=== PATIENT | female | born 1940 | race Caucasian/White ===

== ENCOUNTER → 2017-11-29 11:06 | Outpatient (CLI) | payer MEDICARE, OTHER, SELFPAY ==
[2017-09-21 22:43] VITALS: BP 111/52
[2017-11-29 12:16] LABS: Absolute Lymphocyte Count 1.13 X10^3/ul (0.83-4.51); Absolute Neutrophil Count 4.4 X10^3/uL (2.0-7.7); Basophil# 0.01 X10^3/uL; Basophil% 0.2 % (0-1); Eosinophil# 0.07 X10^3/uL; Eosinophils% 1.2 % (0-5); Hematocrit 38.4 % (37-47); Hemoglobin 12.1 g/dl (12.0-15.0); Lymphocyte # 1.13 X10^3/ul (4.0); Lymphocyte % 18.8 % (19-41); Mean Corp Hgb Conc 31.5 g/gl (32-36); Mean Corpuscular Hgb 28.3 pg (27.0-32.0); Mean Corpuscular Volume 89.7 fL (81-99); Monocyte# 0.38 X10^3/uL; Monocyte% 6.3 % (0-10); Neutrophil % 73.3 % (47-70); Platelet Count 172 K/mm3 (150-450); RBC Distribution Width CV 14.2 % (11.6-14.6); RBC Distribution Width SD 45.4 fl (35.1-43.9); Red Blood Count 4.28 M/mm3 (4.2-5.4)
[2017-11-29 12:18] LABS: POSITIVE COUNT NO; POSITIVE DIFFERENTIAL NO; POSITIVE MORPHOLOGY NO
[2017-11-29 12:21] LABS: ALB/GLOB Ratio 0.9 RATIO (0.9-2.4); AST(SGOT) 24 U/L (15-37); Alanine Aminotransfer ALT/SGPT 22 U/L (13-56); Albumin, Serum 3.5 g/dL (3.2-5.0); Alkaline Phosphatase 46 U/L (45-117); Anion Gap 10 (5-15); BUN 28 mg/dL (7-18); BUN/Creat Ratio 18.9 RATIO (10-20); Calcium,Total 10.8 mg/dL (8.5-10.1); Chloride 102 mmol/L (98-107); Creatinine, Serum 1.48 mg/dL (0.55-1.02); EST Glomerular Filtration Rate 37 mL/min (>60); Est Glom Filt Rate - Afr Amer 44 mL/min (>60); Glucose 149 mg/dL (74-106); Potassium 4.1 mmol/L (3.5-5.1); Protein, Total 7.5 g/dL (6.4-8.2); Sodium Level 141 mmol/L (136-145); Thyroid Stim Hormone (TSH) 0.01 uIU/mL (0.358-3.74)
[2017-11-29 12:22] LABS: Vitamin D,25 Hydroxy 23.1 ng/mL (19.95-100.01)
== END ==
PROVIDERS: Family Provider Family Medicine Geriatric Medicine; PCP Family Medicine Geriatric Medicine; Visit Provider Family Medicine Geriatric Medicine
DX: E11.9 Type 2 diabetes mellitus without complications (principal); I10 Essential (primary) hypertension; E55.9 Vitamin D deficiency, unspecified
CPT/HCPCS: 36415; 80053; 82306; 84443; 85025

== ENCOUNTER → 2018-01-12 08:59 | Outpatient (CLI) | payer MEDICARE, OTHER, SELFPAY ==
[2018-01-12 11:34] LABS: Thyroid Stim Hormone (TSH) < 0.01 uIU/mL (0.358-3.74)
== END ==
PROVIDERS: Family Provider Family Medicine Geriatric Medicine; PCP Family Medicine Geriatric Medicine; Visit Provider Family Medicine Geriatric Medicine
DX: E05.90 Thyrotoxicosis, unspecified without thyrotoxic crisis or storm (principal)
CPT/HCPCS: 36415; 84443

== ENCOUNTER → 2018-03-08 12:07 | Outpatient (CLI) | payer MEDICARE, OTHER, SELFPAY ==
[2018-03-08 15:48] LABS: Absolute Lymphocyte Count 1.95 X10^3/ul (0.83-4.51); Absolute Neutrophil Count 4.1 X10^3/uL (2.0-7.7); Basophil# 0.01 X10^3/uL; Basophil% 0.1 % (0-1); Eosinophils% 1.5 % (0-5); Hemoglobin 11.5 g/dl (12.0-15.0); Lymphocyte # 1.95 X10^3/ul (4.0); Lymphocyte % 28.4 % (19-41); Mean Corp Hgb Conc 31.9 g/gl (32-36); Mean Corpuscular Hgb 29.1 pg (27.0-32.0); Mean Corpuscular Volume 91.1 fL (81-99); Mean Platelet Vol. 10.6 fl (6.2-12.0); Monocyte# 0.64 X10^3/uL; Monocyte% 9.3 % (0-10); Neutrophil # 4.14 X10^3/uL (2.7-7.7); Neutrophil % 60.4 % (47-70); Platelet Count 186 K/mm3 (150-450); RBC Distribution Width CV 13.6 % (11.6-14.6); RBC Distribution Width SD 44.8 fl (35.1-43.9); Red Blood Count 3.95 M/mm3 (4.2-5.4); White Blood Count 6.9 K/mm3 (4.4-11.0)
[2018-03-08 15:58] LABS: POSITIVE COUNT NO; POSITIVE DIFFERENTIAL NO; POSITIVE MORPHOLOGY NO
[2018-03-08 16:30] LABS: Anion Gap 5 (5-15); BUN 13 mg/dL (7-18); BUN/Creat Ratio 12.6 RATIO (10-20); Calcium,Total 11.3 mg/dL (8.5-10.1); Chloride 109 mmol/L (98-107); Creatinine, Serum 1.03 mg/dL (0.55-1.02); EST Glomerular Filtration Rate 55 mL/min (>60); Est Glom Filt Rate - Afr Amer 67 mL/min (>60); Glucose 37 mg/dL (74-106); Potassium 3.7 mmol/L (3.5-5.1); Sodium Level 143 mmol/L (136-145); T4 Total, Thyroxin 11.8 ug/dL (4.8-13.9); Thyroid Stim Hormone (TSH) < 0.01 uIU/mL (0.358-3.74)
== END ==
PROVIDERS: Family Provider Family Medicine Geriatric Medicine; PCP Family Medicine Geriatric Medicine; Visit Provider Physician Assistant Medical
DX: E78.5 Hyperlipidemia, unspecified (principal); I10 Essential (primary) hypertension; I34.1 Nonrheumatic mitral (valve) prolapse; R53.83 Other fatigue
CPT/HCPCS: 80048; 84436; 84443; 85025

== ENCOUNTER → 2018-04-05 07:52 | Outpatient (CLI) | payer MEDICARE, OTHER, SELFPAY ==
[2018-04-05 09:05] LABS: Hemoglobin A1c 6.7 % (4.2-6.3)
[2018-04-05 09:30] LABS: ALB/GLOB Ratio 0.9 RATIO (0.9-2.4); AST(SGOT) 19 U/L (15-37); Alanine Aminotransfer ALT/SGPT 10 U/L (13-56); Albumin, Serum 3.4 g/dL (3.2-5.0); Alkaline Phosphatase 43 U/L (45-117); Anion Gap 7 (5-15); BUN 16 mg/dL (7-18); BUN/Creat Ratio 14.2 RATIO (10-20); Calcium,Total 12.1 mg/dL (8.5-10.1); Chloride 101 mmol/L (98-107); Cholesterol 136 mg/dL (200); Creatinine, Serum 1.13 mg/dL (0.55-1.02); EST Glomerular Filtration Rate 50 mL/min (>60); Est Glom Filt Rate - Afr Amer 60 mL/min (>60); Globulin 3.6 g/dL (2.2-4.2); Glucose 157 mg/dL (74-106); High Density Lipoprotein 56 mg/dL; Phosphorus 2.6 mg/dL (2.5-4.9); Sodium Level 141 mmol/L (136-145); T4 Free Direct 1.39 ng/dL (0.76-1.46); Triglycerides 99 mg/dL; Very Low Density Lipoprotein 20 mg/dL (5-40)
[2018-04-05 09:32] LABS: Thyroid Stim Hormone (TSH) < 0.01 uIU/mL (0.358-3.74)
[2018-04-06 08:18] LABS: PTHIN 107.8 pg/mL (18.4-80.1)
== END ==
PROVIDERS: Internal Medicine Endocrinology, Diabetes & Metabolism; Family Provider Family Medicine Geriatric Medicine; PCP Family Medicine Geriatric Medicine; Visit Provider Family Medicine Geriatric Medicine
DX: E03.9 Hypothyroidism, unspecified (principal); E05.90 Thyrotoxicosis, unspecified without thyrotoxic crisis or storm; E11.9 Type 2 diabetes mellitus without complications
CPT/HCPCS: 36415; 80053; 80061; 82330; 83036; 83970; 84100; 84439; 84443; 84481

== ENCOUNTER → 2018-04-19 10:51 | Outpatient (CLI) | payer MEDICARE, OTHER, SELFPAY ==
--- NOTE | 2018-04-19 10:53 | US_ITS ---
STUDY: THYROID ULTRASOUND REASON FOR EXAM: Female, 77 years old. Thyrotoxicosis TECHNIQUE: Ultrasound evaluation of the thyroid was performed with real-time and static rasmussen-scale imaging. COMPARISON: Prior thyroid ultrasound of 01/02/2017 FINDINGS: RIGHT LOBE: The right lobe of the thyroid gland measures 6.0 x 2.0 x 3.0 cm. There is a heterogeneous echotexture. There is a 2.3 x 1.8 x 1.7 cm solid isoechoic nodule with internodular vascularity. There is a 0.6 x 0.7 x 0.4 cm cystic nodule. There is a 0.6 x 0.8 x 0.4 complex nodule. LEFT LOBE: The left lobe of the thyroid gland measures 6.3 x 2.7 x 3.0 cm cm. There is a heterogeneous echotexture. There is a 2.0 x 2.1 x 0.8 upper pole solid isoechoic nodule. ISTHMUS: The isthmus measures 1.0 centimeter. US/Thyroid IMPRESSION: Stable appearance of the thyroid which is generally enlarged and heterogeneous. Multiple nodules as described above do not appear to be substantially changed on [id number] comparison. Electronically Signed: Aracely Ken MD at 17:12 EDT , Service support ,
== END ==
PROVIDERS: Family Provider Family Medicine Geriatric Medicine; PCP Family Medicine Geriatric Medicine; Visit Provider Internal Medicine Endocrinology, Diabetes & Metabolism
DX: E05.90 Thyrotoxicosis, unspecified without thyrotoxic crisis or storm (principal)
CPT/HCPCS: 76536

== ENCOUNTER → 2018-05-17 09:42 | Outpatient (CLI) | payer MEDICARE, OTHER, SELFPAY ==
[2018-05-17 12:54] LABS: T3 Uptake 37 % (30-39); T4 Free Direct 0.95 ng/dL (0.76-1.46); Thyroid Stim Hormone (TSH) 0.03 uIU/mL (0.358-3.74)
== END ==
PROVIDERS: Family Provider Family Medicine Geriatric Medicine; PCP Family Medicine Geriatric Medicine; Visit Provider Family Medicine Geriatric Medicine
DX: E05.90 Thyrotoxicosis, unspecified without thyrotoxic crisis or storm (principal)
CPT/HCPCS: 36415; 84439; 84443; 84479

== ENCOUNTER → 2018-05-21 08:01 | Outpatient (CLI) | payer MEDICARE, OTHER, SELFPAY ==
[2018-05-21 10:01] LABS: Free T3 2.4 pg/mL (2.18-3.98); T4 Free Direct 0.91 ng/dL (0.76-1.46); Thyroid Stim Hormone (TSH) 0.04 uIU/mL (0.358-3.74)
== END ==
PROVIDERS: Family Provider Family Medicine Geriatric Medicine; PCP Family Medicine Geriatric Medicine; Visit Provider Internal Medicine Endocrinology, Diabetes & Metabolism
DX: E05.90 Thyrotoxicosis, unspecified without thyrotoxic crisis or storm (principal); E21.3 Hyperparathyroidism, unspecified
CPT/HCPCS: 36415; 84439; 84443; 84481

== ENCOUNTER → 2018-05-31 09:56 | Outpatient (CLI) | payer MEDICARE, OTHER, SELFPAY ==
[2018-05-31 12:50] LABS: Absolute Lymphocyte Count 1.31 X10^3/ul (0.83-4.51); Absolute Neutrophil Count 4.1 X10^3/uL (2.0-7.7); Basophil# 0.01 X10^3/uL; Basophil% 0.2 % (0-1); Eosinophil# 0.04 X10^3/uL; Eosinophils% 0.7 % (0-5); Hematocrit 40.5 % (37-47); Hemoglobin 13.1 g/dl (12.0-15.0); Lymphocyte # 1.31 X10^3/ul (4.0); Lymphocyte % 21.7 % (19-41); Mean Corp Hgb Conc 32.3 g/gl (32-36); Mean Corpuscular Hgb 29.3 pg (27.0-32.0); Mean Corpuscular Volume 90.6 fL (81-99); Mean Platelet Vol. 10.6 fl (6.2-12.0); Monocyte# 0.54 X10^3/uL; Monocyte% 8.9 % (0-10); Neutrophil # 4.14 X10^3/uL (2.7-7.7); Neutrophil % 68.3 % (47-70); Platelet Count 198 K/mm3 (150-450); RBC Distribution Width CV 13.6 % (11.6-14.6); RBC Distribution Width SD 44.8 fl (35.1-43.9); Red Blood Count 4.47 M/mm3 (4.2-5.4); White Blood Count 6.1 K/mm3 (4.4-11.0)
[2018-05-31 12:54] LABS: POSITIVE COUNT NO; POSITIVE DIFFERENTIAL NO; POSITIVE MORPHOLOGY NO
[2018-05-31 13:18] LABS: AST(SGOT) 21 U/L (15-37); Alanine Aminotransfer ALT/SGPT 14 U/L (13-56); Albumin, Serum 3.8 g/dL (3.2-5.0); Alkaline Phosphatase 43 U/L (45-117); Anion Gap 9 (5-15); BUN 12 mg/dL (7-18); BUN/Creat Ratio 11.1 RATIO (10-20); Calcium,Total 11.5 mg/dL (8.5-10.1); Chloride 100 mmol/L (98-107); Creatinine, Serum 1.08 mg/dL (0.55-1.02); EST Glomerular Filtration Rate 52 mL/min (>60); Est Glom Filt Rate - Afr Amer 63 mL/min (>60); Globulin 3.8 g/dL (2.2-4.2); Glucose 207 mg/dL (74-106); Potassium 4.2 mmol/L (3.5-5.1); Protein, Total 7.6 g/dL (6.4-8.2); Sodium Level 139 mmol/L (136-145); Thyroid Stim Hormone (TSH) 0.05 uIU/mL (0.358-3.74)
[2018-06-01 08:52] LABS: Vitamin D,25 Hydroxy 36.1 ng/mL (29.95-100.01)
== END ==
PROVIDERS: Family Provider Family Medicine Geriatric Medicine; PCP Family Medicine Geriatric Medicine; Visit Provider Family Medicine Geriatric Medicine
DX: E11.9 Type 2 diabetes mellitus without complications (principal); I10 Essential (primary) hypertension; E55.9 Vitamin D deficiency, unspecified
CPT/HCPCS: 36415; 80053; 82306; 84443; 85025

== ENCOUNTER → 2018-06-28 13:37 | Outpatient (CLI) | payer MEDICARE, OTHER, SELFPAY | PROVIDERS: Family Provider Family Medicine Geriatric Medicine; PCP Family Medicine Geriatric Medicine; Visit Provider Internal Medicine Cardiovascular Disease | DX: R06.02 Shortness of breath (principal) | CPT/HCPCS: 93306 ==

== ENCOUNTER → 2018-06-29 06:51 | Outpatient (CLI) | payer MEDICARE, OTHER, SELFPAY ==
--- NOTE | 2018-06-29 09:56 | STRESSREP ---
Stress Test Report Date: 06/29/2018 Procedure: Pharmacologic stress nuclear imaging study Indications: Shortness of breath/dyspnea; preoperative cardiovascular evaluation Consent: Per the patient Procedure: The patient underwent pharmacologic (Regadenoson) evaluation with a peak heart rate of 80 beats per minute (55 predicted maximal heart rate) and a peak blood pressure of 140/70 mmHg. The baseline ECG demonstrated sinus bradycardia. The peak pharmacologic ECG demonstrated no obvious ECG changes. There were no cardiac dysrhythmias pretest, during pharmacologic infusion, or recovery. There was no complaint of chest discomfort during pharmacologic infusion or recovery. The examination was discontinued secondary to completion of protocol. Impression: 1. Pharmacologic (Regadenoson) evaluation 2. Peak pharmacologic ECG with no obvious ECG changes. 3. There were no cardiac dysrhythmias pretest, during pharmacologic infusion, or recovery 4. Nuclear images pending Myocardial perfusion imaging study: Technique: The patient was injected with 9.9 millicuries of technetium 99m Cardiolite and subsequently rest SPECT Cardiolite nuclear imaging was obtained in the horizontal long, vertical long, and short axis views. The patient underwent pharmacologic (Regadenoson) evaluation with a peak heart rate of 80 beats per minute (55 % percent predicted maximal heart rate) and a peak blood pressure of 140/70 mmHg. The patient was injected with 31.7 millicuries of technetium 99m Cardiolite and subsequently stress SPECT Cardiolite nuclear imaging was obtained in the horizontal long, vertical long, and short axis views. A gated Cardiolite study at peak stress was obtained. Interpretation: Rest and stress SPECT Cardiolite nuclear imaging status post realignment, normalization, and attenuation correction demonstrate relative uniform tracer uptake and myocardial perfusion appearing within normal limits. There is end systolic thickening and brightening. The gated Cardiolite study demonstrates myocardial thickening and inward wall motion. The reported LVEF is 85 %. Impression: 1. Rest and stress SPECT Cardiolite nuclear imaging demonstrate relative uniform tracer uptake and myocardial perfusion appearing within normal limits. 2. The gated Cardiolite study reports an LVEF of 85 %. This note was generated with [employer]ation software. It may contain incorrect words, spelling, and punctuation that were not noted in checking the note before signing.
== END ==
PROVIDERS: Family Provider Family Medicine Geriatric Medicine; PCP Family Medicine Geriatric Medicine; Visit Provider Internal Medicine Cardiovascular Disease
DX: Z01.810 Encounter for preprocedural cardiovascular examination (principal); R06.02 Shortness of breath; I34.1 Nonrheumatic mitral (valve) prolapse; I10 Essential (primary) hypertension
CPT/HCPCS: 78452; 93017; A9500; A4216; J2785

== ENCOUNTER → 2018-07-17 07:53 | Outpatient (CLI) | payer MEDICARE, OTHER, SELFPAY ==
[2018-07-17 09:05] LABS: PTHIN 41.9 pg/mL (18.4-80.1)
[2018-07-17 09:16] LABS: ALB/GLOB Ratio 0.9 RATIO (0.9-2.4); AST(SGOT) 10 U/L (15-37); Alanine Aminotransfer ALT/SGPT 13 U/L (13-56); Albumin, Serum 3.3 g/dL (3.2-5.0); Alkaline Phosphatase 45 U/L (45-117); Anion Gap 8 (5-15); BUN 15 mg/dL (7-18); BUN/Creat Ratio 12.7 RATIO (10-20); Calcium,Total 9.1 mg/dL (8.5-10.1); Chloride 97 mmol/L (98-107); Creatinine, Serum 1.18 mg/dL (0.55-1.02); EST Glomerular Filtration Rate 47 mL/min (>60); Est Glom Filt Rate - Afr Amer 57 mL/min (>60); Free T3 2.1 pg/mL (2.18-3.98); Globulin 3.6 g/dL (2.2-4.2); Glucose 321 mg/dL (74-106); Potassium 3.9 mmol/L (3.5-5.1); Protein, Total 6.9 g/dL (6.4-8.2); Sodium Level 137 mmol/L (136-145); T4 Free Direct 0.85 ng/dL (0.76-1.46); Thyroid Stim Hormone (TSH) 1.37 uIU/mL (0.358-3.74)
== END ==
PROVIDERS: Family Provider Family Medicine Geriatric Medicine; PCP Family Medicine Geriatric Medicine; Referring Provider Internal Medicine Endocrinology, Diabetes & Metabolism; Visit Provider Internal Medicine Endocrinology, Diabetes & Metabolism
DX: E05.90 Thyrotoxicosis, unspecified without thyrotoxic crisis or storm (principal); E21.3 Hyperparathyroidism, unspecified
CPT/HCPCS: 36415; 80053; 82330; 83970; 84439; 84443; 84481

== ENCOUNTER → 2018-07-25 10:42 | Outpatient (CLI) | payer MEDICARE, OTHER, SELFPAY ==
[2018-07-25 12:19] LABS: PTHIN 111.9 pg/mL (18.4-80.1)
[2018-07-25 12:23] LABS: Anion Gap 6 (5-15); BUN 9 mg/dL (7-18); BUN/Creat Ratio 8.4 RATIO (10-20); Calcium,Total 8.4 mg/dL (8.5-10.1); Chloride 98 mmol/L (98-107); Creatinine, Serum 1.07 mg/dL (0.55-1.02); EST Glomerular Filtration Rate 53 mL/min (>60); Est Glom Filt Rate - Afr Amer 64 mL/min (>60); Glucose 283 mg/dL (74-106); Magnesium 1.7 mg/dL (1.6-2.6); Potassium 3.4 mmol/L (3.5-5.1); Sodium Level 137 mmol/L (136-145); T4 Free Direct 0.68 ng/dL (0.76-1.46); Thyroid Stim Hormone (TSH) 3.43 uIU/mL (0.358-3.74)
[2018-07-27 10:14] LABS: C-Peptide 2.4 ng/mL (1.1-4.4)
== END ==
PROVIDERS: Family Provider Family Medicine Geriatric Medicine; PCP Family Medicine Geriatric Medicine; Referring Provider Internal Medicine Endocrinology, Diabetes & Metabolism; Visit Provider Internal Medicine Endocrinology, Diabetes & Metabolism
DX: E21.3 Hyperparathyroidism, unspecified (principal); E11.65 Type 2 diabetes mellitus with hyperglycemia
CPT/HCPCS: 36415; 80048; 83735; 83970; 84439; 84443; 84681

== ENCOUNTER → 2018-09-25 12:56 | Outpatient (CLI) | payer MEDICARE, OTHER, SELFPAY ==
[2018-09-25 14:14] LABS: Vitamin D,25 Hydroxy 35.6 ng/mL (29.95-100.01)
[2018-09-25 14:16] LABS: Anion Gap 9 (5-15); BUN 20 mg/dL (7-18); BUN/Creat Ratio 14.3 RATIO (10-20); Calcium,Total 9.2 mg/dL (8.5-10.1); Chloride 100 mmol/L (98-107); EST Glomerular Filtration Rate 39 mL/min (>60); Est Glom Filt Rate - Afr Amer 47 mL/min (>60); Glucose 54 mg/dL (74-106); Potassium 3.3 mmol/L (3.5-5.1); Sodium Level 142 mmol/L (136-145); T4 Free Direct 0.24 ng/dL (0.76-1.46)
== END ==
PROVIDERS: Family Provider Family Medicine Geriatric Medicine; PCP Family Medicine Geriatric Medicine; Referring Provider Internal Medicine Endocrinology, Diabetes & Metabolism; Visit Provider Internal Medicine Endocrinology, Diabetes & Metabolism
DX: E55.9 Vitamin D deficiency, unspecified (principal); R25.2 Cramp and spasm; E11.65 Type 2 diabetes mellitus with hyperglycemia; Z98.890 Other specified postprocedural states
CPT/HCPCS: 36415; 80048; 82306; 83735; 84439; 84443; 84481

== ENCOUNTER → 2018-10-05 08:54 | Outpatient (CLI) | payer MEDICARE, OTHER, SELFPAY ==
[2018-10-05 11:01] LABS: AST(SGOT) 34 U/L (15-37); Alanine Aminotransfer ALT/SGPT 11 U/L (13-56); Albumin, Serum 3.5 g/dL (3.2-5.0); Alkaline Phosphatase 36 U/L (45-117); Anion Gap 10 (5-15); BUN 22 mg/dL (7-18); BUN/Creat Ratio 15.8 RATIO (10-20); Calcium,Total 8.7 mg/dL (8.5-10.1); Chloride 101 mmol/L (98-107); Creatinine, Serum 1.39 mg/dL (0.55-1.02); EST Glomerular Filtration Rate 39 mL/min (>60); Est Glom Filt Rate - Afr Amer 47 mL/min (>60); Globulin 3.4 g/dL (2.2-4.2); Glucose 175 mg/dL (74-106); Protein, Total 6.9 g/dL (6.4-8.2); Sodium Level 142 mmol/L (136-145)
--- OUTSIDE RECORDS SUMMARY | 2018-11-20 22:10 | XMS RPT_ITS ---
:1940 Author Organization OHIP Support Name Relationship Address Phone AUDRA RAVI Unavailable [address] + [place] [address] R Unavailable Unavailable Unavailable RAVI, AUDRA Unavailable [address] + [place] [address] R Unavailable Unavailable Unavailable RAVI, AUDRA Unavailable [address] + [place] [address] R Unavailable Unavailable Unavailable RAVI, AUDRA Unavailable [address] + [place] [address] R Unavailable Unavailable Unavailable RAVI, AUDRA Unavailable [address] + [place] [address] RAVI, AUDRA Unavailable [address] + [place] [address] R Unavailable Unavailable Unavailable RAVI, AUDRA Unavailable [address] + [place] [address] R Unavailable Unavailable Unavailable RAVI, AUDRA Unavailable [address] + [place] [address] R Unavailable Unavailable Unavailable RAVI, AUDRA Unavailable [address] + [place] [address] R Unavailable Unavailable Unavailable RAVI, AUDRA Unavailable [address] + [place] [address] R Unavailable Unavailable Unavailable RAVI, AUDRA Unavailable [address] + [place] [address] RAVI, AUDRA Unavailable [address] + [place] [address] R Unavailable Unavailable Unavailable RAVI, AUDRA Unavailable [address] + [place] [address] R Unavailable Unavailable Unavailable RAVI, AUDRA Unavailable [address] + [place] [address] R Unavailable Unavailable Unavailable R Unavailable Unavailable Unavailable RAVI, AUDRA Unavailable [address] + [place] [address] R Unavailable Unavailable Unavailable RAVI, AUDRA Unavailable [address] + [place] [address] R Unavailable Unavailable Unavailable RAVI, AUDRA Unavailable [address] + [place] [address] R Unavailable Unavailable Unavailable RAVI, AUDRA Unavailable [address] + [place] [address] R Unavailable Unavailable Unavailable R Unavailable Unavailable Unavailable MAYNOR, ROSIE Unavailable [address] + [place] [address] RAVI, AUDRA Unavailable [address] + [place] [address] R Unavailable Unavailable Unavailable MAYNOR, ROSIE Unavailable [address] + [place] [address] RAVI, AUDRA Unavailable [address] + [place] [address] R Unavailable Unavailable Unavailable MAYNOR, ROSIE Unavailable [address] + [place] [address] RAVI, AUDRA Unavailable [address] + [place] [address] R Unavailable Unavailable Unavailable Care Team Providers Name Role Phone ERASMO HASSAN MD, I. Attending Unavailable KIERA MONTOYA MD Referring Unavailable SATYA OLIVAS, DR. NUÑEZ Primary Care Unavailable ERASMO HASSAN MD, I. Attending Unavailable SATYA OLIVAS, DR. NUÑEZ Primary Care Unavailable NURYS PARKINSON MD Consulting Unavailable ERASMO HASSAN MD, I. Admitting Unavailable ERASMO HASSAN MD, I. Consulting Unavailable Kiera Montoya Attending Unavailable Kiera Montoya Referring Unavailable Satya, Rkunal Chi Primary Care Unavailable Satya, Krunal Chi Attending Unavailable Satya, Krunal Chi Primary Care Unavailable Satya, Krunal Chi Attending Unavailable Satya, Krunal Chi Primary Care Unavailable Satya, Krunal Chi Attending Unavailable Satya, Krunal Chi Primary Care Unavailable Phuong Tim Attending Unavailable Kiara Bedolla Attending Unavailable Satya, Krunal Chi Referring Unavailable Satya, Krunal Chi Primary Care Unavailable Kiara Bedolla Attending Unavailable Satya, Krunal Chi Primary Care Unavailable Raghunathan, Kiera N. Attending Unavailable Satya, Krunal Chi Primary Care Unavailable Raghunathan, Kiera N. Referring Unavailable Satya, Krunal Chi Attending Unavailable Satya, Krunal Chi Primary Care Unavailable Satya, Krunal Chi Referring Unavailable Raghunathan, Kiera N. Attending Unavailable Satya, Krunal Chi Primary Care Unavailable Raghunathan, Kiera N. Attending Unavailable Raghunathan, Kiera N. Referring Unavailable Satya, Krunal Chi Primary Care Unavailable Satya, Krunal Chi Attending Unavailable Satya, Krunal Chi Primary Care Unavailable MoodispaAlvarado bolden Attending Unavailable Satya, Krunal Chi Referring Unavailable Satya, Krunal Chi Primary Care Unavailable Moodispaw, [place] Attending Unavailable Moodispaw, [place] Referring Unavailable Satya, Krunal Chi Primary Care Unavailable MoodispaAlvarado bolden Attending Unavailable Satya, Krunal Chi Primary Care Unavailable Raghunathan, Kiera N. Attending Unavailable Raghunathan, Kiera N. Referring Unavailable Satya, Krunal Chi Primary Care Unavailable [place] Santos Attending Unavailable DenaeispaAlvarado bolden Referring Unavailable MoodispaAlvarado bolden Attending Unavailable Moodispaw [place] Referring Unavailable Raghunathan, Kiera N. Attending Unavailable Raghunathan, Kiera N. Referring Unavailable Satya, Krunal Chi Primary Care Unavailable PROBLEMS PROBLEMS DATE TYPE CONDITION / CODE ATTENDING STATUS SOURCE 10/05/2018 Unknown E11.65 - Type 2 Raghunathan, Active [place] diabetes mellitus Kiera N. Community with hyperglycemia / Hospital E11.65(ICD-10) Repository 09/25/2018 Unknown E55.9 - Vitamin D Raghunathan, Active [place] deficiency, Kiera N. Community unspecified / Hospital E55.9(ICD-10) Repository 09/25/2018 Unknown Z98.890 - Other Raghunathan, Active [place] specified Kiera N. Community postprocedural Hospital states / Repository Z98.890(ICD-10) 09/25/2018 Unknown R25.2 - Cramp and Raghunathan, Active [place] spasm / Kiera N. Community R25.2(ICD-10) Hospital Repository 07/25/2018 Unknown E21.3 - Raghunathan, Active [place] Hyperparathyroidism, Kiera N. Community unspecified / Hospital E21.3(ICD-10) Repository 07/17/2018 Unknown E05.90 - Raghunathan, Active [place] Thyrotoxicosis, Kiera N. Community unspecified without Hospital thyrotoxic crisis or Repository storm / E05.90(ICD-10) 07/26/2018 Unknown R06.02 - Shortness MoodispaAlvarado bolden Active [place] of breath / Community R06.02(ICD-10) Hospital Repository 06/27/2018 Unknown I10 - Essential MoodispaAlvarado bolden Active [place] (primary) Community hypertension / Hospital I10(ICD-10) Repository 06/27/2018 Unknown I34.1 - Nonrheumatic Moodispaw, [place] Active [place] mitral (valve) [facility] prolapse / Hospital I34.1(ICD-10) Repository 06/27/2018 Unknown I49.3 - Ventricular Moodispaw, [place] Active [place] premature Community depolarization / Hospital I49.3(ICD-10) Repository 06/27/2018 Unknown I49.1 - Atrial Moodispaw, [place] Active [place] premature Community depolarization / Hospital I49.1(ICD-10) Repository 06/27/2018 Unknown R00.2 - Palpitations MoodispaAlvarado bolden Active [place] / R00.2(ICD-10) [facility] Hospital Repository 06/27/2018 Unknown Z01.810 - Encounter MoodisbrodyAlvarado bolden Active [place] for preprocedural [facility] cardiovascular Hospital examination / Repository Z01.810(ICD-10) 03/08/2018 Unknown R53.83 - Other Chioma Active [place] fatigue / Kiara Spaulding [facility] R53.83(ICD-10) Hospital Repository 03/08/2018 Unknown E78.5 - Bedolla, Active [place] Hyperlipidemia, Kiara [facility] unspecified / Hospital E78.5(ICD-10) Repository 11/29/2017 Unknown E11.9 - Type 2 Satya, Krunal Chi Active [place] diabetes mellitus Community without Hospital complications / Repository E11.9(ICD-10) PROCEDURES PROCEDURES No Procedure Records FoundRESULTS RESULTS HEMOGLOBIN A1C Collected: 10/05/2018 Status: F Source: [place] 9:01 AM [facility] TYPE CODE TESTS RESULT OUT OF RANGE REFERENCE UNITS LAB L501.9985 4.2-6.3 % High HGB A1C 8.0 Performed By: #### L501.9985 #### [facility] [address] [place], [address] COMPREHENSIVE METABOLIC Collected: 10/05/2018 Status: F Source: [place] 9:01 AM [facility] [place] Order Comment: Has Patient had X-rays with Contrast this admission? N Is Patient on Heparin? N TYPE CODE TESTS RESULT OUT OF RANGE REFERENCE UNITS LAB L501.0100 74-106 mg/dL High GLU 175 Result Comment: Fasting Glucose result greater than or equal to 126 mg/dL suggests DIABETES MELLITUS per A.D.A. criteria. Please note revised GLUCOSE reference range effective 2017. LAB L501.1000 7-18 mg/dL High BUN 22 LAB L501.1100 0.55-1.02 mg/dL High CREAT,SERUM 1.39 Result Comment: The validity of the calculated GFR AND GFRAA in patients over 70 years has not been determined. Clinical correlation is essential. LAB L501.1110 >60 mL/min Low EST GFR 39 Result Comment: Non- GFR Calc LAB L501.1115 >60 mL/min Low EST GFR - AA 47 Result Comment: GFR Calc LAB L501.1300 10-20 RATIO Normal BUN/CRE 15.8 LAB L501.1500 6.4-8.2 g/dL T Normal PROT 6.9 LAB L501.1800 3.2-5.0 g/dL Normal ALB 3.5 LAB L501.1950 2.2-4.2 g/dL Normal GLOB 3.4 LAB L501.2000 0.9-2.4 RATIO Normal A/G 1.0 LAB L501.2200 8.5-10.1 mg/dL CA Normal 8.7 LAB L501.4100 15-37 U/L Normal AST 34 LAB L501.4305 45-117 U/L Low ALK P 36 LAB L501.4405 13-56 U/L Low ALT 11 LAB L501.4600 0.20-1.00 mg/dL T Normal BILI 0.70 LAB L501.5300 136-145 mmol/L NA Normal 142 LAB L501.5600 3.5-5.1 mmol/L K Normal 4.0 LAB L501.5900 98-107 mmol/L CL Normal 101 LAB L501.6100 21.0-32.0 mmol/L Normal CO2 31.0 LAB L501.6200 5-15 Normal GAP 10 Performed By: #### L500.4050, L501.9520, L506.0400 #### [facility] [address], [address] THYROID STIM HORMONE Collected: 10/05/2018 Status: F Source: [place] (TSH) 9:01 AM [facility] [place] Order Comment: Has Patient had X-rays with Contrast this admission? N Is Patient on Heparin? N TYPE CODE TESTS RESULT OUT OF RANGE REFERENCE UNITS LAB L501.9520 0.358-3.74 uIU/mL High TSH 83.30 Performed By: #### L500.4050, L501.9520, L506.0400 #### [facility] [address] [place], [address] T4 FREE DIRECT Collected: 10/05/2018 Status: F Source: [place] 9:01 AM [facility] [place] Order Comment: Has Patient had X-rays with Contrast this admission? N Is Patient on Heparin? N TYPE CODE TESTS RESULT OUT OF REFERENCE UNITS RANGE LAB L506.0400 0.76-1.46 ng/dL Low T4 FREE 0.20 DIRECT Performed By: #### L500.4050, L501.9520, L506.0400 #### [facility] [address], [address] VITAMIN D,25 HYDROXY Collected: 09/25/2018 Status: F Source: [place] 1:05 PM [facility] [place] TYPE CODE TESTS RESULT OUT OF RANGE REFERENCE UNITS LAB L506.1000 29.95-100.01 ng/mL Normal Vitamin D 35.6 25-OH Result Comment: Vitamin D 25(OH) Status Range Deficiency <20 ng/mL (50nmol/L) Insuffciency 20 - 30 ng/mL (50 - 75 nmol/L) Sufficiency 30 - 100 ng/mL (75 - 250 nmol/L) Toxicity >100 ng/mL (>250 nmol/L) Performed By: #### L506.1000 #### [facility] [address] [place], [place], [address] BASIC METABOLIC Collected: 09/25/2018 Status: F Source: [place] PROFILE (BMP) 1:05 PM [facility] [place] TYPE CODE TESTS RESULT OUT OF RANGE REFERENCE UNITS LAB L501.0100 74-106 mg/dL Low GLU 54 Result Comment: Please note revised GLUCOSE reference range effective 2017. LAB L501.1000 7-18 mg/dL High BUN 20 LAB L501.1100 0.55-1.02 mg/dL High CREAT,SERUM 1.40 Result Comment: The validity of the calculated GFR AND GFRAA in patients over 70 years has not been determined. Clinical correlation is essential. LAB L501.1110 >60 mL/min Low EST GFR 39 Result Comment: Non- GFR Calc LAB L501.1115 >60 mL/min Low EST GFR - AA 47 Result Comment: GFR Calc LAB L501.1300 10-20 RATIO Normal BUN/CRE 14.3 LAB L501.2200 8.5-10.1 mg/dL CA Normal 9.2 LAB L501.5300 136-145 mmol/L NA Normal 142 LAB L501.5600 3.5-5.1 mmol/L Low K 3.3 LAB L501.5900 98-107 mmol/L CL Normal 100 LAB L501.6100 21.0-32.0 mmol/L High CO2 33.0 LAB L501.6200 5-15 Normal GAP 9 Performed By: #### L500.2500, L501.5200, L501.30812, L501.9520, L506.0400 #### [facility] [address] [place], [place], [address] MAGNESIUM Collected: 09/25/2018 Status: F Source: [place] 1:05 PM [facility] [place] [facility] TYPE CODE TESTS RESULT OUT OF RANGE REFERENCE UNITS LAB L501.5200 1.6-2.6 mg/dL Normal MG 2.0 Performed By: #### L500.2500, L501.5200, L501.08263, L501.9520, L506.0400 #### [facility] [address] [place], [address] FREE T3 Collected: 09/25/2018 Status: F Source: [place] 1:05 PM [facility] [place] TYPE CODE TESTS RESULT OUT OF RANGE REFERENCE UNITS LAB L501.13640 2.18-3.98 pg/mL Low FREE T3 2.0 Performed By: #### L500.2500, L501.5200, L501.12466, L501.9520, L506.0400 #### [facility] [address] [place], [address] THYROID STIM HORMONE Collected: 09/25/2018 Status: F Source: [place] (TSH) 1:05 PM [facility] [place] TYPE CODE TESTS RESULT OUT OF RANGE REFERENCE UNITS LAB L501.9520 0.358-3.74 uIU/mL High TSH 93.60 Performed By: #### L500.2500, L501.5200, L501.42298, L501.9520, L506.0400 #### [facility] [address] [place], [address] T4 FREE DIRECT Collected: 09/25/2018 Status: F Source: [place] 1:05 PM [facility] [place] [facility] TYPE CODE TESTS RESULT OUT OF REFERENCE UNITS RANGE LAB L506.0400 0.76-1.46 ng/dL Low T4 FREE 0.24 DIRECT Performed By: #### L500.2500, L501.5200, L501.47329, L501.9520, L506.0400 #### [facility] [address] [place], [address] PTHIN Collected: 07/25/2018 Status: F Source: [place] 10:48 AM [facility] [place] TYPE CODE TESTS RESULT OUT OF RANGE REFERENCE UNITS LAB L509.1000 18.4-80.1 pg/mL High PTHIN 111.9 Performed By: #### L509.1000 #### [facility] [address] [place], [address] BASIC METABOLIC Collected: 07/25/2018 Status: F Source: [place] PROFILE (BMP) 10:48 AM [facility] [place] [facility] Order Comment: Has Patient had X-rays with Contrast this admission? N Is Patient on Heparin? N TYPE CODE TESTS RESULT OUT OF RANGE REFERENCE UNITS LAB L501.0100 74-106 mg/dL High GLU 283 Result Comment: Glucose result greater than or equal to 200 mg/dL suggests DIABETES MELLITUS per A.D.A. criteria. Please note revised GLUCOSE reference range effective 2017. LAB L501.1000 7-18 mg/dL Normal BUN 9 LAB L501.1100 0.55-1.02 mg/dL High CREAT,SERUM 1.07 Result Comment: The validity of the calculated GFR AND GFRAA in patients over 70 years has not been determined. Clinical correlation is essential. LAB L501.1110 >60 mL/min Low EST GFR 53 Result Comment: Non- GFR Calc LAB L501.1115 >60 mL/min Normal EST GFR - AA 64 Result Comment: GFR Calc LAB L501.1300 10-20 RATIO Low BUN/CRE 8.4 LAB L501.2200 8.5-10.1 mg/dL Low CA 8.4 LAB L501.5300 136-145 mmol/L Normal NA 137 LAB L501.5600 3.5-5.1 mmol/L Low K 3.4 LAB L501.5900 98-107 mmol/L Normal CL 98 LAB L501.6100 21.0-32.0 mmol/L High CO2 33.0 LAB L501.6200 5-15 Normal GAP 6 Performed By: #### L500.2500, L501.5200, L501.9520, L506.0400 #### [facility] [address] [place], [address] MAGNESIUM Collected: 07/25/2018 Status: F Source: [place] 10:48 AM [facility] [place] [facility] Order Comment: Has Patient had X-rays with Contrast this admission? N Is Patient on Heparin? N TYPE CODE TESTS RESULT OUT OF RANGE REFERENCE UNITS LAB L501.5200 1.6-2.6 mg/dL Normal MG 1.7 Performed By: #### L500.2500, L501.5200, L501.9520, L506.0400 #### [facility] [address] [place], [address] THYROID STIM HORMONE Collected: 07/25/2018 Status: F Source: [place] (TSH) 10:48 AM [facility] [place] [facility] Order Comment: Has Patient had X-rays with Contrast this admission? N Is Patient on Heparin? N TYPE CODE TESTS RESULT OUT OF RANGE REFERENCE UNITS LAB L501.9520 0.358-3.74 uIU/mL Normal TSH 3.43 Performed By: #### L500.2500, L501.5200, L501.9520, L506.0400 #### [facility] [address] [place], [address] T4 FREE DIRECT Collected: 07/25/2018 Status: F Source: [place] 10:48 AM [facility] [place] [facility] Order Comment: Has Patient had X-rays with Contrast this admission? N Is Patient on Heparin? N TYPE CODE TESTS RESULT OUT OF REFERENCE UNITS RANGE LAB L506.0400 0.76-1.46 ng/dL Low T4 FREE 0.68 DIRECT Performed By: #### L500.2500, L501.5200, L501.9520, L506.0400 #### [facility] [address] [place], [address] C-PEPTIDE Collected: 07/25/2018 Status: F Source: [place] 10:48 AM [facility] [place] [facility] TYPE CODE TESTS RESULT OUT OF RANGE REFERENCE UNITS LAB L3100.7750 1.1-4.4 ng/mL Normal C PEPTIDE 2.4 43465 Result Comment: C-Peptide reference interval is for fasting patients. Performed at: - [facility] [address] [id number] Investigations Chief: Jonn Mckeon PhD, Phone: [phone] Performed By: #### L3100.7750 #### [facility] (refer to report for specific site) refer to report for address and phone number PTHIN Collected: 07/17/2018 Status: F Source: [place] 7:59 AM [facility] [place] TYPE CODE TESTS RESULT OUT OF RANGE REFERENCE UNITS LAB L509.1000 18.4-80.1 pg/mL Normal PTHIN 41.9 Performed By: #### L509.1000 #### [facility] [place], [address] COMPREHENSIVE METABOLIC Collected: 07/17/2018 Status: F Source: [place]ENC[place] 7:59 AM [facility] [place] [facility] Order Comment: Has Patient had X-rays with Contrast this admission? N Is Patient on Heparin? N TYPE CODE TESTS RESULT OUT OF RANGE REFERENCE UNITS LAB L501.0100 74-106 mg/dL High GLU 321 Result Comment: Glucose result greater than or equal to 200 mg/dL suggests DIABETES MELLITUS per A.D.A. criteria. Please note revised GLUCOSE reference range effective 2017. LAB L501.1000 7-18 mg/dL Normal BUN 15 LAB L501.1100 0.55-1.02 mg/dL High CREAT,SERUM 1.18 Result Comment: The validity of the calculated GFR AND GFRAA in patients over 70 years has not been determined. Clinical correlation is essential. LAB L501.1110 >60 mL/min Low EST GFR 47 Result Comment: Non- GFR Calc LAB L501.1115 >60 mL/min Low EST GFR - AA 57 Result Comment: GFR Calc LAB L501.1300 10-20 RATIO Normal BUN/CRE 12.7 LAB L501.1500 6.4-8.2 g/dL T Normal PROT 6.9 LAB L501.1800 3.2-5.0 g/dL Normal ALB 3.3 LAB L501.1950 2.2-4.2 g/dL Normal GLOB 3.6 LAB L501.2000 0.9-2.4 RATIO Normal A/G 0.9 LAB L501.2200 8.5-10.1 mg/dL CA Normal 9.1 LAB L501.4100 15-37 U/L Low AST 10 LAB L501.4305 45-117 U/L Normal ALK P 45 LAB L501.4405 13-56 U/L Normal ALT 13 LAB L501.4600 0.20-1.00 mg/dL T Normal BILI 0.50 LAB L501.5300 136-145 mmol/L NA Normal 137 LAB L501.5600 3.5-5.1 mmol/L K Normal 3.9 LAB L501.5900 98-107 mmol/L Low CL 97 LAB L501.6100 21.0-32.0 mmol/L Normal CO2 32.0 LAB L501.6200 5-15 Normal GAP 8 Performed By: #### L500.4050, L501.21713, L501.9520, L506.0400 #### [facility] [address] [place], [address] FREE T3 Collected: 07/17/2018 Status: F Source: [place] 7:59 AM [facility] [place] [facility] Order Comment: Has Patient had X-rays with Contrast this admission? N Is Patient on Heparin? N TYPE CODE TESTS RESULT OUT OF RANGE REFERENCE UNITS LAB L501.54651 2.18-3.98 pg/mL Low FREE T3 2.1 Performed By: #### L500.4050, L501.30135, L501.9520, L506.0400 #### [facility] [address] [place], [place], [address] THYROID STIM HORMONE Collected: 07/17/2018 Status: F Source: [place] (TSH) 7:59 AM [facility] [place] [facility] Order Comment: Has Patient had X-rays with Contrast this admission? N Is Patient on Heparin? N TYPE CODE TESTS RESULT OUT OF RANGE REFERENCE UNITS LAB L501.9520 0.358-3.74 uIU/mL Normal TSH 1.37 Performed By: #### L500.4050, L501.32060, L501.9520, L506.0400 #### [facility] [address] [place], [address] T4 FREE DIRECT Collected: 07/17/2018 Status: F Source: [place] 7:59 AM [facility] [place] [facility] Order Comment: Has Patient had X-rays with Contrast this admission? N Is Patient on Heparin? N TYPE CODE TESTS RESULT OUT OF RANGE REFERENCE UNITS LAB L506.0400 0.76-1.46 ng/dL Normal T4 FREE 0.85 DIRECT Performed By: #### L500.4050, L501.62239, L501.9520, L506.0400 #### [facility] [address] [place], [address] CALCIUM IONIZED Collected: 07/17/2018 Status: F Source: [place] 7:59 AM [facility] [place] [facility] TYPE CODE TESTS RESULT OUT OF RANGE REFERENCE UNITS LAB L3100.9600 4.5-5.6 mg/dL Normal IONIZED CA 5.1 Result Comment: Performed at: - [facility] [id number] Investigations Chief: Jonn Mckeon PhD, Phone: [phone] Performed By: #### L3100.9600 #### [facility] (refer to report for specific site) refer to report for address and phone number CAION Collected: 07/11/2018 Status: F Source: [facility] 5:08 AM [facility] REPOSITORY TYPE CODE TESTS RESULT OUT OF REFERENCE UNITS RANGE LAB CAION(LOINC 1.12-1.32 mmol/L ) Calcium 1.26 Ionized Performed By: #### CAION #### [place] [address] CAION Collected: 07/10/2018 Status: F Source: [facility] 9:07 PM [facility] REPOSITORY TYPE CODE TESTS RESULT OUT OF REFERENCE UNITS RANGE LAB CAION(LOINC 1.12-1.32 mmol/L ) Calcium 1.27 Ionized Performed By: #### CAION #### [place] [address] FINAL SURGICAL Observed: 07/10/2018 Status: F Source: [facility] PATHOLOGY REPORT 12:04 PM [facility] REPOSITORY . Pathology Reports Accession: Collected Date/Time: Received Date/Time: Pathologist: [id number] 07/10/2018 12:04 EDT 07/10/2018 14:10 EDT MD ADILENE MCARTHUR Final Surgical Pathology Report DIAGNOSIS: A) PARATHYROID -- HYPERCELLULAR PARATHYROID TISSUE IDENTIFIED. B) THYROID, LEFT THYROID LOBECTOMY SPECIMENS -- MULTINODULAR GOITER. CLINICAL INFORMATION: Procedure: PARATHYROID EXPLORATION WITH PARATHYROID HORMONE MONITORING AND GAMMA PROBE, LEFT THYROID LOBECTOMY, WITH LARYNGEAL NERVE MONITORING Preoperative diagnosis: PRIMARY HYPERTHYROIDISM Postoperative diagnosis: PRIMARY HYPERTHYROIDISM SPECIMEN: A PARATHYROID - RIGHT INFERIOR PARATHYROID ADENOMA - FROZEN SECTION B THYROID - LEFT THYROID LOBE AND NODULE CONTENT - FROZEN SECTION x2 INTRAOPERATIVE CONSULTATION: A) PARATHYROID TISSUE IDENTIFIED. B) FSx2: MULTINODULAR GOITER. dictated by Dre Mcarthur M.D. GROSS DESCRIPTION: A. Received fresh for intraoperative consultation labeled right inferior parathyroid is a portion of jones red soft tissue which is entirely submitted for frozen section diagnosis in one cassette. B. Received fresh for intraoperative consultation labeled left thyroid lobe and nodule is a 55 g, 8.3 x 6.5 x 2.7 cm product of a left thyroid lobectomy. The outer surface is red and ranges from smooth to rough. Sectioning shows innumerable jones-red, glistening, gelatinous appearing nodules measuring up to 3.2 cm in greatest dimension. There are a few jones-yellow foci measuring up to 0.4 cm in greatest dimension. No calcification is identified. No normal- appearing parenchyma is identified. RS -8 Dictated by Latricia PATIÑO ([facility]) MICROSCOPIC DESCRIPTION: A&B) Slides reviewed. Electronically Signed by Pathology Report verified by [facility] Electronically signed by ADILENE MCARTHUR MD Sign out Date: 07/11/2018 15:37 Performing Lab: [address] Performed By: #### SPFR #### [place] [address] PTHOR Collected: 07/10/2018 Status: F Source: [facility] 11:47 AM [facility] REPOSITORY TYPE CODE TESTS RESULT OUT OF REFERENCE UNITS RANGE LAB PTHOR(LOIN 18.4-80.1 pg/mL C) PTH, Intraoperative 37.6 Performed By: #### PTHOR #### [place] [address] NM PARATHYROID STUDY Observed: 07/10/2018 Status: F Source: [place] 7:00 AM [facility] REPOSITORY ORIGINAL NM PARATHYROID Scan Clinical Statement: parathyroid exploration, hyperparathyroidism, goiter Comparison: CT soft tissue neck 06/14/2018 Technique: Radiopharmaceutical: Tc 99m sestamibi IV, Dose: 20.5mCi Sequential anterior pinhole gamma camera imaging of the neck for 25 minutes, oblique images, and GAP imaging of the neck and mediastinum. Findings: There is a moderate to large goiter with a heterogeneous increased activity, particularly the LEFT thyroid lobe, correlating with the recent CT finding. No particularly focal increased activit y is seen to suggest a parathyroid adenoma. IMPRESSION: Findings compatible with a goiter, which somewhat limits evaluation for a parathyroid adenoma. No focal increased activity to suggest a parathyroid adenoma. Interpreted By: Trip Grajeda DO Preliminary Report By: Trip Grajeda DO Electronically Signed By: Trip Grajeda DO Dictated Date: 07/10/2018 10:17:11 AM Prelim Date: 07/10/2018 10:17:11 AM Sign Date: 07/10/2018 10:19:32 AM HGB Collected: 07/10/2018 Status: F Source: [facility] 6:45 AM [facility] REPOSITORY TYPE CODE TESTS RESULT OUT OF RANGE REFERENCE UNITS LAB HGB(LOINC) 12.0-16.0 G/dL Low Hgb 11.6 Performed By: #### HGB, BMP, GFR #### [address] [address] BMP Collected: 07/10/2018 Status: F Source: [facility] 6:45 AM [facility] REPOSITORY TYPE CODE TESTS RESULT OUT OF REFERENCE UNITS RANGE LAB GLU(LOINC) 82-115 mg/dL Glucose High Level 173 LAB NA(LOINC) 136-145 mEq/L Sodium Level 141 LAB K(LOINC) 3.5-5.0 mEq/L Potassium Level 4.1 LAB CL(LOINC) 98-110 mEq/L Chloride 105 LAB CO2(LOINC) 22-32 mEq/L CO2 27 LAB EBAL(LOINC 4.0-15.0 mEq/L ) Electrolyte Balance 9.0 LAB BUN(LOINC) 8.0-22.0 mg/dL BUN 21.0 LAB CRE(LOINC) 0.50-1.20 mg/dL Creatinine Lvl (s) 0.88 LAB BC(LOINC) 10.0-22.0 ratio High BUN/Creatinine 23.9 Ratio LAB CA(LOINC) 8.4-10.1 mg/dL Calcium Lvl High 10.6 Performed By: #### HGB, BMP, GFR #### [address] [address] .GFR Collected: 07/10/2018 Status: F Source: [facility] 6:45 AM [facility] REPOSITORY TYPE CODE TESTS RESULT OUT OF REFERENCE UNITS RANGE LAB GFRAA(LOINC ml/min/1.73 ) sqm GFR >60 Malian Result Comment: GFR Population mean for , Non- Americans Ages 20-29 = 116 mL/min/1.73 sq.m. Ages 30-39 = 107 mL/min/1.73 sq.m. Ages 40-49 = 99 mL/min/1.73 sq.m. Ages 50-59 = 93 mL/min/1.73 sq.m. Ages 60-69 = 85 mL/min/1.73 sq.m. Ages 70+ = 75 mL/min/1.73 sq.m. Chronic Kidney Disease: Less than 60 mL/min/1.73 square meters End Stage Renal Disease: Less than 15 mL/min/1.73 square meters LAB GFRNO(LOINC) ml/min/1.73sqm GFR Non- >60 Result Comment: GFR Population mean for , Non- Americans Ages 20-29 = 116 mL/min/1.73 sq.m. Ages 30-39 = 107 mL/min/1.73 sq.m. Ages 40-49 = 99 mL/min/1.73 sq.m. Ages 50-59 = 93 mL/min/1.73 sq.m. Ages 60-69 = 85 mL/min/1.73 sq.m. Ages 70+ = 75 mL/min/1.73 sq.m. Chronic Kidney Disease: Less than 60 mL/min/1.73 square meters End Stage Renal Disease: Less than 15 mL/min/1.73 square meters Performed By: #### HGB, BMP, GFR #### [address] [address] PTHOR Collected: 07/10/2018 Status: C Source: [facility] 6:40 AM [facility] TYPE CODE TESTS RESULT OUT OF REFERENCE UNITS RANGE LAB PTHOR(LOIN 18.4-80.1 pg/mL C) PTH, Intraoperative High 157.6 Result Comment: baseline pth Performed By: #### PTHOR #### [address] [address] STRESS REPORT Observed: 06/29/2018 Status: F Source: [facility] 10:01 AM [facility] [place] [facility] [facility] Cardiovascular Services [address] [place], [place] [address] [address] MR#: [id number] Acct: [id number] Name: JUVENAL RAVI Rep #: [id number] : 1940 78 From: Alvarado Santos MD Primary Care: Satya PEÑALOZA,Krunal Chi Status: REG CLI Ordering Dr: Sex: Ej C Stress Test Report Date: 06/29/2018 Procedure: Pharmacologic stress nuclear imaging study Indications: Shortness of breath/dyspnea; preoperative cardiovascular evaluation Consent: Per the patient Procedure: The patient underwent pharmacologic (Regadenoson) evaluation with a peak heart rate of 80 beats per minute (55 predicted maximal heart rate) and a peak blood pressure of 140/70 mmHg. The baseline ECG demonstrated sinus bradycardia. The peak pharmacologic ECG demonstrated no obvious ECG changes. There were no cardiac dysrhythmias pretest, during pharmacologic infusion, or recovery. There was no complaint of chest discomfort during pharmacologic infusion or recovery. The examination was discontinued secondary to completion of protocol. Impression: 1. Pharmacologic (Regadenoson) evaluation 2. Peak pharmacologic ECG with no obvious ECG changes. 3. There were no cardiac dysrhythmias pretest, during pharmacologic infusion, or recovery 4. Nuclear images pending Myocardial perfusion imaging study: Technique: The patient was injected with 9.9 millicuries of technetium 99m Cardiolite and subsequently rest SPECT Cardiolite nuclear imaging was obtained in the horizontal long, vertical long, and short axis views. The patient underwent pharmacologic (Regadenoson) evaluation with a peak heart rate of 80 beats per minute (55 % percent predicted maximal heart rate) and a peak blood pressure of 140/70 mmHg. The patient was injected with 31.7 millicuries of technetium 99m Cardiolite and subsequently stress SPECT Cardiolite nuclear imaging was obtained in the horizontal long, vertical long, and short axis views. A gated Cardiolite study at peak stress was obtained. Interpretation: Rest and stress SPECT Cardiolite nuclear imaging status post realignment, normalization, and attenuation correction demonstrate relative uniform tracer uptake and myocardial perfusion appearing within normal limits. There is end systolic thickening and brightening. The gated Cardiolite study demonstrates myocardial thickening and inward wall motion. The reported LVEF is 85 %. Impression: 1. Rest and stress SPECT Cardiolite nuclear imaging demonstrate relative uniform tracer uptake and myocardial perfusion appearing within normal limits. 2. The gated Cardiolite study reports an LVEF of 85 %. This note was generated with Dragon dictation software. It may contain incorrect words, spelling, and punctuation that were not noted in checking the note before signing. 06/29/18 1001 <Electronically signed by Alvarado Santos MD> Date Alvarado Santos MD CC: Alvarado Santos MD; Krunal Sandoval MD Date Dictated: 06/29/18955 Date Transcribed: 06/29/18955 Inspector Timers: PM Signed ECHOCARDIOGRAM COMPLETE Observed: 06/28/2018 Status: F Source: [facility] 6:11 PM [facility] [place] Cardiovascular Services [address] [place] [address] Echo Complete 06/28/18 1346 MR#: [id number] Acct: [id number] Name: JUVENAL RAVI Rep #: [id number] : 1940 78 From: Alvarado Santos MD Attending Dr: Alvarado Santos MD Status: REG CLI Ordering Dr: Alvarado Santos MD Date: 06/28/18 Location: [facility] Sex: F C Admitted: Reason For Study: Dyspnea/SOB Procedure This was a 2D Doppler, Color Flow transthoracic echocardiogram. The exam was of adequate technical quality. Exam performed in department. Left Ventricle Normal LV size. Mid cavitary false tendon noted. Left ventricular systolic function is normal. The estimated ejection fraction is 65 %. There is evidence of diastolic dysfunction. No regional wall motion abnormalities noted. Right Ventricle Normal RV size. Normal systolic function. Atria The left atrium is mildly enlarged. Normal right atrium. No doppler evidence for ASD. Mitral Valve There is no mitral annular calcification. Normal mitral valve. Trivial mitral valve insufficiency. Tricuspid Valve Normal tricuspid valve. Trivial tricuspid valve insufficiency. Aortic Valve Trisinus/trileaflet aortic valve. Normal aortic valve. Pulmonic Valve The pulmonic valve is not well visualized. Great Vessels Normal sized aortic root. Pericardium/Pleural No pericardial effusion. MMode/2D Measurements AND Calculations LVIDd: 4.3 cm IVSd: 0.71 cm Ao root diam: 2.7 cm LVIDs: 2.3 cm LVPWd: 0.66 cm LA dimension: 4.2 cm RVDd: 3.8 cm FS: 45.2 % LAV(MOD-bp): 69.1 ml LA A4 area: 20.2 cm2 RA A4 area: 18.1 cm2 LAV(MOD-bp) Indexed: 41.4 ml/m2 LAV(MOD-sp2): 81.3 ml LAV(MOD-sp4): 59.2 ml Time Measurements MV dec time: 0.32 sec Doppler Measurements AND Calculations MV E max ayush: 75.5 cm/sec Lat Peak E' Ayush: 9.1 cm/sec Med Peak E' Ayush: 4.6 cm/sec MV A max ayush: 85.7 cm/sec E/E' lat: 8.3 E/E' med: 16.2 MV E/A: 0.88 MV V2 max: 99.2 cm/sec MV P1/2t max ayush: 93.4 cm/sec Ao V2 max: 104.1 cm/sec MV max P.9 mmHg MV P1/2t: 89.4 msec Ao max P.3 mmHg MV V2 mean: 59.6 cm/sec MV dec slope: 306.0 cm/sec2 Ao V2 mean: 71.2 cm/sec MV mean P.6 mmHg MVA(P1/2t): 2.5 cm2 Ao mean P.3 mmHg MV V2 VTI: 32.3 cm Ao V2 VTI: 24.0 cm LV V1 max: 93.3 cm/sec PA V2 max: 100.2 cm/sec LV V1 max P.5 mmHg LV V1 mean P.9 mmHg LV V1 mean: 65.0 cm/sec LV V1 VTI: 22.3 cm Interpretation Summary Left ventricular systolic function is normal. The estimated ejection fraction is 65 %. Mid cavitary false tendon noted. The left atrium is mildly enlarged. Trivial mitral valve insufficiency. Trivial tricuspid valve insufficiency. There is evidence of diastolic dysfunction. Ordering Physician: Alvarado Santos Referring Physician: Alvarado Santos Chi Performed By: Richi Martin RCS 06/28/18 181 Date Alvarado Santos MD CC: Alvarado Santos MD; Krunal Sandoval MD Date Dictated: 06/28/18 1346 Date Transcribed: 06/28/18 181 Inspector Timers: Signed CARDIOLOGY VISIT Observed: 06/27/2018 Status: F Source: [facility] REPORT 4:17 PM [facility] [place] [facility] [address] [place] [address]. [address] [place] [address] OFFICE VISIT Date of Service: 06/27/18 MR#: [id number] Acct: [id number] Name: JUVENAL RAVI Rep #: [id number] : 1940 Provider: Alvarado Santos MD Age/Sex: 78/F Location: [facility] [place] Status: Signed HPI HPI Details: JUVENAL RAVI, is a 78 F who presents to the office today for outpatient cardiovascular follow-up/preoperative cardiovascular evaluation. She has a history of underlying cardiac ectopy with PACs and PVCs as well as PSVT superimposed upon mitral valve prolapse, hyperlipidemia, and hypertension. She states overall she has been doing well other than shortness of breath and dyspnea with exertion. She has attributed this to a history of sarcoidosis involving her pulmonary system. She denies any ongoing chest discomfort, orthopnea, PND, peripheral pitting edema, near syncope or syncope. She had an ECG today. She was noted to be in sinus bradycardia with subtle nonspecific ST segment depression. Intake Vital Signs06/27/18 Height 5 ft 4 in 06/27/18 Weight: 138 lb 06/27/18 Body Mass Index (BMI) 23.6 06/27/18 Blood Pressure 126/72 Intake Visit Reasons: 30 pre/op\PFM Allergies morphine Allergy (Verified 06/27/18 15:22) Rash Penicillins Allergy (Verified 06/27/18 15:22) Rash propoxyphene Allergy (Verified 06/27/18 15:22) Nausea codeine Adverse Reaction (Verified 06/27/18 15:22) Nausea lisinopril Adverse Reaction (Verified 06/27/18 15:22) Vomiting quinine Adverse Reaction (Verified 06/27/18 15:22) Vomiting Medications Atenolol [Tenormin (Beta Maximiliano)] 50 mg PO DAILY 05/22/14 [History Confirmed 06/27/18] Cyanocobalamin [Vitamin B12] 1,000 mcg IM Q30D 05/22/14 [History Confirmed 06/27/18] Pravastatin [Pravachol] 80 mg PO DAILY 05/22/14 [History Confirmed 06/27/18] Famotidine [Famotidine] 40 mg PO DAILY 09/20/17 [History Confirmed 06/27/18] Losartan Potassium [Losartan Potassium] 25 mg PO DAILY 09/20/17 [History Confirmed 06/27/18] carbidopa 25 mg-levodopa 100 mg tablet PO 30 Days #90 03/08/18 [History Confirmed 06/27/18] furosemide 40 mg tablet 40 mg PO QDAY tab 03/08/18 [History Confirmed 06/27/18] alendronate 70 mg tablet 70 mg PO QWEEK 06/27/18 [History Confirmed 06/27/18] fluoxetine 20 mg capsule 20 mg PO DAILY 30 Days #30 cap 06/27/18 [History Confirmed 06/27/18] insulin glargine (U-100) 100 unit/mL (3 mL) subcutaneous pen 15 unit SC BID ml 06/27/18 [History Confirmed 06/27/18] methimazole 5 mg tablet 10 mg PO TID tab 06/27/18 [History Confirmed 06/27/18] mirabegron ER 50 mg tablet,extended release 24 hr 50 mg PO DAILY 06/27/18 [History Confirmed 06/27/18] sitagliptin 50 mg-metformin ER 1,000 mg tablet,extended release 24h mp 1 tab PO DAILY 06/27/18 [History Confirmed 06/27/18] PFSH Medical History Hyperlipidemia (Chronic) Palpitations (Chronic) Diastolic dysfunction (Chronic) Premature atrial contractions (Chronic) Premature ventricular contractions (Chronic) Mitral valve prolapse (Chronic) Hyperparathyroidism (Chronic) Osteoporosis (Chronic) Hyperthyroidism (Chronic) HTN (hypertension) (Chronic) DM type 2 (diabetes mellitus, type 2) (Chronic) Surgical History Hx of cholecystectomy (Resolved) Hx of appendectomy (Resolved) H/O total hysterectomy (Resolved) History of carpal tunnel surgery (Resolved) Family History Brother Heart disease Myocardial infarction Diabetes Father No problems noted. Mother CVA (cerebral vascular accident) Brother Myocardial infarction Diabetes Social History Smoking Status: Never smoker alcohol intake: never substance use type: does not use caffeine: No what type of physical activity do you participate in: none ROS Const Const: Negative for fatigue, weakness, weight gain, weight loss, frequent falls or excessive sweating Eyes Eyes: Negative for change in vision, blurry vision or transient loss of vision ENT ENT: Negative for dizziness or balance problems Cardio Chest Pain: No Palpitations: No Edema: None Muscle aches with walking: None Resp Respiratory: Positive for SOB with activity (baseline); negative for SOB at rest GI GI: Negative vomiting or vomiting blood/hematemesis : Negative for hematuria Musc Musc: Positive for muscle aches/ myalgia (bilat LE spasms); negative for balance problems, muscle weakness or joint pain Skin Skin: Negative non-healing lesions or rash Neuro Neuro: Negative for weakness, blurry vision, dizziness, lightheadedness, frequent falls or orthostatic symptoms Manuel Hematologic/Lymphatic: Negative for easy bleeding Endo Endo: Negative for fatigue or excessive sweating Psych Psych: Negative for anxiety or depression Allergy Allergy/Immunology: Negative for hives, Negative for rash Cardiology Exam Const Appearance: cooperative, healthy appearing, comfortable, no acute distress, well developed and well groomed Nutritional Appearance: thin Orientation: alert, awake and oriented x3 Head Head: normal to inspection, normocephalic and atraumatic Ears: hearing grossly normal bilaterally Nose: external nose normal Face and Sinus: face symmetric Mouth: oral mucosae normal Eyes Eyelids: eyelids normal Conjunctivae: conjunctivae normal Pupils: PERRL EOM: EOM intact bilaterally Neck Neck: normal visual inspection and full ROM Carotids: normal carotid upstroke Chest Chest inspection: normal inspection of the chest and symmetric chest movement Auscultation: Bilateral: Clear to Auscultation Cardio Palpation: normal PMI Rate: regular rate Rhythm: regular rhythm Heart sounds: S1 normal and S2 normal GI GI: normal to inspection, soft and bowel sounds present Neuro General: alert, awake, oriented x3 and moves all extremities Skin Skin: no rashes or lesions noted Extremities Pulses: Normal: Right Radial Pulse, Left Radial Pulse Lower Extremity Edema: None: Bilateral Psych Psychological: normal affect Supplemental Info She had a transthoracic echocardiogram on 05/30/2014. Interpretation Summary Left ventricuiar systolic function is normal. The estimated ejection fraction is 60 %. The left atrium is mildly enlarged. Mild diffuse mitral corina.ve thickening. Trivial mitral valve insufficiency. Trivial, tricuspid valve insufficiency. Mild focal aortic valve thickening. Trivial pulmonic valve insufficiency. Right ventricular systolic pressure estimated to be 35 rnmHg. She had a stress test performed on 05/17/1999. According to the myocardial perfusion report this was considered a negative myocardial perfusion scan. She had a diagnostic cardiac catheterization on 06/15/1999 at [facility]. According to the report she had diastolic dysfunction, normal LV systolic function with an estimated LVEF of 55%, hemodynamic tracings suspicious for early restrictive physiology however incomplete equilibration of diastolic pressures is not diagnostic for restriction based upon this study, and normal coronary arteries. Assessment AND Plan 1. Pre-operative cardiovascular examination Z01.810 Plan She is undergoing preoperative cardiovascular evaluation. The concern is her shortness of and dyspnea with exertion and her ECG was subtle nonspecific ST segment changes. At the present time she will continue her current medical management. She was asked to go through further evaluation with an echocardiogram to reassess her left ventricular diastolic/systolic function as well as her valvular related issues. She was also asked to have a pharmacologic stress nuclear imaging study to assess her coronary perfusion for any obvious evidence of ongoing myocardial ischemia that would require further evaluation and care. Orders Orders: 2. Shortness of breath R06.02 Plan Again the concern is her shortness of breath and dyspnea. She will proceed with further evaluation as noted above. Orders Orders: 3. Mitral valve prolapse I34.1 Plan She does have a history of mitral valve prolapse. This is a remote history. She has had no hemodynamic compromise with respect to her mitral valve thus far. She will be reassessed as noted above Orders Orders: 4. Essential hypertension I10 Plan Her blood pressures appear to be reasonably well-controlled. She will continue her medical management. Orders Orders: Plan Detail Other Orders Orders: Other Medications Discontinued: Additional Comments The above was discussed with the patient and her spouse. She was agreeable to this approach. If her studies appear to be unremarkable for any acute cardiovascular concerns that she should be able to proceed with her noncardiac surgery. She will need to have close monitoring of her cardiac rate rhythm and blood pressure during and following her surgical procedure. Also an attempt should be made to avoid significant fluctuations in her vital signs during her surgical procedure. An attempt should also be made to avoid significant IV volume access could bring out a volume overload clinical scenario. Hopefully with a stable clinical status, close monitoring, continuation of her medications, especially her beta blockers, that her risk for adverse cardiovascular events from noncardiac surgery would be at a minimum. Thank you for allowing me to participate in the care of your patient. Please don't hesitate to call if any issues arise. This note was generated using a voice recognition system and there may be incorrect words, spelling or punctuation that were not noted when reviewing the office note prior to saving. Follow Up 9 Months (as previously scheduled) 06/27/18 Coding Level of Care Code Off vis,est,level 4 Diagnoses Pre-operative cardiovascular examination Z01.810 Shortness of breath R06.02 Mitral valve prolapse I34.1 Essential hypertension I10 Hypertension type: essential hypertension Coding Level of Care Code Off vis,est,level 4 Diagnoses Pre-operative cardiovascular examination Z01.810 Shortness of breath R06.02 Mitral valve prolapse I34.1 Essential hypertension I10 Hypertension type: essential hypertension 06/27/18 1617 <Electronically signed by Alvarado Santos MD> Date Alvarado Santos MD Cosigner Signature: Date (if applicable) CC: Krunal Sandoval MD 12 LEAD EKG PERFORMED Observed: 06/27/2018 Status: F Source: [facility] [place] 3:17 PM [facility] [place] [address] [place] [address] 12 Lead EKG performed by [facility] [place] 06/27/18 1515 MR#: [id number] Acct: [id number] Name: JUVENAL RAVI Rep #: [id number] : 1940 78 From: Alvarado Santos MD Attending Dr: Alvarado Santos MD Status: DEP [facility] Ordering Dr: Alvraado Santos MD Date: 06/27/18 [place] [facility] [place] Sex: F C Admitted: [facility] [place]/12 Lead EKG performed by [facility] [place] ECG Report Interpretation Sinus Bradycardia Nonspecific ST depression ABNORMAL Electronically signed on 06/28/2018 at 16:42 by Alvarado Santos Software Version [id number] 06/28/18 1644 Date Alvarado Santos MD CC: Krunal Sandoval MD Date Dictated: 06/27/181514 Date Transcribed: 06/27/181514 Inspector Timers: PM Signed CT SOFT TISSUE NECK Observed: 06/14/2018 Status: F Source: [facility] W/ CONTRAST 2:45 PM [facility] REPOSIT[facility] ORIGINAL CT SOFT TISSUE NECK WITH AND WITHOUT CONTRAST Clinical Statement: HYPERPARATHYROIDISM TECHNIQUE: Multiphase CT was performed including an noncontrast CT, arterial phase CT and venous phase CT of the neck.. Nonionic intravenous contrast material was administered per standard departmental protocol. This exam was performed according to our departmental dose optimization program, and includes the following measures where applicable: automated exposure control, adjustment of the mAs and/or kVp according to patient size and/or exam, and an iterative reconstruction algorithm. COMPARISON: None. FINDINGS: There is a 11 mm x 4 mm (AP dimensions) structure posteroaterally positioned adjacent to the RIGHT lobe of thyroid gland which follows the same enhancement pattern as a thyroid gland and likel y represents an exophytic thyroid nodule. The thyroid gland is diffusely enlarged and demonstrates multiple subcentimeter nodular hypodensities, the largest of which is in the isthmus and measures 9 mm. The LEFT lobe of the thyroid gland extend s inferiorly into the mediastinum and terminates in a substernal location juxtapositioned between the LEFT subclavian artery and esophagus. Both thyroid lobes extend posterior to the aerodigestive tract , more prominently on the RIGHT where the lobe extends posterior to the thyroid cartilage. This deviates the trachea to the RIGHT without compromise of the airway. The aerodigestive structures demonstrate no abnormality. There are no pathologically enlarged, necrotic, or otherwise abnormal lymph nodes. The parotid glands and submandibular glands re normal in size without focal abnormality. The visualized paranasal sinuses and tympanomastoid cavities are well pneumatized. There is normal intravascular enhancement. Atherosclerotic calcifications are demonstrated at the carotid bulbs. The the innominate and LEFT common carotid share an origin from the aortic arch, a normal variant. Multilevel degenerative disc disease is seen throughout the cervical spine is worse at the C5-C6 and C6-C7 levels and what spondylosis likely result in at least mild stenosis. No suspicious osteolytic o r osteoblastic lesions are seen. There is a 4 mm nodule in the RIGHT upper lobe. Per Fleischner Society 2017 recommendations, no follow-up is required based on its size. IMPRESSION: 1. No parathyroid adenoma is identified. 2. Multinodular substernal goiter. If a nuclear medicine study is performed, a comparison addendum can be provided. I have personally reviewed the images of this examination and agree with the resident's findings and interpretation. Interpreted By: Naren De Leon Preliminary Report By: Davide Barraza MD Electronically Signed By: Naren De Leon Dictated Date: 06/15/2018 9:07:45 AM Prelim Date: 06/15/2018 9:32:34 AM Sign Date: 06/15/2018 10:18:39 AM CRE Collected: 06/14/2018 Status: F Source: [facility] 1:43 PM [facility] REPOSITORY TYPE CODE TESTS RESULT OUT OF REFERENCE UNITS RANGE LAB CRE(LOINC) 0.50-1.20 mg/dL Creatinine Lvl 0.94 (s) Performed By: #### CRE, GFR #### [place] [address] .GFR Collected: 06/14/2018 Status: F Source: [facility] 1:43 PM [facility] REPOSITORY TYPE CODE TESTS RESULT OUT OF REFERENCE UNITS RANGE LAB GFRAA(LOINC ml/min/1.73 ) sqm GFR >60 Malian Result Comment: GFR Population mean for , Non- Americans Ages 20-29 = 116 mL/min/1.73 sq.m. Ages 30-39 = 107 mL/min/1.73 sq.m. Ages 40-49 = 99 mL/min/1.73 sq.m. Ages 50-59 = 93 mL/min/1.73 sq.m. Ages 60-69 = 85 mL/min/1.73 sq.m. Ages 70+ = 75 mL/min/1.73 sq.m. Chronic Kidney Disease: Less than 60 mL/min/1.73 square meters End Stage Renal Disease: Less than 15 mL/min/1.73 square meters LAB GFRNO(LOINC) ml/min/1.73sqm GFR Non- 58 Result Comment: GFR Population mean for , Non- Americans Ages 20-29 = 116 mL/min/1.73 sq.m. Ages 30-39 = 107 mL/min/1.73 sq.m. Ages 40-49 = 99 mL/min/1.73 sq.m. Ages 50-59 = 93 mL/min/1.73 sq.m. Ages 60-69 = 85 mL/min/1.73 sq.m. Ages 70+ = 75 mL/min/1.73 sq.m. Chronic Kidney Disease: Less than 60 mL/min/1.73 square meters End Stage Renal Disease: Less than 15 mL/min/1.73 square meters Performed By: #### CRE, GFR #### [place] [address] CBC W/DIFF, AUTOMATED Collected: 05/31/2018 Status: F Source: [place] 9:57 AM [facility] [place] TYPE CODE TESTS RESULT OUT OF RANGE REFERENCE UNITS LAB L100.1000 4.4-11.0 K/mm3 Normal WBC 6.1 LAB L100.1200 4.2-5.4 M/mm3 Normal RBC 4.47 LAB L100.1300 12.0-15.0 g/dl Normal HGB 13.1 LAB L100.1400 37-47 % Normal HCT 40.5 LAB L100.1500 81-99 fL Normal MCV 90.6 LAB L100.1600 27.0-32.0 pg Normal MCH 29.3 LAB L100.1700 32-36 g/gl Normal MCHC 32.3 LAB L100.1810 11.6-14.6 % Normal RDW CV 13.6 LAB L100.1820 35.1-43.9 fl High RDW SD 44.8 LAB L100.1900 150-450 K/mm3 Normal PLT 198 LAB L100.2000 6.2-12.0 fl Normal MPV 10.6 LAB L100.2100 47-70 % Normal NEUT% 68.3 LAB L100.2200 19-41 % Normal LY% 21.7 LAB L100.2300 0-10 % Normal MONO% 8.9 LAB L100.2400 0-5 % Normal EO% 0.7 LAB L100.2500 0-1 % Normal BASO% 0.2 LAB L100.2550 0.0-0.9 % Normal IM GRAN % 0.200 Result Comment: IG% - Immature Granulocytes (promyelocytes, myelocytes and metamyelocytes) > 1% indicates that a LEFT SHIFT is Present. LAB L100.2620 2.0-7.7 X10 3/uL Normal Absolute Neut 4.1 LAB L100.2720 0.83-4.51 X10 3/ul Normal Absolute Lymph 1.31 Performed By: #### L100.0100 #### [facility] [address] [place], [address] COMPREHENSIVE METABOLIC Collected: 05/31/2018 Status: F Source: [place] [facility] 9:57 AM [facility] [place] TYPE CODE TESTS RESULT OUT OF RANGE REFERENCE UNITS LAB L501.0100 74-106 mg/dL High GLU 207 Result Comment: Glucose result greater than or equal to 200 mg/dL suggests DIABETES MELLITUS per A.D.A. criteria. Please note revised GLUCOSE reference range effective 2017. LAB L501.1000 7-18 mg/dL Normal BUN 12 LAB L501.1100 0.55-1.02 mg/dL High CREAT,SERUM 1.08 Result Comment: The validity of the calculated GFR AND GFRAA in patients over 70 years has not been determined. Clinical correlation is essential. LAB L501.1110 >60 mL/min Low EST GFR 52 Result Comment: Non- GFR Calc LAB L501.1115 >60 mL/min Normal EST GFR - AA 63 Result Comment: GFR Calc LAB L501.1300 10-20 RATIO Normal BUN/CRE 11.1 LAB L501.1500 6.4-8.2 g/dL T Normal PROT 7.6 LAB L501.1800 3.2-5.0 g/dL Normal ALB 3.8 LAB L501.1950 2.2-4.2 g/dL Normal GLOB 3.8 LAB L501.2000 0.9-2.4 RATIO Normal A/G 1.0 LAB L501.2200 8.5-10.1 mg/dL High CA 11.5 LAB L501.4100 15-37 U/L Normal AST 21 LAB L501.4305 45-117 U/L Low ALK P 43 LAB L501.4405 13-56 U/L Normal ALT 14 LAB L501.4600 0.20-1.00 mg/dL T Normal BILI 0.80 LAB L501.5300 136-145 mmol/L NA Normal 139 LAB L501.5600 3.5-5.1 mmol/L K Normal 4.2 LAB L501.5900 98-107 mmol/L CL Normal 100 LAB L501.6100 21.0-32.0 mmol/L Normal CO2 30.0 LAB L501.6200 5-15 Normal GAP 9 Performed By: #### L500.4050, L501.9520 #### [facility] [address] [place], [address] THYROID STIM HORMONE Collected: 05/31/2018 Status: F Source: [place] ([facility]SH) 9:57 AM [facility] [place] TYPE CODE TESTS RESULT OUT OF RANGE REFERENCE UNITS LAB L501.9520 0.358-3.74 uIU/mL Low TSH 0.05 Performed By: #### L500.4050, L501.9520 #### [facility] [address] [place], [address] VITAMIN D,25 HYDROXY Collected: 05/31/2018 Status: F Source: [place] 9:57 AM [facility] [place] TYPE CODE TESTS RESULT OUT OF RANGE REFERENCE UNITS LAB L506.1000 29.95-100.01 ng/mL Normal Vitamin D 36.1 25-OH Result Comment: Vitamin D 25(OH) Status Range Deficiency <20 ng/mL (50nmol/L) Insuffciency 20 - 30 ng/mL (50 - 75 nmol/L) Sufficiency 30 - 100 ng/mL (75 - 250 nmol/L) Toxicity >100 ng/mL (>250 nmol/L) Performed By: #### L506.1000 #### [facility] [address] [place], [address] FREE T3 Collected: 05/21/2018 Status: F Source: [place] 8:06 AM [facility] [place] Order Comment: Has Patient had X-rays with Contrast this admission? N Is Patient on Heparin? N TYPE CODE TESTS RESULT OUT OF RANGE REFERENCE UNITS LAB L501.51264 2.18-3.98 pg/mL Normal FREE T3 2.4 Performed By: #### L501.81854, L501.9520, L506.0400 #### [facility] [address] [place], [address] THYROID STIM HORMONE Collected: 05/21/2018 Status: F Source: [place] (TSH) 8:06 AM [facility] [place] Order Comment: Has Patient had X-rays with Contrast this admission? N Is Patient on Heparin? N TYPE CODE TESTS RESULT OUT OF RANGE REFERENCE UNITS LAB L501.9520 0.358-3.74 uIU/mL Low TSH 0.04 Performed By: #### L501.87244, L501.9520, L506.0400 #### [facility] [address] [place] [address]. [place], [address] T4 FREE DIRECT Collected: 05/21/2018 Status: F Source: [place] 8:06 AM [facility] [place] Order Comment: Has Patient had X-rays with Contrast this admission? N Is Patient on Heparin? N TYPE CODE TESTS RESULT OUT OF RANGE REFERENCE UNITS LAB L506.0400 0.76-1.46 ng/dL Normal T4 FREE 0.91 DIRECT Performed By: #### L501.60941, L501.9520, L506.0400 #### [facility] [address] [place] [address]. [place], [address] T3 UPTAKE Collected: 05/17/2018 Status: F Source: [place] 9:44 AM [facility] [place] TYPE CODE TESTS RESULT OUT OF RANGE REFERENCE UNITS LAB L501.9210 30-39 % 37 Normal T3 UPTAKE LAB L501.9410 1.4-4.5 Test Normal T7 (FTI) not performed Performed By: #### L501.9195, L501.9520, L506.0400 #### [facility] [place], [address] THYROID STIM HORMONE Collected: 05/17/2018 Status: F Source: [place] (TSH) 9:44 AM [facility] [place] TYPE CODE TESTS RESULT OUT OF RANGE REFERENCE UNITS LAB L501.9520 0.358-3.74 uIU/mL Low TSH 0.03 Performed By: #### L501.9195, L501.9520, L506.0400 #### [facility] [address] [place], [address] T4 FREE DIRECT Collected: 05/17/2018 Status: F Source: [place] 9:44 AM [facility] [place] TYPE CODE TESTS RESULT OUT OF RANGE REFERENCE UNITS LAB L506.0400 0.76-1.46 ng/dL Normal T4 FREE 0.95 DIRECT Performed By: #### L501.9195, L501.9520, L506.0400 #### [facility] [address] [place], [address] THYROID Observed: 04/19/2018 Status: F Source: [place] 10:54 AM [facility] [place] [facility] Imaging Services [address] [place] [address] Thyroid MR#: [id number] Acct: [id number] Name: JUVENAL RAVI Rep #: [id number] : 1940 F 77 From: Aracely Ken MD PCP: Satya PEÑALOZA,Krunal Hatch Status: REG CLI Study: Thyroid Date of Exam: 04/19/18 Exam# [id number] Ordering Dr: Kiera Montoya MD STUDY: THYROID ULTRASOUND REASON FOR EXAM: Female, 77 years old. Thyrotoxicosis TECHNIQUE: Ultrasound evaluation of the thyroid was performed with real-time and static rasmussen-scale imaging. COMPARISON: Prior thyroid ultrasound of 01/02/2017 FINDINGS: RIGHT LOBE: The right lobe of the thyroid gland measures 6.0 x 2.0 x 3.0 cm. There is a heterogeneous echotexture. There is a 2.3 x 1.8 x 1.7 cm solid isoechoic nodule with internodular vascularity. There is a 0.6 x 0.7 x 0.4 cm cystic nodule. There is a 0.6 x 0.8 x 0.4 complex nodule. LEFT LOBE: The left lobe of the thyroid gland measures 6.3 x 2.7 x 3.0 cm cm. There is a heterogeneous echotexture. There is a 2.0 x 2.1 x 0.8 upper pole solid isoechoic nodule. ISTHMUS: The isthmus measures 1.0 centimeter. US/Thyroid IMPRESSION: Stable appearance of the thyroid which is generally enlarged and heterogeneous. Multiple nodules as described above do not appear to be substantially changed on qsdp-[id number] comparison. Electronically Signed: Aracely Ken MD at 17:12 EDT , Service support , CC: Kiera Montoya MD; Krunal Sandoval MD Inspector Timers: Signed HEMOGLOBIN A1C Collected: 04/05/2018 Status: F Source: [place] 8:08 AM [facility] [place] TYPE CODE TESTS RESULT OUT OF RANGE REFERENCE UNITS LAB L501.9985 4.2-6.3 % High HGB A1C 6.7 Performed By: #### L501.9985 #### [facility] [address] [place], [address] COMPREHENSIVE METABOLIC Collected: 04/05/2018 Status: F Source: [facility] 8:08 AM [facility] [place] TYPE CODE TESTS RESULT OUT OF RANGE REFERENCE UNITS LAB L501.0100 74-106 mg/dL High GLU 157 Result Comment: Fasting Glucose result greater than or equal to 126 mg/dL suggests DIABETES MELLITUS per A.D.A. criteria. Please note revised GLUCOSE reference range effective 2017. LAB L501.1000 7-18 mg/dL Normal BUN 16 LAB L501.1100 0.55-1.02 mg/dL High CREAT,SERUM 1.13 Result Comment: The validity of the calculated GFR AND GFRAA in patients over 70 years has not been determined. Clinical correlation is essential. LAB L501.1110 >60 mL/min Low EST GFR 50 Result Comment: Non- GFR Calc LAB L501.1115 >60 mL/min Normal EST GFR - AA 60 Result Comment: GFR Calc LAB L501.1300 10-20 RATIO Normal BUN/CRE 14.2 LAB L501.1500 6.4-8.2 g/dL T Normal PROT 7.0 LAB L501.1800 3.2-5.0 g/dL Normal ALB 3.4 LAB L501.1950 2.2-4.2 g/dL Normal GLOB 3.6 LAB L501.2000 0.9-2.4 RATIO Normal A/G 0.9 LAB L501.2200 8.5-10.1 mg/dL High CA 12.1 LAB L501.4100 15-37 U/L Normal AST 19 LAB L501.4305 45-117 U/L Low ALK P 43 LAB L501.4405 13-56 U/L Low ALT 10 LAB L501.4600 0.20-1.00 mg/dL T Normal BILI 0.50 LAB L501.5300 136-145 mmol/L NA Normal 141 LAB L501.5600 3.5-5.1 mmol/L K Normal 4.0 LAB L501.5900 98-107 mmol/L CL Normal 101 LAB L501.6100 21.0-32.0 mmol/L High CO2 33.0 LAB L501.6200 5-15 Normal GAP 7 Performed By: #### L500.4050, L500.4100, L501.2300, L501.29399, L506.0400 #### [facility] [address] [place], [address] LIPID PROFILE Collected: 04/05/2018 Status: F Source: [place] 8:08 AM [facility] [place] TYPE CODE TESTS RESULT OUT OF RANGE REFERENCE UNITS LAB L501.4900 200 mg/dL Normal CHOL 136 Result Comment: <200 mg/dL Desirable 200-240 mg/dL Borderline >240 mg/dL High Risk LAB L501.5000 mg/dL Normal TRIG 99 Result Comment: The drugs N-Acetylcysteine and Metamizole may falsely depress this assay. Serum Triglycerides Reference Interval Normal <150 mg/dL Borderline high 150 - 199 mg/dL High 200 - 499 mg/dL Very High > or = 500 mg/dL LAB L501.6400 mg/dL Normal HDL 56 Result Comment: The drugs N-Acetylcysteine and Metamizole may falsely depress this assay. Reference Range HDL <40 mg/dL Low HDL Cholesterol HDL >or= 60 mg/dL High HDL Cholesterol LAB L501.6500 0-130 mg/dL Normal LDL 60 LAB L501.6600 5-40 mg/dL Normal VLDL 20 Performed By: #### L500.4050, L500.4100, L501.2300, L501.24663, L506.0400 #### [facility] [address] [place], [address] PHOSPHORUS Collected: 04/05/2018 Status: F Source: [place] 8:08 AM [facility] [place] TYPE CODE TESTS RESULT OUT OF RANGE REFERENCE UNITS LAB L501.2300 2.5-4.9 mg/dL Normal PHOS 2.6 Performed By: #### L500.4050, L500.4100, L501.2300, L501.64711, L506.0400 #### [facility] [address] [place], [address] FREE T3 Collected: 04/05/2018 Status: F Source: [place] 8:08 AM [facility] [place] TYPE CODE TESTS RESULT OUT OF RANGE REFERENCE UNITS LAB L501.48252 2.18-3.98 pg/mL Normal FREE T3 3.0 Performed By: #### L500.4050, L500.4100, L501.2300, L501.80235, L506.0400 #### [facility] [address] [place], [address] T4 FREE DIRECT Collected: 04/05/2018 Status: F Source: [place] 8:08 AM [facility] [place] TYPE CODE TESTS RESULT OUT OF RANGE REFERENCE UNITS LAB L506.0400 0.76-1.46 ng/dL Normal T4 FREE 1.39 DIRECT Performed By: #### L500.4050, L500.4100, L501.2300, L501.26029, L506.0400 #### [facility] [address] [place], [address] PTHIN Collected: 04/05/2018 Status: F Source: [place] 8:08 AM [facility] [place] TYPE CODE TESTS RESULT OUT OF RANGE REFERENCE UNITS LAB L509.1000 18.4-80.1 pg/mL High PTHIN 107.8 Performed By: #### L509.1000 #### [facility] [address] [place], [address] CALCIUM IONIZED Collected: 04/05/2018 Status: F Source: [place] 8:08 AM [facility] [place] TYPE CODE TESTS RESULT OUT OF REFERENCE UNITS RANGE LAB L3100.9600 4.5-5.6 mg/dL High IONIZED CA 7.0 Result Comment: Verified by repeat analysis Performed at: [facility] [id number] Investigations Chief: Jonn Mckeon PhD, Phone: [phone] Performed By: #### L3100.9600 #### [facility] (refer to report for specific site) refer to report for address and phone number THYROID STIM HORMONE Collected: 04/05/2018 Status: F Source: [place] (TSH) 8:05 AM [facility] [place] TYPE CODE TESTS RESULT OUT OF RANGE REFERENCE UNITS LAB L501.9520 0.358-3.74 uIU/mL Low TSH < 0.01 Performed By: #### L501.9520 #### [facility] [address] [place], [address] CARDIOLOGY VISIT Observed: 03/09/2018 Status: F Source: [place] REPORT 7:59 AM [facility] [place] [facility] [address] [place] [address] OFFICE VISIT Date of Service: 03/08/18 MR#: [id number] Acct: [id number] Name: JUVENAL RAVI Rep #: [id number] : 1940 Provider: Kiara Bedolla Age/Sex: 77/F Location[place] [facility] [place] Status: Signed HPI HPI Details: JUVENAL RAVI, is a 77 F who presents to the office today for a cardiovascular follow-up. She has a history of cardiac ectopy, mitral valve prolapse, diastolic dysfunction, hypertension, hyperlipidemia, hyperlipidemia and hyperparathyroidism. She was in the hospital in August for sepsis. She states since that time she has felt fatigued. She also notes that she is falling. This is her main concern. She does not have any chest discomfort, heaviness or tightness. She does not have any shortness of breath. She does not have any lightheadedness or dizziness. She does not have any lower extremity edema. Intake Vital Signs03/08/18 Height 5 ft 4 in 03/08/18 Weight: 149 lb 03/08/18 Body Mass Index (BMI) 25.5 03/08/18 Blood Pressure 118/70 Intake Visit Reasons: 6 M Hand Collator Required: No Accompanied by: Is patient in pain?: No Allergies morphine Allergy (Verified 03/08/18 10:34) Rash Penicillins Allergy (Verified 03/08/18 10:34) Rash propoxyphene Allergy (Verified 03/08/18 10:34) Nausea codeine Adverse Reaction (Verified 03/08/18 10:34) Nausea lisinopril Adverse Reaction (Verified 03/08/18 10:34) Vomiting quinine Adverse Reaction (Verified 03/08/18 10:34) Vomiting Medications Atenolol [Tenormin (Beta Maximiliano)] 50 mg PO DAILY 05/22/14 [History Confirmed 03/08/18] Cyanocobalamin [Vitamin B12] 1,000 mcg IM Q30D 05/22/14 [History Confirmed 03/08/18] Insulin Glargine [Lantus SoloStar Pen] 0 units SC BID PRN 05/22/14 [History Confirmed 03/08/18] Insulin Lispro [Humalog] 16 unit SQ TID 05/22/14 [History Confirmed 03/08/18] Methimazole [Tapazole] 5 mg PO DAILY 05/22/14 [History Confirmed 03/08/18] Multivit with Calcium,Iron,Min [Multiple Vitamins For Women] 1 ea PO DAILY 05/22/14 [History Confirmed 03/08/18] Pravastatin [Pravachol] 80 mg PO DAILY 05/22/14 [History Confirmed 03/08/18] Cholecalciferol (VIT D3) [Vitamin D] 1,000 unit PO DAILY 09/20/17 [History Confirmed 03/08/18] Famotidine [Famotidine] 40 mg PO DAILY 09/20/17 [History Confirmed 03/08/18] Fesoterodine Fumarate [Toviaz] 8 mg PO DAILY 09/20/17 [History Confirmed 03/08/18] Losartan Potassium [Losartan Potassium] 25 mg PO DAILY 09/20/17 [History Confirmed 03/08/18] Raloxifene HCl 60 mg PO DAILY 09/20/17 [History Confirmed 03/08/18] Sitagliptin Phos/Metformin HCl [Janumet 50-1,000 mg Tablet] 1 ea PO DAILY 09/20/17 [History Confirmed 03/08/18] carbidopa 25 mg-levodopa 100 mg tablet PO 30 Days #90 03/08/18 [History Confirmed 03/08/18] fluoxetine 20 mg capsule PO 30 Days #30 03/08/18 [History Confirmed 03/08/18] furosemide 40 mg tablet 40 mg PO QDAY tab 03/08/18 [History Confirmed 03/08/18] Ejection fraction %: 60 to 64 PFSH Medical History Hyperlipidemia (Chronic) Palpitations (Chronic) Diastolic dysfunction (Chronic) Premature atrial contractions (Chronic) Premature ventricular contractions (Chronic) Mitral valve prolapse (Chronic) Hyperparathyroidism (Chronic) Osteoporosis (Chronic) Hyperthyroidism (Chronic) HTN (hypertension) (Chronic) DM type 2 (diabetes mellitus, type 2) (Chronic) Surgical History Hx of cholecystectomy (Resolved) Hx of appendectomy (Resolved) H/O total hysterectomy (Resolved) History of carpal tunnel surgery (Resolved) Family History Brother Heart disease Myocardial infarction Diabetes Father No problems noted. Mother CVA (cerebral vascular accident) Brother Myocardial infarction Diabetes Social History Smoking Status: Never smoker alcohol intake: never substance use type: does not use caffeine: No what type of physical activity do you participate in: none ROS Const Const: Positive for weakness, fatigue and frequent falls; negative for fever(s) or headache(s) Eyes Eyes: Negative for blind spots, loss of peripheral vision or transient loss of vision ENT ENT: Negative for headache(s), dizziness, tinnitus or Nosebleed/epistaxis Cardio Chest Pain: No Palpitations: No Edema: None Muscle aches with walking: None Resp Respiratory: Negative for SOB with activity, SOB at rest, SOB orthopnea\SOB lying down or Cough GI GI: Negative nausea, vomiting, heartburn or vomiting blood/hematemesis : Negative for hematuria Musc Musc: Negative for muscle aches/ myalgia Neuro Neuro: Positive for weakness and frequent falls; negative for headache(s), dizziness, near syncope, syncope, lightheadedness or orthostatic symptoms Manuel Hematologic/Lymphatic: Negative for easy bleeding Endo Endo: Positive for fatigue Cardiology Exam Const Appearance: cooperative, no acute distress and well developed Orientation: alert, awake and oriented x3 Head Head: normocephalic and atraumatic Mouth: moist mucous membranes Eyes General: appearance normal, both eyes and all related structures Conjunctivae: conjunctivae normal Pupils: PERRL EOM: EOM intact bilaterally Neck Neck: normal visual inspection, no lymphadenopathy and no JVD Carotids: Negative bruit Neck Mass: Negative Neck mass Chest Chest inspection: normal inspection of the chest and symmetric chest movement Auscultation: Bilateral: Clear to Auscultation Cardio Palpation: normal PMI Rate: regular rate Rhythm: regular rhythm Heart sounds: S1 normal and S2 normal; negative rub, gallop or murmur GI GI: normal to inspection, soft, no hepatosplenomegaly and bowel sounds present; negative tender Neuro General: alert, awake, oriented x3, CN's II-XI intact bilaterally and moves all extremities Extremities Pulses: Normal: Right Posterior Tibial Pulse, Left Posterior Tibial Pulse, Right Radial Pulse, Left Radial Pulse Lower Extremity Edema: None: Bilateral Psych Psychological: normal affect Supplemental Info Echocardiogram in May 2014 demonstrated ejection fraction of 60% with trivial MR. Holter monitor had demonstrated sinus rhythm with rare PACs no ventricular ectopy. Assessment AND Plan 1. Essential hypertension I10 Plan - BRODY Velarde Adequately controlled on current medications. Will not make any adjustments. Orders Orders: 2. Mitral valve prolapse I34.1 Plan - BRODY Velarde Stable, will continue to monitor by history, exam and echocardiograms as deemed appropriate. Orders Orders: 3. Pure hypercholesterolemia E78.00; E78.0 Plan - BRODY Velarde These have been managed by primary care doctor. 4. Fatigue, unspecified type R53.83 Plan - BRODY Velarde In the past patient has had issues with hyperthyroidism in addition to hyperparathyroidism. He did obtain labs. TSH is still <0.01, calcium is 11.3. Spoke with patient after labs came in. Strongly encouraged to follow through with her appointments with her branch office manager and Dr. Sandoval. Will fax labs and office note to branch office manager and PCP. In addition on her labs her glucose was noted to be 37. She did take a glucose tablet when she got home. Nurse called patient and her glucose was noted to be normal. Orders Orders: Plan Detail Other Orders Orders: Additional Comments - BRODY Velarde The above patient was discussed with Dr. Santos, he agrees with plan of care. Thank you for allowing us to participate in patient's plan of care, if you have any questions please do not hesitate to call. This note was generated using a voice recognition system and there may be incorrect words, spelling or punctuation errors that were not noted when reviewing the office note prior to saving. Follow Up 1 Year (PFM) Coding Level of Care Code Off vis,est,level 4 Diagnoses Essential hypertension I10 Hypertension type: essential hypertension Mitral valve prolapse I34.1 Pure hypercholesterolemia E78.00; E78.0 Hyperlipidemia type: pure hypercholesterolemia Fatigue, unspecified type R53.83 Fatigue type: unspecified Coding Level of Care Code Off vis,est,level 4 Diagnoses Essential hypertension I10 Hypertension type: essential hypertension Mitral valve prolapse I34.1 Pure hypercholesterolemia E78.00; E78.0 Hyperlipidemia type: pure hypercholesterolemia Fatigue, unspecified type R53.83 Fatigue type: unspecified 03/08/18 1723 <Electronically signed by Kiara PATIÑO> Date Kiara PATIÑO 03/09/18 0759<Electronically signed by Alvarado Santos MD> Cosigner Signature: Date (if applicable) Alvarado Santos MD CC: Kiera Montoya MD; Krunal Sandoval MD CBC W/DIFF, AUTOMATED Collected: 03/08/2018 Status: F Source: [place] 12:08 PM [facility] [place] TYPE CODE TESTS RESULT OUT OF RANGE REFERENCE UNITS LAB L100.1000 4.4-11.0 K/mm3 Normal WBC 6.9 LAB L100.1200 4.2-5.4 M/mm3 Low RBC 3.95 LAB L100.1300 12.0-15.0 g/dl Low HGB 11.5 LAB L100.1400 37-47 % Low HCT 36.0 LAB L100.1500 81-99 fL Normal MCV 91.1 LAB L100.1600 27.0-32.0 pg Normal MCH 29.1 LAB L100.1700 32-36 g/gl Low MCHC 31.9 LAB L100.1810 11.6-14.6 % Normal RDW CV 13.6 LAB L100.1820 35.1-43.9 fl High RDW SD 44.8 LAB L100.1900 150-450 K/mm3 Normal PLT 186 LAB L100.2000 6.2-12.0 fl Normal MPV 10.6 LAB L100.2100 47-70 % Normal NEUT% 60.4 LAB L100.2200 19-41 % Normal LY% 28.4 LAB L100.2300 0-10 % Normal MONO% 9.3 LAB L100.2400 0-5 % Normal EO% 1.5 LAB L100.2500 0-1 % Normal BASO% 0.1 LAB L100.2550 0.0-0.9 % Normal IM GRAN % 0.300 Result Comment: IG% - Immature Granulocytes (promyelocytes, myelocytes and metamyelocytes) > 1% indicates that a LEFT SHIFT is Present. LAB L100.2620 2.0-7.7 X10 3/uL Normal Absolute Neut 4.1 LAB L100.2720 0.83-4.51 X10 3/ul Normal Absolute Lymph 1.95 Performed By: #### L100.0100, L500.2500, L501.9310, L501.9520 #### [facility] [address] [place], [address] BASIC METABOLIC Collected: 03/08/2018 Status: F Source: [place] PROFILE ([facility]) 12:08 PM [facility] [place] TYPE CODE TESTS RESULT OUT OF RANGE REFERENCE UNITS LAB L501.0100 74-106 mg/dL Low alert GLU 37 Result Comment: Critical Result(s) Called MARIUM LAWTON at: 16:29:02 03/08/2018 by: CARMINE SIFUENTES Glucose result less than 50 mg/dL suggests HYPOGLYCEMIA. Please note revised GLUCOSE reference range effective 2017. LAB L501.1000 7-18 mg/dL Normal BUN 13 LAB L501.1100 0.55-1.02 mg/dL High CREAT,SERUM 1.03 Result Comment: The validity of the calculated GFR AND GFRAA in patients over 70 years has not been determined. Clinical correlation is essential. LAB L501.1110 >60 mL/min Low EST GFR 55 Result Comment: Non- GFR Calc LAB L501.1115 >60 mL/min Normal EST GFR - AA 67 Result Comment: GFR Calc LAB L501.1300 10-20 RATIO Normal BUN/CRE 12.6 LAB L501.2200 8.5-10.1 mg/dL High CA 11.3 LAB L501.5300 136-145 mmol/L NA Normal 143 LAB L501.5600 3.5-5.1 mmol/L K Normal 3.7 LAB L501.5900 98-107 mmol/L High CL 109 LAB L501.6100 21.0-32.0 mmol/L Normal CO2 29.0 LAB L501.6200 5-15 Normal GAP 5 Performed By: #### L100.0100, L500.2500, L501.9310, L501.9520 #### [facility] [address] [place], [place], [address] T4 TOTAL, THYROXIN Collected: 03/08/2018 Status: F Source: [place] 12:08 PM [facility] [place] CODE TESTS RESULT OUT OF RANGE REFERENCE UNITS LAB L501.9310 4.8-13.9 ug/dL T4 Normal THYROXIN 11.8 Performed By: #### L100.0100, L500.2500, L501.9310, L501.9520 #### [facility] [address]. [place], [place], [address] THYROID STIM HORMONE Collected: 03/08/2018 Status: F Source: [place] (TSH) 12:08 PM [facility] [place] CODE TESTS RESULT OUT OF RANGE REFERENCE UNITS LAB L501.9520 0.358-3.74 uIU/mL Low TSH < 0.01 Performed By: #### L100.0100, L500.2500, L501.9310, L501.9520 #### [facility] [address] [place], [address] THYROID STIM HORMONE Collected: 01/12/2018 Status: F Source: [place] (TSH) 9:03 AM [facility] [place] CODE TESTS RESULT OUT OF RANGE REFERENCE UNITS LAB L501.9520 0.358-3.74 uIU/mL Low TSH < 0.01 Performed By: #### L501.9520 #### [facility] [address] [place], [address] CBC W/DIFF, AUTOMATED Collected: 11/29/2017 Status: F Source: [place] 11:10 AM [facility] [place] TYPE CODE TESTS RESULT OUT OF RANGE REFERENCE UNITS LAB L100.1000 4.4-11.0 K/mm3 Normal WBC 6.0 LAB L100.1200 4.2-5.4 M/mm3 Normal RBC 4.28 LAB L100.1300 12.0-15.0 g/dl Normal HGB 12.1 LAB L100.1400 37-47 % Normal HCT 38.4 LAB L100.1500 81-99 fL Normal MCV 89.7 LAB L100.1600 27.0-32.0 pg Normal MCH 28.3 LAB L100.1700 32-36 g/gl Low MCHC 31.5 LAB L100.1810 11.6-14.6 % Normal RDW CV 14.2 LAB L100.1820 35.1-43.9 fl High RDW SD 45.4 LAB L100.1900 150-450 K/mm3 Normal PLT 172 LAB L100.2000 6.2-12.0 fl Normal MPV 11.0 LAB L100.2100 47-70 % High NEUT% 73.3 LAB L100.2200 19-41 % Low LY% 18.8 LAB L100.2300 0-10 % Normal MONO% 6.3 LAB L100.2400 0-5 % Normal EO% 1.2 LAB L100.2500 0-1 % Normal BASO% 0.2 LAB L100.2550 0.0-0.9 % Normal IM GRAN % 0.200 Result Comment: IG% - Immature Granulocytes (promyelocytes, myelocytes and metamyelocytes) > 1% indicates that a LEFT SHIFT is Present. LAB L100.2620 2.0-7.7 X10 3/uL Normal Absolute Neut 4.4 LAB L100.2720 0.83-4.51 X10 3/ul Normal Absolute Lymph 1.13 Performed By: #### L100.0100 #### [facility] [address] [place], [address] COMPREHENSIVE METABOLIC Collected: 11/29/2017 Status: F Source: [place] [facility] 11:10 AM [facility] [place] CODE TESTS RESULT OUT OF RANGE REFERENCE UNITS LAB L501.0100 74-106 mg/dL High GLU 149 Result Comment: Fasting Glucose result greater than or equal to 126 mg/dL suggests DIABETES MELLITUS per A.D.A. criteria. LAB L501.1000 7-18 mg/dL High BUN 28 LAB L501.1100 0.55-1.02 mg/dL High CREAT,SERUM 1.48 Result Comment: The validity of the calculated GFR AND GFRAA in patients over 70 years has not been determined. Clinical correlation is essential. LAB L501.1110 >60 mL/min Low EST GFR 37 Result Comment: Non- GFR Calc LAB L501.1115 >60 mL/min Low EST GFR - AA 44 Result Comment: GFR Calc LAB L501.1300 10-20 RATIO Normal BUN/CRE 18.9 LAB L501.1500 6.4-8.2 g/dL T Normal PROT 7.5 LAB L501.1800 3.2-5.0 g/dL Normal ALB 3.5 LAB L501.1950 2.2-4.2 g/dL Normal GLOB 4.0 LAB L501.2000 0.9-2.4 RATIO Normal A/G 0.9 LAB L501.2200 8.5-10.1 mg/dL High CA 10.8 LAB L501.4100 15-37 U/L Normal AST 24 LAB L501.4305 45-117 U/L Normal ALK P 46 LAB L501.4405 13-56 U/L Normal ALT 22 Result Comment: Please note revised ALT reference range effective 2017. LAB L501.4600 0.20-1.00 mg/dL Normal T BILI 0.40 LAB L501.5300 136-145 mmol/L Normal NA 141 LAB L501.5600 3.5-5.1 mmol/L Normal K 4.1 LAB L501.5900 98-107 mmol/L Normal CL 102 LAB L501.6100 21.0-32.0 mmol/L Normal CO2 29.0 LAB L501.6200 5-15 Normal GAP 10 Performed By: #### L500.4050, L501.9520 #### [facility] [address] [place], [address] THYROID STIM HORMONE Collected: 11/29/2017 Status: F Source: [place] (TSH) 11:10 AM [facility] [place] CODE TESTS RESULT OUT OF RANGE REFERENCE UNITS LAB L501.9520 0.358-3.74 uIU/mL Low TSH 0.01 Performed By: #### L500.4050, L501.9520 #### [facility] [address] [place], [address] VITAMIN D,25 HYDROXY Collected: 11/29/2017 Status: F Source: [place] 11:10 AM [facility] [place] TYPE CODE TESTS RESULT OUT OF RANGE REFERENCE UNITS LAB L506.1000 19.95-100.01 ng/mL Normal Vitamin D 23.1 25-OH Result Comment: Vitamin D 25(OH) Status Range Deficiency <20 ng/mL (50nmol/L) Insuffciency 20 - 30 ng/mL (50 - 75 nmol/L) Sufficiency 30 - 100 ng/mL (75 - 250 nmol/L) Toxicity >100 ng/mL (>250 nmol/L) Performed By: #### L506.1000 #### [facility] [address] [place], [address] ALLERGIES ALLERGIES DATE TYPE / CODE NAME / CODE REACTION SEVERITY SOURCE 06/27/2018 Drug Penicillins/ Rash Unknown [facility] Allergy/4160 [id number](R Hospital 55894(SNOMED XNORM) Repository CT) 06/27/2018 Drug lisinopril/F Vomiting Unknown [facility] Allergy/4160 [id number](RX Hospital 88358(SNOMED NORM) Repository CT) 06/27/2018 Drug morphine/F00 Rash Unknown [facility] Allergy/4160 [id number]([place] [address](SNOMED RM) Repository CT) 06/27/2018 Drug codeine/F006 Nausea Unknown [facility] Allergy/4160 539987([place] [address](SNOMED M) Repository CT) 06/27/2018 Drug propoxyphene Nausea Unknown [facility] Allergy/4160 /[id number]( [facility](SNOMED RXNORM) Repository CT) 06/27/2018 Drug quinine/F006 Vomiting Unknown [facility] Allergy/4160 834405([place] [address](SNOMED M) Repository CT) ENCOUNTERS ENCOUNTERS ADMIT/DISCHARGE ACCOUNT NUMBER ADMITTING ENCOUNTER LOCATION SOURCE CLASS 10/05/2018 [id number] Ambulatory [facility] ding:LAB Repository 09/25/2018 [id number] Ambulatory [facility] ding:LAB Repository 07/25/2018 [id number] Ambulatory [facility] ding:LAB Repository 07/17/2018 [id number] Ambulatory [facility] ding:LAB.FUT Repository URE 07/10/2018/07/11/20 [id number] MO PEÑALOZA, Ambulatory ABuilding:ME Miri Davila Room: [place] [address]Bed: [facility] [place] Repository 06/29/2018 [id number] Ambulatory [facility] ding:CVS Repository 06/29/2018 [id number] Ambulatory BMSBuilding: [facility] Repository 06/28/2018 [id number] Ambulatory [facility] ding:CVS Repository 06/28/2018 [id number] Ambulatory BMSBuilding: [facility] Repository 06/27/2018/06/27/20 [id number] Ambulatory BMSBuilding: [address] Repository 06/14/2018/06/14/20 [id number] Ambulatory AULTMANBuild Miri Moon ing:Critical access hospital Repository 05/31/2018 [id number] Ambulatory [facility] ding:POLAB3 Repository 05/21/2018 [id number] Ambulatory [facility] ding:LAB Repository 05/17/2018 [id number] Ambulatory [facility] ding:POLAB3 Repository 04/19/2018 [id number] Ambulatory [facility] ding:OPUS Repository 04/05/2018 [id number] Ambulatory [facility] ding:LAB.FUT Repository URE 03/08/2018 [id number] Ambulatory [facility] ding:POLAB3 Repository 03/08/2018/03/08/20 [id number] Ambulatory BMSBuilding: [facility] Repository 03/06/2018 [id number] Ambulatory [facility] Repository 01/12/2018 [id number] Ambulatory [facility] ding:POLAB3 Repository 11/29/2017 [id number] Ambulatory [facility] ding:POLAB3 Repository PAYERS PAYERS ENCOUNTER GUARANTOR PAYER SUBSCRIBER SOURCE 10/05/2018 AUDRA [id number] Primary JUVENAL RAVIDOB: [place] Insurance[id number] PART A BPolicy Number: Hospital [id number]: 330 [id number] Repository [phone] () Date:2018-10-05 10/05/2018 Secondary AUDRA Ej TAHIRB: [place] Insurance:SLAUGHTER [id number] [facility] Hospital Number: Repository [id number] Date:2018-10-05P [facility] [place] [address]OD: 10/05/2018 Tertiary NOT GIVENUNK [place] Insurance:SELF PAY [facility] Number: Effective Repository Date:2018-10-05 09/25/2018 AUDRA [id number] Primary JUVENAL J HARTDOB: [place] Insurance:MEDICARE [id number], [place] PART A BPolicy Number: Hospital [id number]: 330 [id number] Repository [phone] () Date:2018-09-25 09/25/2018 Secondary AUDRA HAROB: [place] Insurance:SLAUGHTER [id number] Number: Repository [id number] Date:2018-09-25P [address] [place] [phone]: 09/25/2018 Tertiary NOT GIVENUNK [facility] Insurance:SELF PAY [facility] Hospital Number: Effective Repository Date:2018-09-25 07/25/2018 AUDRA SHARP8 Primary JUVENAL J HARTDOB: [place] Insurance:MEDICARE [id number], [place] PART A BPolicy Number: Hospital [address]120Cax: 330 [id number] Repository [phone] () Date:2018-07-25 07/25/2018 Secondary AUDAR HAROB: [place] Insurance:SLAUGHTER [id number] Hospital Number: Repository [id number] Date:2018-07-25P [address] [place] [address]GP: 07/25/2018 Tertiary NOT GIVENUNK [facility] Insurance:SELF PAY [facility] Hospital Number: Effective Repository Date:2018-07-25 07/17/2018 AUDRA SHARP8 Primary JUVENAL J HARTDOB: [place] Insurance:MEDICARE [id number], [place] PART A BPolicy Number: Hospital [id number]: 330 [id number] Repository [phone] () Date:2018-03-21 07/17/2018 Secondary AUDRA HAROB: [place] Insurance:UNITED [id number] [facility] Hospital Number: Repository [id number] Date:2018-03-21P [address] [place] [phone]: 07/17/2018 Tertiary NOT GIVENUNK [place] Insurance:SELF PAY [facility] Hospital Number: Effective Repository Date:2018-03-21 07/10/2018 JUVENAL J [facility]NAL J [facility]:MEDICARE [id number] [facility] PART BPolicy Number: STIBBS Repository [id number] Date:2018-06-21 18531Kgw: ([phone]) [email or web address] [id number] [phone] NET.COMTel: Name:[facility] [place])Tel: (000) [employer] 000-0000 (WP) () [address] [address]cl[place], [place] [address]AW: 07/10/2018 Secondary AUDRA RAVIDOB: [facility] Insurance:UNITED [id number] [facility] [address]Vrkclf STIBBS STTel: Repository Number: [id number] ()Tel: (367) Date:2018-06-21 [phone] (WP) [id number] Name:BENZENE WORKER [address] [place] [address]XW: 06/29/2018 AUDRA SHARP8 Primary JUVENAL J HARTDOB: [place] ST[place] Insurance:MEDICARE [id number] [place] PART A BPolicy Number: [facility] [address]Awj: (468) [id number] Repository [phone] () Date:2018-06-27 06/29/2018 Secondary AUDRA Ej TRAVDOB: [place] Insurance:[facility] [id number] [address]Wrmckx Hospital Number: Repository [id number] Date:3850-83-96IS [address], [place] [address]NN: 06/29/2018 Tertiary NOT GIVENUNK [place] Insurance:SELF PAY [facility] Number: Effective Repository Date:2018-06-27 06/29/2018 AUDRA SHARP8 Primary JUVENAL J HARTDOB: [place] Insurance:MEDICARE [id number], [place] PART A BPolicy Number: Hospital [id number]: 330 [id number] Repository [phone] () Date:2018-06-27 06/29/2018 Secondary AUDRA Pagan HARTDOB: [place] Insurance:[facility] [id number] Gateway Medical Center [address]Bhdaay Hospital Number: Repository [id number] Date:4950-62-10IA [facility] [address], [place] [address]FO: 06/29/2018 Tertiary NOT GIVENUNK [place] Insurance:SELF PAY [facility] Hospital Number: Effective Repository Date:2018-06-29 06/28/2018 AUDRA SHARP8 Primary JUVENAL J HARTDOB: [place] Insurance:MEDICARE [id number], [place] PART A BPolicy Number: Hospital [address]Ybh: 330 [id number] Repository [phone] () Date:2018-06-27 06/28/2018 Secondary AUDRA HAROB: [place] Insurance:SLAUGHTER [id number] Cochise Community Hospital Hospital Number: Repository [id number] Date:2018-06-[address] [address]VG: 06/28/2018 Tertiary NOT GIVENUNK [place] Insurance:SELF PAY [facility] Hospital Number: Effective Repository Date:2018-06-27 06/28/2018 AUDRA SHARP8 Primary JUVENAL J HARTDOB: [place] Insurance:MEDICARE [id number], [place] PART A BPolicy Number: Hospital 57246Qrk: 330 [id number] Repository [phone] () Date:2018-06-27 06/28/2018 Secondary AUDRA RAVIDOB: [place] Insurance:SLAUGHTER [id number] [facility]ise Community Hospital Hospital Number: Repository [id number] Date:2018-06-[address] [place] [address]AU: 06/28/2018 Tertiary NOT GIVENUNK [place] Insurance:SELF PAY [facility] Hospital Number: Effective Repository Date:2018-06-28 06/27/2018 AUDRA QUIJANO Primary JUVENAL J HARTDOB: [place] Insurance:MEDICARE [id number], [place] PART A BPolicy Number: Hospital 75[address]Geg: 330 [id number] Repository [phone] () Date:2018-06-26 06/27/2018 Secondary AUDRA RAVIDOB: [place] Insurance:SLAUGHTER [id number] [facility]chise Community Hospital Hospital Number: Repository [id number] Date:2018-06-[address] [place] [address]LW: 06/27/2018 Tertiary NOT GIVENUNK [place] Insurance:SELF PAY [facility] Hospital Number: Effective Repository Date:2018-06-27 06/14/2018 JUVENAL J Primary JUVENAL J HARTDOB: [facility] HARTDOB: Insurance:MEDICARE [id number] [facility] PART BPolicy Number: [facility] [id number], [place] Date:2017-10-23 00740Bfz: (542) 98584~[email or web address] [id number] [phone] NET.COMTel: Name:[facility] (HP)Tel: (000) [facility] 000-0000 (WP) (HP) [address] [place] [address] 89[address]UG: 06/14/2018 Secondary AUDRA RAVIDOB: [facility] Insurance:SLAUGHTER [id number] [place] [id number] STIBBS STTel: Repository Number: [id number] (HP)Tel: (346) Date:2017-10-23 [phone] (WP) [id number] Name:[facility] [address] [place] [address] 89[address]GR: 05/31/2018 AUDRA QUIJANO Primary JUVENALADDISON RAVIDOB: [place] Insurance:MEDICARE [id number], [place] PART A BPolicy Number: Hospital 07[address]Lmu: 330 [id number] Repository [phone] () Date:2018-05-31 05/31/2018 Secondary AUDRA HAROB: [place] Insurance:SLAUGHTER [id number] Cochise Community Hospital Hospital Number: Repository [id number] Date:2018-05-31P [address] [address]JX: 05/31/2018 Tertiary NOT GIVENUNK [place] Insurance:SELF PAY [facility] Hospital Number: Effective Repository Date:2018-05-31 05/21/2018 AUDRAVISHAL SHARP8 Primary JUVENALADDISON RAVIDOB: [place] Insurance:MEDICARE [id number], [place] PART A BPolicy Number: Hospital [address]Hje: 330 [id number] Repository [phone] () Date:2018-05-21 05/21/2018 Secondary AUDRA HAROB: [place] Insurance:SLAUGHTER [id number] Cochise Community Hospital Hospital Number: Repository [id number] Date:2018-05-21[address] [address]ZW: 05/21/2018 Tertiary NOT GIVENUNK [place] Insurance:SELF PAY [facility] Hospital Number: Effective Repository Date:2018-05-21 05/17/2018 AUDRA QUIJANO Primary JUVENAL Letty HARTDOB: [place] Insurance:MEDICARE [id number], [place] PART A BPolicy Number: Hospital [id number]: 330 [id number] Repository [phone] () Date:2018-01-30 05/17/2018 Secondary AUDRA F HARTDOB: [place] Insurance:SLAUGHTER [id number] Cochise Community Hospital Hospital Number: Repository [id number] Date:2018-01-30P [address] [place] [address]RF: 05/17/2018 Tertiary NOT GIVENUNK [place] Insurance:SELF PAY [facility] Number: Effective Repository Date:2018-01-30 04/19/2018 AUDRA SHARP8 Primary JUVENAL J HARTDOB: [place] Insurance:MEDICARE [id number], [place] PART A BPolicy Number: Hospital [id number]: 330 [id number] Repository [phone] () Date:2018-04-16 04/19/2018 Secondary AUDRA RAVIDOB: [place] Insurance:SLAUGHTER [id number] Cochise Community Hospital Hospital Number: Repository [id number] Date:2018-04-16P [address] [place] [address]YP: 04/19/2018 Tertiary NOT GIVENUNK [place] Insurance:SELF PAY [facility] Number: Effective Repository Date:2018-04-16 04/05/2018 AUDRA SHARP8 Primary JUVENAL J HARTDOB: [place] Insurance:MEDICARE [id number], [place] PART A BPolicy Number: Hospital [id number]: 330 [id number] Repository [phone] () Date:2018-04-04 04/05/2018 Secondary AUDRA RAVIDOB: [place] Insurance:UNITED [id number] Cochise Community Hospital Hospital Number: Repository [id number] Date:2018-04-04P [address] [place] [address]JW: 04/05/2018 Tertiary NOT GIVENUNK [place] Insurance:SELF PAY [facility] Hospital Number: Effective Repository Date:2018-04-04 03/08/2018 AUDRA SHARP8 Primary JUVENAL J HARTDOB: [place] Insurance:MEDICARE [id number], [place] PART A BPolicy Number: Hospital [id number]: 330 [id number] Repository [phone] () Date:2018-03-08 03/08/2018 Secondary AUDRA RAVIDOB: [place] Insurance:UNITED [id number] Cochise Community Hospital Hospital Number: Repository [id number] Date:2018-03-[address] [place] [address]GA: 03/08/2018 Tertiary NOT GIVENUNK [place] Insurance:SELF PAY [facility] Hospital Number: Effective Repository Date:2018-03-08 03/08/2018 AUDRA SHARP8 Primary JUVENAL J HARTDOB: [place] Insurance:MEDICARE [id number], [place] PART A BPolicy Number: Hospital [id number]: 330 [id number] Repository [phone] () Date:2017-10-03 03/08/2018 Secondary AUDRA HAROB: [place] Insurance:SLAUGHTER [id number] Cochise Community Hospital Hospital Number: Repository [id number] Date:2017-10-[address] [place] [address]EB: 03/08/2018 Tertiary NOT GIVENUNK [place] Insurance:SELF PAY [facility] Hospital Number: Effective Repository Date:2018-03-08 03/06/2018 AUDRA SHARP8 Primary JUVENAL J HARTDOB: [place] Insurance:MEDICARE [id number], [place] PART A BPolicy Number: Hospital 185[address]Lms: 330 [id number] Repository [phone] () Date:2018-03-06 03/06/2018 Secondary AUDRA Pagan HARTDOB: [place] Insurance:UNITED [id number] Cochise Community Hospital Hospital Number: Repository [id number] Date:2018-03-[address] [place] [address]SO: 03/06/2018 Tertiary NOT GIVENUNK [place] Insurance:SELF PAY [facility] Hospital Number: Effective Repository Date:2018-03-06 01/12/2018 AUDRA SHARP8 Primary JUVENAL Letty HARTDOB: [place] Insurance:MEDICARE [id number], [place] PART A BPolicy Number: Hospital [id number]: 330 [id number] Repository [phone] () Date:2017-12-05 01/12/2018 Secondary AUDRA HAROB: [place] Insurance:SLAUGHTER [id number] Cochise Community Hospital Hospital Number: Repository [id number] Date:2017-12-05P [address] [place] [address]IT: 01/12/2018 Tertiary NOT GIVENUNK [place] Insurance:SELF PAY [facility] Hospital Number: Effective Repository Date:2017-12-05 11/29/2017 AUDRA [id number] Primary JUVENAL RAVIDOB: [place] Insurance:MEDICARE [id number], [place] PART A BPolicy Number: Hospital 580[address]Tqz: 330 [id number] Repository [phone] () Date:2017-11-29 11/29/2017 Secondary AUDRA HAROB: [place] Insurance:UNITED [id number] Cochise Community Hospital Hospital Number: Repository [id number] Date:2017-11-29P [address] [place] [address]MI: 11/29/2017 Tertiary NOT GIVENUNK [place] Insurance:SELF PAY [facility] Hospital Number: Effective Repository Date:2017-11-29
== END ==
PROVIDERS: Family Provider Family Medicine Geriatric Medicine; PCP Family Medicine Geriatric Medicine; Referring Provider Internal Medicine Endocrinology, Diabetes & Metabolism; Visit Provider Internal Medicine Endocrinology, Diabetes & Metabolism
DX: E11.9 Type 2 diabetes mellitus without complications (principal)
CPT/HCPCS: 36415; 80053; 83036; 84439; 84443

== ENCOUNTER → 2018-12-03 11:41 | Outpatient (CLI) | payer MEDICARE, OTHER, SELFPAY ==
[2018-12-03 13:44] LABS: Absolute Lymphocyte Count 1.47 X10^3/ul (0.83-4.51); Absolute Neutrophil Count 5.2 X10^3/uL (2.0-7.7); Basophil# 0.01 X10^3/uL; Basophil% 0.1 % (0-1); Eosinophil# 0.06 X10^3/uL; Eosinophils% 0.8 % (0-5); Hematocrit 44.3 % (37-47); Hemoglobin 12.3 g/dl (12.0-15.0); Lymphocyte # 1.47 X10^3/ul (4.0); Lymphocyte % 20.3 % (19-41); Mean Corp Hgb Conc 27.8 g/gl (32-36); Mean Corpuscular Hgb 29.9 pg (27.0-32.0); Mean Corpuscular Volume 107.5 fL (81-99); Mean Platelet Vol. 12.8 fl (6.2-12.0); Monocyte# 0.48 X10^3/uL; Monocyte% 6.6 % (0-10); Neutrophil % 71.9 % (47-70); Platelet Count 164 K/mm3 (150-450); RBC Distribution Width CV 15.6 % (11.6-14.6); RBC Distribution Width SD 61.4 fl (35.1-43.9); Red Blood Count 4.12 M/mm3 (4.2-5.4); White Blood Count 7.2 K/mm3 (4.4-11.0)
[2018-12-03 13:47] LABS: POSITIVE COUNT NO; POSITIVE DIFFERENTIAL NO; POSITIVE MORPHOLOGY NO
[2018-12-03 13:58] LABS: Vitamin D,25 Hydroxy 29.5 ng/mL (29.95-100.01)
[2018-12-03 13:59] LABS: ALB/GLOB Ratio 1.1 RATIO (0.9-2.4); AST(SGOT) 21 U/L (15-37); Alanine Aminotransfer ALT/SGPT 13 U/L (13-56); Albumin, Serum 3.8 g/dL (3.2-5.0); Alkaline Phosphatase 39 U/L (45-117); Anion Gap 11 (5-15); BUN 22 mg/dL (7-18); BUN/Creat Ratio 15.8 RATIO (10-20); Calcium,Total 9.1 mg/dL (8.5-10.1); Chloride 99 mmol/L (98-107); Creatinine, Serum 1.39 mg/dL (0.55-1.02); EST Glomerular Filtration Rate 39 mL/min (>60); Est Glom Filt Rate - Afr Amer 47 mL/min (>60); Globulin 3.5 g/dL (2.2-4.2); Glucose 333 mg/dL (74-106); Potassium 4.4 mmol/L (3.5-5.1); Protein, Total 7.3 g/dL (6.4-8.2); Sodium Level 140 mmol/L (136-145)
== END ==
PROVIDERS: Family Provider Family Medicine Geriatric Medicine; PCP Family Medicine Geriatric Medicine; Visit Provider Family Medicine Geriatric Medicine
DX: E11.9 Type 2 diabetes mellitus without complications (principal); E55.9 Vitamin D deficiency, unspecified; I10 Essential (primary) hypertension
CPT/HCPCS: 36415; 80053; 82306; 84443; 85025

== ENCOUNTER → 2019-01-14 08:03 | Outpatient (CLI) | payer MEDICARE, OTHER, SELFPAY ==
[2019-01-14 10:06] LABS: T3 Uptake 32 % (30-39); T4 Free Direct 0.95 ng/dL (0.76-1.46); Thyroid Stim Hormone (TSH) 5.67 uIU/mL (0.358-3.74)
== END ==
PROVIDERS: Family Provider Family Medicine Geriatric Medicine; PCP Family Medicine Geriatric Medicine; Referring Provider Family Medicine Geriatric Medicine; Visit Provider Family Medicine Geriatric Medicine
DX: E05.90 Thyrotoxicosis, unspecified without thyrotoxic crisis or storm (principal)
CPT/HCPCS: 36415; 84439; 84443; 84479

== ENCOUNTER → 2019-03-06 | Outpatient (CLI) | payer MEDICARE, OTHER, SELFPAY ==
[2019-03-06 13:31] LABS: Absolute Lymphocyte Count 1.48 X10^3/ul (0.83-4.51); Absolute Neutrophil Count 3.1 X10^3/uL (2.0-7.7); Basophil# 0.01 X10^3/uL; Basophil% 0.2 % (0-1); Eosinophil# 0.04 X10^3/uL; Eosinophils% 0.8 % (0-5); Hematocrit 39.5 % (37-47); Hemoglobin 12.7 g/dl (12.0-15.0); Lymphocyte # 1.48 X10^3/ul (4.0); Lymphocyte % 28.8 % (19-41); Mean Corp Hgb Conc 32.2 g/gl (32-36); Mean Corpuscular Hgb 29.3 pg (27.0-32.0); Mean Platelet Vol. 10.5 fl (6.2-12.0); Monocyte# 0.52 X10^3/uL; Monocyte% 10.1 % (0-10); Neutrophil # 3.07 X10^3/uL (2.7-7.7); Neutrophil % 59.9 % (47-70); POSITIVE COUNT NO; POSITIVE DIFFERENTIAL NO; POSITIVE MORPHOLOGY NO; Platelet Count 206 K/mm3 (150-450); RBC Distribution Width CV 13.2 % (11.6-14.6); RBC Distribution Width SD 43.1 fl (35.1-43.9); Red Blood Count 4.34 M/mm3 (4.2-5.4); White Blood Count 5.1 K/mm3 (4.4-11.0)
[2019-03-06 13:53] LABS: Vitamin D,25 Hydroxy 31.7 ng/mL (29.95-100.01)
[2019-03-06 13:59] LABS: ALB/GLOB Ratio 1.1 RATIO (0.9-2.4); AST(SGOT) 21 U/L (15-37); Alanine Aminotransfer ALT/SGPT 19 U/L (13-56); Albumin, Serum 3.8 g/dL (3.2-5.0); Alkaline Phosphatase 44 U/L (45-117); Anion Gap 3 (5-15); BUN 16 mg/dL (7-18); BUN/Creat Ratio 13.4 RATIO (10-20); Calcium,Total 8.9 mg/dL (8.5-10.1); Chloride 101 mmol/L (98-107); Creatinine, Serum 1.19 mg/dL (0.55-1.02); EST Glomerular Filtration Rate 47 mL/min (>60); Est Glom Filt Rate - Afr Amer 57 mL/min (>60); Globulin 3.6 g/dL (2.2-4.2); Glucose 216 mg/dL (74-106); Potassium 3.8 mmol/L (3.5-5.1); Protein, Total 7.4 g/dL (6.4-8.2); Sodium Level 136 mmol/L (136-145)
== END | disposition home or self-care (01) ==
LOC: POLAB3 10:58
PROVIDERS: Family Provider Family Medicine Geriatric Medicine; PCP Family Medicine Geriatric Medicine; Visit Provider Family Medicine Geriatric Medicine
DX: E11.9 Type 2 diabetes mellitus without complications (principal); E55.9 Vitamin D deficiency, unspecified; I10 Essential (primary) hypertension
CPT/HCPCS: 36415; 80053; 82306; 84443; 85025

== ENCOUNTER → 2019-04-17 | Outpatient (CLI) | payer MEDICARE, OTHER, SELFPAY ==
[2019-04-01 09:06] VITALS: BMI 26.7
[2019-04-17 12:02] LABS: Thyroid Stim Hormone (TSH) 0.83 uIU/mL (0.358-3.74)
== END | disposition home or self-care (01) ==
LOC: LAB 11:01
PROVIDERS: Family Provider Family Medicine Geriatric Medicine; PCP Family Medicine Geriatric Medicine; Referring Provider Family Medicine Geriatric Medicine; Visit Provider Family Medicine Geriatric Medicine
DX: E03.9 Hypothyroidism, unspecified (principal)
CPT/HCPCS: 36415; 84443

== ENCOUNTER → 2019-06-04 08:46 | Outpatient (CLI) | payer MEDICARE, OTHER, SELFPAY ==
[2019-04-01 09:06] VITALS: BMI 26.7
[2019-06-04 13:08] LABS: Absolute Lymphocyte Count 1.08 X10^3/uL (0.83-4.51); Absolute Neutrophil Count 4.6 X10^3/uL (2.0-7.7); Basophil# 0.01 X10^3/uL; Basophil% 0.2 % (0-1); Eosinophil# 0.05 X10^3/uL; Eosinophils% 0.8 % (0-5); Hematocrit 39.6 % (37-47); Hemoglobin 12.6 g/dL (12.0-15.0); Lymphocyte # 1.08 X10^3/ul (4.0); Lymphocyte % 17.1 % (19-41); Mean Corp Hgb Conc 31.8 g/dL (32-36); Mean Corpuscular Hgb 29.1 pg (27.0-32.0); Mean Corpuscular Volume 91.5 fL (81-99); Mean Platelet Vol. 10.4 fl (6.2-12.0); Monocyte# 0.58 X10^3/uL; Monocyte% 9.2 % (0-10); NRBC Flagged by Analyzer 0 % (0-5); Neutrophil # 4.58 X10^3/uL (2.7-7.7); Neutrophil % 72.2 % (47-70); Platelet Count 199 K/mm3 (150-450); RBC Distribution Width CV 13.6 % (11.6-14.6); RBC Distribution Width SD 45.8 fl (35.1-43.9); Red Blood Count 4.33 M/mm3 (4.2-5.4); White Blood Count 6.3 K/mm3 (4.4-11.0)
[2019-06-04 13:23] LABS: Vitamin D,25 Hydroxy 35.7 ng/mL (29.95-100.01)
[2019-06-04 13:30] LABS: ALB/GLOB Ratio 1.1 RATIO (0.9-2.4); AST(SGOT) 25 U/L (15-37); Alanine Aminotransfer ALT/SGPT 20 U/L (13-56); Albumin, Serum 3.8 g/dL (3.2-5.0); Alkaline Phosphatase 41 U/L (45-117); Anion Gap 6 (5-15); BUN 22 mg/dL (7-18); BUN/Creat Ratio 16.3 RATIO (10-20); Chloride 101 mmol/L (98-107); Creatinine, Serum 1.35 mg/dL (0.55-1.02); EST Glomerular Filtration Rate 40 mL/min (>60); Est Glom Filt Rate - Afr Amer 49 mL/min (>60); Globulin 3.5 g/dL (2.2-4.2); Glucose 93 mg/dL (74-106); Potassium 3.9 mmol/L (3.5-5.1); Protein, Total 7.3 g/dL (6.4-8.2); Sodium Level 138 mmol/L (136-145); Thyroid Stim Hormone (TSH) 0.31 uIU/mL (0.358-3.74)
== END ==
PROVIDERS: Family Provider Family Medicine Geriatric Medicine; PCP Family Medicine Geriatric Medicine; Visit Provider Family Medicine Geriatric Medicine
DX: E11.9 Type 2 diabetes mellitus without complications (principal); E55.9 Vitamin D deficiency, unspecified; I10 Essential (primary) hypertension
CPT/HCPCS: 36415; 80053; 82306; 84443; 85025

== ENCOUNTER → 2019-07-22 | Outpatient (CLI) | payer MEDICARE, OTHER, SELFPAY ==
[2019-04-01 09:06] VITALS: BMI 26.7
[2019-07-22 11:40] LABS: Thyroid Stim Hormone (TSH) 0.71 uIU/mL (0.358-3.74)
== END | disposition home or self-care (01) ==
LOC: LAB.FUTURE 10:26 → LAB 10:30
PROVIDERS: Family Provider Family Medicine Geriatric Medicine; PCP Family Medicine Geriatric Medicine; Referring Provider Family Medicine Geriatric Medicine; Visit Provider Family Medicine Geriatric Medicine
DX: E03.9 Hypothyroidism, unspecified (principal)
CPT/HCPCS: 36415; 84443

== ENCOUNTER → 2019-08-07 | Outpatient (CLI) | payer MEDICARE, OTHER, SELFPAY ==
[2019-04-01 09:06] VITALS: BMI 26.7
[2019-08-07 12:31] LABS: Absolute Lymphocyte Count 1.38 X10^3/uL (0.83-4.51); Absolute Neutrophil Count 3.7 X10^3/uL (2.0-7.7); Basophil# 0.02 X10^3/uL; Basophil% 0.3 % (0-1); Eosinophil# 0.09 X10^3/uL; Eosinophils% 1.5 % (0-5); Hematocrit 38.7 % (37-47); Hemoglobin 12.6 g/dL (12.0-15.0); Lymphocyte # 1.38 X10^3/ul (4.0); Lymphocyte % 23.6 % (19-41); Mean Corp Hgb Conc 32.6 g/dL (32-36); Mean Corpuscular Hgb 29.3 pg (27.0-32.0); Mean Platelet Vol. 9.9 fl (6.2-12.0); Monocyte% 10.3 % (0-10); NRBC Flagged by Analyzer 0 % (0-5); Neutrophil # 3.71 X10^3/uL (2.7-7.7); Neutrophil % 63.4 % (47-70); Platelet Count 209 K/mm3 (150-450); White Blood Count 5.9 K/mm3 (4.4-11.0)
[2019-08-07 12:43] LABS: ALB/GLOB Ratio 0.9 RATIO (0.9-2.4); AST(SGOT) 24 U/L (15-37); Alanine Aminotransfer ALT/SGPT 25 U/L (13-56); Albumin, Serum 3.7 g/dL (3.2-5.0); Alkaline Phosphatase 65 U/L (45-117); Anion Gap 6 (5-15); BUN 17 mg/dL (7-18); Calcium,Total 9.6 mg/dL (8.5-10.1); Chloride 102 mmol/L (98-107); Creatinine, Serum 1.13 mg/dL (0.55-1.02); EST Glomerular Filtration Rate 50 mL/min (>60); Est Glom Filt Rate - Afr Amer 60 mL/min (>60); Glucose 116 mg/dL (74-106); Potassium 3.7 mmol/L (3.5-5.1); Protein, Total 7.7 g/dL (6.4-8.2); Sodium Level 140 mmol/L (136-145)
--- NOTE | 2019-08-07 14:15 | CT_ITS ---
STUDY: CT ABDOMEN AND PELVIS WITH CONTRAST REASON FOR EXAM: Female, 79 years old. Abdominal pain. History of hysterectomy, cholecystectomy and appendectomy. RADIATION DOSAGE (If Supplied By Facility): CTDIvol = ( 15.49 ) mGy, DLP = ( 964.65 ) mGycm TECHNIQUE: Transaxial images were obtained from the dome of the diaphragm to the symphysis pubis without oral contrast. 100ml ml of Isovue 300 contrast was administered. Sagittal and coronal images were reconstructed. Individualized dose optimization techniques were used for this CT. COMPARISON: 05/18/2015 FINDINGS: The visualized lung bases are clear. The visualized portions of the heart and pericardium are within normal limits. The patient is status post cholecystectomy. There is a stable cyst in the dome of the liver. The liver is otherwise within normal limits. There are no suspicious hepatic lesions. The spleen is normal in size. The pancreas is within normal limits. The adrenal glands are within normal limits. There are no renal or ureteral stones. There is no hydronephrosis. There are stable renal cysts. Normal visualized stomach. There is no bowel obstruction or inflammation. There is a large amount of stool in the colon, consistent with constipation. The patient is status post appendectomy. The aorta is normal in caliber. There are atherosclerotic calcifications noted in the aorta. There is mild retroperitoneal lymphadenopathy noted. There is no free air, free fluid or fluid collection. There are no destructive osseous lesions. CT/Abdomen/Pelvis WITH Contrast IMPRESSION: No bowel obstruction or inflammation. Constipation. No urinary tract. No hydronephrosis. Mild retroperitoneal lymphadenopathy. This is new when compared with the prior exam. Atherosclerosis. Electronically Signed: Gama Dahl, at 17:06 EDT Tel , Service support ,
== END | disposition home or self-care (01) ==
LOC: CT 11:56
PROVIDERS: Family Provider Family Medicine Geriatric Medicine; PCP Family Medicine Geriatric Medicine; Visit Provider Family Medicine Geriatric Medicine
DX: R10.9 Unspecified abdominal pain (principal); R19.7 Diarrhea, unspecified
CPT/HCPCS: 36415; 74177; 80053; 82274; 83630; 85025; 87177; 87209; 87493; 87506; Q9967

== ENCOUNTER → 2019-08-19 | Outpatient (CLI) | payer MEDICARE, OTHER, SELFPAY ==
[2019-04-01 09:06] VITALS: BMI 26.7
--- NOTE | 2019-08-19 08:30 | PET_ITS ---
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 COMPARISON EXAMINATION: CT of the abdomen and pelvis report dated 08/07/19. NON-INDEX LESION SIZE SUV INTERPRETATION Left lateral neck, left axilla, right supraclavicular region 1.5 (max) Quantitative criteria for viable neoplasm are not fulfilled Bilateral thoracic perihilum 1.7 (max) Quantitative criteria for viable neoplasm are not fulfilled TECHNIQUE: Following the intravenous administration of 14.74 mCi of F-18 deoxyglucose via the left antecubital fossa, multiplanar image acquisitions of the neck, chest, abdomen and pelvis to level of mid thigh, obtained at one hour post radiopharmaceutical administration contemporaneously interpreted with the current CT of the neck, chest, abdomen and pelvis to level of mid thigh, dated 08/19/[address] of the abdomen and pelvis report dated 08/07/19 reveal: SERUM GLUCOSE LEVEL: 112 mg/dl. HEIGHT: 64 inches. WEIGHT: 150 lbs. FINDINGS: 1. Mild increased glucose metabolism is visualized in the right supraclavicular region, left upper axilla and left lateral neck involving level III generating a calculated maximum standard uptake value of 1.5. 2. Facilitated radiopharmaceutical concentration is defined in the bilateral thoracic perihilum generating a calculated maximum standard uptake value of 1.7. Quantitative criteria for centrally located thoracic-viable neoplasm are not fulfilled. 3. Normal physiologic distribution of the radiopharmaceutical is apparent in the hepatic (3.6) and splenic parenchyma, both renal units, bladder and visualized intestinal tract. There is symmetric and preserved glucose metabolism noted in the visualized portion of the frontal, occipital, temporal and parietal lobes of the cerebral cortex, as well as cerebral hemispheres and basal ganglia. ? Diffuse intestinal tract activity is noted throughout all four quadrants of the abdominal-pelvic retroperitoneum, mesentery, segmental in presentation, consistent with normal physiologic distribution of the radiopharmaceutical. Pertinent CT findings are as follows. CHEST: ABDOMEN AND PELVIS: Atherosclerotic calcification is defined in the abdominal aorta without evidence of dilatation, aneurysm formation. Pelvic arterial calcification is observed. The uterus appears surgically absent. There is relatively symmetric subcutaneous tissue densities noted in the bilateral lower anterior pelvic wall localized to the subcutaneous fat generating a calculated maximum standard uptake value of 1.5. Colonic diverticulosis is demonstrated. Cortical cyst formation is defined in the right and left renal units. Subcentimeter retroperitoneal soft tissue densities with fatty hilus formation are non-glucose avid. Bilateral inguinal soft tissue demonstrates no evidence of facilitated FDG uptake. SKELETAL: Degenerative changes defined in the cervical, thoracic and lumbar spine demonstrate no evidence for glucose hypermetabolism. PET/PET/CT Tumor Base -Thigh Init IMPRESSION: 1. NEGATIVE EXAMINATION. There is no definitive quantitative scintigraphic evidence of viable neoplasm. 2. Mild increased FDG distribution noted in the left lateral neck, left axillary and right supraclavicular regions does not fulfill quantitative criteria for viable neoplasm. 3. Enhanced tracer distribution visualized in the bilateral thoracic perihilum does not fulfill quantitative criteria for malignant transformation. Electronic Signature Moncho Richards D.O. Electronically Signed: Moncho Richards DO at 23:31 EDT Tel , Service support ,
== END | disposition home or self-care (01) ==
LOC: ONC 07:49
PROVIDERS: Family Provider Family Medicine Geriatric Medicine; PCP Family Medicine Geriatric Medicine; Referring Provider Family Medicine Geriatric Medicine; Visit Provider Family Medicine Geriatric Medicine
DX: D37.030 Neoplasm of uncertain behavior of the parotid salivary glands (principal)
CPT/HCPCS: 78815; A9552

== ENCOUNTER → 2019-09-05 | Outpatient (CLI) | payer MEDICARE, OTHER, SELFPAY ==
[2019-04-01 09:06] VITALS: BMI 26.7
[2019-09-05 12:38] LABS: ALB/GLOB Ratio 0.9 RATIO (0.9-2.4); AST(SGOT) 24 U/L (15-37); Absolute Neutrophil Count 3.9 X10^3/uL (2.0-7.7); Alanine Aminotransfer ALT/SGPT 24 U/L (13-56); Albumin, Serum 3.5 g/dL (3.2-5.0); Alkaline Phosphatase 50 U/L (45-117); Anion Gap 11 (5-15); BUN 18 mg/dL (7-18); BUN/Creat Ratio 15.8 RATIO (10-20); Basophil# 0.02 X10^3/uL; Basophil% 0.3 % (0-1); Calcium,Total 9.1 mg/dL (8.5-10.1); Chloride 102 mmol/L (98-107); Creatinine, Serum 1.14 mg/dL (0.55-1.02); EST Glomerular Filtration Rate 49 mL/min (>60); Eosinophil# 0.09 X10^3/uL; Eosinophils% 1.5 % (0-5); Est Glom Filt Rate - Afr Amer 59 mL/min (>60); Globulin 4.1 g/dL (2.2-4.2); Glucose 83 mg/dL (74-106); Hematocrit 39.8 % (37-47); Hemoglobin 12.8 g/dL (12.0-15.0); Lymphocyte % 21.9 % (19-41); Mean Corp Hgb Conc 32.2 g/dL (32-36); Mean Corpuscular Hgb 29.2 pg (27.0-32.0); Mean Corpuscular Volume 90.7 fL (81-99); Mean Platelet Vol. 10.2 fl (6.2-12.0); Monocyte# 0.62 X10^3/uL; Monocyte% 10.5 % (0-10); NRBC Flagged by Analyzer 0 % (0-5); Neutrophil # 3.87 X10^3/uL (2.7-7.7); Neutrophil % 65.3 % (47-70); Platelet Count 237 K/mm3 (150-450); Potassium 3.7 mmol/L (3.5-5.1); Protein, Total 7.6 g/dL (6.4-8.2); RBC Distribution Width CV 13.6 % (11.6-14.6); RBC Distribution Width SD 45.7 fl (35.1-43.9); Red Blood Count 4.39 M/mm3 (4.2-5.4); Sodium Level 143 mmol/L (136-145); Thyroid Stim Hormone (TSH) 0.27 uIU/mL (0.358-3.74); Vitamin D,25 Hydroxy 46.8 ng/mL (29.95-100.01); White Blood Count 5.9 K/mm3 (4.4-11.0)
== END | disposition home or self-care (01) ==
LOC: POLAB3 10:00
PROVIDERS: Family Provider Family Medicine Geriatric Medicine; PCP Family Medicine Geriatric Medicine; Visit Provider Family Medicine Geriatric Medicine
DX: E11.9 Type 2 diabetes mellitus without complications (principal); E55.9 Vitamin D deficiency, unspecified; I10 Essential (primary) hypertension
CPT/HCPCS: 36415; 80053; 82306; 84443; 85025

== ENCOUNTER → 2019-10-03 15:44 | Outpatient (CLI) | payer MEDICARE, OTHER, SELFPAY ==
[2019-04-01 09:06] VITALS: BMI 26.7
--- NOTE | 2019-10-03 15:55 | RAD_ITS ---
STUDY: X-RAY - ABDOMEN/PELVIS REASON FOR EXAM: Female, 79 years old. Abdominal pain with intermittent opacification. TECHNIQUE: AP supine and upright views of the abdomen and pelvis. COMPARISON: None. FINDINGS: Normal visualized lung bases. There is an unremarkable bowel gas pattern with air seen to the rectosigmoid. Moderate amount of feces in the colon. There is no demonstrated free abdominal air. The visualized liver, spleen and kidneys are grossly normal in size and morphology. 7 mm calcification projected over the medial mid left abdomen which presumably is within bowel wall. 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 RAD/Abd Inc Decub and/or Erect IMPRESSION: Moderate amount of feces in the colon which may represent constipation. No acute abnormality. Electronically Signed: Michael Hickman MD at 16:24 EST , Service support ,
== END ==
PROVIDERS: Family Provider Family Medicine Geriatric Medicine; PCP Family Medicine Geriatric Medicine; Referring Provider Family Medicine Geriatric Medicine; Visit Provider Family Medicine Geriatric Medicine
DX: K56.41 Fecal impaction (principal)
CPT/HCPCS: 74019

== ENCOUNTER → 2019-10-08 08:39 | Outpatient (CLI) | payer MEDICARE, OTHER, SELFPAY ==
[2019-04-01 09:06] VITALS: BMI 26.7
[2019-10-13 17:47] LABS: 5-HIAA, UR 2.1 mg/L (Undefined)
== END ==
LOC: LAB 08:40 → LABSPEC 08:40
PROVIDERS: Family Provider Family Medicine Geriatric Medicine; PCP Family Medicine Geriatric Medicine; Referring Provider Family Medicine Geriatric Medicine; Visit Provider Family Medicine Geriatric Medicine
DX: R59.9 Enlarged lymph nodes, unspecified (principal)
CPT/HCPCS: 36415; 81050; 83497

== ENCOUNTER → 2019-11-19 11:40 | Outpatient (CLI) | payer MEDICARE, OTHER, SELFPAY ==
[2019-04-01 09:06] VITALS: BMI 26.7
== END ==
PROVIDERS: PCP Family Medicine Geriatric Medicine; Visit Provider Family Medicine Geriatric Medicine
DX: N39.0 Urinary tract infection, site not specified (principal)
CPT/HCPCS: 87077; 87086; 87088; 87186

== ENCOUNTER → 2019-12-05 09:28 | Outpatient (CLI) | payer MEDICARE, OTHER, SELFPAY ==
[2019-04-01 09:06] VITALS: BMI 26.7
[2019-12-05 12:32] LABS: Absolute Lymphocyte Count 1.36 X10^3/uL (0.83-4.51); Absolute Neutrophil Count 3.6 X10^3/uL (2.0-7.7); Basophil# 0.01 X10^3/uL; Basophil% 0.2 % (0-1); Eosinophil# 0.06 X10^3/uL; Eosinophils% 1.1 % (0-5); Hematocrit 39.5 % (37-47); Hemoglobin 12.5 g/dL (12.0-15.0); Lymphocyte # 1.36 X10^3/ul (4.0); Lymphocyte % 24.5 % (19-41); Mean Corp Hgb Conc 31.6 g/dL (32-36); Mean Corpuscular Hgb 28.3 pg (27.0-32.0); Mean Corpuscular Volume 89.4 fL (81-99); Mean Platelet Vol. 10.1 fl (6.2-12.0); Monocyte# 0.51 X10^3/uL; Monocyte% 9.2 % (0-10); NRBC Flagged by Analyzer 0 % (0-5); Neutrophil % 64.8 % (47-70); Platelet Count 213 K/mm3 (150-450); RBC Distribution Width CV 13.6 % (11.6-14.6); RBC Distribution Width SD 44.8 fl (35.1-43.9); Red Blood Count 4.42 M/mm3 (4.2-5.4); White Blood Count 5.6 K/mm3 (4.4-11.0)
[2019-12-05 12:57] LABS: Vitamin D,25 Hydroxy 35.3 ng/mL (29.95-100.01)
[2019-12-05 13:11] LABS: ALB/GLOB Ratio 0.9 RATIO (0.9-2.4); AST(SGOT) 23 U/L (15-37); Alanine Aminotransfer ALT/SGPT 25 U/L (13-56); Albumin, Serum 3.5 g/dL (3.2-5.0); Alkaline Phosphatase 45 U/L (45-117); Anion Gap 5 (5-15); BUN 17 mg/dL (7-18); BUN/Creat Ratio 15.7 RATIO (10-20); Calcium,Total 9.3 mg/dL (8.5-10.1); Chloride 104 mmol/L (98-107); Creatinine, Serum 1.08 mg/dL (0.55-1.02); EST Glomerular Filtration Rate 52 mL/min (>60); Est Glom Filt Rate - Afr Amer 63 mL/min (>60); Globulin 3.7 g/dL (2.2-4.2); Glucose 165 mg/dL (74-106); Potassium 3.8 mmol/L (3.5-5.1); Protein, Total 7.2 g/dL (6.4-8.2); Sodium Level 140 mmol/L (136-145); Thyroid Stim Hormone (TSH) 0.06 uIU/mL (0.358-3.74)
== END ==
PROVIDERS: PCP Family Medicine Geriatric Medicine; Visit Provider Family Medicine Geriatric Medicine
DX: I10 Essential (primary) hypertension (principal); E11.9 Type 2 diabetes mellitus without complications; E55.9 Vitamin D deficiency, unspecified
CPT/HCPCS: 36415; 80053; 82306; 84443; 85025

== ENCOUNTER → 2020-03-04 14:12 | Outpatient (CLI) | payer MEDICARE, OTHER, SELFPAY ==
[2019-04-01 09:06] VITALS: BMI 26.7
[2020-03-04 15:34] LABS: Absolute Lymphocyte Count 1.77 X10^3/uL (0.83-4.51); Absolute Neutrophil Count 3.7 X10^3/uL (2.0-7.7); Basophil# 0.02 X10^3/uL; Basophil% 0.3 % (0-1); Eosinophil# 0.09 X10^3/uL; Eosinophils% 1.4 % (0-5); Hematocrit 41.2 % (37-47); Hemoglobin 13.2 g/dL (12.0-15.0); Lymphocyte # 1.77 X10^3/ul (4.0); Lymphocyte % 27.7 % (19-41); Mean Corpuscular Hgb 28.6 pg (27.0-32.0); Mean Corpuscular Volume 89.4 fL (81-99); Mean Platelet Vol. 10.1 fl (6.2-12.0); Monocyte# 0.75 X10^3/uL; Monocyte% 11.7 % (0-10); NRBC Flagged by Analyzer 0 % (0-5); Neutrophil # 3.74 X10^3/uL (2.7-7.7); Neutrophil % 58.6 % (47-70); Platelet Count 192 K/mm3 (150-450); RBC Distribution Width CV 13.8 % (11.6-14.6); Red Blood Count 4.61 M/mm3 (4.2-5.4); White Blood Count 6.4 K/mm3 (4.4-11.0)
[2020-03-04 15:50] LABS: Vitamin D,25 Hydroxy 43.6 ng/mL
[2020-03-04 16:07] LABS: ALB/GLOB Ratio 0.9 RATIO (0.9-2.4); AST(SGOT) 27 U/L (15-37); Alanine Aminotransfer ALT/SGPT 27 U/L (13-56); Albumin, Serum 3.7 g/dL (3.2-5.0); Alkaline Phosphatase 47 U/L (45-117); Anion Gap 11 (5-15); BUN 16 mg/dL (7-18); BUN/Creat Ratio 14.2 RATIO (10-20); Calcium,Total 9.1 mg/dL (8.5-10.1); Chloride 99 mmol/L (98-107); Creatinine, Serum 1.13 mg/dL (0.55-1.02); EST Glomerular Filtration Rate 50 mL/min (>60); Est Glom Filt Rate - Afr Amer 60 mL/min (>60); Globulin 3.9 g/dL (2.2-4.2); Glucose 198 mg/dL (74-106); Potassium 3.6 mmol/L (3.5-5.1); Protein, Total 7.6 g/dL (6.4-8.2); Sodium Level 140 mmol/L (136-145); Thyroid Stim Hormone (TSH) 0.06 uIU/mL (0.358-3.74)
== END ==
PROVIDERS: PCP Family Medicine Geriatric Medicine; Visit Provider Family Medicine Geriatric Medicine
DX: E11.9 Type 2 diabetes mellitus without complications (principal); E55.9 Vitamin D deficiency, unspecified; I10 Essential (primary) hypertension
CPT/HCPCS: 36415; 80053; 82306; 84443; 85025

== ENCOUNTER → 2020-06-02 14:18 | Outpatient (CLI) | payer MEDICARE, OTHER, SELFPAY ==
[2020-04-30 10:02] VITALS: BMI 29.0
[2020-06-02 15:53] LABS: Absolute Lymphocyte Count 1.43 X10^3/uL (0.83-4.51); Absolute Neutrophil Count 3.4 X10^3/uL (2.0-7.7); Basophil# 0.01 X10^3/uL; Basophil% 0.2 % (0-1); Eosinophil# 0.04 X10^3/uL; Eosinophils% 0.7 % (0-5); Hemoglobin 11.9 g/dL (12.0-15.0); Lymphocyte # 1.43 X10^3/ul (4.0); Mean Corp Hgb Conc 31.3 g/dL (32-36); Mean Corpuscular Hgb 28.7 pg (27.0-32.0); Mean Corpuscular Volume 91.6 fL (81-99); Mean Platelet Vol. 9.8 fl (6.2-12.0); Monocyte# 0.63 X10^3/uL; Monocyte% 11.4 % (0-10); NRBC Flagged by Analyzer 0 % (0-5); Neutrophil # 3.38 X10^3/uL (2.7-7.7); Neutrophil % 61.3 % (47-70); Platelet Count 194 K/mm3 (150-450); RBC Distribution Width CV 14.4 % (11.6-14.6); RBC Distribution Width SD 48.2 fl (35.1-43.9); Red Blood Count 4.15 M/mm3 (4.2-5.4); White Blood Count 5.5 K/mm3 (4.4-11.0)
[2020-06-02 16:26] LABS: ALB/GLOB Ratio 0.9 RATIO (0.9-2.4); AST(SGOT) 28 U/L (15-37); Alanine Aminotransfer ALT/SGPT 19 U/L (13-56); Albumin, Serum 3.4 g/dL (3.2-5.0); Alkaline Phosphatase 44 U/L (45-117); Anion Gap 3 (5-15); BUN 19 mg/dL (7-18); BUN/Creat Ratio 14.8 RATIO (10-20); Calcium,Total 9.1 mg/dL (8.5-10.1); Chloride 107 mmol/L (98-107); Creatinine, Serum 1.28 mg/dL (0.55-1.02); EST Glomerular Filtration Rate 43 mL/min (>60); Est Glom Filt Rate - Afr Amer 52 mL/min (>60); Globulin 3.9 g/dL (2.2-4.2); Glucose 102 mg/dL (74-106); Potassium 3.4 mmol/L (3.5-5.1); Protein, Total 7.3 g/dL (6.4-8.2); Sodium Level 141 mmol/L (136-145); Thyroid Stim Hormone (TSH) 0.07 uIU/mL (0.358-3.74)
[2020-06-02 16:54] LABS: Vitamin D,25 Hydroxy 52.4 ng/mL
== END ==
PROVIDERS: PCP Family Medicine Geriatric Medicine; Visit Provider Family Medicine Geriatric Medicine
DX: E11.9 Type 2 diabetes mellitus without complications (principal); E55.9 Vitamin D deficiency, unspecified; I10 Essential (primary) hypertension
CPT/HCPCS: 36415; 80053; 82306; 84443; 85025

== ENCOUNTER → 2020-06-22 09:36 | Outpatient (CLI) | payer MEDICARE, OTHER, SELFPAY ==
[2020-04-30 10:02] VITALS: BMI 29.0
[2020-06-22 12:55] LABS: Anion Gap 5 (5-15); BUN 19 mg/dL (7-18); BUN/Creat Ratio 15.3 RATIO (10-20); Calcium,Total 8.9 mg/dL (8.5-10.1); Chloride 100 mmol/L (98-107); Creatinine, Serum 1.24 mg/dL (0.55-1.02); EST Glomerular Filtration Rate 45 mL/min (>60); Est Glom Filt Rate - Afr Amer 54 mL/min (>60); Glucose 190 mg/dL (74-106); Potassium 3.8 mmol/L (3.5-5.1); Sodium Level 138 mmol/L (136-145)
== END ==
PROVIDERS: PCP Family Medicine Geriatric Medicine; Visit Provider Family Medicine Geriatric Medicine
DX: R53.83 Other fatigue (principal)
CPT/HCPCS: 36415; 80048

== ENCOUNTER → 2020-08-20 10:26 | Outpatient (CLI) | payer MEDICARE, OTHER, SELFPAY ==
[2020-04-30 10:02] VITALS: BMI 29.0
== END ==
LOC: POLAB3 10:26 → LABSPEC 10:28
PROVIDERS: PCP Family Medicine Geriatric Medicine; Visit Provider Family Medicine Geriatric Medicine
DX: N39.0 Urinary tract infection, site not specified (principal)
CPT/HCPCS: 87077; 87086; 87088; 87186

== ENCOUNTER → 2020-08-31 15:01 | Outpatient (CLI) | payer MEDICARE, OTHER, SELFPAY ==
[2020-04-30 10:02] VITALS: BMI 29.0
[2020-08-31 15:35] LABS: Absolute Lymphocyte Count 1.57 X10^3/uL (0.83-4.51); Absolute Neutrophil Count 2.9 X10^3/uL (2.0-7.7); Basophil# 0.01 X10^3/uL; Basophil% 0.2 % (0-1); Eosinophil# 0.07 X10^3/uL; Eosinophils% 1.4 % (0-5); Hematocrit 39.9 % (37-47); Hemoglobin 12.5 g/dL (12.0-15.0); Lymphocyte # 1.57 X10^3/ul (4.0); Mean Corp Hgb Conc 31.3 g/dL (32-36); Mean Corpuscular Hgb 29.3 pg (27.0-32.0); Mean Corpuscular Volume 93.4 fL (81-99); Mean Platelet Vol. 9.2 fl (6.2-12.0); Monocyte# 0.51 X10^3/uL; Monocyte% 10.1 % (0-10); NRBC Flagged by Analyzer 0 % (0-5); Neutrophil # 2.89 X10^3/uL (2.7-7.7); Neutrophil % 57.1 % (47-70); Platelet Count 212 K/mm3 (150-450); RBC Distribution Width CV 14.4 % (11.6-14.6); RBC Distribution Width SD 49.9 fl (35.1-43.9); Red Blood Count 4.27 M/mm3 (4.2-5.4); White Blood Count 5.1 K/mm3 (4.4-11.0)
[2020-08-31 16:03] LABS: Vitamin D,25 Hydroxy 39.7 ng/mL
[2020-08-31 16:27] LABS: ALB/GLOB Ratio 0.9 RATIO (0.9-2.4); AST(SGOT) 24 U/L (15-37); Alanine Aminotransfer ALT/SGPT 21 U/L (13-56); Albumin, Serum 3.5 g/dL (3.2-5.0); Alkaline Phosphatase 48 U/L (45-117); Anion Gap 5 (5-15); BUN 15 mg/dL (7-18); BUN/Creat Ratio 13.4 RATIO (10-20); Calcium,Total 8.7 mg/dL (8.5-10.1); Chloride 102 mmol/L (98-107); Creatinine, Serum 1.12 mg/dL (0.55-1.02); EST Glomerular Filtration Rate 50 mL/min (>60); Est Glom Filt Rate - Afr Amer 61 mL/min (>60); Globulin 3.8 g/dL (2.2-4.2); Glucose 62 mg/dL (74-106); Potassium 3.6 mmol/L (3.5-5.1); Protein, Total 7.3 g/dL (6.4-8.2); Sodium Level 140 mmol/L (136-145); Thyroid Stim Hormone (TSH) 0.21 uIU/mL (0.358-3.74)
== END ==
PROVIDERS: PCP Family Medicine Geriatric Medicine; Referring Provider Family Medicine Geriatric Medicine; Visit Provider Family Medicine Geriatric Medicine
DX: E11.9 Type 2 diabetes mellitus without complications (principal); E55.9 Vitamin D deficiency, unspecified; I10 Essential (primary) hypertension
CPT/HCPCS: 36415; 80053; 82306; 84443; 85025

== ENCOUNTER → 2020-11-17 11:28 | Outpatient (CLI) | payer MEDICARE, OTHER, SELFPAY ==
[2020-04-30 10:02] VITALS: BMI 29.0
== END ==
PROVIDERS: PCP Family Medicine Geriatric Medicine; Visit Provider Family Medicine Geriatric Medicine
DX: N39.0 Urinary tract infection, site not specified (principal)
CPT/HCPCS: 36415; 80053; 82306; 84443; 85025; 87077; 87086; 87088; 87186

== ENCOUNTER → 2020-12-07 13:00 | Outpatient (CLI) | payer MEDICARE, OTHER, SELFPAY ==
[2020-04-30 10:02] VITALS: BMI 29.0
[2020-12-07 15:48] LABS: Absolute Lymphocyte Count 1.32 X10^3/uL (0.83-4.51); Absolute Neutrophil Count 3.7 X10^3/uL (2.0-7.7); Basophil# 0.02 X10^3/uL; Basophil% 0.4 % (0-1); Eosinophil# 0.08 X10^3/uL; Eosinophils% 1.4 % (0-5); Hematocrit 39.6 % (37-47); Hemoglobin 12.7 g/dL (12.0-15.0); Lymphocyte # 1.32 X10^3/ul (4.0); Lymphocyte % 23.3 % (19-41); Mean Corp Hgb Conc 32.1 g/dL (32-36); Mean Corpuscular Hgb 29.3 pg (27.0-32.0); Mean Corpuscular Volume 91.5 fL (81-99); Mean Platelet Vol. 9.8 fl (6.2-12.0); Monocyte# 0.59 X10^3/uL; Monocyte% 10.4 % (0-10); NRBC Flagged by Analyzer 0 % (0-5); Neutrophil # 3.65 X10^3/uL (2.7-7.7); Neutrophil % 64.3 % (47-70); Platelet Count 215 K/mm3 (150-450); RBC Distribution Width CV 14.5 % (11.6-14.6); RBC Distribution Width SD 48.9 fl (35.1-43.9); Red Blood Count 4.33 M/mm3 (4.2-5.4); White Blood Count 5.7 K/mm3 (4.4-11.0)
[2020-12-07 16:13] LABS: Vitamin D,25 Hydroxy 40.2 ng/mL
[2020-12-07 16:23] LABS: ALB/GLOB Ratio 0.9 RATIO (0.9-2.4); AST(SGOT) 28 U/L (15-37); Alanine Aminotransfer ALT/SGPT 21 U/L (13-56); Albumin, Serum 3.6 g/dL (3.2-5.0); Alkaline Phosphatase 51 U/L (45-117); Anion Gap 6 (5-15); BUN 20 mg/dL (7-18); BUN/Creat Ratio 14.8 RATIO (10-20); Calcium,Total 9.5 mg/dL (8.5-10.1); Chloride 104 mmol/L (98-107); Creatinine, Serum 1.35 mg/dL (0.55-1.02); EST Glomerular Filtration Rate 40 mL/min (>60); Est Glom Filt Rate - Afr Amer 49 mL/min (>60); Globulin 3.8 g/dL (2.2-4.2); Glucose 115 mg/dL (74-106); Potassium 3.9 mmol/L (3.5-5.1); Protein, Total 7.4 g/dL (6.4-8.2); Sodium Level 138 mmol/L (136-145); Thyroid Stim Hormone (TSH) 0.28 uIU/mL (0.358-3.74)
== END ==
PROVIDERS: PCP Family Medicine Geriatric Medicine; Visit Provider Family Medicine Geriatric Medicine
DX: E11.9 Type 2 diabetes mellitus without complications (principal); E55.9 Vitamin D deficiency, unspecified; I10 Essential (primary) hypertension
CPT/HCPCS: 36415; 80053; 82306; 84443; 85025

== ENCOUNTER 2020-12-16 14:45 | Outpatient (RCR) | payer MEDICARE, OTHER, SELFPAY ==
[2020-04-30 10:02] VITALS: BMI 29.0
== END 2020-12-16 23:59 ==
LOC: IMMUN 14:45
PROVIDERS: PCP Family Medicine Geriatric Medicine; Visit Provider Family Medicine
DX: Z23 Encounter for immunization (principal)
CPT/HCPCS: 0011A; 0012A; 91301

== ENCOUNTER → 2020-12-29 11:56 | Outpatient (CLI) | payer MEDICARE, OTHER, SELFPAY ==
[2020-04-30 10:02] VITALS: BMI 29.0
== END ==
PROVIDERS: PCP Family Medicine Geriatric Medicine; Visit Provider Family Medicine Geriatric Medicine
DX: N39.0 Urinary tract infection, site not specified (principal)
CPT/HCPCS: 87077; 87086; 87088; 87186

== ENCOUNTER → 2021-03-09 15:24 | Outpatient (CLI) | payer MEDICARE, OTHER, SELFPAY ==
[2020-04-30 10:02] VITALS: BMI 29.0
[2021-03-09 17:34] LABS: Absolute Lymphocyte Count 1.54 X10^3/uL (0.83-4.51); Absolute Neutrophil Count 4.8 X10^3/uL (2.0-7.7); Basophil# 0.01 X10^3/uL; Basophil% 0.1 % (0-1); Eosinophil# 0.04 X10^3/uL; Eosinophils% 0.6 % (0-5); Hemoglobin 11.8 g/dL (12.0-15.0); Lymphocyte # 1.54 X10^3/ul (0.83-4.51); Lymphocyte % 21.9 % (19-41); Mean Corp Hgb Conc 31.9 g/dL (32-36); Mean Corpuscular Hgb 29.4 pg (27.0-32.0); Mean Platelet Vol. 9.5 fl (6.2-12.0); Monocyte# 0.57 X10^3/uL; Monocyte% 8.1 % (0-10); NRBC Flagged by Analyzer 0 % (0-5); Neutrophil # 4.84 X10^3/uL (2.7-7.7); Neutrophil % 68.9 % (47-70); Platelet Count 278 K/mm3 (150-450); RBC Distribution Width CV 14.3 % (11.6-14.6); RBC Distribution Width SD 48.4 fl (35.1-43.9); Red Blood Count 4.02 M/mm3 (4.2-5.4)
[2021-03-09 17:55] LABS: Vitamin D,25 Hydroxy 40.5 ng/mL
[2021-03-09 18:50] LABS: ALB/GLOB Ratio 0.9 RATIO (0.9-2.4); AST(SGOT) 31 U/L (15-37); Alanine Aminotransfer ALT/SGPT 21 U/L (13-56); Albumin, Serum 3.4 g/dL (3.2-5.0); Alkaline Phosphatase 54 U/L (45-117); Anion Gap 9 (5-15); BUN 16 mg/dL (7-18); BUN/Creat Ratio 13.9 RATIO (10-20); Calcium,Total 9.3 mg/dL (8.5-10.1); Chloride 100 mmol/L (98-107); Creatinine, Serum 1.15 mg/dL (0.55-1.02); EST Glomerular Filtration Rate 48 mL/min (>60); Est Glom Filt Rate - Afr Amer 59 mL/min (>60); Globulin 3.9 g/dL (2.2-4.2); Glucose 103 mg/dL (74-106); Potassium 3.7 mmol/L (3.5-5.1); Protein, Total 7.3 g/dL (6.4-8.2); Sodium Level 138 mmol/L (136-145); Thyroid Stim Hormone (TSH) 0.05 uIU/mL (0.358-3.74)
== END ==
PROVIDERS: PCP Family Medicine Geriatric Medicine; Visit Provider Family Medicine Geriatric Medicine
DX: E11.9 Type 2 diabetes mellitus without complications (principal); E55.9 Vitamin D deficiency, unspecified; I10 Essential (primary) hypertension
CPT/HCPCS: 36415; 80053; 82306; 84443; 85025

== ENCOUNTER → 2021-05-13 14:56 | Outpatient (CLI) | payer MEDICARE, OTHER, SELFPAY ==
[2021-05-03 09:53] VITALS: BMI 29.0
== END ==
PROVIDERS: PCP Family Medicine Geriatric Medicine; Visit Provider Family Medicine Geriatric Medicine
DX: N39.0 Urinary tract infection, site not specified (principal)
CPT/HCPCS: 87077; 87086; 87088; 87186

== ENCOUNTER → 2021-06-02 09:52 | Outpatient (CLI) | payer MEDICARE, OTHER, SELFPAY ==
[2021-05-03 09:53] VITALS: BMI 29.0
[2021-06-02 12:41] LABS: Absolute Lymphocyte Count 1.22 X10^3/uL (0.83-4.51); Absolute Neutrophil Count 3.3 X10^3/uL (2.0-7.7); Basophil# 0.01 X10^3/uL; Basophil% 0.2 % (0-1); Eosinophil# 0.03 X10^3/uL; Eosinophils% 0.6 % (0-5); Hematocrit 41.7 % (37-47); Hemoglobin 12.9 g/dL (12.0-15.0); Lymphocyte # 1.22 X10^3/ul (0.83-4.51); Lymphocyte % 23.8 % (19-41); Mean Corp Hgb Conc 30.9 g/dL (32-36); Mean Corpuscular Hgb 28.6 pg (27.0-32.0); Mean Corpuscular Volume 92.5 fL (81-99); Mean Platelet Vol. 10.2 fl (6.2-12.0); Monocyte# 0.53 X10^3/uL; Monocyte% 10.3 % (0-10); NRBC Flagged by Analyzer 0 % (0-5); Neutrophil # 3.32 X10^3/uL (2.7-7.7); Neutrophil % 64.7 % (47-70); Platelet Count 254 K/mm3 (150-450); RBC Distribution Width SD 47.6 fl (35.1-43.9); Red Blood Count 4.51 M/mm3 (4.2-5.4); White Blood Count 5.1 K/mm3 (4.4-11.0)
[2021-06-02 13:20] LABS: ALB/GLOB Ratio 0.9 RATIO (0.9-2.4); AST(SGOT) 24 U/L (15-37); Alanine Aminotransfer ALT/SGPT 25 U/L (13-56); Albumin, Serum 3.7 g/dL (3.2-5.0); Alkaline Phosphatase 59 U/L (45-117); Anion Gap 5 (5-15); BUN 19 mg/dL (7-18); BUN/Creat Ratio 17.8 RATIO (10-20); Calcium,Total 9.3 mg/dL (8.5-10.1); Chloride 100 mmol/L (98-107); Creatinine, Serum 1.07 mg/dL (0.55-1.02); EST Glomerular Filtration Rate 53 mL/min (>60); Est Glom Filt Rate - Afr Amer 64 mL/min (>60); Globulin 4.1 g/dL (2.2-4.2); Glucose 93 mg/dL (74-106); Potassium 3.9 mmol/L (3.5-5.1); Protein, Total 7.8 g/dL (6.4-8.2); Sodium Level 138 mmol/L (136-145); Thyroid Stim Hormone (TSH) 0.05 uIU/mL (0.358-3.74)
[2021-06-02 13:21] LABS: Vitamin D,25 Hydroxy 40.2 ng/mL
== END ==
PROVIDERS: PCP Family Medicine Geriatric Medicine; Visit Provider Family Medicine Geriatric Medicine
DX: I10 Essential (primary) hypertension (principal); E11.9 Type 2 diabetes mellitus without complications; E55.9 Vitamin D deficiency, unspecified
CPT/HCPCS: 36415; 80053; 82306; 84443; 85025

== ENCOUNTER → 2021-09-01 11:59 | Outpatient (CLI) | payer MEDICARE, OTHER, SELFPAY ==
[2021-09-01 12:28] LABS: Absolute Lymphocyte Count 1.46 X10^3/uL (0.83-4.51); Absolute Neutrophil Count 4.4 X10^3/uL (2.0-7.7); Basophil# 0.01 X10^3/uL; Basophil% 0.2 % (0-1); Eosinophil# 0.06 X10^3/uL; Eosinophils% 0.9 % (0-5); Hematocrit 37.8 % (37-47); Hemoglobin 12.3 g/dL (12.0-15.0); Lymphocyte # 1.46 X10^3/ul (0.83-4.51); Lymphocyte % 22.3 % (19-41); Mean Corp Hgb Conc 32.5 g/dL (32-36); Mean Corpuscular Hgb 28.6 pg (27.0-32.0); Mean Corpuscular Volume 87.9 fL (81-99); Monocyte# 0.65 X10^3/uL; Monocyte% 9.9 % (0-10); NRBC Flagged by Analyzer 0 % (0-5); Neutrophil # 4.35 X10^3/uL (2.7-7.7); Neutrophil % 66.4 % (47-70); Platelet Count 247 K/mm3 (150-450); RBC Distribution Width CV 14.1 % (11.6-14.6); RBC Distribution Width SD 45.2 fl (35.1-43.9); White Blood Count 6.6 K/mm3 (4.4-11.0)
[2021-09-01 12:52] LABS: Vitamin D,25 Hydroxy 26.1 ng/mL
[2021-09-01 13:20] LABS: ALB/GLOB Ratio 0.7 RATIO (0.9-2.4); AST(SGOT) 23 U/L (15-37); Alanine Aminotransfer ALT/SGPT 25 U/L (13-56); Albumin, Serum 3.2 g/dL (3.2-5.0); Alkaline Phosphatase 118 U/L (45-117); Anion Gap 7 (5-15); BUN 19 mg/dL (7-18); BUN/Creat Ratio 12.2 RATIO (10-20); Calcium,Total 8.8 mg/dL (8.5-10.1); Chloride 100 mmol/L (98-107); Creatinine, Serum 1.56 mg/dL (0.55-1.02); EST Glomerular Filtration Rate 34 mL/min (>60); Est Glom Filt Rate - Afr Amer 41 mL/min (>60); Globulin 4.8 g/dL (2.2-4.2); Glucose 356 mg/dL (74-106); Potassium 4.5 mmol/L (3.5-5.1); Sodium Level 133 mmol/L (136-145); Thyroid Stim Hormone (TSH) 0.22 uIU/mL (0.358-3.74)
== END ==
PROVIDERS: PCP Family Medicine Geriatric Medicine; Visit Provider Family Medicine Geriatric Medicine
DX: E11.9 Type 2 diabetes mellitus without complications (principal); E55.9 Vitamin D deficiency, unspecified; I10 Essential (primary) hypertension; N39.0 Urinary tract infection, site not specified
CPT/HCPCS: 36415; 80053; 82306; 84443; 85025; 87077; 87086; 87088; 87186

== ENCOUNTER → 2021-09-20 17:09 | Outpatient (CLI) | payer MEDICARE, OTHER, SELFPAY | LOC: POLAB3 17:11 → LABSPEC 17:12 | PROVIDERS: PCP Family Medicine Geriatric Medicine; Visit Provider Family Medicine Geriatric Medicine | DX: N39.0 Urinary tract infection, site not specified (principal) | CPT/HCPCS: 87077; 87086; 87088; 87186 ==

== ENCOUNTER 2021-11-23 15:07 | Outpatient (CLI) | payer BC, SELFPAY | END 2021-11-23 23:59 | disposition short-term general hospital (02) | LOC: POLAB3 15:12 | PROVIDERS: PCP Family Medicine Geriatric Medicine; Visit Provider Family Medicine Geriatric Medicine | DX: N39.0 Urinary tract infection, site not specified (principal) | CPT/HCPCS: 87077; 87086; 87088; 87186 ==

== ENCOUNTER 2021-12-06 10:20 | Outpatient (CLI) | payer BC, SELFPAY | END 2021-12-06 23:59 | disposition home or self-care (01) | LOC: LABSPEC 10:21 | PROVIDERS: PCP Family Medicine Geriatric Medicine; Visit Provider Family Medicine Geriatric Medicine | DX: N39.0 Urinary tract infection, site not specified (principal) | CPT/HCPCS: 87086; 87088 ==

== ENCOUNTER 2021-12-08 11:09 | Outpatient (CLI) | payer BC, SELFPAY ==
[2021-12-08 12:16] LABS: Absolute Lymphocyte Count 1.81 X10^3/uL (0.83-4.51); Absolute Neutrophil Count 7.3 X10^3/uL (2.0-7.7); Basophil# 0.03 X10^3/uL; Basophil% 0.3 % (0-1); Eosinophil# 0.05 X10^3/uL; Eosinophils% 0.5 % (0-5); Hematocrit 43.1 % (37-47); Hemoglobin 14.2 g/dL (12.0-15.0); Lymphocyte # 1.81 X10^3/ul (0.83-4.51); Mean Corp Hgb Conc 32.9 g/dL (32-36); Mean Corpuscular Hgb 29.1 pg (27.0-32.0); Mean Corpuscular Volume 88.3 fL (81-99); Mean Platelet Vol. 11.2 fl (6.2-12.0); Monocyte# 0.78 X10^3/uL; Monocyte% 7.8 % (0-10); NRBC Flagged by Analyzer 0 % (0-5); Neutrophil # 7.34 X10^3/uL (2.7-7.7); Neutrophil % 73.1 % (47-70); Platelet Count 331 K/mm3 (150-450); RBC Distribution Width CV 13.9 % (11.6-14.6); RBC Distribution Width SD 45.2 fl (35.1-43.9); Red Blood Count 4.88 M/mm3 (4.2-5.4)
[2021-12-08 12:26] LABS: Vitamin D,25 Hydroxy 33.6 ng/mL
[2021-12-08 12:38] LABS: ALB/GLOB Ratio 0.9 RATIO (0.9-2.4); AST(SGOT) 21 U/L (15-37); Alanine Aminotransfer ALT/SGPT 22 U/L (13-56); Albumin, Serum 3.7 g/dL (3.2-5.0); Alkaline Phosphatase 72 U/L (45-117); Anion Gap 9 (5-15); BUN 35 mg/dL (7-18); BUN/Creat Ratio 18.5 RATIO (10-20); Calcium,Total 9.3 mg/dL (8.5-10.1); Chloride 95 mmol/L (98-107); Creatinine, Serum 1.89 mg/dL (0.55-1.02); EST Glomerular Filtration Rate 27 mL/min (>60); Est Glom Filt Rate - Afr Amer 33 mL/min (>60); Globulin 4.3 g/dL (2.2-4.2); Glucose 344 mg/dL (74-106); Potassium 3.8 mmol/L (3.5-5.1); Sodium Level 132 mmol/L (136-145); Thyroid Stim Hormone (TSH) 0.11 uIU/mL (0.358-3.74)
== END 2021-12-08 23:59 | disposition home or self-care (01) ==
LOC: POLAB3 11:09
PROVIDERS: PCP Family Medicine Geriatric Medicine; Visit Provider Family Medicine Geriatric Medicine
DX: E11.9 Type 2 diabetes mellitus without complications (principal); E55.9 Vitamin D deficiency, unspecified; I10 Essential (primary) hypertension
CPT/HCPCS: 36415; 80053; 82306; 84443; 85025

== ENCOUNTER 2021-12-15 14:12 | Outpatient (CLI) | payer BC, SELFPAY ==
[2021-12-15 17:10] LABS: Protein, Urine (Random) 143.3 mg/dL (<11.9); Protein:Creat Ratio 1204 mg/g CRE (0-200)
[2021-12-16 11:24] LABS: PTHIN 37.4 pg/mL (18.4-80.1)
[2021-12-17 17:27] LABS: Anti-Nuclear Antibody Test Negative (.)
== END 2021-12-15 23:59 | disposition home or self-care (01) ==
LOC: POLAB3 14:14
PROVIDERS: PCP Family Medicine Geriatric Medicine; Visit Provider Internal Medicine Nephrology
DX: N18.4 Chronic kidney disease, stage 4 (severe) (principal); R31.9 Hematuria, unspecified
CPT/HCPCS: 36415; 82570; 83970; 84156; 86038; 87086; 87088

== ENCOUNTER 2021-12-20 11:50 | Outpatient (CLI) | payer BC, SELFPAY ==
--- NOTE | 2021-12-20 11:57 | US_ITS ---
STUDY: RENAL ULTRASOUND - COMPLETE REASON FOR EXAM: Female, 81 years old. CHRONIC KIDNEY DISEASE TECHNIQUE: Ultrasound evaluation of the kidneys was performed with real-time and static sanchez-scale imaging. COMPARISON: Comparison is made with prior study 09/20/2017. FINDINGS: RIGHT KIDNEY: Normal location of the right kidney, which is normal in size. The right kidney measures 10.1 cm x 4.4 cm x 5.1 cm. There is a normal cortex of the right kidney. The renal cortex measures 1.9 cm. There is a 2.8 cm x 3.1 cm x 3.3 cm cyst. Findings suggestive of a 4 mm nonobstructive calculus. There is mild hydronephrosis of the right kidney. DISTAL RIGHT URETER: There is non-visualization of the distal right ureter. There is no demonstrated right ureterovesical junction calculus. There is a visualized right ureteral jet. LEFT KIDNEY: Normal location of the left kidney, which is normal in size. The left kidney measures 10.4 cm x 4.4 cm x 5.3 cm. There is a normal cortex of the left kidney. The renal cortex measures 1.6 cm. There is a 2.6 cm x 2.2 cm x 1.7 cm cyst. There are no left renal calculi. There is mild hydronephrosis of the left kidney. DISTAL LEFT URETER: There is non-visualization of the distal left ureter. There is no demonstrated left ureterovesical junction calculus. There is a visualized left ureteral jet. BLADDER: The distended urinary bladder has a volume of 131.5 ml. There is a normal wall thickness of the distended urinary bladder. There is no demonstrated mass within the urinary bladder. There are no demonstrated bladder calculi. US/Kidney and Bladder IMPRESSION: Right renal cyst. Mild bilateral hydronephrosis. 4 mm nonobstructive right intrarenal calculus. Electronically Signed: Edy Pryor MD at 15:43 EST ,
== END 2021-12-20 23:59 | disposition home or self-care (01) ==
LOC: US 11:54
PROVIDERS: PCP Family Medicine Geriatric Medicine; Referring Provider Internal Medicine Nephrology; Visit Provider Internal Medicine Nephrology
DX: N18.4 Chronic kidney disease, stage 4 (severe) (principal)
CPT/HCPCS: 76770

== ENCOUNTER 2022-01-26 10:46 | Outpatient (CLI) | payer MEDICARE, SELFPAY ==
[2022-01-26 12:05] LABS: Protein, Urine (Random) 38.7 mg/dL (<11.9); Protein:Creat Ratio 496 mg/g CRE (0-200)
[2022-01-26 12:11] LABS: Albumin, Serum 3.2 g/dL (3.2-5.0); BUN 16 mg/dL (7-18); BUN/Creat Ratio 15.7 RATIO (10-20); Calcium,Total 9.1 mg/dL (8.5-10.1); Chloride 102 mmol/L (98-107); Creatinine, Serum 1.02 mg/dL (0.55-1.02); EST Glomerular Filtration Rate 56 mL/min (>60); Est Glom Filt Rate - Afr Amer 67 mL/min (>60); Glucose 177 mg/dL (74-106); Potassium 3.9 mmol/L (3.5-5.1); Sodium Level 136 mmol/L (136-145)
[2022-01-26 12:14] LABS: PTHIN 43.7 pg/mL (18.4-80.1)
[2022-01-27 16:09] LABS: Cytoplasmic Ab (C-ANCA) <1:20 titer (Neg:<1:20)
[2022-01-28 13:36] LABS: Perinuclear Ab (P-ANCA) <1:20 titer (Neg:<1:20)
[2022-01-28 13:39] LABS: Anti-Nuclear Antibody Test Negative (.)
== END 2022-01-26 23:59 | disposition home or self-care (01) ==
PROVIDERS: PCP Family Medicine Geriatric Medicine; Referring Provider Internal Medicine Nephrology; Visit Provider Internal Medicine Nephrology
DX: N18.4 Chronic kidney disease, stage 4 (severe) (principal); R31.9 Hematuria, unspecified
CPT/HCPCS: 36415; 80069; 82570; 83970; 84156; 86038; 86256

== ENCOUNTER 2022-02-03 14:26 | Outpatient (CLI) | payer MEDICARE, SELFPAY ==
--- NOTE | 2022-02-03 14:35 | RAD_ITS ---
STUDY: X-RAY - LEFT WRIST REASON FOR EXAM: Female, 81 years old. PAIN IN L WRIST. Patient fell 2 months ago. TECHNIQUE: 3 view(s) of the wrist were obtained. COMPARISON: None. FINDINGS: There is demineralization of the radius and ulna. Nondisplaced fracture of the distal radial metaphysis with extension to the articular surface. Normal radiocarpal articulation. Normal distal radioulnar articulation. Normal carpal bones. Increased distance between the carpal navicular and lunate bone suggestive of possible ligamentous injury. There is degenerative arthrosis of the carpometacarpal articulation of the thumb. Normal second through fifth carpometacarpal articulations. There is demineralization of the metacarpal bones. Soft tissue swelling. Calcification of the triangular fibrocartilage. RAD/Wrist min 3 Views IMPRESSION: Nondisplaced fracture of the distal radial metaphysis with extension to the articular surface. Electronically Signed: Edy Pryor MD at 14:55 EDT ,
== END 2022-02-03 23:59 | disposition home or self-care (01) ==
LOC: RAD 14:27
PROVIDERS: PCP Family Medicine Geriatric Medicine; Referring Provider Family Medicine Geriatric Medicine; Visit Provider Family Medicine Geriatric Medicine
DX: M25.532 Pain in left wrist (principal)
CPT/HCPCS: 73110

== ENCOUNTER → 2022-03-10 | Outpatient (CLI) | payer MEDICARE, SELFPAY ==
[2022-03-10 12:37] LABS: Absolute Lymphocyte Count 1.37 X10^3/uL (0.83-4.51); Absolute Neutrophil Count 3.8 X10^3/uL (2.0-7.7); Basophil# 0.01 X10^3/uL; Basophil% 0.2 % (0-1); Eosinophil# 0.08 X10^3/uL; Eosinophils% 1.4 % (0-5); Hematocrit 38.8 % (37-47); Lymphocyte # 1.37 X10^3/ul (0.83-4.51); Lymphocyte % 23.6 % (19-41); Mean Corp Hgb Conc 30.9 g/dL (32-36); Mean Corpuscular Hgb 28.6 pg (27.0-32.0); Mean Corpuscular Volume 92.4 fL (81-99); Mean Platelet Vol. 9.5 fl (6.2-12.0); Monocyte# 0.55 X10^3/uL; Monocyte% 9.5 % (0-10); NRBC Flagged by Analyzer 0 % (0-5); Neutrophil # 3.77 X10^3/uL (2.7-7.7); Platelet Count 249 K/mm3 (150-450); RBC Distribution Width CV 13.9 % (11.6-14.6); RBC Distribution Width SD 47.3 fl (35.1-43.9); White Blood Count 5.8 K/mm3 (4.4-11.0)
[2022-03-10 13:01] LABS: ALB/GLOB Ratio 0.9 RATIO (0.9-2.4); AST(SGOT) 23 U/L (15-37); Alanine Aminotransfer ALT/SGPT 23 U/L (13-56); Albumin, Serum 3.2 g/dL (3.2-5.0); Alkaline Phosphatase 58 U/L (45-117); Anion Gap 5 (5-15); BUN 19 mg/dL (7-18); BUN/Creat Ratio 17.9 RATIO (10-20); Chloride 102 mmol/L (98-107); Creatinine, Serum 1.06 mg/dL (0.55-1.02); EST Glomerular Filtration Rate 53 mL/min (>60); Est Glom Filt Rate - Afr Amer 64 mL/min (>60); Globulin 3.7 g/dL (2.2-4.2); Glucose 174 mg/dL (74-106); Potassium 4.5 mmol/L (3.5-5.1); Protein, Total 6.9 g/dL (6.4-8.2); Sodium Level 139 mmol/L (136-145); Thyroid Stim Hormone (TSH) 0.32 uIU/mL (0.358-3.74)
== END | disposition home or self-care (01) ==
LOC: POLAB3 11:48
PROVIDERS: PCP Family Medicine Geriatric Medicine; Visit Provider Family Medicine Geriatric Medicine
DX: E11.9 Type 2 diabetes mellitus without complications (principal); E55.9 Vitamin D deficiency, unspecified; I10 Essential (primary) hypertension; N39.0 Urinary tract infection, site not specified
CPT/HCPCS: 36415; 80053; 82306; 84443; 85025; 87086; 87088

== ENCOUNTER → 2022-04-05 | Outpatient (CLI) | payer MEDICARE, SELFPAY ==
--- NOTE | 2022-04-05 13:40 | RAD_ITS ---
EXAM: XR ABDOMEN, 2 VIEWS CLINICAL INDICATION: INCONTINENCE OF FECES TECHNIQUE: Frontal view of the abdomen/pelvis with upright view of the abdomen. This report was created using [employer] report generation technology. COMPARISON: None. FINDINGS: LOWER THORAX: No acute pathology. INTRAPERITONEAL SPACE: No free air. GASTROINTESTINAL TRACT: Unremarkable. Non-obstructive. No bowel or stomach distention. ORGANS: Unremarkable as visualized. No organomegaly. No abnormal calcifications. BONES/JOINTS: No acute pathology. SOFT TISSUES: No acute pathology. RAD/Abd Inc Decub and/or Erect IMPRESSION: Unremarkable abdominal series. Electronically Signed: Maxx Collado MD at 17:03 EDT ,
== END | disposition home or self-care (01) ==
LOC: RAD 13:37
PROVIDERS: PCP Family Medicine Geriatric Medicine; Referring Provider Family Medicine Geriatric Medicine; Visit Provider Family Medicine Geriatric Medicine
DX: N39.0 Urinary tract infection, site not specified (principal); R15.9 Full incontinence of feces
CPT/HCPCS: 74019; 87086; 87088

== ENCOUNTER → 2022-06-03 | Outpatient (CLI) | payer MEDICARE, SELFPAY ==
--- NOTE | 2022-06-03 13:57 | ECHOD_ITS ---
Reason For Study: MVP Procedure This was a 2D Doppler, Color Flow transthoracic echocardiogram. The exam was of adequate technical quality. Exam performed in department. Left Ventricle Normal LV size. Left ventricular systolic function is normal. The estimated ejection fraction is 65 %. No evidence for diastolic dysfunction. No regional wall motion abnormalities noted. Right Ventricle Normal RV size. Normal systolic function. Atria The left atrium is mildly enlarged. Normal right atrium. No doppler evidence for ASD. Mitral Valve There is no mitral annular calcification. Anterior leaflet diffuse mitral valve thickening. Trivial eccentric mitral valve insufficiency. Tricuspid Valve Normal tricuspid valve. Trivial tricuspid valve insufficiency. Unable to estimate RV systolic pressure due to insufficient tricuspid regurgitant envelope. Aortic Valve Trisinus/trileaflet aortic valve. Mild focal aortic valve calcification. Pulmonic Valve The pulmonic valve is not well visualized. Great Vessels Normal sized aortic root. Pericardium/Pleural No pericardial effusion. MMode/2D Measurements & Calculations LVIDd: 4.2 cm IVSd: 0.82 cm Ao root diam: 3.6 cm LVIDs: 3.0 cm LVPWd: 0.85 cm LA dimension: 4.2 cm RVDd: 2.8 cm FS: 28.8 % LAV(MOD-bp): 82.2 ml LA A4 area: 24.9 cm2 RA A4 area: 15.3 cm2 LAV(MOD-bp) Indexed: 44.6 ml/m2 LAV(MOD-sp2): 80.7 ml LAV(MOD-sp4): 83.4 ml Time Measurements MV dec time: 0.18 sec Doppler Measurements & Calculations MV E max ayush: 112.4 cm/sec Lat Peak E' Ayush: 10.5 cm/sec Med Peak E' Ayush: 10.2 cm/sec MV A max ayush: 102.2 cm/sec E/E' lat: 10.7 E/E' med: 11.0 MV E/A: 1.1 MV dec slope: 636.5 cm/sec2 Ao V2 max: 168.4 cm/sec LV V1 max: 123.0 cm/sec Ao max P.4 mmHg LV V1 max P.1 mmHg PA V2 max: 120.7 cm/sec ECHO/Echo Complete Interpretation Summary Left ventricular systolic function is normal. The estimated ejection fraction is 65 %. The left atrium is mildly enlarged. Anterior leaflet diffuse mitral valve thickening. Trivial eccentric mitral valve insufficiency. Trivial tricuspid valve insufficiency. Mild focal aortic valve calcification. Unable to estimate RV systolic pressure due to insufficient tricuspid regurgita nt envelope. No evidence for diastolic dysfunction. Ordering Physician: Alvarado Santos Referring Physician: Krunal Sandoval Chi Performed By: Demi Chaney, LAST, RVT
== END | disposition home or self-care (01) ==
PROVIDERS: PCP Family Medicine Geriatric Medicine; Referring Provider Internal Medicine Cardiovascular Disease; Visit Provider Internal Medicine Cardiovascular Disease
DX: I34.1 Nonrheumatic mitral (valve) prolapse (principal); I49.3 Ventricular premature depolarization
CPT/HCPCS: 93306

== ENCOUNTER 2022-06-08 09:44 | Outpatient (CLI) | payer MEDICARE, SELFPAY ==
[2022-06-08 12:38] LABS: Absolute Lymphocyte Count 1.59 X10^3/uL (0.83-4.51); Absolute Neutrophil Count 3.7 X10^3/uL (2.0-7.7); Basophil# 0.01 X10^3/uL; Basophil% 0.2 % (0-1); Eosinophil# 0.06 X10^3/uL; Hematocrit 39.6 % (37-47); Hemoglobin 12.4 g/dL (12.0-15.0); Lymphocyte # 1.59 X10^3/ul (0.83-4.51); Lymphocyte % 26.2 % (19-41); Mean Corp Hgb Conc 31.3 g/dL (32-36); Mean Corpuscular Hgb 27.8 pg (27.0-32.0); Mean Corpuscular Volume 88.8 fL (81-99); Mean Platelet Vol. 9.7 fl (6.2-12.0); Monocyte# 0.68 X10^3/uL; Monocyte% 11.2 % (0-10); NRBC Flagged by Analyzer 0 % (0-5); Neutrophil % 61.1 % (47-70); Platelet Count 240 K/mm3 (150-450); RBC Distribution Width CV 14.4 % (11.6-14.6); RBC Distribution Width SD 46.5 fl (35.1-43.9); Red Blood Count 4.46 M/mm3 (4.2-5.4); White Blood Count 6.1 K/mm3 (4.4-11.0)
[2022-06-08 12:53] LABS: Protein, Urine (Random) 45.4 mg/dL (<11.9); Protein:Creat Ratio 521 mg/g CRE (0-200)
[2022-06-08 13:10] LABS: Vitamin D,25 Hydroxy 26.8 ng/mL
[2022-06-08 13:39] LABS: ALB/GLOB Ratio 0.8 RATIO (0.9-2.4); AST(SGOT) 28 U/L (15-37); Alanine Aminotransfer ALT/SGPT 26 U/L (13-56); Albumin, Serum 3.4 g/dL (3.2-5.0); Alkaline Phosphatase 56 U/L (45-117); Anion Gap 4 (5-15); BUN 19 mg/dL (7-18); Calcium,Total 9.5 mg/dL (8.5-10.1); Chloride 100 mmol/L (98-107); Creatinine, Serum 1.19 mg/dL (0.55-1.02); EST Glomerular Filtration Rate 46 mL/min (>60); Est Glom Filt Rate - Afr Amer 56 mL/min (>60); Globulin 4.1 g/dL (2.2-4.2); Glucose 141 mg/dL (74-106); Phosphorus 4.7 mg/dL (2.5-4.9); Potassium 4.1 mmol/L (3.5-5.1); Protein, Total 7.5 g/dL (6.4-8.2); Sodium Level 136 mmol/L (136-145); Thyroid Stim Hormone (TSH) 0.26 uIU/mL (0.358-3.74)
== END 2022-06-08 23:59 | disposition home or self-care (01) ==
LOC: POLAB3 09:46
PROVIDERS: PCP Family Medicine Geriatric Medicine; Visit Provider Internal Medicine Nephrology
DX: N18.31 Chronic kidney disease, stage 3a (principal); E11.22 Type 2 diabetes mellitus with diabetic chronic kidney disease; E11.40 Type 2 diabetes mellitus with diabetic neuropathy, unspecified; I12.9 Hypertensive chronic kidney disease with stage 1 through stage 4 chronic kidney disease, or unspecified chronic kidney disease; E66.9 Obesity, unspecified
CPT/HCPCS: 36415; 80053; 82306; 82570; 84100; 84156; 84443; 85025

== ENCOUNTER → 2022-08-25 | Outpatient (CLI) | payer MEDICARE, SELFPAY ==
--- NOTE | 2022-08-25 06:57 | CT_ITS ---
STUDY: CT ABDOMEN AND PELVIS WITHOUT CONTRAST REASON FOR EXAM: Female, 82 years old. GROSS HEMATURIA RADIATION DOSAGE (If Supplied By Facility): CTDIvol = ( 14.31 ) mGy, DLP = ( 693.51 ) mGycm TECHNIQUE: Transaxial images were obtained from the dome of the diaphragm to the symphysis pubis without oral contrast, and without intravenous contrast. Sagittal and coronal images were reconstructed. Individualized dose optimization techniques were used for this CT. COMPARISON: PET/CT dated 08/07/2019 FINDINGS: The visualized lung bases are unremarkable. The visualized portions of the heart are within normal limits. The lack of intravenous contrast limits evaluation of solid visceral organs. There is a stable well-circumscribed low-attenuation focus within the dome of the liver which may reflect a cyst. There is non-visualization of the gallbladder, which may be secondary to either contraction or a prior cholecystectomy. Normal spleen. Normal pancreas. Normal bilateral adrenal glands. There is stable prominence of the renal pelvises, suggestive of extrarenal pelvises. There are bilateral renal cysts. There is a small hiatal hernia. Normal small intestine. There are multiple colonic diverticula consistent with diverticulosis. There is non-visualization of the appendix. There is diffuse atherosclerotic calcification of the abdominal aorta, without a demonstrated aneurysm. Normal inferior vena cava. There are stable prominent right periaortic lymph nodes. There are grossly stable prominent paracaval lymph nodes as well. There is bladder wall thickening associated with adjacent stranding There are stable subcutaneous soft tissue nodules within the lower anterior abdominal wall. There are diffuse degenerative changes of the visualized lumbar spine. There is a grade 1 anterior spondylolisthesis of L4 on L5. CT/Abdomen/Pelvis without Cont IMPRESSION: Findings consistent with acute cystitis. Atherosclerosis. Hiatal hernia. Bilateral renal cysts. Colonic diverticulosis. Electronically Signed: Sydnee Jc MD at 9:13 EDT ,
== END | disposition home or self-care (01) ==
LOC: CT 06:55
PROVIDERS: PCP Family Medicine Geriatric Medicine; Referring Provider Urology; Visit Provider Urology
DX: R31.0 Gross hematuria (principal)
CPT/HCPCS: 74176

== ENCOUNTER → 2022-09-06 | Outpatient (CLI) | payer MEDICARE, SELFPAY ==
[2022-09-06 11:06] LABS: Absolute Lymphocyte Count 1.47 X10^3/uL (0.83-4.51); Absolute Neutrophil Count 5.2 X10^3/uL (2.0-7.7); Basophil# 0.01 X10^3/uL; Basophil% 0.1 % (0-1); Eosinophil# 0.05 X10^3/uL; Eosinophils% 0.7 % (0-5); Hematocrit 39.1 % (37-47); Hemoglobin 12.2 g/dL (12.0-15.0); Lymphocyte # 1.47 X10^3/ul (0.83-4.51); Lymphocyte % 19.6 % (19-41); Mean Corp Hgb Conc 31.2 g/dL (32-36); Mean Corpuscular Hgb 27.2 pg (27.0-32.0); Mean Corpuscular Volume 87.3 fL (81-99); Mean Platelet Vol. 9.1 fl (6.2-12.0); Monocyte% 10.7 % (0-10); NRBC Flagged by Analyzer 0 % (0-5); Neutrophil # 5.15 X10^3/uL (2.7-7.7); Neutrophil % 68.6 % (47-70); Platelet Count 317 K/mm3 (150-450); RBC Distribution Width CV 13.3 % (11.6-14.6); RBC Distribution Width SD 42.5 fl (35.1-43.9); Red Blood Count 4.48 M/mm3 (4.2-5.4); White Blood Count 7.5 K/mm3 (4.4-11.0)
[2022-09-06 11:40] LABS: Vitamin D,25 Hydroxy 27.6 ng/mL
[2022-09-06 11:51] LABS: ALB/GLOB Ratio 0.7 RATIO (0.9-2.4); AST(SGOT) 25 U/L (15-37); Alanine Aminotransfer ALT/SGPT 21 U/L (13-56); Alkaline Phosphatase 63 U/L (45-117); Anion Gap 6 (5-15); BUN 14 mg/dL (7-18); BUN/Creat Ratio 13.2 RATIO (10-20); Calcium,Total 8.7 mg/dL (8.5-10.1); Chloride 103 mmol/L (98-107); Creatinine, Serum 1.06 mg/dL (0.55-1.02); EST Glomerular Filtration Rate 53 mL/min (>60); Est Glom Filt Rate - Afr Amer 64 mL/min (>60); Globulin 4.2 g/dL (2.2-4.2); Glucose 148 mg/dL (74-106); Potassium 3.8 mmol/L (3.5-5.1); Protein, Total 7.2 g/dL (6.4-8.2); Sodium Level 140 mmol/L (136-145); Thyroid Stim Hormone (TSH) 0.15 uIU/mL (0.358-3.74)
== END | disposition home or self-care (01) ==
LOC: POLAB3 09:15
PROVIDERS: PCP Family Medicine Geriatric Medicine; Visit Provider Family Medicine Geriatric Medicine
DX: E55.9 Vitamin D deficiency, unspecified (principal); E11.65 Type 2 diabetes mellitus with hyperglycemia; I10 Essential (primary) hypertension
CPT/HCPCS: 36415; 80053; 82306; 84443; 85025

== ENCOUNTER → 2022-09-08 | Outpatient (CLI) | payer MEDICARE, SELFPAY | END | disposition home or self-care (01) | LOC: LABSPEC 16:13 | PROVIDERS: PCP Family Medicine Geriatric Medicine; Visit Provider Urology | DX: R31.0 Gross hematuria (principal) | CPT/HCPCS: 87077; 87086; 87088; 87186 ==

== ENCOUNTER → 2022-12-08 | Outpatient (CLI) | payer MEDICARE, SELFPAY ==
--- NOTE | 2022-12-08 12:30 | CT_ITS ---
HISTORY: Headache. TECHNIQUE: Multiple axial images were obtained of the head without intravenous contrast. A radiation dose optimization technique was used for this scan. 238 images. COMPARISON: 09/20/2017. FINDINGS: BRAIN PARENCHYMA: Multiple foci and zones of low attenuation in the bilateral cerebral white matter compatible with chronic small vessel ischemic gliosis. No acute intra-axial hemorrhage identified. CSF SPACES: Moderate generalized volume loss. No midline shift or other significant mass effect. No acute extra-axial hemorrhage seen. OTHER: Intact calvarium. No significant air fluid levels in the paranasal sinuses or mastoid air cells. Bilateral lens resections. CT/Brain/Head without Contrast IMPRESSION: No acute intracranial process identified. Chronic involutional and white matter changes. Electronically Signed: Michelle Haro MD at 13:41 EST ,
== END | disposition home or self-care (01) ==
LOC: CT 12:27
PROVIDERS: PCP Family Medicine Geriatric Medicine; Visit Provider Family Medicine Geriatric Medicine
DX: R51.9 Headache, unspecified (principal); E11.9 Type 2 diabetes mellitus without complications; E55.9 Vitamin D deficiency, unspecified; I10 Essential (primary) hypertension
CPT/HCPCS: 36415; 70450; 80053; 82306; 84443; 85025

== ENCOUNTER → 2022-12-08 | Outpatient (CLI) | payer MEDICARE, SELFPAY ==
[2022-12-08 12:32] LABS: Absolute Lymphocyte Count 1.54 X10^3/uL (0.83-4.51); Absolute Neutrophil Count 4.9 X10^3/uL (2.0-7.7); Basophil# 0.01 X10^3/uL; Basophil% 0.1 % (0-1); Eosinophil# 0.06 X10^3/uL; Eosinophils% 0.8 % (0-5); Hemoglobin 12.3 g/dL (12.0-15.0); Lymphocyte # 1.54 X10^3/ul (0.83-4.51); Lymphocyte % 21.6 % (19-41); Mean Corp Hgb Conc 30.8 g/dL (32-36); Mean Corpuscular Hgb 26.2 pg (27.0-32.0); Mean Corpuscular Volume 85.1 fL (81-99); Mean Platelet Vol. 10.3 fl (6.2-12.0); Monocyte# 0.59 X10^3/uL; Monocyte% 8.3 % (0-10); NRBC Flagged by Analyzer 0 % (0-5); Neutrophil # 4.88 X10^3/uL (2.7-7.7); Neutrophil % 68.6 % (47-70); Platelet Count 259 K/mm3 (150-450); RBC Distribution Width SD 46.6 fl (35.1-43.9); White Blood Count 7.1 K/mm3 (4.4-11.0)
[2022-12-08 12:59] LABS: Vitamin D,25 Hydroxy 27.2 ng/mL
[2022-12-08 13:20] LABS: ALB/GLOB Ratio 0.8 RATIO (0.9-2.4); AST(SGOT) 28 U/L (15-37); Alanine Aminotransfer ALT/SGPT 20 U/L (13-56); Albumin, Serum 3.2 g/dL (3.2-5.0); Alkaline Phosphatase 72 U/L (45-117); Anion Gap 8 (5-15); BUN 15 mg/dL (7-18); BUN/Creat Ratio 15.5 RATIO (10-20); Calcium,Total 8.8 mg/dL (8.5-10.1); Chloride 102 mmol/L (98-107); Creatinine, Serum 0.97 mg/dL (0.55-1.02); EST Glomerular Filtration Rate 59 mL/min (>60); Est Glom Filt Rate - Afr Amer 71 mL/min (>60); Glucose 268 mg/dL (74-106); Protein, Total 7.2 g/dL (6.4-8.2); Sodium Level 137 mmol/L (136-145); Thyroid Stim Hormone (TSH) 0.44 uIU/mL (0.358-3.74)
== END | disposition home or self-care (01) ==
LOC: POLAB3 11:21
PROVIDERS: PCP Family Medicine Geriatric Medicine; Visit Provider Family Medicine Geriatric Medicine
DX: E55.9 Vitamin D deficiency, unspecified (principal); E11.9 Type 2 diabetes mellitus without complications; I10 Essential (primary) hypertension
CPT/HCPCS: 36415; 80053; 82306; 84443; 85025

== ENCOUNTER → 2023-01-25 | Outpatient (CLI) | payer MEDICARE, SELFPAY ==
[2023-01-25 11:49] LABS: BUN 22 mg/dL (7-18); BUN/Creat Ratio 19.5 RATIO (10-20); Calcium,Total 9.1 mg/dL (8.5-10.1); Chloride 101 mmol/L (98-107); Creatinine, Serum 1.13 mg/dL (0.55-1.02); EST Glomerular Filtration Rate 49 mL/min (>60); Est Glom Filt Rate - Afr Amer 60 mL/min (>60); Glucose 322 mg/dL (74-106); Potassium 4.5 mmol/L (3.5-5.1); Sodium Level 136 mmol/L (136-145)
[2023-01-25 11:51] LABS: Protein, Urine (Random) 107.3 mg/dL (<11.9); Protein:Creat Ratio 1218 mg/g CRE (0-200)
[2023-01-25 11:52] LABS: Vitamin D,25 Hydroxy 31.7 ng/mL
== END | disposition home or self-care (01) ==
LOC: LAB 10:32
PROVIDERS: PCP Family Medicine Geriatric Medicine; Referring Provider Internal Medicine Nephrology; Visit Provider Internal Medicine Nephrology
DX: E11.22 Type 2 diabetes mellitus with diabetic chronic kidney disease (principal); E11.40 Type 2 diabetes mellitus with diabetic neuropathy, unspecified; N18.31 Chronic kidney disease, stage 3a; E55.9 Vitamin D deficiency, unspecified
CPT/HCPCS: 36415; 80069; 82306; 82570; 84156

== ENCOUNTER → 2023-03-09 | Outpatient (CLI) | payer MEDICARE, SELFPAY ==
[2023-03-09 13:24] LABS: Absolute Lymphocyte Count 1.47 X10^3/uL (0.83-4.51); Absolute Neutrophil Count 4.8 X10^3/uL (2.0-7.7); Basophil# 0.02 X10^3/uL; Basophil% 0.3 % (0-1); Eosinophil# 0.07 X10^3/uL; Hematocrit 40.4 % (37-47); Hemoglobin 12.9 g/dL (12.0-15.0); Lymphocyte # 1.47 X10^3/ul (0.83-4.51); Lymphocyte % 20.9 % (19-41); Mean Corp Hgb Conc 31.9 g/dL (32-36); Mean Corpuscular Hgb 26.7 pg (27.0-32.0); Mean Corpuscular Volume 83.5 fL (81-99); Monocyte# 0.67 X10^3/uL; Monocyte% 9.5 % (0-10); NRBC Flagged by Analyzer 0 % (0-5); Neutrophil # 4.76 X10^3/uL (2.7-7.7); Neutrophil % 67.9 % (47-70); Platelet Count 258 K/mm3 (150-450); RBC Distribution Width CV 14.8 % (11.6-14.6); RBC Distribution Width SD 45.3 fl (35.1-43.9); Red Blood Count 4.84 M/mm3 (4.2-5.4)
[2023-03-09 13:41] LABS: Vitamin D,25 Hydroxy 33.7 ng/mL
[2023-03-09 13:50] LABS: ALB/GLOB Ratio 0.8 RATIO (0.9-2.4); AST(SGOT) 42 U/L (15-37); Alanine Aminotransfer ALT/SGPT 25 U/L (13-56); Albumin, Serum 3.2 g/dL (3.2-5.0); Alkaline Phosphatase 78 U/L (45-117); Anion Gap 6 (5-15); BUN 12 mg/dL (7-18); BUN/Creat Ratio 12.8 RATIO (10-20); Calcium,Total 8.9 mg/dL (8.5-10.1); Chloride 104 mmol/L (98-107); Creatinine, Serum 0.94 mg/dL (0.55-1.02); EST Glomerular Filtration Rate 61 mL/min (>60); Est Glom Filt Rate - Afr Amer 73 mL/min (>60); Globulin 4.1 g/dL (2.2-4.2); Glucose 196 mg/dL (74-106); Potassium 4.1 mmol/L (3.5-5.1); Protein, Total 7.3 g/dL (6.4-8.2); Sodium Level 138 mmol/L (136-145)
== END | disposition home or self-care (01) ==
LOC: POLAB3 09:19
PROVIDERS: PCP Family Medicine Geriatric Medicine; Visit Provider Family Medicine Geriatric Medicine
DX: E55.9 Vitamin D deficiency, unspecified (principal); E11.65 Type 2 diabetes mellitus with hyperglycemia; I10 Essential (primary) hypertension
CPT/HCPCS: 36415; 80053; 82306; 84443; 85025

== ENCOUNTER → 2023-06-07 | Outpatient (CLI) | payer MEDICARE, SELFPAY ==
[2023-06-07 11:19] LABS: Absolute Lymphocyte Count 1.39 X10^3/uL (0.83-4.51); Absolute Neutrophil Count 5.2 X10^3/uL (2.0-7.7); Basophil# 0.01 X10^3/uL; Basophil% 0.1 % (0-1); Eosinophil# 0.05 X10^3/uL; Eosinophils% 0.7 % (0-5); Hematocrit 42.9 % (37-47); Hemoglobin 13.2 g/dL (12.0-15.0); Lymphocyte # 1.39 X10^3/ul (0.83-4.51); Lymphocyte % 19.4 % (19-41); Mean Corp Hgb Conc 30.8 g/dL (32-36); Mean Corpuscular Hgb 26.5 pg (27.0-32.0); Mean Corpuscular Volume 86.1 fL (81-99); Monocyte# 0.48 X10^3/uL; Monocyte% 6.7 % (0-10); NRBC Flagged by Analyzer 0 % (0-5); Neutrophil # 5.23 X10^3/uL (2.7-7.7); Neutrophil % 72.8 % (47-70); Platelet Count 283 K/mm3 (150-450); RBC Distribution Width CV 14.6 % (11.6-14.6); RBC Distribution Width SD 45.9 fl (35.1-43.9); Red Blood Count 4.98 M/mm3 (4.2-5.4); White Blood Count 7.2 K/mm3 (4.4-11.0)
[2023-06-07 11:34] LABS: Vitamin D,25 Hydroxy 34.5 ng/mL
[2023-06-07 11:47] LABS: ALB/GLOB Ratio 0.7 RATIO (0.9-2.4); AST(SGOT) 39 U/L (15-37); Alanine Aminotransfer ALT/SGPT 24 U/L (13-56); Albumin, Serum 3.1 g/dL (3.2-5.0); Alkaline Phosphatase 72 U/L (45-117); Anion Gap 5 (5-15); BUN 17 mg/dL (7-18); BUN/Creat Ratio 14.3 RATIO (10-20); Calcium,Total 9.3 mg/dL (8.5-10.1); Chloride 103 mmol/L (98-107); Creatinine, Serum 1.19 mg/dL (0.55-1.02); EST Glomerular Filtration Rate 46 mL/min (>60); Est Glom Filt Rate - Afr Amer 56 mL/min (>60); Globulin 4.3 g/dL (2.2-4.2); Glucose 304 mg/dL (74-106); Potassium 4.6 mmol/L (3.5-5.1); Protein, Total 7.4 g/dL (6.4-8.2); Sodium Level 136 mmol/L (136-145); Thyroid Stim Hormone (TSH) 0.19 uIU/mL (0.358-3.74)
== END | disposition home or self-care (01) ==
LOC: POLAB3 09:30
PROVIDERS: PCP Family Medicine Geriatric Medicine; Visit Provider Family Medicine Geriatric Medicine
DX: E11.65 Type 2 diabetes mellitus with hyperglycemia (principal); E55.9 Vitamin D deficiency, unspecified; I10 Essential (primary) hypertension
CPT/HCPCS: 36415; 80053; 82306; 84443; 85025

== ENCOUNTER → 2023-06-12 | Outpatient (CLI) | payer MEDICARE, SELFPAY ==
[2023-06-12 12:49] LABS: Protein, Urine (Random) 76.4 mg/dL (<11.9); Protein:Creat Ratio 800 mg/g CRE (0-200)
[2023-06-12 13:22] LABS: Albumin, Serum 3.2 g/dL (3.2-5.0); BUN 18 mg/dL (7-18); BUN/Creat Ratio 15.4 RATIO (10-20); Calcium,Total 9.5 mg/dL (8.5-10.1); Chloride 102 mmol/L (98-107); Creatinine, Serum 1.17 mg/dL (0.55-1.02); EST Glomerular Filtration Rate 47 mL/min (>60); Est Glom Filt Rate - Afr Amer 57 mL/min (>60); Glucose 209 mg/dL (74-106); Phosphorus 3.7 mg/dL (2.5-4.9); Potassium 4.3 mmol/L (3.5-5.1); Sodium Level 136 mmol/L (136-145)
== END | disposition home or self-care (01) ==
LOC: LAB 11:42
PROVIDERS: PCP Family Medicine Geriatric Medicine; Referring Provider Internal Medicine Nephrology; Visit Provider Internal Medicine Nephrology
DX: E11.22 Type 2 diabetes mellitus with diabetic chronic kidney disease (principal); E11.40 Type 2 diabetes mellitus with diabetic neuropathy, unspecified; N18.31 Chronic kidney disease, stage 3a
CPT/HCPCS: 36415; 80069; 82570; 84156

== ENCOUNTER → 2023-06-20 | Outpatient (CLI) | payer MEDICARE, SELFPAY | END | disposition home or self-care (01) | LOC: LABSPEC 10:08 | PROVIDERS: PCP Family Medicine Geriatric Medicine; Visit Provider Internal Medicine Nephrology | DX: R82.998 Other abnormal findings in urine (principal) | CPT/HCPCS: 87086; 87088; 87186 ==

== ENCOUNTER → 2023-06-27 | Outpatient (CLI) | payer MEDICARE, SELFPAY ==
[2023-06-27 09:37] LABS: Absolute Lymphocyte Count 1.03 X10^3/uL (0.83-4.51); Absolute Neutrophil Count 4.7 X10^3/uL (2.0-7.7); Basophil# 0.02 X10^3/uL; Basophil% 0.3 % (0-1); Eosinophil# 0.09 X10^3/uL; Eosinophils% 1.4 % (0-5); Hematocrit 42.4 % (37-47); Lymphocyte # 1.03 X10^3/ul (0.83-4.51); Lymphocyte % 15.7 % (19-41); Mean Corp Hgb Conc 30.7 g/dL (32-36); Mean Corpuscular Hgb 26.7 pg (27.0-32.0); Mean Corpuscular Volume 87.2 fL (81-99); Mean Platelet Vol. 9.5 fl (6.2-12.0); Monocyte# 0.64 X10^3/uL; Monocyte% 9.8 % (0-10); NRBC Flagged by Analyzer 0 % (0-5); Neutrophil # 4.74 X10^3/uL (2.7-7.7); Neutrophil % 72.5 % (47-70); Platelet Count 247 K/mm3 (150-450); RBC Distribution Width SD 48.5 fl (35.1-43.9); Red Blood Count 4.86 M/mm3 (4.2-5.4); White Blood Count 6.5 K/mm3 (4.4-11.0)
[2023-06-27 10:08] LABS: Anion Gap 6 (5-15); BUN 17 mg/dL (7-18); BUN/Creat Ratio 15.2 RATIO (10-20); Calcium,Total 8.8 mg/dL (8.5-10.1); Chloride 104 mmol/L (98-107); Creatinine, Serum 1.12 mg/dL (0.55-1.02); EST Glomerular Filtration Rate 50 mL/min (>60); Est Glom Filt Rate - Afr Amer 60 mL/min (>60); Glucose 256 mg/dL (74-106); Potassium 4.3 mmol/L (3.5-5.1); Sodium Level 138 mmol/L (136-145)
[2023-06-27 16:32] LABS: BNP,B-Type NATRIURETIC PEPTIDE 87.1 pg/mL (0-100)
== END | disposition home or self-care (01) ==
LOC: LAB 09:16
PROVIDERS: PCP Family Medicine Geriatric Medicine; Referring Provider Nurse Practitioner Gerontology; Visit Provider Nurse Practitioner Gerontology
DX: R06.09 Other forms of dyspnea (principal)
CPT/HCPCS: 36415; 80048; 83880; 85025

== ENCOUNTER → 2023-07-13 | Outpatient (CLI) | payer MEDICARE, SELFPAY ==
--- NOTE | 2023-07-13 13:39 | ECHOD_ITS ---
Reason For Study: SOB Procedure This was a 2D Doppler, Color Flow transthoracic echocardiogram. Exam performed in department. Left Ventricle Normal LV size. The estimated ejection fraction is 60 %. Normal diastology for age. No regional wall motion abnormalities noted. Right Ventricle Normal RV size. Normal systolic function. Atria The left atrium is mildly enlarged. Normal right atrium. No doppler evidence for ASD. Mitral Valve There is no mitral valve stenosis. No mitral valve insufficiency. Tricuspid Valve There is no tricuspid stenosis. Unable to estimate RV systolic pressure due to inadequate jet, pulmonary artery pressure probably normal. Aortic Valve Trisinus/trileaflet aortic valve. There is no aortic stenosis. No aortic valve insufficiency. Pulmonic Valve There is no pulmonic valvular stenosis. No pulmonic valve insufficiency. Great Vessels Normal aortic root. Pericardium/Pleural No pericardial effusion. MMode/2D Measurements & Calculations LVIDd: 3.6 cm IVSd: 0.96 cm LVOT diam: 1.9 cm LVIDs: 2.2 cm LVPWd: 0.83 cm LVOT area: 2.9 cm2 RVDd: 3.3 cm FS: 37.9 % Ao root diam: 3.7 cm LAV(MOD-bp): 61.9 ml LVAd ap4: 25.8 cm2 LAV(MOD-bp) Indexed: 33.9 ml/m2 LVLd ap4: 7.5 cm LAV(MOD-sp2): 53.1 ml EDV(MOD-sp4): 71.5 ml LAV(MOD-sp4): 67.4 ml EDV(sp4-el): 75.2 ml LVAs ap4: 13.6 cm2 LVLs ap4: 6.3 cm ESV(MOD-sp4): 24.5 ml ESV(sp4-el): 25.1 ml EF(MOD-sp4): 65.8 % EF(sp4-el): 66.6 % LVAd ap2: 23.4 cm2 SV(MOD-sp4): 47.0 ml SV(MOD-sp2): 34.6 ml LVLd ap2: 7.6 cm EDV(MOD-sp2): 59.4 ml EDV(sp2-el): 60.9 ml LVAs ap2: 13.7 cm2 LVLs ap2: 6.4 cm ESV(MOD-sp2): 24.8 ml ESV(sp2-el): 24.7 ml EF(MOD-sp2): 58.3 % SV(sp4-el): 50.1 ml LA dimension(2D): 4.5 cm LA A4 area: 21.9 cm2 RA A4 area: 13.5 cm2 TAPSE: 1.8 cm Time Measurements MV dec time: 0.24 sec Doppler Measurements & Calculations MV E max ayush: 65.2 cm/sec Lat Peak E' Ayush: 7.3 cm/sec Med Peak E' Ayush: 6.0 cm/sec MV A max ayush: 88.2 cm/sec E/E' lat: 8.9 E/E' med: 10.9 MV E/A: 0.74 Ao V2 max: 152.2 cm/sec LV V1 max: 100.6 cm/sec MV dec slope: 275.2 cm/sec2 Ao max P.3 mmHg LV V1 max P.0 mmHg CB(V,D): 1.9 cm2 PA V2 max: 108.6 cm/sec TR max ayush: 214.1 cm/sec PA V2 mean: 74.4 cm/sec TR max P.3 mmHg ECHO/Echo Complete Interpretation Summary The estimated ejection fraction is 60 %. The left atrium is mildly enlarged. Ordering Physician: Deidra Lorenzana Referring Physician: Krunal Sandoval Chi Performed By: Brii Neumann RDCS
== END | disposition home or self-care (01) ==
LOC: CVS 13:38
PROVIDERS: PCP Family Medicine Geriatric Medicine; Referring Provider Nurse Practitioner Gerontology; Visit Provider Nurse Practitioner Gerontology
DX: R06.09 Other forms of dyspnea (principal)
CPT/HCPCS: 93306

== ENCOUNTER → 2023-09-05 | Outpatient (CLI) | payer MEDICARE, SELFPAY ==
[2023-09-05 12:07] LABS: Absolute Lymphocyte Count 1.44 X10^3/uL (0.83-4.51); Absolute Neutrophil Count 4.3 X10^3/uL (2.0-7.7); Basophil# 0.01 X10^3/uL; Basophil% 0.2 % (0-1); Eosinophil# 0.03 X10^3/uL; Eosinophils% 0.5 % (0-5); Hematocrit 40.5 % (37-47); Hemoglobin 12.5 g/dL (12.0-15.0); Lymphocyte # 1.44 X10^3/ul (0.83-4.51); Lymphocyte % 22.9 % (19-41); Mean Corp Hgb Conc 30.9 g/dL (32-36); Mean Corpuscular Hgb 27.1 pg (27.0-32.0); Mean Corpuscular Volume 87.9 fL (81-99); Mean Platelet Vol. 10.2 fl (6.2-12.0); Monocyte# 0.55 X10^3/uL; Monocyte% 8.7 % (0-10); NRBC Flagged by Analyzer 0 % (0-5); Neutrophil # 4.25 X10^3/uL (2.7-7.7); Neutrophil % 67.5 % (47-70); Platelet Count 238 K/mm3 (150-450); RBC Distribution Width CV 13.9 % (11.6-14.6); RBC Distribution Width SD 44.6 fl (35.1-43.9); Red Blood Count 4.61 M/mm3 (4.2-5.4); White Blood Count 6.3 K/mm3 (4.4-11.0)
[2023-09-05 12:28] LABS: ALB/GLOB Ratio 0.8 RATIO (0.9-2.4); AST(SGOT) 47 U/L (15-37); Alanine Aminotransfer ALT/SGPT 27 U/L (13-56); Albumin, Serum 3.2 g/dL (3.2-5.0); Alkaline Phosphatase 63 U/L (45-117); Anion Gap 9 (5-15); BUN 11 mg/dL (7-18); BUN/Creat Ratio 9.6 RATIO (10-20); Calcium,Total 8.4 mg/dL (8.5-10.1); Chloride 103 mmol/L (98-107); Creatinine, Serum 1.15 mg/dL (0.55-1.02); EST Glomerular Filtration Rate 48 mL/min (>60); Est Glom Filt Rate - Afr Amer 58 mL/min (>60); Globulin 4.1 g/dL (2.2-4.2); Glucose 288 mg/dL (74-106); Potassium 3.9 mmol/L (3.5-5.1); Protein, Total 7.3 g/dL (6.4-8.2); Sodium Level 139 mmol/L (136-145); Thyroid Stim Hormone (TSH) 0.47 uIU/mL (0.358-3.74)
== END | disposition home or self-care (01) ==
LOC: POLAB3 10:30
PROVIDERS: PCP Family Medicine Geriatric Medicine; Visit Provider Family Medicine Geriatric Medicine
DX: E11.65 Type 2 diabetes mellitus with hyperglycemia (principal); E55.9 Vitamin D deficiency, unspecified; I10 Essential (primary) hypertension
CPT/HCPCS: 36415; 80053; 82306; 84443; 85025

== ENCOUNTER → 2023-11-30 | Outpatient (CLI) | payer MEDICARE, SELFPAY ==
--- OUTSIDE RECORDS SUMMARY | 2023-11-30 16:41 | XMS RPT_ITS | CCD ---
Author Name Unknown Address [address] [place] [address] [address] [place] [address] Organization [facility] Care Team Providers Care Ash Conveyor Operator Name Role Phone BRESCIA, ERASMO I. Unavailable Unavailable RAGHUNATHAN, BERHANE Unavailable Unavailable SATYA, BERNARDA-CHI Unavailable Unavailable BRESCIA, ERASMO I. Unavailable Unavailable SATYA, BERNARDA-CHI Unavailable Unavailable NURSY PARKINSON Unavailable Unavailable BRESCIA, ERASMO I. Unavailable Unavailable BRESCIA, ERASMO I. Unavailable Unavailable Results Test Name Value Interpretation Reference Range Facil ity Encounters Encounter Date Encounter Type Care Provider Facility Start: 07-10-2018 End: 07-11-2018 Patient encounter ERASMO HASSAN Facility:[facility] Start: 06-14-2018 End: 06-15-2018 Patient encounter ERASMO MARROQUINSCNORRIS Facility:[facility] Payers Date Payer Category Payer Medicare [id number] 2017 Private Health Insurance [id number] 1940 Unknown [id number] 1940 Unknown [id number] Summary Purpose Family History No Family History Records Found Advance Directives No Advanced Directives Records Found Additional Source Comments INFORMATION SOURCE (unrecogn ized section and content) FOR RECORDS PERTAINING TO PATIENTS WHO ARE OR HAVE BEEN ENROLLED IN A CHEMICAL DEPENDENCY/SUBSTANCEABUSE PROGRAM, SOME INFORMATION MAY BE OMITTED. This clinical summary was aggregated from multiple sources. Caution should be exercised in using it in the provision of clinical care. This summary normalizes information from multiple sources, and as a consequence, information in this document may materially change the coding, format and clinical context of patient data. In addition, data may be omitted in some cases. CLINICAL DECISIONS SHOULD BE BASED ON THE PRIMARY CLINICAL RECORDS. [facility]. provides no warranty or guarantee of the accuracy or completeness of information in this document.
== END | disposition home or self-care (01) ==
LOC: POLAB3 13:55
PROVIDERS: PCP Family Medicine Geriatric Medicine; Visit Provider Family Medicine Geriatric Medicine
DX: N39.0 Urinary tract infection, site not specified (principal)
CPT/HCPCS: 36415; 87086; 87088; 87186

== ENCOUNTER → 2023-12-12 | Outpatient (CLI) | payer MEDICARE, SELFPAY ==
[2023-12-12 12:19] LABS: Absolute Lymphocyte Count 1.39 X10^3/uL (0.83-4.51); Absolute Neutrophil Count 4.9 X10^3/uL (2.0-7.7); Basophil# 0.02 X10^3/uL; Basophil% 0.3 % (0-1); Eosinophil# 0.05 X10^3/uL; Eosinophils% 0.7 % (0-5); Hematocrit 40.9 % (37-47); Hemoglobin 12.5 g/dL (12.0-15.0); Lymphocyte # 1.39 X10^3/ul (0.83-4.51); Lymphocyte % 20.2 % (19-41); Mean Corp Hgb Conc 30.6 g/dL (32-36); Mean Corpuscular Hgb 26.4 pg (27.0-32.0); Mean Corpuscular Volume 86.5 fL (81-99); Mean Platelet Vol. 9.7 fl (6.2-12.0); Monocyte# 0.53 X10^3/uL; Monocyte% 7.7 % (0-10); NRBC Flagged by Analyzer 0 % (0-5); Neutrophil # 4.88 X10^3/uL (2.7-7.7); Platelet Count 266 K/mm3 (150-450); RBC Distribution Width CV 14.5 % (11.6-14.6); RBC Distribution Width SD 45.7 fl (35.1-43.9); Red Blood Count 4.73 M/mm3 (4.2-5.4); White Blood Count 6.9 K/mm3 (4.4-11.0)
[2023-12-12 12:28] LABS: Vitamin D,25 Hydroxy 28.6 ng/mL
[2023-12-12 12:55] LABS: ALB/GLOB Ratio 0.8 RATIO (0.9-2.4); AST(SGOT) 71 U/L (15-37); Alanine Aminotransfer ALT/SGPT 34 U/L (13-56); Albumin, Serum 3.3 g/dL (3.2-5.0); Alkaline Phosphatase 74 U/L (45-117); Anion Gap 6 (5-15); BUN 17 mg/dL (7-18); Calcium,Total 8.8 mg/dL (8.5-10.1); Chloride 104 mmol/L (98-107); Creatinine, Serum 1.06 mg/dL (0.55-1.02); EST Glomerular Filtration Rate 53 mL/min (>60); Est Glom Filt Rate - Afr Amer 64 mL/min (>60); Free T3 2.4 pg/mL (2.18-3.98); Globulin 3.9 g/dL (2.2-4.2); Glucose 141 mg/dL (74-106); Potassium 3.9 mmol/L (3.5-5.1); Protein, Total 7.2 g/dL (6.4-8.2); Sodium Level 137 mmol/L (136-145); T4 Free Direct 1.26 ng/dL (0.76-1.46); Thyroid Stim Hormone (TSH) 0.27 uIU/mL (0.358-3.74)
== END | disposition home or self-care (01) ==
LOC: POLAB3 11:24
PROVIDERS: PCP Family Medicine Geriatric Medicine; Visit Provider Family Medicine Geriatric Medicine
DX: N39.0 Urinary tract infection, site not specified (principal); E11.65 Type 2 diabetes mellitus with hyperglycemia; E55.9 Vitamin D deficiency, unspecified; I10 Essential (primary) hypertension
CPT/HCPCS: 36415; 80053; 82306; 84439; 84443; 84481; 85025; 87086; 87088

== ENCOUNTER → 2024-01-15 | Outpatient (CLI) | payer MEDICARE, SELFPAY ==
[2024-01-15 16:22] LABS: Absolute Lymphocyte Count 1.63 X10^3/uL (0.83-4.51); Absolute Neutrophil Count 5.4 X10^3/uL (2.0-7.7); Basophil# 0.02 X10^3/uL; Basophil% 0.2 % (0-1); Eosinophil# 0.07 X10^3/uL; Eosinophils% 0.9 % (0-5); Hemoglobin 12.2 g/dL (12.0-15.0); Lymphocyte # 1.63 X10^3/ul (0.83-4.51); Lymphocyte % 20.3 % (19-41); Mean Corp Hgb Conc 30.5 g/dL (32-36); Mean Corpuscular Hgb 26.2 pg (27.0-32.0); Mean Corpuscular Volume 85.8 fL (81-99); Monocyte# 0.85 X10^3/uL; Monocyte% 10.6 % (0-10); NRBC Flagged by Analyzer 0 % (0-5); Neutrophil # 5.42 X10^3/uL (2.7-7.7); Neutrophil % 67.8 % (47-70); Platelet Count 273 K/mm3 (150-450); RBC Distribution Width CV 14.4 % (11.6-14.6); RBC Distribution Width SD 45.2 fl (35.1-43.9); Red Blood Count 4.66 M/mm3 (4.2-5.4)
[2024-01-15 16:44] LABS: ALB/GLOB Ratio 0.8 RATIO (0.9-2.4); AST(SGOT) 64 U/L (15-37); Alanine Aminotransfer ALT/SGPT 30 U/L (13-56); Albumin, Serum 3.1 g/dL (3.2-5.0); Alkaline Phosphatase 80 U/L (45-117); Anion Gap 6 (5-15); BUN 14 mg/dL (7-18); BUN/Creat Ratio 14.3 RATIO (10-20); Calcium,Total 8.8 mg/dL (8.5-10.1); Chloride 103 mmol/L (98-107); Creatinine, Serum 0.98 mg/dL (0.55-1.02); EST Glomerular Filtration Rate 58 mL/min (>60); Est Glom Filt Rate - Afr Amer 70 mL/min (>60); Globulin 4.1 g/dL (2.2-4.2); Glucose 152 mg/dL (74-106); Potassium 3.7 mmol/L (3.5-5.1); Protein, Total 7.2 g/dL (6.4-8.2); Sodium Level 136 mmol/L (136-145); Thyroid Stim Hormone (TSH) 0.46 uIU/mL (0.358-3.74)
== END | disposition home or self-care (01) ==
LOC: POLAB3 14:28
PROVIDERS: PCP Family Medicine Geriatric Medicine; Visit Provider Family Medicine Geriatric Medicine
DX: E03.9 Hypothyroidism, unspecified (principal); E78.5 Hyperlipidemia, unspecified; I10 Essential (primary) hypertension
CPT/HCPCS: 36415; 70450; 73080; 80053; 84443; 85025; 87631

== ENCOUNTER → 2024-01-16 | Outpatient (CLI) | payer MEDICARE, SELFPAY | END | disposition home or self-care (01) | LOC: LABSPEC 14:02 | PROVIDERS: PCP Family Medicine Geriatric Medicine; Visit Provider Family Medicine Geriatric Medicine | DX: N39.0 Urinary tract infection, site not specified (principal) | CPT/HCPCS: 87077; 87086; 87088; 87186 ==

== ENCOUNTER → 2024-03-11 | Outpatient (CLI) | payer MEDICARE, SELFPAY ==
[2024-03-11 12:40] LABS: Absolute Lymphocyte Count 1.67 X10^3/uL (0.83-4.51); Absolute Neutrophil Count 4.7 X10^3/uL (2.0-7.7); Basophil# 0.02 X10^3/uL; Basophil% 0.3 % (0-1); Eosinophil# 0.06 X10^3/uL; Eosinophils% 0.8 % (0-5); Hematocrit 40.8 % (37-47); Hemoglobin 12.3 g/dL (12.0-15.0); Lymphocyte # 1.67 X10^3/ul (0.83-4.51); Lymphocyte % 23.4 % (19-41); Mean Corp Hgb Conc 30.1 g/dL (32-36); Mean Corpuscular Hgb 25.9 pg (27.0-32.0); Mean Corpuscular Volume 86.1 fL (81-99); Monocyte# 0.67 X10^3/uL; Monocyte% 9.4 % (0-10); NRBC Flagged by Analyzer 0 % (0-5); Neutrophil % 65.7 % (47-70); Platelet Count 259 K/mm3 (150-450); RBC Distribution Width CV 15.2 % (11.6-14.6); RBC Distribution Width SD 47.9 fl (35.1-43.9); Red Blood Count 4.74 M/mm3 (4.2-5.4); White Blood Count 7.2 K/mm3 (4.4-11.0)
[2024-03-11 13:07] LABS: ALB/GLOB Ratio 0.8 RATIO (0.9-2.4); AST(SGOT) 59 U/L (15-37); Alanine Aminotransfer ALT/SGPT 31 U/L (13-56); Albumin, Serum 3.4 g/dL (3.2-5.0); Alkaline Phosphatase 68 U/L (45-117); Anion Gap 6 (5-15); BUN 13 mg/dL (7-18); BUN/Creat Ratio 11.8 RATIO (10-20); Calcium,Total 9.1 mg/dL (8.5-10.1); Chloride 103 mmol/L (98-107); EST Glomerular Filtration Rate 51 mL/min (>60); Est Glom Filt Rate - Afr Amer 61 mL/min (>60); Glucose 117 mg/dL (74-106); Protein, Total 7.4 g/dL (6.4-8.2); Sodium Level 139 mmol/L (136-145); Thyroid Stim Hormone (TSH) 0.41 uIU/mL (0.358-3.74); Vitamin D,25 Hydroxy 31.5 ng/mL
== END | disposition home or self-care (01) ==
LOC: LAB 12:07
PROVIDERS: PCP Family Medicine Geriatric Medicine; Referring Provider Family Medicine Geriatric Medicine; Visit Provider Family Medicine Geriatric Medicine
DX: E11.65 Type 2 diabetes mellitus with hyperglycemia (principal); E55.9 Vitamin D deficiency, unspecified; I10 Essential (primary) hypertension
CPT/HCPCS: 36415; 80053; 82306; 84443; 85025

== ENCOUNTER → 2024-03-27 | Outpatient (CLI) | payer MEDICARE, SELFPAY ==
--- NOTE | 2024-03-27 09:55 | RAD_ITS ---
STUDY: X-RAY - ESOPHAGUS (BARIUM SWALLOW) WITH FLUOROSCOPY REASON FOR EXAM: Female, 83 years old. DYSPHAGIA TECHNIQUE: 21 view(s) of the esophagus were obtained following swallowing of barium. FLUOROSCOPY TIME (if supplied): (38 seconds) minutes/seconds. 9.86 mGy. COMPARISON: Comparison is made with prior study June 05, 2017. FINDINGS: There is no demonstrated esophageal foreign body. There is no demonstrated stricture or mucosal abnormality. There is a small hiatal hernia of the fundus of the stomach. There is evidence of gastroesophageal reflux. The patient ingested a 12 mm tablet of barium without any issues. There is atherosclerotic calcification of the aortic arch with tortuosity of the descending aorta. Normal visualized pulmonary parenchyma. There are diffuse degenerative changes of the visualized thoracic spine. RAD/Esophagus Dual Contrast IMPRESSION: Small sliding hiatal hernia with gastroesophageal reflux. Electronically Signed: Edy Pryor MD at 13:58 EDT ,
== END | disposition home or self-care (01) ==
LOC: RAD 09:44
PROVIDERS: PCP Family Medicine Geriatric Medicine; Referring Provider Family Medicine Geriatric Medicine; Visit Provider Family Medicine Geriatric Medicine
DX: R13.10 Dysphagia, unspecified (principal)
CPT/HCPCS: 74221

== ENCOUNTER → 2024-06-06 | Outpatient (CLI) | payer MEDICARE, SELFPAY ==
[2024-06-06 11:28] LABS: Absolute Lymphocyte Count 1.25 X10^3/uL (0.83-4.51); Absolute Neutrophil Count 4.2 X10^3/uL (2.0-7.7); Basophil# 0.03 X10^3/uL; Basophil% 0.5 % (0-1); Eosinophil# 0.06 X10^3/uL; Hematocrit 39.7 % (37-47); Hemoglobin 12.3 g/dL (12.0-15.0); Lymphocyte # 1.25 X10^3/ul (0.83-4.51); Mean Corpuscular Volume 87.3 fL (81-99); Mean Platelet Vol. 10.5 fl (6.2-12.0); Monocyte# 0.45 X10^3/uL; Monocyte% 7.6 % (0-10); NRBC Flagged by Analyzer 0 % (0-5); Neutrophil # 4.15 X10^3/uL (2.7-7.7); Neutrophil % 69.6 % (47-70); Platelet Count 190 K/mm3 (150-450); RBC Distribution Width CV 15.1 % (11.6-14.6); RBC Distribution Width SD 48.3 fl (35.1-43.9); Red Blood Count 4.55 M/mm3 (4.2-5.4)
[2024-06-06 11:58] LABS: ALB/GLOB Ratio 0.8 RATIO (0.9-2.4); AST(SGOT) 66 U/L (15-37); Alanine Aminotransfer ALT/SGPT 29 U/L (13-56); Albumin, Serum 3.2 g/dL (3.2-5.0); Alkaline Phosphatase 62 U/L (45-117); Anion Gap 4 (5-15); BUN 15 mg/dL (7-18); BUN/Creat Ratio 13.6 RATIO (10-20); Calcium,Total 9.1 mg/dL (8.5-10.1); Chloride 104 mmol/L (98-107); EST Glomerular Filtration Rate 51 mL/min (>60); Est Glom Filt Rate - Afr Amer 61 mL/min (>60); Globulin 4.1 g/dL (2.2-4.2); Glucose 234 mg/dL (74-106); Potassium 3.9 mmol/L (3.5-5.1); Protein, Total 7.3 g/dL (6.4-8.2); Sodium Level 139 mmol/L (136-145); Thyroid Stim Hormone (TSH) 0.316 uIU/mL (0.358-3.740)
[2024-06-06 13:34] LABS: Vitamin D,25 Hydroxy 30.2 ng/mL
== END | disposition home or self-care (01) ==
LOC: POLAB3 11:15
PROVIDERS: PCP Family Medicine Geriatric Medicine; Visit Provider Family Medicine Geriatric Medicine
DX: E11.65 Type 2 diabetes mellitus with hyperglycemia (principal); E55.9 Vitamin D deficiency, unspecified; I10 Essential (primary) hypertension; E78.5 Hyperlipidemia, unspecified
CPT/HCPCS: 36415; 80053; 82306; 84443; 85025

== ENCOUNTER 2024-06-21 14:27 | Emergency (ER) | payer MEDICARE, SELFPAY ==
[2024-06-21 14:27] VITALS: BP 136/69; PULSE 82; RESP 17; TEMP 36.1; O2SAT 99
[2024-06-21 15:29] VITALS: BP 128/59; PULSE 77; RESP 12; TEMP 36.9; O2SAT 95
--- NOTE | 2024-06-21 15:54 | EX.ED.DYSGE1 ---
HPI History of Present Illness Chief Complaint: Complaint Informant: patient and family Narrative Narrative: Here with son for evaluation of increasing urine frequency and intermittent dysuria for 2 days. Subjective fevers and chills. History of UTIs however last time 2 months ago she is on reported empiric antibiotics daily followed by urology Dr. Dewitt. History of kidney disease states was recommended for dialysis in the past however she declined. Denies abdominal pain. Denies cough. She is unclear what antibiotic she is on daily 4. Allergies to penicillin causing a rash.Reports gets loose stools with urinary symptoms. Prior similar symptoms: Yes PFSH PFSH Medical History Osteoarthritis of right knee Right knee pain CKD (chronic kidney disease) stage 3, GFR 30-59 ml/min MVP (mitral valve prolapse) PSVT (paroxysmal supraventricular tachycardia) Pure hypercholesterolemia Nonrheumatic mitral (valve) prolapse Essential hypertension Palpitations Diastolic dysfunction Premature atrial contractions Premature ventricular contractions Mitral valve prolapse Hyperparathyroidism Osteoporosis Hyperthyroidism HTN (hypertension) DM type 2 (diabetes mellitus, type 2) Home Medications ?Medication ?Instructions ?Recorded ?Last Taken ?Type fluoxetine 20 mg tablet 60 mg PO DAILY 05/02/22 Unknown History insulin degludec 100 unit/mL (3 46 unit subcut DAILY 05/02/22 Unknown History mL) subcutaneous pen (Tresiba FlexTouch U-100 insulin) pantoprazole 40 mg tablet,delayed 40 mg PO DAILY 05/02/22 Unknown History release pravastatin 80 mg tablet 80 mg PO QHS #90 tabs 06/27/23 Unknown Rx losartan 25 mg tablet 25 mg PO QDAY 02/14/24 Unknown History cefdinir 300 mg capsule 300 mg PO Q12H #14 caps 06/21/24 Unknown Rx Allergy/AdvReac Type Severity Reaction Status Date / Time morphine Allergy Rash Verified 06/21/24 14:28 Penicillins Allergy Rash Verified 06/21/24 14:28 propoxyphene Allergy Nausea Verified 06/21/24 14:28 codeine AdvReac Nausea Verified 06/21/24 14:28 lisinopril AdvReac Vomiting Verified 06/21/24 14:28 quinine AdvReac Vomiting Verified 06/21/24 14:28 Family History Brother Heart disease Myocardial infarction Diabetes Father No problems noted. Mother CVA (cerebral vascular accident) Brother Myocardial infarction Diabetes Surgical History History of parathyroidectomy History of subtotal thyroidectomy History of carpal tunnel surgery History of total hysterectomy History of appendectomy History of cholecystectomy Social History Smoking Status: Never smoker alcohol intake: never substance use type: does not use caffeine: No what type of physical activity do you participate in: none ROS ROS ED Constitutional Constitutional ED: Reports chills and fever(s); Denies sweats Eyes Eyes: Denies change in vision ENT ENT ED: Denies dysphagia or sore throat Cardiovascular Cardiovascular: Denies chest pain, leg edema, palpitations or racing heartbeat Respiratory/Chest Respiratory/Chest: Denies cough, dyspnea or dyspnea on exertion Gastrointestinal Gastrointestinal: Reports diarrhea; Denies abdominal pain, nausea or vomiting Genitourinary Genitourinary ED: Reports dysuria and urinary frequency; Denies hematuria Musculoskeletal Musculoskeletal: Denies back pain, extremity pain or neck pain Integumentary Denies rash or wounds Neurologic Neurologic: Denies headache(s), paresthesias or weakness EXAM Physical Exam Const Vital Signs: 06/21/24 14:27 06/21/24 14:27 06/21/24 15:29 Temperature 96.9 F L 96.9 F L 98.5 F Temperature Source Temporal Temporal Oral Pulse Rate 82 82 77 Respiratory Rate 17 17 12 Blood Pressure 136/69 H 136/69 H 128/59 H Blood Pressure Mean 91 91 82 Pulse Ox 99 99 95 Oxygen Delivery Method Room Air Room Air 06/21/24 17:00 06/21/24 18:00 Temperature 98.2 F 97.9 F Temperature Source Oral Pulse Rate 78 77 Respiratory Rate 12 17 Blood Pressure 114/52 L 117/50 L Blood Pressure Mean 72 72 Pulse Ox 94 94 Oxygen Delivery Method Room Air Positive well nourished and well developed Constitutional Narrative: Hard of hearing, nontoxic General Appearance ED: well developed and NAD HEENT Reports moist mucous membranes normocephalic and atraumatic Eyes EOMs intact bilaterally and conjunctivae normal General Eye ED: Yes normal appearance of both eyes Neck no lymphadenopathy and supple General: Negative for tenderness Chest Wall Chest: Negative for tenderness Resp normal respiratory effort and normal air movement Effort and Inspection: symmetric chest movement; Negative for respiratory distress Cardio regular rate, regular rhythm and no murmurs Peripheral Pulses: pulses 2+ throughout GI normal to inspection, nondistended, normoactive bowel sounds and non-tender GI Narrative: Negative Bains's or McBurney's tenderness. Palpation: Negative for guarding or rebound tenderness present Back/Spine no CVA tenderness and no thoracic nor lumbar tenderness Extremity normal to inspection General Extremety ED: Negative for edema or tenderness General Extremity: Negative for edema Neuro oriented x3 and no sensory deficits noted Sensorium / Orientation: awake and alert Skin no rashes or lesions noted and no wounds MDM MDM MDM Narrative Medical decision making narrative: Interventions / MDM: Differential diagnosis: UTI, electrolyte abnormalities Diagnosis considered but do not suspect: No clinical pyelonephritis. No clinical kidney stones. My EKG interpretation: N/A Imaging independently reviewed and interpreted by myself: N/A External documents reviewed: N/A Test considered but not ordered:N/A ED course: Patient due to history increasing urine frequency and intermittent dysuria. Nontoxic vital stable. Diabetic history. Will check basic labs gentle fluids and urine is ordered. Urine with signs of infection creatinine 1.21 GFR 45. White count 10.2. She was covered Rocephin urine culture sent. Glucose 115. Unclear on her prophylactic antibiotic. Therefore was placed on cefdinir twice a day for broader coverage pending culture results. Return precaution discussed with patient and son. All questions were answered. Re-evaluation: stable Disposition discussed with patient/family/significant other: Patient and son Case discussed with consulting clinician: N/A This note was generated with [employer] dictation software. It may contain incorrect words, spelling, and punctuation that were not noted in checking the note before signing. Lab Data Labs: Laboratory Results - last 24 hr 06/21/24 06/21/24 15:55 16:00 WBC 10.2 RBC 4.31 Hgb 11.9 L Hct 37.0 MCV 85.8 MCH 27.6 MCHC 32.2 RDW Std Deviation 46.9 H RDW Coeff of Jose Eduardo 14.8 H Plt Count 199 MPV 9.9 Immature Gran % (Auto) 0.300 Neut % (Auto) 74.8 H Lymph % (Auto) 12.6 L [place] % (Auto) 12.0 H Eos % (Auto) 0.2 Baso % (Auto) 0.1 Absolute Neuts (auto) 7.6 Absolute Lymphs (auto) 1.28 Nucleated RBC % 0 Sodium 136 Potassium 3.4 L Chloride 100 Carbon Dioxide 29.0 Anion Gap 7 BUN 26 H Creatinine 1.21 H Est GFR (MDRD) Af Amer 55 L Est GFR (MDRD) Non-Af 45 L BUN/Creatinine Ratio 21.5 H Glucose 115 H Calcium 9.0 Urine Color Brown Urine Clarity Turbid Urine pH 6.0 Ur Specific [place] 1.020 Urine Protein 100 H Urine Glucose (UA) Normal Urine Ketones 5 H Urine Occult Blood 250 H Urine Nitrite Positive H Urine Bilirubin Negative Urine Urobilinogen 1 H Ur Leukocyte Esterase 500 H Urine RBC > 100 SEEN Urine WBC >100 SEEN Ur Squamous Epith Cells 5-10 SEEN Urine Bacteria 3+ Urine Mucus 0 SEEN Discharge Plan Triage Chief Complaint: Complaint ED Provider: Harjit Mcclelland Dx/Rx/DC Orders Clinical Impression: Acute UTI, CKD (chronic kidney disease) Instructions: Urinary Tract Infections in Women Prescriptions: New cefdinir 300 mg capsule 300 mg PO Q12H Qty: 14 0RF No Action fluoxetine 20 mg tablet 60 mg PO DAILY Tresiba FlexTouch U-100 100 unit/mL (3 mL) insulin pen 46 unit subcut DAILY pantoprazole 40 mg tablet,delayed release (DR/EC) 40 mg PO DAILY pravastatin 80 mg tablet 80 mg PO QHS Qty: 90 3RF losartan 25 mg tablet 25 mg PO QDAY Primary Care Provider: Krunal Sandoval Chi Referrals: Eber Dewitt MD [Med Staff - Active Staff] - 1-2 Weeks Krunal Sandoval Chi, MD [Primary Care Provider] - Activity Restrictions/Additional Instructions: Urine with infection. Culture sent. Creatinine 1.21 GFR 45 today. White count 10.2. Status post IV Rocephin. Take and finish antibiotic as prescribed. Follow-up with your urologist. If you develop worsening symptoms and fevers, return to the ED for reevaluation. Print Language: Vietnamese Disposition Disposition: Home, Self Care Discharge Date/Time: 06/21/24 18:14
[2024-06-21] MEDS: 0.9% Normal Saline (500mL Bag) 500 ML 1000 ML IV (16:01)
[2024-06-21 16:04] LABS: Mucous, Urine 0 SEEN /hpf (<or=2+)
[2024-06-21 16:07] LABS: Color, Urine Brown (Yellow); Glucose, Dipstick Normal (Normal); Ketone-Dipstick 5 mg/dl (Negative); Leukocyte Esterase-Dipstick 500 /ul (Negative); Nitrite-Dipstick Positive (Negative); Occult Blood-Urine 250 /ul (Negative); Protein-Dipstick 100 mg/dl (Negative); Urine Bilirubin Dipstick Negative (Negative); Urine Clarity Turbid (Clear); Urine Urobilinogen 1 mg/dl (Normal)
[2024-06-21 16:07] LABS: Absolute Lymphocyte Count 1.28 X10^3/uL (0.83-4.51); Absolute Neutrophil Count 7.6 X10^3/uL (2.0-7.7); Basophil# 0.01 X10^3/uL; Basophil% 0.1 % (0-1); Eosinophil# 0.02 X10^3/uL; Eosinophils% 0.2 % (0-5); Hemoglobin 11.9 g/dL (12.0-15.0); Lymphocyte # 1.28 X10^3/ul (0.83-4.51); Lymphocyte % 12.6 % (19-41); Mean Corp Hgb Conc 32.2 g/dL (32-36); Mean Corpuscular Hgb 27.6 pg (27.0-32.0); Mean Corpuscular Volume 85.8 fL (81-99); Mean Platelet Vol. 9.9 fl (6.2-12.0); Monocyte# 1.22 X10^3/uL; NRBC Flagged by Analyzer 0 % (0-5); Neutrophil # 7.61 X10^3/uL (2.7-7.7); Neutrophil % 74.8 % (47-70); Platelet Count 199 K/mm3 (150-450); RBC Distribution Width CV 14.8 % (11.6-14.6); RBC Distribution Width SD 46.9 fl (35.1-43.9); Red Blood Count 4.31 M/mm3 (4.2-5.4); White Blood Count 10.2 K/mm3 (4.4-11.0)
[2024-06-21 16:17] LABS: Bacteria 3+ /hpf (None Seen); Squamous Epithelial Cells - UA 5-10 SEEN /hpf (5-10)
[2024-06-21 16:18] LABS: Red Blood Cells-Urine > 100 SEEN /hpf (0-5)
[2024-06-21 16:19] LABS: White Blood Cells >100 SEEN /hpf (0-5)
[2024-06-21 16:20] LABS: Anion Gap 7 (5-15); BUN 26 mg/dL (7-18); BUN/Creat Ratio 21.5 RATIO (10-20); Chloride 100 mmol/L (98-107); Creatinine, Serum 1.21 mg/dL (0.55-1.02); EST Glomerular Filtration Rate 45 mL/min (>60); Est Glom Filt Rate - Afr Amer 55 mL/min (>60); Glucose 115 mg/dL (74-106); Potassium 3.4 mmol/L (3.5-5.1); Sodium Level 136 mmol/L (136-145)
[2024-06-21] MEDS: Ceftriaxone 1 GM/50 ML BAG IV (16:37)
[2024-06-21 17:00] VITALS: BP 114/52; PULSE 78; RESP 12; TEMP 36.8; O2SAT 94
[2024-06-21 18:00] VITALS: BP 117/50; PULSE 77; RESP 17; TEMP 36.6; O2SAT 94
--- NOTE | 2024-06-22 12:30 | ED.RN ---
son called, pt concerned d/t her PCN allergy that she should not take the cefdnir. Dr. Wells reviewed Dr. Mcclelland's summary and stated that the pt was ok to take Cefdnir.
== END 2024-06-21 18:14 | disposition home or self-care (01) ==
PROVIDERS: Emergency Provider Emergency Medicine; PCP Family Medicine Geriatric Medicine; Visit Provider Emergency Medicine
DX: N39.0 Urinary tract infection, site not specified (principal); E11.22 Type 2 diabetes mellitus with diabetic chronic kidney disease; N18.30 Chronic kidney disease, stage 3 unspecified
CPT/HCPCS: 80048; 81001; 85025; 87077; 87086; 87088; 87186; 96365; 99284; A4216

== ENCOUNTER → 2024-06-27 | Outpatient (CLI) | payer MEDICARE, SELFPAY ==
--- NOTE | 2024-06-27 17:13 | CT_ITS ---
STUDY: CT BRAIN WITHOUT CONTRAST REASON FOR EXAM: Female, 84 years old. CLOSED HEAD INJURY RADIATION DOSAGE (If Supplied By Facility): CTDIvol = ( 44.99 ) mGy, DLP = ( 796.11 ) mGycm TECHNIQUE: Transaxial CT imaging of the brain was performed without administration of intravenous contrast material. Individualized dose optimization techniques were used for this CT. COMPARISON: 01/15/2024 FINDINGS: Normal soft tissue structures. Normal calvarium. There is mild cerebral atrophy with widening of the extra-axial spaces and ventricular dilatation. There are areas of decreased attenuation within the white matter tracts of the supratentorial brain, consistent with microvascular disease changes. Calcifications are seen of the right basal ganglia. Otherwise normal basal ganglia and thalami. Normal brainstem. Normal cerebellum. There is no intracranial hemorrhage. There are no findings of an acute ischemic infarction. Normal visualized paranasal sinuses. CT/Brain/Head without Contrast IMPRESSION: Chronic involutional changes of the brain. No change and no acute abnormality. Electronically Signed: Trevon Meyer MD at 17:47 EDT ,
[2024-06-27 17:14] LABS: Absolute Lymphocyte Count 1.89 X10^3/uL (0.83-4.51); Absolute Neutrophil Count 3.9 X10^3/uL (2.0-7.7); Basophil# 0.03 X10^3/uL; Basophil% 0.4 % (0-1); Eosinophil# 0.12 X10^3/uL; Eosinophils% 1.8 % (0-5); Hematocrit 37.4 % (37-47); Hemoglobin 11.7 g/dL (12.0-15.0); Lymphocyte # 1.89 X10^3/ul (0.83-4.51); Mean Corp Hgb Conc 31.3 g/dL (32-36); Mean Corpuscular Hgb 27.3 pg (27.0-32.0); Mean Corpuscular Volume 87.4 fL (81-99); Mean Platelet Vol. 9.1 fl (6.2-12.0); Monocyte# 0.76 X10^3/uL; Monocyte% 11.2 % (0-10); NRBC Flagged by Analyzer 0 % (0-5); Neutrophil # 3.91 X10^3/uL (2.7-7.7); Neutrophil % 57.9 % (47-70); Platelet Count 278 K/mm3 (150-450); RBC Distribution Width CV 14.6 % (11.6-14.6); Red Blood Count 4.28 M/mm3 (4.2-5.4); White Blood Count 6.8 K/mm3 (4.4-11.0)
[2024-06-27 18:16] LABS: Anion Gap 4 (5-15); BUN 17 mg/dL (7-18); BUN/Creat Ratio 12.2 RATIO (10-20); Calcium,Total 9.1 mg/dL (8.5-10.1); Chloride 103 mmol/L (98-107); Creatinine, Serum 1.39 mg/dL (0.55-1.02); EST Glomerular Filtration Rate 39 mL/min (>60); Est Glom Filt Rate - Afr Amer 47 mL/min (>60); Glucose 220 mg/dL (74-106); Potassium 4.4 mmol/L (3.5-5.1); Sodium Level 138 mmol/L (136-145)
== END | disposition home or self-care (01) ==
PROVIDERS: PCP Family Medicine Geriatric Medicine; Visit Provider Family Medicine Geriatric Medicine
DX: N39.0 Urinary tract infection, site not specified (principal); I10 Essential (primary) hypertension; S09.90XA Unspecified injury of head, initial encounter
CPT/HCPCS: 36415; 70450; 80048; 85025; 87077; 87086; 87088; 87186

== ENCOUNTER → 2024-09-05 | Outpatient (CLI) | payer MEDICARE, SELFPAY ==
[2024-09-05 11:06] LABS: Absolute Lymphocyte Count 1.52 X10^3/uL (0.83-4.51); Absolute Neutrophil Count 3.6 X10^3/uL (2.0-7.7); Basophil# 0.01 X10^3/uL; Basophil% 0.2 % (0-1); Eosinophil# 0.06 X10^3/uL; Lymphocyte # 1.52 X10^3/ul (0.83-4.51); Lymphocyte % 26.3 % (19-41); Mean Corp Hgb Conc 30.8 g/dL (32-36); Mean Corpuscular Hgb 26.8 pg (27.0-32.0); Mean Corpuscular Volume 87.2 fL (81-99); Mean Platelet Vol. 9.9 fl (6.2-12.0); Monocyte% 10.4 % (0-10); NRBC Flagged by Analyzer 0 % (0-5); Neutrophil # 3.59 X10^3/uL (2.7-7.7); Neutrophil % 61.9 % (47-70); Platelet Count 226 K/mm3 (150-450); RBC Distribution Width CV 14.3 % (11.6-14.6); RBC Distribution Width SD 46.1 fl (35.1-43.9); Red Blood Count 4.47 M/mm3 (4.2-5.4); White Blood Count 5.8 K/mm3 (4.4-11.0)
[2024-09-05 11:39] LABS: Vitamin D,25 Hydroxy 14.9 ng/mL
[2024-09-05 11:45] LABS: ALB/GLOB Ratio 0.9 RATIO (0.9-2.4); AST(SGOT) 34 U/L (15-37); Alanine Aminotransfer ALT/SGPT 23 U/L (13-56); Albumin, Serum 3.4 g/dL (3.2-5.0); Alkaline Phosphatase 56 U/L (45-117); Anion Gap 5 (5-15); BUN 20 mg/dL (7-18); BUN/Creat Ratio 18.2 RATIO (10-20); Calcium,Total 9.1 mg/dL (8.5-10.1); Chloride 101 mmol/L (98-107); EST Glomerular Filtration Rate 51 mL/min (>60); Est Glom Filt Rate - Afr Amer 61 mL/min (>60); Globulin 3.8 g/dL (2.2-4.2); Glucose 273 mg/dL (74-106); Potassium 4.2 mmol/L (3.5-5.1); Protein, Total 7.2 g/dL (6.4-8.2); Sodium Level 136 mmol/L (136-145); Thyroid Stim Hormone (TSH) 0.389 uIU/mL (0.358-3.740)
== END | disposition home or self-care (01) ==
LOC: POLAB3 10:19
PROVIDERS: PCP Family Medicine Geriatric Medicine; Visit Provider Family Medicine Geriatric Medicine
DX: E11.65 Type 2 diabetes mellitus with hyperglycemia (principal); I10 Essential (primary) hypertension; E55.9 Vitamin D deficiency, unspecified
CPT/HCPCS: 36415; 80053; 82306; 84443; 85025

== ENCOUNTER → 2024-11-01 | Outpatient (CLI) | payer MEDICARE, SELFPAY ==
--- NOTE | 2024-11-01 11:43 | CT_ITS ---
STUDY: CT ABDOMEN AND PELVIS WITHOUT CONTRAST REASON FOR EXAM: Female, 84 years old. Vaginal pain, hematuria, frequent urination. History of cholecystectomy, appendectomy, hysterectomy. RADIATION DOSAGE (If Supplied By Facility): CTDIvol = ( 10.28 ) mGy, DLP = ( 503.35 ) mGycm TECHNIQUE: Transaxial images were obtained from the dome of the diaphragm to the symphysis pubis without oral contrast, and without intravenous contrast. Sagittal and coronal images were reconstructed. Individualized dose optimization techniques were used for this CT. COMPARISON: Comparison is made with prior study August 25, 2022. FINDINGS: The visualized lung bases are unremarkable. Coronary artery calcification. Normal liver. The patient is status post cholecystectomy. Normal spleen. Normal pancreas. Normal bilateral adrenal glands. Stable appearance of the bilateral renal cysts. There is a small hiatal hernia. Normal small intestine. Moderate amount of fecal material is seen in the colon. Sigmoid diverticulosis. The patient is status post appendectomy. There is diffuse atherosclerotic calcification of the abdominal aorta and its major visceral branches, without a demonstrated aneurysm. Normal inferior vena cava. Normal retroperitoneum. There is evidence of a cystocele. Bladder wall thickening with increased markings in the surrounding peritoneal fat. Cystitis should BE ruled out. There is absence of the uterus consistent with a prior hysterectomy. Stable appearance of the soft tissue densities in the subcutaneous tissues along the lower anterior abdominal wall. There are diffuse degenerative changes of the visualized lumbar spine. Osteoarthritis of both hips. CT/Abdomen/Pelvis without Cont IMPRESSION: Findings suggestive of a cystitis. Stable bilateral renal cysts. Status post cholecystectomy, appendectomy and hysterectomy. Electronically Signed: Edy Pryor MD at 13:11 EST ,
== END | disposition home or self-care (01) ==
LOC: CT 11:41
PROVIDERS: PCP Family Medicine Geriatric Medicine; Referring Provider Family Medicine Geriatric Medicine; Visit Provider Family Medicine Geriatric Medicine
DX: R10.2 Pelvic and perineal pain (principal); R31.9 Hematuria, unspecified; N39.0 Urinary tract infection, site not specified
CPT/HCPCS: 74176; 87086

== ENCOUNTER 2024-11-23 14:20 | Observation (INO) | payer MEDICARE, SELFPAY ==
[2024-11-23] VITALS (8 sets, daily range): BP systolic 124–142; BP diastolic 66–89; PULSE 78–88; RESP 16–18; TEMP 36.6–36.8; O2SAT 97–99; BMI 29.6; BMI 26.8
[2024-11-23] MEDS: HYDROcodone Bitartrate/Apap 5/325 Tablet PO (14:56)
--- NOTE | 2024-11-23 15:05 | RAD_ITS ---
PROCEDURE: KNEE 3 VIEWS REASON FOR EXAM: Trauma TECHNIQUE: Three views left knee COMPARISON: None. FINDINGS: Minimally displaced mid pole patellar fracture with regional soft tissue swelling. Degenerative changes of the knee. RAD/Knee 3 Views IMPRESSION: As above. Reading Location: [facility]
--- NOTE | 2024-11-23 15:56 | PCM.HP.STD ---
HPI - General General Date of Admission: 11/23/24 Date of Service: 11/23/24 Chief Complaint: Fall with left knee pain HPI Narrative JUVENAL RAVI, is a 84 F who presented to [facility] ED on 11/23/2024 after a fall at home with left knee pain. Patient lives at home alone. She has fairly good functional status at baseline but she and son note that she has had a few small falls at home over the past few months. Patient notes that her thigh muscles are weak and she has some difficulty going from sitting to standing and with transferring weight especially. She does use a walker at home at times for ambulation. She also has osteoarthritis of her right knee that makes it difficult to ambulate. In the ED she was hemodynamically stable on room air. Left knee x-ray showed a minimally displaced mid pole patellar fracture with regional soft tissue swelling. ED physician discussed with Dr. Oleary with orthopedics who recommended admission to medicine with plan to take patient to surgery tomorrow for ORIF of the left patella. Hospitalist was then contacted for admission. I saw the patient at bedside in the ED, son was present. Patient had left knee brace in place for immobilization per orthopedics recs. Noted that she did not have any pain at rest but did have significant pain with any weightbearing of the left leg. She denied any other acute concerns at this time. Will be admitted for further management. [facility] Medical History Current use of insulin Post-menopausal Ulcer Injury of head and neck Wears hearing aid in both ears Diabetes Chronic pain Kidney disease Hypertension Osteoarthritis of right knee Right knee pain CKD (chronic kidney disease) stage 3, GFR 30-59 ml/min MVP (mitral valve prolapse) PSVT (paroxysmal supraventricular tachycardia) Pure hypercholesterolemia Nonrheumatic mitral (valve) prolapse Essential hypertension Palpitations Diastolic dysfunction Premature atrial contractions Premature ventricular contractions Mitral valve prolapse Hyperparathyroidism Osteoporosis Hyperthyroidism HTN (hypertension) DM type 2 (diabetes mellitus, type 2) Home Medications ?Medication ?Instructions ?Recorded ?Last Taken ?Type fluoxetine 20 mg tablet 60 mg PO DAILY 05/02/22 Unknown History insulin degludec 100 unit/mL (3 46 unit subcut DAILY 05/02/22 Unknown History mL) subcutaneous pen (Tresiba FlexTouch U-100 insulin) pantoprazole 40 mg tablet,delayed 40 mg PO DAILY 05/02/22 Unknown History release pravastatin 80 mg tablet 80 mg PO QHS #90 tabs 06/27/23 Unknown Rx losartan 25 mg tablet 25 mg PO QDAY 02/14/24 Unknown History cefdinir 300 mg capsule 300 mg PO Q12H #14 caps 06/21/24 Unknown Rx Allergy/AdvReac Type Severity Reaction Status Date / Time morphine Allergy Rash Verified 11/23/24 14:24 Penicillins Allergy Rash Verified 11/23/24 14:24 propoxyphene Allergy Nausea Verified 11/23/24 14:24 codeine AdvReac Nausea Verified 11/23/24 14:24 lisinopril AdvReac Vomiting Verified 11/23/24 14:24 quinine AdvReac Vomiting Verified 11/23/24 14:24 Family History Brother Heart disease Myocardial infarction Diabetes Father No problems noted. Mother CVA (cerebral vascular accident) Brother Myocardial infarction Diabetes Surgical History S/P hysterectomy History of parathyroidectomy History of subtotal thyroidectomy History of carpal tunnel surgery History of total hysterectomy History of appendectomy History of cholecystectomy Social History household members: none housing: house Smoking Status: Never smoker alcohol intake: never substance use type: does not use caffeine: No what type of physical activity do you participate in: none ROS Constitutional Constitutional: Reports weakness; Denies chills, fatigue or fever(s) Eyes Eyes: Denies change in vision Cardiovascular Cardiovascular: Denies chest pain Respiratory/Chest Respiratory/Chest: Denies shortness of breath at rest Gastrointestinal Gastrointestinal: Denies abdominal pain Genitourinary Genitourinary: Denies dysuria Musculoskeletal Musculoskeletal: Reports arthralgias, joint pain and joint swelling Neurologic Neurologic: Denies dizziness, headache(s), numbness or tingling Vital Signs Vital Signs Vital Signs: 11/23/24 14:21 11/23/24 14:24 Temperature 97.8 F Temperature Source Oral Pulse Rate 87 Respiratory Rate 16 Respiratory Effort Normal Non-Labored Respiratory Depth Normal Respiratory Pattern Normal Blood Pressure 124/69 H Blood Pressure Mean 87 Pulse Ox 99 99 Oxygen Delivery Method Room Air Room Air Weight Weight: 78.4 kg Body Mass Index (BMI) 29.6 Physical Exam Const alert, oriented x3, no apparent distress and average body habitus Constitutional Narrative: Elderly female, mildly fatigued appearing but otherwise sitting up comfortably in bedside chair, conversing normally, in no acute distress. General Appearance: cooperative and comfortable HEENT normocephalic, head/scalp atraumatic, hearing grossly normal bilaterally and nasal mucous membranes and turbinates normal Eyes PERRL, EOMs intact bilaterally and conjunctivae normal Neck full ROM Chest inspection of chest normal Resp normal respiratory effort, normal air movement, no use of accessory muscles and clear to auscultation bilaterally Cardio regular rate, regular rhythm, no murmurs and peripheral pulses 2+ throughout GI normal to inspection, nondistended, normoactive bowel sounds, soft to palpation, non-tender and non-distended Back/Spine normal ROM Extremity Extremity Narrative: Left leg in immobilizing brace. Skin no rashes or lesions noted Neuro Speech: speech normal Psych mental status grossly normal Results Lab / Micro Data 11/23/24 15:50 11/23/24 15:50 Imaging Radiology Impression Knee X-Ray 11/23/24 15:05 IMPRESSION: As above. Reading [facility] Assessment & Plan Assessment/Plan (1) Patellar fracture: (2) Inability to ambulate due to knee: PLAN: Plan Patient is an 84-year-old female who presented [facility] ED on 11/23/2024 with left knee pain after a fall at home. 1. Acute left patellar fracture secondary to mechanical fall with acute on chronic debility ? Admit under inpatient status to [facility]. Orthopedic surgery consulted. PT/OT/case management consulted. N.p.o. at midnight with plan for ORIF of left patella tomorrow with Dr. Oleary. Patient lives at home alone, family lives close by. Patient and son report worsening generalized weakness over the past few months. Suspect patient will need either home with home health care versus SNF on discharge. Pain control with scheduled Tylenol and oxycodone as needed. 2. Preoperative evaluation ? NSQIP score: Patient is at slightly above average risk of any complication, serious complication and discharged to nursing or rehab facility given risk factors of age, insulin-dependent diabetes and hypertension. ? Labs/imaging: Hemoglobin stable at baseline 12-13 on admit. Creatinine stable at baseline 1.1-1.2. Follow-up CBC and BMP postoperatively. No further imaging needed prior to procedure. ? Cardiac eval: EKG on admit showed normal sinus rhythm with no ST changes. Last echo in 2022 showed EF 60%, no concerning findings. No evidence of heart failure on exam. No need for further workup. ? Medications: Hold home losartan on day of procedure, can restart postoperatively as needed. Continue other home medications as normal. ? Prior procedural complications: Patient does report postoperative nausea after prior procedures many years ago. No other procedural complications that she is aware of. ? Recommendation: Patient is medically optimized for procedure. 3. CKD stage IIIa ? Creatinine 1.14 on admit, at baseline. Stable. 4. Type 2 diabetes mellitus ? Blood glucose 186 on admit. A1c ordered. Will continue home long-acting insulin at reduced dose of 20 units daily and sliding scale slow with meals, adjust as needed. 5. Hypertension, hyperlipidemia, history of nonsustained SVT ? Continue home statin. Holding home losartan. 6. GERD ? Continue home PPI. 7. Depression ? Continue home fluoxetine. DVT prophylaxis: Lovenox CODE STATUS: DNR CCA, DNI. Importantly, patient is agreeable to Full Code for the procedure tomorrow. Expected disposition: TBD Total clinical time spent by myself addressing the patient's medical issues, reviewing all the data, and collaborating with patient's care team: 75 minutes. Charges/Coding Visit Charges Inpatient E&M: 36265 Init Hosp L3
--- NOTE | 2024-11-23 15:59 | EX.ED.DYSGE1 ---
HPI <LATESHA Carbajal - Last Filed: 11/23/24 16:02> History of Present Illness Chief Complaint: Fall Narrative Narrative: Patient is an 84-year-old female with history of CKD, pain to the right knee, hyperparathyroidism, osteoporosis, type 2 diabetes, hypertension who presents to the [facility] apartment after mechanical fall. Patient states she got twisted up with her feet, she knows she has a bad right knee, so she fell on her left knee. Patient was unable to get up and had to call the ambulance. Denies any other injury. [facility] <LATESHA Carbajal - Last Filed: 11/23/24 16:02> [facility] Medical History (Updated 11/23/24 @ 17:54 by Roseanna Pradhan) Current use of insulin Post-menopausal Ulcer Injury of head and neck Wears hearing aid in both ears Diabetes Chronic pain Kidney disease Hypertension Osteoarthritis of right knee Right knee pain CKD (chronic kidney disease) stage 3, GFR 30-59 ml/min MVP (mitral valve prolapse) PSVT (paroxysmal supraventricular tachycardia) Pure hypercholesterolemia Nonrheumatic mitral (valve) prolapse Essential hypertension Palpitations Diastolic dysfunction Premature atrial contractions Premature ventricular contractions Mitral valve prolapse Hyperparathyroidism Osteoporosis Hyperthyroidism HTN (hypertension) DM type 2 (diabetes mellitus, type 2) Home Medications ?Medication ?Instructions ?Recorded ?Last Taken ?Type fluoxetine 20 mg tablet 60 mg PO DAILY 05/02/22 Unknown History insulin degludec 100 unit/mL (3 46 unit subcut DAILY 05/02/22 Unknown History mL) subcutaneous pen (Tresiba FlexTouch U-100 insulin) pantoprazole 40 mg tablet,delayed 40 mg PO DAILY 05/02/22 Unknown History release pravastatin 80 mg tablet 80 mg PO QHS #90 tabs 06/27/23 Unknown Rx losartan 25 mg tablet 25 mg PO QDAY 02/14/24 Unknown History cefdinir 300 mg capsule 300 mg PO Q12H #14 caps 06/21/24 Unknown Rx Allergy/AdvReac Type Severity Reaction Status Date / Time morphine Allergy Rash Verified 11/23/24 14:24 Penicillins Allergy Rash Verified 11/23/24 14:24 propoxyphene Allergy Nausea Verified 11/23/24 14:24 codeine AdvReac Nausea Verified 11/23/24 14:24 lisinopril AdvReac Vomiting Verified 11/23/24 14:24 quinine AdvReac Vomiting Verified 11/23/24 14:24 Family History Brother Heart disease Myocardial infarction Diabetes Father No problems noted. Mother CVA (cerebral vascular accident) Brother Myocardial infarction Diabetes Surgical History (Updated 11/23/24 @ 17:54 by Roseanna Pradhan) S/P hysterectomy History of parathyroidectomy History of subtotal thyroidectomy History of carpal tunnel surgery History of total hysterectomy History of appendectomy History of cholecystectomy Social History (Updated 11/23/24 @ 14:25 by Inés Gu) household members: none housing: house Smoking Status: Never smoker alcohol intake: never substance use type: does not use caffeine: No what type of physical activity do you participate in: none ROS <LATESHA Carbajal - Last Filed: 11/23/24 16:02> ROS ED ROS Narrative Constitutional: Negative for fever, chills, weight loss, weakness Eyes: Negative for vision loss, vision change, double vision ENT: Negative for any sore throat, ear pain, congestion Cardiovascular: Negative for any chest pain, tightness, palpitations Respiratory: Negative for any cough, sputum production, hemoptysis, dyspnea, dyspnea on exertion, orthopnea Gastrointestinal: Negative for any abdominal pain, nausea, vomiting, diarrhea, constipation, blood in stool, blood in vomit : Negative for any urinary frequency, dysuria, retention, blood in urine Muscle skeletal: Negative for any neck pain, back pain. Positive pain to the left knee Neurological: Negative for any headache, syncope, dizziness Skin: Negative for any rashes, itching, abrasions, lacerations Psychiatric: Negative for any depression, anxiety, stress, suicidal ideation, homicidal ideation Hematologic: Negative for any excessive bruising, easy bleeding EXAM <LATESHA Carbajal - Last Filed: 11/23/24 16:02> Physical Exam Narrative Exam Narrative: Vital signs reviewed. HEET: Head normocephalic atraumatic, TMs clear bilaterally. Posterior pharynx is clear, moist mucous membranes. Nares clear bilaterally. Pupils equal round reactive to light. Neck: Supple with no lymphadenopathy or tenderness. No signs of meningismus. Cardiac: Regular rate and rhythm no murmurs gallops or rubs, equal peripheral pulses bilaterally. Respiratory: Lungs clear to auscultation bilaterally. No chest tenderness. Abdomen: Soft, nontender, nondistended. No abdominal bruit or pulsatile masses. No hepatosplenomegaly Extremities: Patient has obvious ecchymosis, abrasion to the anterior patella. Some edema noted. Patient does have an intact extensor magnesium however is unable to bend the knee. +2 pedal pulse. Compartments are soft. Neuro: Cranial nerves II through XII intact, no focal neurological deficits. Skin: Clean dry and intact with no rash, purpura, petechiae, vesicles or pustules. Backs/flank: No CVA tenderness, no midline spinal tenderness, no deformity. Psych: Normal mood and affect. No SI, HI or acute psychosis. Const Vital Signs: 11/23/24 14:21 11/23/24 14:24 Temperature 97.8 F Temperature Source Oral Pulse Rate 87 Respiratory Rate 16 Respiratory Effort Normal Non-Labored Respiratory Depth Normal Respiratory Pattern Normal Blood Pressure 124/69 H Blood Pressure Mean 87 Pulse Ox 99 99 Oxygen Delivery Method Room Air Room Air <Dr. Samra Cruz DO - Last Filed: 11/23/24 20:52> Physical Exam Const Vital Signs: 11/23/24 14:21 11/23/24 14:24 Temperature 97.8 F Temperature Source Oral Pulse Rate 87 Respiratory Rate 16 Respiratory Effort Normal Non-Labored Respiratory Depth Normal Respiratory Pattern Normal Blood Pressure 124/69 H Blood Pressure Mean 87 Pulse Ox 99 99 Oxygen Delivery Method Room Air Room Air [facility] <LATESHA Carbajal - Last Filed: 11/23/24 16:02> [facility] Lab Data Labs: Laboratory Results - last 24 hr 11/23/24 15:50 WBC 9.9 RBC 4.76 Hgb 13.1 Hct 41.3 MCV 86.8 MCH 27.5 MCHC 31.7 L RDW Std Deviation 47.4 H RDW Coeff of Jose Eduardo 14.9 H Plt Count 221 MPV 9.4 Immature Gran % (Auto) 0.600 Neut % (Auto) 81.0 H Lymph % (Auto) 11.3 L [place] % (Auto) 6.8 Eos % (Auto) 0.2 Baso % (Auto) 0.1 Absolute Neuts (auto) 8.0 H Absolute Lymphs (auto) 1.12 Nucleated RBC % 0 Sodium 137 Potassium 3.8 Chloride 102 Carbon Dioxide 26.0 Anion Gap 8 BUN 22 H Creatinine 1.14 H Estim Creat Clear Calc 38.55 Est GFR (MDRD) Af Amer 59 L Est GFR (MDRD) Non-Af 48 L BUN/Creatinine Ratio 19.3 Glucose 186 H Calcium 9.1 Radiography Diagnostic Testing: Clinical Impression(s) from Imaging Studies Knee X-Ray 11/23/24 15:05 IMPRESSION: As above. Reading Location: [facility] Treatment and Re-Evaluation :: Differential diagnosis includes however is not limited to: Quadricep tear, patellar fracture, internal derangement, knee contusion Patient appears generally well, vital signs are stable, patient is nontoxic-appearing. Presenting to the emergency department after mechanical fall injuring the left knee. Patient was given a Mutual here, while the patient is laying still, the patient had minimal pain. Any pain is with bending of the knee. X-rays of the left knee shows a minimally displaced mid pole patellar fracture with regional soft tissue swelling. Secondary this finding, I did speak with Dr. Oleary, he recommended knee immobilizer and follow-up early this upcoming week. Once the knee immobilizer was completed. Patient did stand up however she could not walk, could not sit down or move. Secondary to the patient's age, living alone, the patient needs to be admitted to the hospital. I did speak with Dr. Oleary. He is aware that the patient is going to be admitted and the patient will be n.p.o After midnight. I spoke with admitting hospitalist, patient be admitted. <Dr. Samra Cruz, DO - Last Filed: 11/23/24 20:52> [facility] Lab Data Attestation: I reviewed the patient's lab results. Labs: Laboratory Results - last 24 hr 11/23/24 15:50 WBC 9.9 RBC 4.76 Hgb 13.1 Hct 41.3 MCV 86.8 MCH 27.5 MCHC 31.7 L RDW Std Deviation 47.4 H RDW Coeff of Jose Eduardo 14.9 H Plt Count 221 MPV 9.4 Immature Gran % (Auto) 0.600 Neut % (Auto) 81.0 H Lymph % (Auto) 11.3 L [place] % (Auto) 6.8 Eos % (Auto) 0.2 Baso % (Auto) 0.1 Absolute Neuts (auto) 8.0 H Absolute Lymphs (auto) 1.12 Nucleated RBC % 0 Sodium 137 Potassium 3.8 Chloride 102 Carbon Dioxide 26.0 Anion Gap 8 BUN 22 H Creatinine 1.14 H Estim Creat Clear Calc 38.55 Est GFR (MDRD) Af Amer 59 L Est GFR (MDRD) Non-Af 48 L BUN/Creatinine Ratio 19.3 Glucose 186 H Calcium 9.1 Radiography Diagnostic Testing: Clinical Impression(s) from Imaging Studies Knee X-Ray 11/23/24 15:05 IMPRESSION: As above. Reading Location: [facility] Management Discussion w/another healthcare provider: Hospitalist and [employer] Treatment and Re-Evaluation :: Differential diagnosis includes however is not limited to: Quadricep tear, patellar fracture, internal derangement, knee contusion Patient appears generally well, vital signs are stable, patient is nontoxic-appearing. Presenting to the emergency department after mechanical fall injuring the left knee. Patient was given a Mutual here, while the patient is laying still, the patient had minimal pain. Any pain is with bending of the knee. X-rays of the left knee shows a minimally displaced mid pole patellar fracture with regional soft tissue swelling. Secondary this finding, I did speak with Dr. Oleary, he recommended knee immobilizer and follow-up early this upcoming week. Once the knee immobilizer was completed. Patient did stand up however she could not walk, could not sit down or move. Secondary to the patient's age, living alone, the patient needs to be admitted to the hospital. I did speak with Dr. Oleary. He is aware that the patient is going to be admitted and the patient will be n.p.o After midnight. I spoke with admitting hospitalist, patient be admitted. I have personally performed a face to face assessment of the patient and have reviewed the PAULINO Note. I performed a substantive portion of the visit including all aspects of the following. My barrera findings include: History is Patient is an 84-year-old female who lives independently. She has a history of osteoarthritis and problems with her right knee. She lost her balance while walking today and landed directly on a flexed left knee. She immediate pain. Panel was called and she was brought to the emergency room. She states if she keeps her knee straight she is not really having much pain but she attempts to bend her knee and is significantly painful. X-ray of the knee does show minimally displaced mid pole patellar fracture reviewed by myself as well as radiology. Patient is unable to go home as well she can ambulate with a walker and a knee immobilizer she cannot get from sitting to standing or vice versa especially given the debility she already has in her right knee. Case is discussed with Dr. Oleary and patient was made n.p.o. after midnight for presumed surgical management tomorrow. She is admitted to hospitalist service. She idalmis hemodynamically stable in the ER. Baseline labs largely normal. Other additions or changes: [None] Discharge Plan Dx/Rx/DC Orders Clinical Impression: Fall, Patellar fracture, Inability to ambulate due to knee Disposition Disposition: Acute Care Hospital [facility] Discharge Date/Time: 11/23/24 17:20
[2024-11-23 16:00] LABS: Absolute Lymphocyte Count 1.12 X10^3/uL (0.83-4.51); Basophil# 0.01 X10^3/uL; Basophil% 0.1 % (0-1); Eosinophil# 0.02 X10^3/uL; Eosinophils% 0.2 % (0-5); Hematocrit 41.3 % (37-47); Hemoglobin 13.1 g/dL (12.0-15.0); Lymphocyte # 1.12 X10^3/ul (0.83-4.51); Lymphocyte % 11.3 % (19-41); Mean Corp Hgb Conc 31.7 g/dL (32-36); Mean Corpuscular Hgb 27.5 pg (27.0-32.0); Mean Corpuscular Volume 86.8 fL (81-99); Mean Platelet Vol. 9.4 fl (6.2-12.0); Monocyte# 0.68 X10^3/uL; Monocyte% 6.8 % (0-10); NRBC Flagged by Analyzer 0 % (0-5); Neutrophil # 8.04 X10^3/uL (2.7-7.7); Platelet Count 221 K/mm3 (150-450); RBC Distribution Width CV 14.9 % (11.6-14.6); RBC Distribution Width SD 47.4 fl (35.1-43.9); Red Blood Count 4.76 M/mm3 (4.2-5.4); White Blood Count 9.9 K/mm3 (4.4-11.0)
--- NOTE | 2024-11-23 16:09 | ED.RN ---
med rec completed to pts best knowledge
[2024-11-23 16:28] LABS: Anion Gap 8 (5-15); BUN 22 mg/dL (7-18); BUN/Creat Ratio 19.3 RATIO (10-20); Calcium,Total 9.1 mg/dL (8.5-10.1); Chloride 102 mmol/L (98-107); Creatinine, Serum 1.14 mg/dL (0.55-1.02); EST Glomerular Filtration Rate 48 mL/min (>60); Est Glom Filt Rate - Afr Amer 59 mL/min (>60); Estimated Creatinine Clearance 38.55 ml/min; Glucose 186 mg/dL (74-106); Potassium 3.8 mmol/L (3.5-5.1); Sodium Level 137 mmol/L (136-145)
--- NOTE | 2024-11-23 16:35 | CASEMGMT ---
Care Management Face to Face with patient for initial transition planning/care coordination assessment in the ED.? This resume writer introduced self and role at [facility]. Patient alert and oriented. Patient willing to participate in assessment and is able to answer all questions appropriately.? Care providers, pharmacy, and demographics verified. Patient?s son John was also present. Patient consent for John to be in the room during the assessment. Admitting Diagnosis: Fall with left patellar fracture Other diagnosis history: Including but not limited to: CKD, Hypothyroidism, Osteoporosis, Type 2 DM, and HTN. PCP: Dr. Sandoval Specialists: Marketing Underwriter: Dr. Gross although patient reported she has decided not to see Dr. Gross again because she does not want a port and will not go on dialysis. Preferred Pharmacy: [facility] Insurance: Anthem, Medicare Prescription Benefit:?No.? Patient in need of resources to assist with prescription drug costs. Living Will/HPOA: Yes; patient reported sons Darin and John are names as HPOA?s. LNOK: Patient has 3 sons: Darin of [place], Moncho ?John? of [place] and Milton of [place]. Patient is . Living Arrangements: Patient lives alone in her own home. Patient denied any environmental barriers and has all first floor living. Patient does not have any stairs she has to go up/down to enter or exit her home. Transportation: Patient drives and patient?s sons Darin and John also help if patient ever has any appointments or places she needs to go that are outside of [place]. DME: Walker, wheelchair, standard cane, BSC, grab bars, HHS, and shower bench. Patient requesting a rollator and a wrist ERS device that can be used in the community with fall detection. HHC: Not used in the past but may need depending on patient?s needs upon discharge. SNF/Rehab: No previous SNF or Rehab. Admissions. Community Resources: ?None at this time. Behavioral Health History: Patient is on medication for depression.? Patient described depression related to seasonal/not being able to get out as much and loneliness at times/not having someone to talk to regularly. Patient goals: Patient wishes to discharge home if able and may need for home health care upon discharge. Patient also requesting rollator, a wrist ERS device that can be used in the community with fall detection and resources for assistance with prescription drugs. No further needs or concerns at this time. Disposition Plan: admission to acute; RN CM/SW to follow for discharge planning needs that may arise. Floridalma Arthur, BETTING AGENCY COUNTER CLERK, MEDICAL BILLING SPECIALIST
[2024-11-23] MEDS: Pravastatin 80 MG Tablet PO (21:06)
[2024-11-23] MEDS: Acetaminophen 500 MG Tablet 1000 MG PO (21:06)
[2024-11-23 21:27] LABS: Bedside Glucose 113 mg/dL (74-106)
[2024-11-23] MEDS: oxyCODONE 5 MG Tablet PO (23:50)
[2024-11-23] MEDS: MELATONIN 3 MG TABLET PO (23:50)
[2024-11-24] VITALS (14 sets, daily range): BP systolic 79–120; BP diastolic 47–78; PULSE 75–93; RESP 14–18; TEMP 2.2–36.9; O2SAT 91–99; BMI 26.4
[2024-11-24] MEDS: oxyCODONE 5 MG Tablet PO ×2 (02:45→19:55)
--- NOTE | 2024-11-24 05:00 | EKG12_ITS ---
Test Reason : PRE-OP Blood Pressure : */* mmHG Vent. Rate : 82 BPM Atrial Rate : 82 BPM P-R Int : 196 ms QRS Dur : 84 ms QT Int : 396 ms P-R-T Axes : 80 -6 48 degrees QTcB Int : 462 ms Normal sinus rhythm Nonspecific ST and T wave abnormality Abnormal ECG When compared with ECG of 20-Sep-2017 11:24, Nonspecific T wave abnormality now evident in Lateral leads Confirmed by YANNA PEÑALOZA, YOGESH ([id number]), index editor MARVA JAMES ([id number]) on 11/25/2024 8:29:33 AM Referred By: BRIJESH Confirmed By: YOGESH RAINES MD
[2024-11-24 06:12] LABS: Hematocrit 36.6 % (37-47); Hemoglobin 11.7 g/dL (12.0-15.0); Mean Corpuscular Hgb 27.7 pg (27.0-32.0); Mean Corpuscular Volume 86.7 fL (81-99); Mean Platelet Vol. 10.4 fl (6.2-12.0); Platelet Count 207 K/mm3 (150-450); RBC Distribution Width CV 14.9 % (11.6-14.6); RBC Distribution Width SD 46.9 fl (35.1-43.9); Red Blood Count 4.22 M/mm3 (4.2-5.4); White Blood Count 8.7 K/mm3 (4.4-11.0)
[2024-11-24 06:12] LABS: Bedside Glucose 119 mg/dL (74-106)
[2024-11-24 06:48] LABS: Anion Gap 7 (5-15); BUN 22 mg/dL (7-18); BUN/Creat Ratio 21.2 RATIO (10-20); Calcium,Total 8.9 mg/dL (8.5-10.1); Chloride 103 mmol/L (98-107); Creatinine, Serum 1.04 mg/dL (0.55-1.02); EST Glomerular Filtration Rate 54 mL/min (>60); Est Glom Filt Rate - Afr Amer 65 mL/min (>60); Estimated Creatinine Clearance 40.05 ml/min; Glucose 115 mg/dL (74-106); Potassium 3.7 mmol/L (3.5-5.1); Sodium Level 137 mmol/L (136-145)
[2024-11-24 06:55] LABS: Scan Indicated on CBC? Y/N NO
--- NOTE | 2024-11-24 06:56 | CON.PCM.OR_ITS ---
HPI Consult Data Date of Consult: 11/24/24 HPI Narrative Reason for Consultation: Left knee pain HPI Narrative: JUVENAL RAVI, is a 84 F who presents today with left knee pain. Patient fell yesterday at home her son presents with her and confirms this. She generally gets around her home without any ambulatory devices but will occasionally use a walker. She has been having some weakness and has been through physical therapy for generalized weakness to help with strengthening. She fell yesterday and began to have pain in her left knee. She did have some ability to extend the knee. She reports moderate pain. Pain is better with immobilization and bracing. She has a knee immobilizer this morning. Her son is at bedside and confirms. She does not have her hearing aids today. She denies any numbness and tingling distally. [facility] Medical History Current use of insulin Post-menopausal Ulcer Injury of head and neck Wears hearing aid in both ears Diabetes Chronic pain Kidney disease Hypertension Osteoarthritis of right knee Right knee pain CKD (chronic kidney disease) stage 3, GFR 30-59 ml/min MVP (mitral valve prolapse) PSVT (paroxysmal supraventricular tachycardia) Pure hypercholesterolemia Nonrheumatic mitral (valve) prolapse Essential hypertension Palpitations Diastolic dysfunction Premature atrial contractions Premature ventricular contractions Mitral valve prolapse Hyperparathyroidism Osteoporosis Hyperthyroidism HTN (hypertension) DM type 2 (diabetes mellitus, type 2) Home Medications ?Medication ?Instructions ?Recorded ?Last Taken ?Type fluoxetine 20 mg tablet 60 mg PO DAILY 05/02/22 Unkn own History insulin degludec 100 unit/mL (3 46 unit subcut DAILY 0 05/02/22 Unknown History mL) subcutaneous pen (Tresiba FlexTouch U-100 insulin) pantoprazole 40 mg tablet,delayed 40 mg PO DAILY 05/02 Unknown History release pravastatin 80 mg tablet 80 mg PO QHS #90 tabs Unknown Rx losartan 25 mg tablet 25 mg PO QDAY 02/14/24 Unkno wn History cefdinir 300 mg capsule 300 mg PO Q12H #14 caps 05/25 Unknown Rx Allergy/AdvReac Type Severity Reaction Status Date / Time morphine Allergy Rash Verified 11/23/24 14:24 Penicillins Allergy Rash Verified 11/23/24 14:24 propoxyphene Allergy Nausea Verified 11/23/24 14:24 codeine AdvReac Nausea Verified 11/23/24 14:24 lisinopril AdvReac Vomiting Verified 11/23/24 14:24 quinine AdvReac Vomiting Verified 11/23/24 14:24 Family History Brother Heart disease Myocardial infarction Diabetes Father No problems noted. Mother CVA (cerebral vascular accident) Brother Myocardial infarction Diabetes Surgical History S/P hysterectomy History of parathyroidectomy History of subtotal thyroidectomy History of carpal tunnel surgery History of total hysterectomy History of appendectomy History of cholecystectomy Social History household members: none housing: house Smoking Status: Never smoker alcohol intake: never substance use type: does not use caffeine: No what type of physical activity do you participate in: none ROS ROS Narrative 14 point review of systems was completed and is otherwise negative Vital Signs Vital Signs Vital Signs: 11/23/24 14:21 11/23/24 14:24 11/23/24 16:08 Temperature 97.8 F 98 F Temperature Source Oral Pulse Rate 87 87 Pulse Strength Respiratory Rate 16 16 Respiratory Effort Normal Non-Labored Respiratory Depth Normal Respiratory Pattern Normal Blood Pressure 124/69 H 135/89 H Blood Pressure Mean 87 104 Blood Pressure Source Blood Pressure Position Blood Pressure Location Pulse Ox 99 99 99 Oxygen Delivery Method Room Air Room Air 11/23/24 16:21 11/23/24 18:04 11/23/24 21:04 Temperature 98.1 F 98.3 F Temperature Source Oral Oral Pulse Rate 78 84 82 Pulse Strength Respiratory Rate 17 16 Respiratory Effort Respiratory Depth Respiratory Pattern Blood Pressure 134/85 H 142/72 H 134/77 H Blood Pressure Mean 101 95 96 Blood Pressure Source Monitor Blood Pressure Position Semi-Fowlers Blood Pressure Location Left Arm Pulse Ox 99 99 Oxygen Delivery Method Room Air Room Air 11/23/24 21:05 11/23/24 22:00 11/23/24 23:20 Temperature Temperature Source Pulse Rate Pulse Strength Normal (2+) Respiratory Rate Respiratory Effort Normal Non-Labored Respiratory Depth Normal Respiratory Pattern Normal Blood Pressure Blood Pressure Mean Blood Pressure Source Blood Pressure Position Blood Pressure Location Pulse Ox 97 Oxygen Delivery Method Room Air Room Air 11/23/24 23:57 11/24/24 01:47 11/24/24 06:00 Temperature 98.2 F 98.3 F Temperature Source Oral Oral Pulse Rate 88 82 Pulse Strength Respiratory Rate 18 18 Respiratory Effort Normal Non-Labored Respiratory Depth Normal Respiratory Pattern Normal Blood Pressure 135/66 H 117/67 Blood Pressure Mean 89 83 Blood Pressure Source Monitor Monitor Blood Pressure Position Semi-Fowlers Semi-Fowlers Blood Pressure Location Left Arm Left Arm Pulse Ox 99 99 Oxygen Delivery Method Room Air Room Air Room Air Weight Weight: 154 lb 6.4 oz Body Mass Index (BMI) 26.4 Physical Exam Const alert, oriented x3 and no apparent distress General Appearance: cooperative HEENT normocephalic Eyes PERRL Neck no JVD Resp normal respiratory effort Cardio Cardio Narrative: Regular pulse rate GI non-distended Extremity Extremity Narrative: Left lower extremity: Moderate effusion of the knee. Mild ecchymosis of the anterior knee. Extensor mechanism testing deferred secondary to pain. Positive dorsiflexion plantarflexion. Sensations intact light touch saphenous, sural conservation. Peroneal, deep peroneal tibial nerve distributions. Pulses intact. Skin Skin Narrative: Over the anterior left knee there is a small abrasion Neuro moves all extremities Psych affect normal Medical Records Data Attestation: I reviewed the patient's medical records Lab / Micro Data Attestation: I reviewed the patient's lab results. 11/24/24 04:36 11/24/24 04:36 Labs: Laboratory Results - last 24 hr 11/23/24 15:50: WBC 9.9, RBC 4.76, Hgb 13.1, Hct 41.3, MCV 86.8, MCH 27.5, MCHC 31.7 L, RDW Std Deviation 47.4 H, RDW Coeff of Jose Eduardo 14.9 H, Plt Count 221, MPV 9.4, Immature Gran % (Auto) 0.600, Neut % (Auto) 81.0 H, Lymph % (Auto) 11.3 L, [place] % (Auto) 6.8, Eos % (Auto) 0.2, Baso % (Auto) 0.1, Absolute Neuts (auto) 8.0 H, Absolute Lymphs (auto) 1.12, Nucleated RBC % 0, Sodium 137, Potassium 3.8, Chloride 102, Carbon Dioxide 26.0, Anion Gap 8, BUN 22 H, Creatinine 1.14 H , Estim Creat Clear Calc 38.55, Est GFR (MDRD) Af Amer 59 L, Est GFR (MDRD) Non- Af 48 L, BUN/Creatinine Ratio 19.3, Glucose 186 H, Calcium 9.1 11/23/24 21:09: POC Glucose 113 H 11/24/24 04:36: WBC 8.7, RBC 4.22, Hgb 11.7 L, Hct 36.6 L, MCV 86.7, MCH 27.7, MCHC 32.0, RDW Std Deviation 46.9 H, RDW Coeff of Jose Eduardo 14.9 H, Plt Count 207, MPV 10.4, Sodium 137, Potassium 3.7, Chloride 103, Carbon Dioxide 27.0, Anion Gap 7, BUN 22 H, Creatinine 1.04 H, Estim Creat Clear Calc 40.05, Est GFR (MDRD) Af Amer 65, Est GFR (MDRD) Non-Af 54 L, BUN/Creatinine Ratio 21.2 H, Glucose 115 H, Calcium 8.9 11/24/24 05:54: POC Glucose 119 H Imaging Radiology Impression Knee X-Ray 11/23/24 15:05 IMPRESSION: As above. [facility] were [facility] reviewed. Patient does have 100% displaced mid body patella fracture transverse fracture pattern. There is significant gapping of the anterior cortices from the proximal and distal fragments. There is minimal bony contact. Assessment & Plan Assessment/Plan (1) Closed transverse fracture of left patella: PLAN: Natural history of the disease process was discussed with the patient. Operative and nonoperative inventions were discussed the patient. Ultimately, based on displacement of the fracture and the patient's general functional level at this point I did recommend open reduction internal fixation. We discussed the potential for continued weakness with nonoperative treatment and likely decreased function compared to her prefall state. Her son was at bedside and did wish to explore surgical intervention. I recommended open reduction from fixation explained in the postoperative course and that the patient will likely experience of deconditioning during the time of recovery as she has some limitations with range of motion and use postoperatively however, we did outline the entirety of the postoperative plan including 2 weeks of complete immobilization and a total of 6 weeks of no strengthening and progressive range of motion following the 2 weeks of immobilization. We discussed risks of surgery to include about limb to blood loss, DVTs, PEs, neurovascular damage, and risk of anesthesia bleeding loss of life, nonunion, malunion stiffness and hardware failure. Patient demonstrates an understanding and does wish to proceed. Her son is at bedside and also wished to proceed. Patient is NPO. Antibiotics ordered on-call to the operating room. Plan is to proceed with surgery this morning.
--- NOTE | 2024-11-24 06:58 | PRE.ANES_ITS ---
ASA Classification* ASA Classification ASA Classification: 3 Assessment & Plan Anesthesia* Anesthesia Assessment Anesthesia Assessment: Discussed sedation and/or anesthesia options, risks, benefits, and alternatives with patient/parents/legal guardian/POA. Questions invited. The patient/parents/legal guardian/POA seems to understand and agrees to proceed with anesthesia plan. Reviewed the physical assessment, medical history, allergy history and patient home medications list prior to surgery/procedure/anesthetic and documented any changes. Performed airway and anesthesia risk assessments. Anesthesia Type Anesthesia Type: General Anesthesia Focused Assessment* Temperature: 98.3 F Pulse Rate: 82 Blood Pressure: 117/67 Respiratory Rate: 18 Pulse Ox: 99 Airway Assessment Mouth opens: >3 cm Mallampati Score: II Focused Labs Anesthesia Preop lab: CBC WBC 8.7 K/mm3 (4.4-11.0) 11/24/24 04:36 11/24/24 RBC 4.22 M/mm3 (4.2-5.4) 11/24/24 04:36 11/24/24 Hgb 11.7 g/dL (12.0-15.0) L 11/24/24 04:36 5 Hct 36.6 % (37-47) L 11/24/24 04:36 11/24/24 Plt Count 207 K/mm3 (150-450) 11/24/24 04:36 11/24/24 CHEMISTRY Potassium 3.7 mmol/L (3.5-5.1) 11/24/24 04:36 11/24/24 Sodium 137 mmol/L (136-145) 11/24/24 04:36 11/24/24 Magnesium 2.0 mg/dL (1.6-2.6) 09/25/18 13:05 09/25/18 Phosphorus 3.7 mg/dL (2.5-4.9) 06/12/23 11:44 06/12/23 BUN 22 mg/dL (7-18) H 11/24/24 04:36 11/24/24 Creatinine 1.04 mg/dL (0.55-1.02) H 11/24/24 04:36 Glucose 115 mg/dL (74-106) H 11/24/24 04:36 11/24/24 POC Glucose 119 mg/dL (74-106) H 11/24/24 05:54 11/24/24 TSH 0.389 uIU/mL (0.358-3.740) 09/05/24 10:19 08/23 02/13 COAG PT 17.4 SECONDS (11.7-14.9) H 09/20/17 17:38 08/24 07/09 Pre-Assessment Diagnosis/Proposed Procedure Planned Operative Procedure(s): ORIF patella fracture Anesthesia History Anesthesia History - body service team member: Anesthesia History - body service team member Hx Hospitalization Yes 09/20/17 11:35 Any Problems With Anesthesia Yes: nausea 11/23/24 21:14 Cholinesterase deficiency No 11/23/24 21:14 You/Your Family Experience No 11/23/24 21:14 fever (hyperthermia) with Relationship Recent Exposure to Contagious No 11/23/24 21:14 Disease Does patient have nerve No 11/23/24 21:14 stimulator Patient instructed to have device shut off --Does patient have Pacemaker No 11/24/24 06:00 or ICD? When Was Last Pacemaker Check QUESTION #4 FULL TEXT: You/Your Family Experience fever (hyperthermia) with Anesthesia Last Oral Intake Last Oral intake: Last Oral Intake NPO since 00:00 11/24/24 06:00 Meds taken in AM with sips of No 11/24/24 06:00 water? Meds patient instructed to take am of surgery PONV PONV - body service team member: PONV - body service team member Female HX of Motion Sickness HX of N/V After Surgery Non-Smoker Duration of Surgery greater than 60 minutes Number of Risk Factors PONV Score Height & Weight Height & Weight: Anesthesia: Height & Weight Height 5 ft 4 in 11/24/24 06:00 Weight: 70.035 kg 11/24/24 06:00 Body Mass Index (BMI) 26.4 11/24/24 06:00 Respiratory Assessment Respiratory Assessment - body service team member: Respiratory Tract Infection Hx - body service team member Hx Respiratory Tract Infection No 11/23/24 21:14 STOP Sleep Apnea STOP Sleep Apnea - body service team member: STOP Sleep Apnea - body service team member Hx Hypertension Yes 11/23/24 17:30 Hx Sleep Apnea No 11/23/24 17:30 CPAP No 09/20/17 14:46 BIPAP No 09/20/17 14:46 Do you snore loudly (louder No 11/23/24 17:30 than talking or can be heard Do you often feel tired/ No 11/23/24 17:30 fatigued/ sleepy during daytime? Has anyone observed you stop No 11/23/24 17:30 breathing during sleep? STOP Results Negative 11/23/24 17:30 QUESTION #5 FULL TEXT : Do you snore loudly (louder than talking or can be heard through closed doors)? Tobacco Use History Tobacco Use History - body service team member: Tobacco Use History - body service team member Tobacco Use Smoking Status Never smoker 11/23/24 17:30 Hx Tobacco Use No 11/23/24 17:30 Years Smoking Packs Smoked per Day Smoking Cessation Date was within the last 15 years Hx Smoking Cessation Date Hx Smoking Cessation Counseling Hematologic Medial History Hematologic Hx - body service team member: Hematologic Medical Hx - [employer] worker Hx of Blood Transfusion No 11/23/24 17:30 Hx of Transfusion in last 3 No 11/23/24 17:30 Months Date of Last Transfusion (if within last 3 months) Ever experience any problems No 11/23/24 17:30 with transfusion(s)? Specify any problems Hx of Preganancy in last 3 N/A 11/23/24 17:30 Months Nurse Filling Out Transfusion RONY 11/23/24 17:30 & Questions: Date: 11/23/24 11/23/24 17:30 Time: 17:34 11/23/24 17:30 Patient unable to answer at this time (ie. confused, unrespo /Reproduction History /Reproductive History - body service team member: /Reproductive Hx- body service team member Hx Now No 11/23/24 21:14 Gestational Age (in weeks): EDC: Hx Hx Para Hx Section SAB No 11/23/24 21:14 Active Medications Active Medications: Current Medications Generic Name Dose Route Start Last Admin Trade Name Freq PRN Reason Stop Dose Admin Acetaminophen 1,000 mg 11/23/24 22:00 11/24/24 06:26 Acetaminophen 500 Mg Tablet PO Not Given Q8 OJ Enoxaparin Sodium 40 mg 11/25/24 10:00 Enoxaparin 40 Mg/0.4 Ml Syringe SC DAILY OJ Fluoxetine HCl 60 mg 11/24/24 10:00 Fluoxetine 20 Mg Capsule PO DAILY OJ Glucagon 1 mg 11/23/24 18:19 Glucagon 1 Mg/Ml Syringe IM X1 PRN Hypoglycemia Protocol Sodium Chloride 100 mls @ 15 mls/hr 11/23/24 17:33 IV .Q6H40M PRN Saline Flush Sodium Chloride 100 mls @ 15 mls/hr 11/23/24 17:33 IV .Q6H40M PRN Additional IVPB Infusion Cefazolin Sodium 2 gm/ N/A 20 mls @ 400 mls/hr 11/24/24 10:00 IV 11/24/24 10:02 PREOP ONE Dextrose 250 mls @ 0 mls/hr 11/23/24 18:19 Dextrose 10%-Water IV .Q0M PRN HYPOGLYCEMIA Protocol As Directed Insulin Glargine 20 unit 11/24/24 10:00 Insulin Glargine-Yfgn 100 Unit/Ml Pen SC DAILY OJ Protocol Insulin Human Lispro 0 unit 11/23/24 22:00 11/24/24 06:27 Insulin Lispro 100 Unit/Ml Insuln.Pen SC Not Given ACHS [facility] Protocol Melatonin 3 mg 11/23/24 17:29 11/23/24 23:50 Melatonin 3 Mg Tablet PO 3 mg QHS PRN PRN Administration INSOMNIA Ondansetron HCl 4 mg 11/23/24 17:29 Ondansetron 4 Mg/2 Ml Vial IV Q8H PRN PRN NAUSEA/VOMITING Oxycodone HCl 5 mg 11/23/24 17:29 11/24/24 02:45 Oxycodone 5 Mg Tablet PO 5 mg Q4H PRN PRN Administration Pain Score 6-10 Pantoprazole Sodium 40 mg 11/24/24 10:00 Pantoprazole Sodium 40 Mg Tablet PO DAILY [facility] Pravastatin Sodium 80 mg 11/23/24 22:00 11/23/24 21:06 Pravastatin 80 Mg Tablet PO 80 mg QHS OJ Administration Sodium Chloride 10 - 40 ml 11/23/24 17:33 0.9% Saline Lock 10 Ml Syringe IV UD PRN SALINE FLUSH PFSH Medical History Current use of insulin Post-menopausal Ulcer Injury of head and neck Wears hearing aid in both ears Diabetes Chronic pain Kidney disease Hypertension Osteoarthritis of right knee Right knee pain CKD (chronic kidney disease) stage 3, GFR 30-59 ml/min MVP (mitral valve prolapse) PSVT (paroxysmal supraventricular tachycardia) Pure hypercholesterolemia Nonrheumatic mitral (valve) prolapse Essential hypertension Palpitations Diastolic dysfunction Premature atrial contractions Premature ventricular contractions Mitral valve prolapse Hyperparathyroidism Osteoporosis Hyperthyroidism HTN (hypertension) DM type 2 (diabetes mellitus, type 2) Home Medications ?Medication ?Instructions ?Recorded ?Last Taken ?Type fluoxetine 20 mg tablet 60 mg PO DAILY 05/02/22 Unkn own History insulin degludec 100 unit/mL (3 46 unit subcut DAILY 0 05/02/22 Unknown History mL) subcutaneous pen (Tresiba FlexTouch U-100 insulin) pantoprazole 40 mg tablet,delayed 40 mg PO DAILY 05/02 Unknown History release pravastatin 80 mg tablet 80 mg PO QHS #90 tabs Unknown Rx losartan 25 mg tablet 25 mg PO QDAY 02/14/24 Unkno wn History cefdinir 300 mg capsule 300 mg PO Q12H #14 caps 05/25 Unknown Rx Allergy/AdvReac Type Severity Reaction Status Date / Time morphine Allergy Rash Verified 11/23/24 14:24 Penicillins Allergy Rash Verified 11/23/24 14:24 propoxyphene Allergy Nausea Verified 11/23/24 14:24 codeine AdvReac Nausea Verified 11/23/24 14:24 lisinopril AdvReac Vomiting Verified 11/23/24 14:24 quinine AdvReac Vomiting Verified 11/23/24 14:24 Family History Brother Heart disease Myocardial infarction Diabetes Father No problems noted. Mother CVA (cerebral vascular accident) Brother Myocardial infarction Diabetes Surgical History S/P hysterectomy History of parathyroidectomy History of subtotal thyroidectomy History of carpal tunnel surgery History of total hysterectomy History of appendectomy History of cholecystectomy Social History household members: none housing: house Smoking Status: Never smoker alcohol intake: never substance use type: does not use caffeine: No what type of physical activity do you participate in: none Review of Systems (Anesthesia) ROS Narrative System reviewed and no additional complaints, except as documented.
[2024-11-24] MEDS: Cefazolin 2 GM in Syringe IV (07:20)
--- NOTE | 2024-11-24 07:21 | RAD_ITS ---
PROCEDURE: KNEE 1 OR 2 VIEWS; O.R. FLUORO FOR C-ARM REASON FOR EXAM: Pain TECHNIQUE: Three views left knee COMPARISON: Reviewed. FINDINGS: Spot fluoroscopic view of a repaired displaced patellar fracture. Anatomic alignment. Please refer to operative report for full details. RAD/Knee 1 or 2 Views IMPRESSION: As above. [facility]
--- NOTE | 2024-11-24 07:21 | RAD_ITS ---
GUILLERMINA/O.RAmie Schumacher for C-Arm IMPRESSION: As above. Reading Location: [facility]
--- NOTE | 2024-11-24 07:25 | RAD_ITS ---
PROCEDURE: KNEE 1 OR 2 VIEWS REASON FOR EXAM: Pain TECHNIQUE: Two views left knee COMPARISON: Reviewed. FINDINGS: Procedural changes with intact orthopedic hardware reversing the patella which is demonstrated improved anatomic alignment persistent minimal displacement at the mid aspect. RAD/Knee 1 or 2 Views IMPRESSION: As above. [facility]
--- NOTE | 2024-11-24 07:39 | PCM.PN.HOSP ---
Reason for Visit Reason for Visit: Left knee pain following mechanical fall Subjective Subjective Patient states at the present time she is doing okay. Has just returned from surgery. Left lower extremity is in a DonJoy locked out extension brace. Objective Data Objective Data Vital Signs: Vital Signs Temp Pulse Resp BP Pulse Ox O2 Del Method 98.3 F 82 18 117/67 99 Room Air 11/24/24 06:59 11/24/24 06:59 11/24/24 06:59 11/24/24 06:59 11/24/24 06:59 11/24/24 06:00 Oxygen Delivery Method Room Air Weight: 70.035 kg Body Mass Index (BMI) 26.4 Intake & Output: Intake and Output for Last 24 Hours 11/22/24 11/23/24 11/24/24 23:59 23:59 23:59 Intake Total 400 / 400 Output Total 200 / 200 Balance 400 / 400 -200 / -200 Lab / Micro Data 11/24/24 04:36 11/24/24 04:36 Labs: Laboratory Results - last 24 hr 11/23/24 15:50: WBC 9.9, RBC 4.76, Hgb 13.1, Hct 41.3, MCV 86.8, MCH 27.5, MCHC 31.7 L, RDW Std Deviation 47.4 H, RDW Coeff of Jose Eduardo 14.9 H, Plt Count 221, MPV 9.4, Immature Gran % (Auto) 0.600, Neut % (Auto) 81.0 H, Lymph % (Auto) 11.3 L, [place] % (Auto) 6.8, Eos % (Auto) 0.2, Baso % (Auto) 0.1, Absolute Neuts (auto) 8.0 H, Absolute Lymphs (auto) 1.12, Nucleated RBC % 0, Sodium 137, Potassium 3.8, Chloride 102, Carbon Dioxide 26.0, Anion Gap 8, BUN 22 H, Creatinine 1.14 H, Estim Creat Clear Calc 38.55, Est GFR (MDRD) Af Amer 59 L, Est GFR (MDRD) Non-Af 48 L, BUN/Creatinine Ratio 19.3, Glucose 186 H, Calcium 9.1 11/23/24 21:09: POC Glucose 113 H 11/24/24 04:36: WBC 8.7, RBC 4.22, Hgb 11.7 L, Hct 36.6 L, MCV 86.7, MCH 27.7, MCHC 32.0, RDW Std Deviation 46.9 H, RDW Coeff of Jose Eduardo 14.9 H, Plt Count 207, MPV 10.4, Sodium 137, Potassium 3.7, Chloride 103, Carbon Dioxide 27.0, Anion Gap 7, BUN 22 H, Creatinine 1.04 H, Estim Creat Clear Calc 40.05, Est GFR (MDRD) Af Amer 65, Est GFR (MDRD) Non-Af 54 L, BUN/Creatinine Ratio 21.2 H, Glucose 115 H, Calcium 8.9 11/24/24 05:54: POC Glucose 119 H Radiography Diagnostic Testing: Radiology Impression Knee X-Ray 11/23/24 15:05 IMPRESSION: As above. Reading Location: [facility] Physical Exam Const alert, oriented x3, no apparent distress, average body habitus, healthy appearing and well nourished Constitutional Narrative: Pleasant, elderly, white female, lying in bed flat, has just returned from the OR, appears comfortable, nontoxic HEENT head/scalp atraumatic, moist oral mucous membranes and oropharynx normal HEENT Narrative: Mallampati 2, no thrush Resp normal respiratory effort, no retractions, no use of accessory muscles and clear to auscultation bilaterally Auscultation: Negative for rales, rhonchi or wheezes Cardio regular rate, regular rhythm, S1 normal heart sound, S2 normal heart sound, no murmurs, no rub, no gallops and no clicks GI normal to inspection, nondistended, normoactive bowel sounds, soft to palpation and non-tender Extremity no clubbing, cyanosis or edema Extremity Narrative: Pedal pulses are 2+ bilaterally, left lower extremity in long-leg brace is locked at 0 degrees extension, right lower extremity within normal limits, FRANCESCO hose in place Neuro oriented x3 and no focal motor deficits Speech: speech normal Psych affect normal Psych Narrative: Pleasant interacts appropriately Assessment & Plan Assessment/Plan (1) Closed transverse fracture of left patella: (2) Inability to ambulate due to knee: PLAN: Plan Acute transverse fracture of the left patella status post mechanical fall -Dr. Tim took her to the OR this morning for ORIF of her left patella fracture -Continue TROM brace locked in extension for 6 weeks--> should be released by orthopedic surgery before opening brace up into flexion at all -Plan is for follow-up in office in 2 weeks for wound check and x-ray with staple removal -Continue FRANCESCO broussard -Continue DVT prophylaxis as ordered -Patient is weightbearing as tolerated left lower extremity with brace locked at 0 -PT/OT consultation for assistance with mobility -Patient lives alone and I do anticipate she will need placement prior to discharge -Case management/social work consultation for assistance with discharge planning -Continue Tylenol 1 g 3 times daily -Continue oxycodone 5 mg p.o. every 4 hours -Add bowel regimen scheduled and as needed DM-2 -Basal insulin reduced to 20 units from 46 units in the perioperative period to avoid hypoglycemia when patient is n.p.o. -Unclear p.o. intake today and blood sugars do not seem very robust so we will continue this regimen and reevaluate tomorrow -Continue SSI -Advance to carb controlled diet Essential hypertension/hyperlipidemia/history of nonsustained SVT -Continue home statin -BP is still soft so we will continue to hold home losartan and restart when blood pressures allow CKD stage IIIa -Serum creatinine remains at baseline currently at 1.04 and 1.14 on admission -Continue to monitor GERD -Continue home PPI Depression -Continue home fluoxetine DVT prophylaxis -Continue Lovenox CODE STATUS -DNR CCA with no intubation Charges/Coding Visit Charges Inpatient E&M: 49952 Subs Hosp L2
--- NOTE | 2024-11-24 08:29 | PCM.OPRPT ---
Operative Report (Standard) Operative Information Date of Procedure: 11/24/24 Pre-Operative Diagnosis: Left knee transverse patella fracture Post-Operative Diagnosis: Left knee comminuted patella fracture Surgery/Procedure Performed: Open reduction internal fixation left patella fracture cyber systems administrator: Yes Elevator Constructor Helper: Renay Cr Tasks completed by title i instructional assistant: Opening, Closing, Implanting device, Retracting and Other (Assisted in obtaining and maintaining fracture reduction and leg position) Additional assistant real estate manager?: No Type of Anesthesia: General RN Documented Start/Stop Times: Operation Date: 11/24/24 07:15 Case Time Anesthesia Start 11/24/24 07:10 Into Room 11/24/24 07:10 Procedure Start 11/24/24 07:38 Procedure End 11/24/24 08:20 Anesthesia End 11/24/24 08:28 Out of Room 11/24/24 08:28 Procedure Start Time: 07:38 Procedure Stop Time: 08:20 Select all DRAINS/GRAFTS/IMPLANTS that apply: None and Prosthetic device Prosthetic device details: Sonia 5.0 cannulated screws with 18-gauge AL wire Special Medications: Ancef Estimated Blood Loss: 10 mL Fluids Replaced: 1000 mL crystalloid Specimen collected: No Description of surgery: On the date of procedure patient's left lower extremity is was marked in the preoperative area. The patient was then taken back to the operating room where they were placed on the table in the supine position. All bony prominences were identified a well-padded. Anesthesia assumed control of the C-spine and airway and remained controlled throughout the remainder of the procedure. A tourniquet was placed on the left upper thigh and the left leg was prepped in a sterile fashion. The surgeon scrubbed at this time. Upon reentering the room the left extremity was draped in a standard orthopedic fashion. A timeout was then called and everyone agreed upon the side, the site, the procedure to be performed, patient's identity and antibiotics given. Attention was directed to the left leg where a midline incision was made. Dissection was taken down through skin, subcutaneous tissues and fat. At this point we were able to identify the rupture and got a gush of serosanguineous fluid. The wound was copiously irrigated with normal saline. Curette and rongeur were used to debride the fracture hematoma. Once we are able to identify both fracture ends it was noted that the distal pole had comminution. It did based on soft tissue attachments mobilizes 1 unit. 2 large clamps were used to clamp the fracture medially and laterally with the knee in full extension. Fluoroscopy was brought into the field and live x-ray was used to verify the fracture reduction on coronal and sagittal planes. Once were happy with the fracture reduction 2 K wires were placed proximal to distal for the 5.0 mm cannulated screws. Live x-ray was used to verify placement of the pins which was satisfactory. We then measured off the pins for 2 cannulated screws which were then passed proximal to distal after drilling proximal to distal. The screws were tightened down to help compress the fracture. One of the initial screws was longer than we would like so we switched out the medial screw. Once this was done and the fracture was compressed with the screws we then placed a wire through the cannulated screws and a tension band fashion tightened the 18-gauge wire. Live x-ray was used to verify fracture reduction and placement of the hardware. The bony repair was stressed and did not see stress until 45 degrees of flexion.The wound was irrigated out with normal saline. Skin was closed with 2-0 Vicryl and shorty. A sterile compressive dressing was placed. A TROM brace was then placed on the operative extremity locked in extension. Patient was awakened by anesthesia and transferred to the [facility] then taken to the PACU for recovery. Post op plan PT: WBAT with TROM brace locked in extension 6 weeks. Brace: locked in extension until first post op visit. At first visit patient should have 1 PT visit with brace opened to 0-45 flexion with flexion advanced 15 degrees per week. Patient may also start quad sets and straight leg raises at first visit. Goal is 90 degrees of flexion at 6 weeks. Will begin strengthening at 6 weeks. Prior to 6 weeks pt only allowed active flexion and passive extension. Follow up: 2 weeks for wound and x-ray check and removal of shorty Surgical Findings: Patient is distal portion of the fracture was comminuted into multiple fragments. Complications Complications: No Admit VTE Documentation VTE Present on Admission: No VTE Mechan Device Prophylaxis: SCD's and Thigh High FRANCESCO Hose VTE Pharm Prophylaxis ordered?: Yes
--- NOTE | 2024-11-24 08:31 | PCM.POST.ANE ---
Anesthesia: Postop Eval I Current Vital Signs Temperature: 36 F Pulse Rate: 78 Blood Pressure: 114/78 Respiratory Rate: 16 Pulse Ox: 94 Oxygen Delivery Method: Room Air Assessment Airway patent: Yes Spontaneous unlabored respirations: Yes Mental status: Awake nausea: No Vomiting: No Anesthesia Complication: No Fluid Hydration Crystalloid volume administer (ml): 1,000 Total IV fluid infused: 1,000 Progress Note Anesthesia document: Postop Eval 1 completed: Yes
--- NOTE | 2024-11-24 08:56 | POSTOPAN2_ITS ---
Anesthesia Postop Eval I Sum Postop Eval Completion status Anesthesia document: Postop Eval 1 completed: Yes Anesthesia Postop Eval I Summary Anesthesia Postop Eval I Summary: Anesthesia Postop Eval I: Assessment Summary Airway patent Yes 11/24/24 08:32 FREIGHT CAR CLEANER.LOCLI Spontaneous unlabored Yes 11/24/24 08:32 FREIGHT CAR CLEANER.SHARONA respirations Mental status Awake 11/24/24 08:32 FREIGHT CAR CLEANER.LOCLI nausea No 11/24/24 08:32 FREIGHT CAR CLEANER.LOCLI Vomiting No 11/24/24 08:32 FREIGHT CAR CLEANER.THUY Anesthesia Postop Eval I: Fluid Summary Crystalloid volume administer 1,000 11/24/24 08:32 FREIGHT CAR CLEANER.JCLI (ml) Colloids volume administered ( ml) Blood Product volume administered (ml) Total IV fluid infused 1,000 11/24/24 08:32 FREIGHT CAR CLEANER.SHARONA Anesthesia Postop Eval I: Summary Notes Anesthesia Complication No 11/24/24 08:32 FREIGHT CAR CLEANER.THUY Anesthesia Complication Comment: Post-operative progress note Anesthesia: Postop Eval II Evaluation Mental status: Awake Pain Level: 2 nausea: No Vomiting: No
--- NOTE | 2024-11-24 08:56 | PCM.POSTANE2 ---
Anesthesia Postop Eval I Sum Postop Eval Completion status Anesthesia document: Postop Eval 1 completed: Yes Anesthesia Postop Eval I Summary Anesthesia Postop Eval I Summary: Anesthesia Postop Eval I: Assessment Summary Airway patent Yes 11/24/24 08:32 BASIC SCIENCES PROFESSOR.LOCLI Spontaneous unlabored Yes 11/24/24 08:32 BASIC SCIENCES PROFESSOR.SHARONA respirations Mental status Awake 11/24/24 08:32 BASIC SCIENCES PROFESSOR.LOCLI nausea No 11/24/24 08:32 BASIC SCIENCES PROFESSOR.LOCLI Vomiting No 11/24/24 08:32 BASIC SCIENCES PROFESSOR.THUY Anesthesia Postop Eval I: Fluid Summary Crystalloid volume administer 1,000 11/24/24 08:32 BASIC SCIENCES PROFESSOR.JCLI (ml) Colloids volume administered ( ml) Blood Product volume administered (ml) Total IV fluid infused 1,000 11/24/24 08:32 BASIC SCIENCES PROFESSOR.SHARONA Anesthesia Postop Eval I: Summary Notes Anesthesia Complication No 11/24/24 08:32 BASIC SCIENCES PROFESSOR.THUY Anesthesia Complication Comment: Post-operative progress note Anesthesia: Postop Eval II Evaluation Mental status: Awake Pain Level: 2 nausea: No Vomiting: No
[2024-11-24] MEDS: FLUoxetine 20 MG Capsule 60 MG PO (11:32)
[2024-11-24] MEDS: Pantoprazole Sodium 40 MG Tablet PO (11:33)
[2024-11-24] MEDS: Insulin Lispro 100 UNIT/ML INSULN.PEN SC (11:37)
[2024-11-24 12:15] LABS: Bedside Glucose 191 mg/dL (74-106)
[2024-11-24] MEDS: Acetaminophen 500 MG Tablet 1000 MG PO ×2 (14:10→19:57)
[2024-11-24] MEDS: Lactated Ringers 1,000 ML 999 ML IV (14:10)
[2024-11-24] MEDS: Cefazolin 1 GM/50 ML BAG IV ×2 (16:25→22:48)
[2024-11-24 17:38] LABS: Bedside Glucose 114 mg/dL (74-106)
[2024-11-24] MEDS: Aspirin 81 MG TAB.CHEW PO (19:57)
[2024-11-24] MEDS: Docusate Sodium 100 MG Capsule 200 MG PO (19:58)
[2024-11-24] MEDS: Pravastatin 80 MG Tablet PO (20:00)
[2024-11-24] MEDS: MELATONIN 3 MG TABLET PO (21:39)
[2024-11-24 22:05] LABS: Bedside Glucose 161 mg/dL (74-106)
[2024-11-25] MEDS: oxyCODONE 5 MG Tablet PO ×2 (01:01→05:05)
[2024-11-25 03:00] VITALS: BP 136/62; PULSE 86; RESP 18; TEMP 36.9; O2SAT 92
[2024-11-25] MEDS: Acetaminophen 500 MG Tablet 1000 MG PO ×2 (05:05→15:23)
[2024-11-25 05:50] LABS: Bedside Glucose 156 mg/dL (74-106)
[2024-11-25 05:50] LABS: Hematocrit 35.5 % (37-47); Mean Corpuscular Hgb 27.5 pg (27.0-32.0); Mean Corpuscular Volume 88.8 fL (81-99); Mean Platelet Vol. 9.9 fl (6.2-12.0); Platelet Count 185 K/mm3 (150-450); RBC Distribution Width CV 14.9 % (11.6-14.6); RBC Distribution Width SD 48.5 fl (35.1-43.9); White Blood Count 8.7 K/mm3 (4.4-11.0)
[2024-11-25 06:18] LABS: Anion Gap 7 (5-15); BUN 18 mg/dL (7-18); BUN/Creat Ratio 15.4 RATIO (10-20); Calcium,Total 8.3 mg/dL (8.5-10.1); Chloride 105 mmol/L (98-107); Creatinine, Serum 1.17 mg/dL (0.55-1.02); EST Glomerular Filtration Rate 47 mL/min (>60); Est Glom Filt Rate - Afr Amer 57 mL/min (>60); Glucose 169 mg/dL (74-106); Magnesium 1.9 mg/dL (1.6-2.6); Phosphorus 2.7 mg/dL (2.5-4.9); Potassium 3.8 mmol/L (3.5-5.1); Sodium Level 136 mmol/L (136-145)
--- NOTE | 2024-11-25 10:43 | CASEMGMT ---
Discharge Planning A list of SNF providers including quality and resource use data and consistent with the patient's preferred geographic region, medical needs, and insurance network was created in [employer] Guide.? This list was provided to the SW. Lia Quintana Discharge Planning Asst.
[2024-11-25 10:49] VITALS: BP 105/52; PULSE 72; RESP 18; TEMP 36.8; O2SAT 97
[2024-11-25] MEDS: Aspirin 81 MG TAB.CHEW PO (10:51)
[2024-11-25] MEDS: Docusate Sodium 100 MG Capsule 200 MG PO (10:51)
[2024-11-25] MEDS: Enoxaparin 40 MG/0.4 ML Syringe SC (10:52)
[2024-11-25] MEDS: Pantoprazole Sodium 40 MG Tablet PO (10:52)
[2024-11-25] MEDS: FLUoxetine 20 MG Capsule 60 MG PO (10:52)
[2024-11-25] MEDS: Insulin Glargine-YFGN 100 UNIT/ML Pen 20 UNIT SC (10:53)
[2024-11-25 11:31] LABS: Bedside Glucose 146 mg/dL (74-106)
--- NOTE | 2024-11-25 12:36 | CASEMGMT ---
Social Work- SW met with pt to discuss preferences at discharge. SW introduced self and role. A list of SNF providers including quality and resource use data and consistent with the patient?s preferred geographic region, medical needs, and insurance network were provided from the [employer] Guide. Pt selceted TCU as FOC and will review list for additional choices. SW completed referral to TCU. SW remains available to follow. MENG Anthony
--- NOTE | 2024-11-25 12:52 | CHAPLAIN ---
Type of Pastoral Visit _x__ Initial Visit ___ Follow-up Visit ___ On-call Visit ___ General Patient Visit ___ Spiritual Assessment ___ Family Conference ___ Bereavement ___ Rapid Response ___ Code Blue ___ Other (describe below) Pastoral Care Referral From _x__ Patient ___ Family ___ Nurse ___ Physician ___ Integration Software Developer ___ Automotive Service Technician ___ Other (describe below) Sacrament/Intervention _x__ Active listening ___ Anointing ___ Restoration ___ Bereavement ___ Communion ___ Xochilt exploration ___ _x__ Life review _x__ Prayer ___ Reconciliation ___ Sacrament of Sick ___ Supportive presence ___ Wedding ___ Other (describe below) Pastoral Comments patient is welcoming and explains the situation; pt is unsure of what is next for her concerning rehab and has some apprehensions about it; however pt is accepting of situation and 'will lean on the Lord to help; pt has some concerns about 2 of her 3 sons who will be moving far away; pt manages at home still after having been three years ago; pt welcomes prayer for support
--- NOTE | 2024-11-25 13:33 | PCM.PN.ORT ---
Subjective Subjective Patient is comfortable resting in chair. No acute complaints. No events overnight. Working with social work to establish discharge planning likely to shelter facility Objective Data Objective Data Vital Signs: Vital Signs Temp Pulse Resp BP Pulse Ox O2 Del Method 98.2 F 72 18 105/52 L 97 Room Air 11/25/24 10:49 11/25/24 10:49 11/25/24 10:49 11/25/24 10:49 11/25/24 10:49 11/25/24 10:49 Oxygen Delivery Method Room Air Weight: 154 lb 6.4 oz Body Mass Index (BMI) 26.4 Intake & Output: Intake and Output for Last 24 Hours 11/23/24 11/24/24 11/25/24 23:59 23:59 23:59 Intake Total 400 / 400 1445 / 1445 Output Total 800 / 800 Balance 400 / 400 645 / 645 Lab / Micro Data Attestation: I reviewed the patient's lab results. 11/25/24 05:22 11/25/24 05:22 Labs: Laboratory Results - last 24 hr 11/24/24 16:10: POC Glucose 114 H 11/24/24 21:38: POC Glucose 161 H 11/25/24 05:01: POC Glucose 156 H 11/25/24 05:22: WBC 8.7, RBC 4.00 L, Hgb 11.0 L, Hct 35.5 L, MCV 88.8, MCH 27.5, MCHC 31.0 L, RDW Std Deviation 48.5 H, RDW Coeff of Jose Eduardo 14.9 H, Plt Count 185, MPV 9.9, Sodium 136, Potassium 3.8, Chloride 105, Carbon Dioxide 25.0, Anion Gap 7, BUN 18, Creatinine 1.17 H, Estim Creat Clear Calc 35.60, Est GFR (MDRD) Af Amer 57 L, Est GFR (MDRD) Non-Af 47 L, BUN/Creatinine Ratio 15.4, Glucose 169 H, Calcium 8.3 L, Phosphorus 2.7, Magnesium 1.9 11/25/24 10:58: POC Glucose 146 H Radiography Diagnostic Testing: Postop x-rays were reviewed showing well reduced patella fracture status post open reduction internal fixation Physical Exam Narrative Left lower extremity: Dressing is clean dry and intact Sensations intact to light touch saphenous, sural, superficial peroneal, deep peroneal, and tibial distributions Motors intact EHL, DF, PF calves are soft and supple Knee immobilizer brace is intact locked in extension Const alert and oriented x3 Assessment & Plan Assessment/Plan (1) Closed transverse fracture of left patella: PLAN: Postop day 1 open reduction internal fixation left patella fracture 1. DVT prophylaxis: Currently on enoxaparin. Medicine team is also maintained the patient on 81 mg aspirin p.o. twice daily. Would recommend minimum of 81 mg aspirin p.o. twice daily for 4 weeks. If medicine team feels greater is appropriate based on her mobilization time discharge I would not object to this. 2. Pain control: Per primary service patient comfortable at this time 3. Therapy: Knee brace locked in extension. With knee brace locked in extension patient may be weightbearing as tolerated. Disposition: Patient is awaiting insurance approval and acceptance for TCU if possible. Will likely discharge to shelter facility due to patient's limited mobility at this time. Patient is orthopedically stable. She should return to the office in 2 weeks for follow-up for x-ray check and advancement of physical therapy as well as removal of shorty. She is unable to make this please contact the office so we can attempt to do radiographs to check stability and allow progression of physical therapy: Physical therapy treatment plan is outlined in the operative report. Please call orthopedics for any further questions or concerns [facility] Office:
[2024-11-25 15:25] VITALS: BP 110/55; PULSE 76; RESP 18; TEMP 36.8; O2SAT 94
[2024-11-25 15:46] LABS: Hemoglobin A1c 5.4 % (3.8-5.6)
--- NOTE | 2024-11-25 16:31 | TREXTCAR_ITS ---
Diet Diet Order/Speech Therapy: 11/24/24 11:17 Diet: Regular - General Routine Orders/Code Status Enema Type: Fleetz Enema Frequency: Daily PRN DC O2, CPAP, BIPAP needs Home O2 Discharge instructions: No Wound(s) Left knee: Wound Type: Surgical Incision Therapies Weight Bearing: Weight bearing as tolerated Physical Therapy: Eval and Treat Occupational Therapy: Eval and Treat Problem/Diagnosis (1) Closed transverse fracture of left patella: Status: Acute Code(s): S82.032A - Displaced transverse fracture of left patella, initial encounter for closed fracture Allergies/Procedures Done in Hospital Allergies morphine Allergy (Verified 11/23/24 14:24) Rash Penicillins Allergy (Verified 11/23/24 14:24) Rash propoxyphene Allergy (Verified 11/23/24 14:24) Nausea codeine Adverse Reaction (Verified 11/23/24 14:24) Nausea lisinopril Adverse Reaction (Verified 11/23/24 14:24) Vomiting quinine Adverse Reaction (Verified 11/23/24 14:24) Vomiting Procedures: None Type of Care/Length of Stay Estimated LOS: Convalescent Care Less Than 30 days Type of Care Needed: Intermediate Rehab Potential: Fair Prognosis: Fair Additional Orders/Day of Discharge Day of Discharge: 11/25/24 Discharge Plan Admission Admit Date/Time: 11/24/24 15:03 Primary Reason for Your Visit: left patellar fracture Attending Provider: Mehreen Polanco Primary Care Provider: Krunal Sandoval Chi Consulting Providers: Gama Oleary; Valerio Calix; Jessica Gross Instructions Patient Instructions: ED Fracture, Knee Discharge Orders/Prescriptions Prescriptions: New oxycodone 5 mg Tablet 5 mg PO Q4H PRN PRN (Reason: Pain Score 6-10) 3 Days Qty: 18 0RF aspirin 81 mg Tablet,Chewable 81 mg PO BID Qty: 56 0RF Continued fluoxetine 20 mg tablet 60 mg PO DAILY Tresiba FlexTouch U-100 100 unit/mL (3 mL) insulin pen 46 unit subcut DAILY pantoprazole 40 mg tablet,delayed release (DR/EC) 40 mg PO DAILY pravastatin 80 mg tablet 80 mg PO QHS Qty: 90 3RF losartan 25 mg tablet 25 mg PO QDAY Discontinued cefdinir 300 mg capsule 300 mg PO Q12H Qty: 14 0RF Referrals / Follow Up: Gama Oleary MD [Med Staff - Active Staff] - Within 2 Weeks Krunal Sandoval Chi, MD [Primary Care Provider] - Within 1 Week Disposition Disposition (needs filled in before D/C Order can be placed): Retirement Facility
--- NOTE | 2024-11-25 16:33 | DS.PCM_ITS ---
Providers Date of Admission: 11/24/24 Date of Discharge: 11/25/24 Primary Care Physician: Dr. Krunal Sandoval MD Consultations 11/23/24 17:29 Consult: Orthopedics Routine Consulting Provider: Gama Oleary Reason for Consult: left patellar fracture EMERGENT Consult: No MD Notified: Yes Date Notified: 11/23/24 Time Notified: 15:59 Method of Notification: ED Physician Initiated Reason For Visit: FALL W/ LEFT PATELLAR FRACTURE Diagnosis Discharge Diagnosis (1) Closed transverse fracture of left patella: Status: Acute Code(s): S82.032A - Displaced transverse fracture of left patella, initial encounter for closed fracture Medications at Discharge Home Medications fluoxetine 20 mg tablet 60 mg PO DAILY depression 05/02/22 insulin degludec 100 unit/mL (3 mL) subcutaneous pen (Tresiba FlexTouch U-100 insulin) 46 unit subcut DAILY insulin 05/02/22 pantoprazole 40 mg tablet,delayed release 40 mg PO DAILY acid reflux 05/02/22 pravastatin 80 mg tablet 80 mg PO QHS cholesterol #90 tabs 06/27/23 losartan 25 mg tablet 25 mg PO QDAY BP 02/14/24 aspirin 81 mg chewable tablet 81 mg PO BID heart health #56 tabs 11/25/24 oxycodone 5 mg tablet 5 mg PO Q4H PRN PRN Pain Score 6-10 3 days #18 tabs 11/25/24 Hospital Course Operations None Procedures None Summary of Care Provided Minutes Spent on Discharge: 45 Hospital Course: Patient is an 84-year-old female with past medical history as outlined was admitted through the ED on 11/23/2024 with a complaint of mechanical fall with resultant left knee pain. She lived at home alone and says she had had good functional status but had had a few falls over the last few months prior to admission. She also had osteoarthritis of her right knee which she remained more difficult to ambulate. On admission in the ED left knee x-ray showed a minimally displaced patella fracture with regional soft tissue swelling. She was admitted to be managed for left knee fracture due to mechanical fall. Orthopedic surgery was consulted. She had open reduction and internal fixation of the left patella on 11/24/2024. She had an uneventful postop course. She was skilled as needing [facility] services. She was therefore discharged to transitional care unit on 11/25/2024. She was discharged on p.o. aspirin 81 mg twice daily for 4 weeks for DVT prophylaxis. She is follow-up with her primary care doctor and follow-up with orthopedic surgery on outpatient basis. Patient seen and examined prior to discharge. She had no complaints and felt well. Review of systems otherwise negative. Labs and vitals reviewed. Home medication reviewed and reconciled. She was discharged with a prescription for p.o. oxycodone 5 mg every 4 hours as needed for total of 18 tablets for 3 days. She is follow-up with her primary care doctor within 1 to 2 weeks. Physical Exam Const alert, oriented x3 and no apparent distress General Appearance: cooperative and comfortable Orientation / Consciousness: awake Exam Limitations: no limitations HEENT normocephalic, head/scalp atraumatic, hearing grossly normal bilaterally and moist oral mucous membranes Eyes PERRL, EOMs intact bilaterally and conjunctivae normal Neck no lymphadenopathy and supple Resp normal respiratory effort, no retractions, no use of accessory muscles and clear to auscultation bilaterally Cardio regular rate, regular rhythm, S1 normal heart sound, S2 normal heart sound and no murmurs GI normal to inspection, nondistended, normoactive bowel sounds, soft to palpation, non-tender and non-distended Extremity Extremity Narrative: left knee wrapped in bandage. Skin no rashes or lesions noted Neuro oriented x3, CN's II-XII intact bilaterally, moves all extremities and no focal motor deficits Sensorium / Orientation: awake and alert Psych affect normal Weight / BMI Weight Weight: 154 lb 6.4 oz Body Mass Index (BMI) 26.4 ABG / Lab / Microbiology Data 11/25/24 05:22 11/25/24 05:22 Laboratory: Laboratory Results - last 24 hr 11/23/24 15:31: POC Glucose 151 H 11/23/24 15:33: POC Glucose 167 H D/C Instructions Discharge Diet: Low fat / Low cholesterol Discharge Activity: Return to Normal Activity Weight Bearing Status: Weight bearing as tolerated Call your doctor if you observe: Fever of 101 or Higher, Shortness of breath, Dizziness, Chest pain and Uncontrolled pain DC O2, CPAP, BIPAP Needs Home O2 Discharge instructions: No DC home with Oxygen: No Meaningful Use Info Meaningful Use Meaningful Use Diagnoses (Choose all that apply): None applicable Ischemic Stroke Statin Dosing Therapy Reference: STATIN DOSE THERAPY REFERENCE: * Patients > 75 years receive moderate or high dose statin therapy. * Patients 75 years or YOUNGER should receive HIGH intensity statin dose unless contraindicated. You will be required to document reason for non-treatment if statin daily dose does not meet guidelines. HIGH DOSE STATIN THERAPY DAILY Atorvastatin > than or = to 40 mg Rosuvastatin > than or = to 20 mg Amlodipine + Atorvastatin > than or = to 2.5/40 mg Ezetimibe + Simvastatin 10/80 mg Simvastatin 80mg Discharge Plan Admission Admit Date/Time: 11/24/24 15:03 Primary Reason for Your Visit: left patellar fracture Attending Provider: Mehreen Polanco Primary Care Provider: Krunal Sandoval Chi Consulting Providers: Gama Oleary; Valerio Calix; Jessica Gross Instructions Patient Instructions: ED Fracture, Knee Discharge Orders/Prescriptions Prescriptions: New oxycodone 5 mg Tablet 5 mg PO Q4H PRN PRN (Reason: Pain Score 6-10) 3 Days Qty: 18 0RF aspirin 81 mg Tablet,Chewable 81 mg PO BID Qty: 56 0RF Continued fluoxetine 20 mg tablet 60 mg PO DAILY insulin degludec [Tresiba FlexTouch U-100] 100 unit/mL (3 mL) insulin pen 46 unit subcut DAILY pantoprazole 40 mg tablet,delayed release (DR/EC) 40 mg PO DAILY pravastatin 80 mg tablet 80 mg PO QHS Qty: 90 3RF losartan 25 mg tablet 25 mg PO QDAY Discontinued cefdinir 300 mg capsule 300 mg PO Q12H Qty: 14 0RF Referrals / Follow Up: Gama Oleary MD [Med Staff - Active Staff] - Within 2 Weeks Krunal Sandoval Chi, MD [Primary Care Provider] - Within 1 Week Disposition Disposition (needs filled in before D/C Order can be placed): Senior Living Facility Charges/Coding Visit Charges Inpatient E&M: 11172 Disch Hosp >30min
--- NOTE | 2024-11-25 16:50 | CASEMGMT ---
Social Work Precert has been obtained.? Physician updated and pt is ready for discharge today. SW faxed TCU discharge summary. SW met with pt and they are agreeable to discharge plan as stated above.?Pt sons Moncho and Darin and bedside nurse notified of discharge. Disposition:TCU, skilled level of care under convalescent stay. MENG Anthony
[2024-11-25 17:07] LABS: Bedside Glucose 149 mg/dL (74-106)
[2024-11-26 07:25] LABS: Bedside Glucose 151 mg/dL (74-106)
[2024-11-26 07:25] LABS: Bedside Glucose 167 mg/dL (74-106)
== END 2024-11-25 18:47 | disposition skilled nursing facility (03) ==
LOC: ED 16:02 → MS3 16:35
PROVIDERS: Internal Medicine; Nurse Practitioner; Specialist; Admitting Provider Hospitalist; Emergency Provider Emergency Medicine; PCP Family Medicine Geriatric Medicine; Visit Provider Student in an Organized Health Care Education/Training Program
PROC: (CPT 27524; principal; 2024-11-24 07:00)
DX: S82.032A Displaced transverse fracture of left patella, initial encounter for closed fracture (principal); E11.22 Type 2 diabetes mellitus with diabetic chronic kidney disease; Z79.4 Long term (current) use of insulin; N18.31 Chronic kidney disease, stage 3a; W01.0XXA Fall on same level from slipping, tripping and stumbling without subsequent striking against object, initial encounter; Y92.009 Unspecified place in unspecified non-institutional (private) residence as the place of occurrence of the external cause; I12.9 Hypertensive chronic kidney disease with stage 1 through stage 4 chronic kidney disease, or unspecified chronic kidney disease; E78.00 Pure hypercholesterolemia, unspecified; Z79.899 Other long term (current) drug therapy; M17.11 Unilateral primary osteoarthritis, right knee; Y93.01 Activity, walking, marching and hiking; R53.1 Weakness; R29.6 Repeated falls; I47.19 Other supraventricular tachycardia; K21.9 Gastro-esophageal reflux disease without esophagitis; F32.A Depression, unspecified; R94.31 Abnormal electrocardiogram [ECG] [EKG]
CPT/HCPCS: 27524; 36415; 73560; 73562; 76000; 80048; 82962; 83036; 83735; 84100; 85025; 85027; 93005; 94668; 96361; 96365; 96372; 97162; 97166; 99221; 99285; C1713; G0378; J2405

== ENCOUNTER 2024-11-25 19:17 | Inpatient (IN) | payer MEDICARE, SELFPAY ==
[2024-11-25 19:14] VITALS: BP 100/53; PULSE 80; RESP 18; TEMP 36.9; O2SAT 95; BMI 27.9
--- NOTE | 2024-11-25 19:38 | PCM.HP.STD ---
HPI - General General Date of Admission: 11/25/24 Date of Service: 11/26/24 Chief Complaint: Here for rehabilitation. HPI Narrative JUVENAL RAVI, is a 84 Female who presents with followin11/23/2024 [facility] ED with fall. Twisted up feet, fell on left knee. Anderson given. X-ray showed left patella fracture. Left knee immobilizer applied, patient unable to walk, she lives alone. 11/23/2024 Admit to [facility]. NPO, pain control, prepare for surgery, PT/OT for left patella fracture. 11/24/2024 Dr. Oleary performed ORIF left patella fracture. 11/25/2024 Patient resting comfortably, No acute events overnight. Plan discharge to SNF. Lovenox, Aspirin 81mg po bid x 4 weeks for DVT prophylaxis. Pain controlled. Knee brace locked in extension, WBAT. 11/25/2024 Admit to TCU with debility, here for rehabilitation, strengthening, prior to discharge home alone. [facility], [facility] Medical History (Updated 11/25/24 @ 19:[address] Krunal Sandoval MD) Current use of insulin Post-menopausal Ulcer Injury of head and neck Wears hearing aid in both ears Diabetes Chronic pain Kidney disease Hypertension Osteoarthritis of right knee Right knee pain CKD (chronic kidney disease) stage 3, GFR 30-59 ml/min MVP (mitral valve prolapse) PSVT (paroxysmal supraventricular tachycardia) Pure hypercholesterolemia Nonrheumatic mitral (valve) prolapse Essential hypertension Palpitations Diastolic dysfunction Premature atrial contractions Premature ventricular contractions Mitral valve prolapse Hyperparathyroidism Osteoporosis Hyperthyroidism HTN (hypertension) DM type 2 (diabetes mellitus, type 2) Home Medications ?Medication ?Instructions ?Recorded ?Last Taken ?Type fluoxetine 20 mg tablet 60 mg PO DAILY depression 05/02/22 Unknown History insulin degludec 100 unit/mL (3 46 unit subcut DAILY insulin 05/02/22 Unknown History mL) subcutaneous pen (Tresiba FlexTouch U-100 insulin) pantoprazole 40 mg tablet,delayed 40 mg PO DAILY acid reflux 05/02/22 Unknown History release pravastatin 80 mg tablet 80 mg PO QHS cholesterol #90 tabs 06/27/23 Unknown Rx losartan 25 mg tablet 25 mg PO QDAY BP 02/14/24 Unknown History aspirin 81 mg chewable tablet 81 mg PO BID heart health #56 tabs 11/25/24 Unknown Rx oxycodone 5 mg tablet 5 mg PO Q4H PRN PRN Pain Score 11/25/24 Unknown Rx 6-10 3 days #18 tabs Allergy/AdvReac Type Severity Reaction Status Date / Time morphine Allergy Rash Verified 11/23/24 14:24 Penicillins Allergy Rash Verified 11/23/24 14:24 propoxyphene Allergy Nausea Verified 11/23/24 14:24 codeine AdvReac Nausea Verified 11/23/24 14:24 lisinopril AdvReac Vomiting Verified 11/23/24 14:24 quinine AdvReac Vomiting Verified 11/23/24 14:24 Family History Brother Heart disease Myocardial infarction Diabetes Father No problems noted. Mother CVA (cerebral vascular accident) Brother Myocardial infarction Diabetes Surgical History (Updated 11/25/24 @ 19:[address] Krunal Sandoval MD) History of open reduction and internal fixation (ORIF) procedure S/P hysterectomy History of parathyroidectomy History of subtotal thyroidectomy History of carpal tunnel surgery History of total hysterectomy History of appendectomy History of cholecystectomy Social History household members: none housing: house Smoking Status: Never smoker alcohol intake: never substance use type: does not use caffeine: No what type of physical activity do you participate in: none ROS Constitutional Constitutional: Reports weakness; Denies chills, fever(s) or weight gain ENT HEENT: Denies headache(s), nasal congestion or nasal discharge Cardiovascular Cardiovascular: Denies chest pain or palpitations Respiratory/Chest Respiratory/Chest: Denies cough, excessive phlegm production or shortness of breath with exertion Gastrointestinal Gastrointestinal: Denies abdominal pain, nausea or vomiting Genitourinary Genitourinary: Denies dysuria Musculoskeletal Musculoskeletal: Denies joint pain or joint swelling Integumentary Integumentary: Denies rash or wounds Neurologic Neurologic: Denies focal weakness, numbness or tingling Psychiatric Psychiatric: Denies anxiety, auditory hallucinations, depression, homicidal ideation or suicidal ideation Physical Exam Const alert General Appearance: cooperative HEENT normocephalic Eyes PERRL and EOMs intact bilaterally Neck supple, no JVD and no carotid bruits Resp normal respiratory effort, normal air movement and clear to auscultation bilaterally Cardio regular rate and regular rhythm GI normal to inspection, nondistended, normoactive bowel sounds, non-tender and non-distended Extremity normal capillary refill Extremity Narrative: PAUL wrap LLE, brace locked in extension. General Extremity: Negative for edema Skin no rashes or lesions noted General Skin Exam: no breakdown Psych affect normal Appearance: appropriate Results Lab / Micro Data 11/26/24 05:21 11/26/24 05:21 Assessment & Plan Assessment/Plan (1) Debility: (2) Fall: (3) Closed transverse fracture of left patella: (4) Type 2 diabetes mellitus with hyperglycemia: (5) Essential (primary) hypertension: (6) Hyperlipidemia, unspecified: (7) Osteoporosis: (8) Depression: (9) GERD (gastroesophageal reflux disease): (10) Chronic kidney disease, stage 3a: PLAN: Plan 84 year old female with below past medical history hospitalized for left patella fracture, underwent ORIF left patella fracture 11/24/[address] Oleary, admitted to TCU with debility, here for rehabilitation, strengthening, prior to discharge home alone Debility - PT/OT. Pain - Tylenol 1000mg q6 prn pain (1-5), Oxycodone 5mg q4 prn pain (6-10). Bowel - senna/colace 1 tablet bid, Magnesium citrate 300mL daily prn. Adult immunization - Administer pneumonia vaccine, covid vaccine, flu vaccine as appropriate. DVT prophylaxis - Aspirin 81mg po bid thru 12/21/2024. Depression - Fluoxetine 60mg daily, stable chronic residential use, GDR not recommended. Diabetes Mellitus II - Glargine 46 units daily. Hypertension - Losartan 25mg daily. GERD - Pantoprazole 40mg daily. Hyperlipidemia - Pravastatin 80mg qhs. Insomnia - Melatonin 3mg qhs.
[2024-11-25] MEDS: Aspirin 81 MG TAB.CHEW PO (20:57)
[2024-11-25] MEDS: Pravastatin 80 MG Tablet PO (20:57)
[2024-11-25] MEDS: Senna/Docusate Sodium 1 Tablet PO (20:57)
[2024-11-25 21:44] LABS: Bedside Glucose 180 mg/dL (74-106)
[2024-11-26 03:32] VITALS: BP 132/66; PULSE 84
--- NOTE | 2024-11-26 03:33 | NURSING ---
Pt. pressed call button due to sudden onset chest tightness. This nurse and RN went into pt. room to assess pt. Vitals signs: BP 132/66, Pulse 84. This nurse and RN pulled pt. up in bed and elevated head of bed. Pt. states sitting up relieved chest tightness.
[2024-11-26 06:02] LABS: Absolute Lymphocyte Count 0.83 X10^3/uL (0.83-4.51); Absolute Neutrophil Count 5.2 X10^3/uL (2.0-7.7); Basophil# 0.01 X10^3/uL; Basophil% 0.1 % (0-1); Eosinophil# 0.04 X10^3/uL; Eosinophils% 0.6 % (0-5); Hematocrit 30.6 % (37-47); Hemoglobin 9.9 g/dL (12.0-15.0); Lymphocyte # 0.83 X10^3/ul (0.83-4.51); Lymphocyte % 11.9 % (19-41); Mean Corp Hgb Conc 32.4 g/dL (32-36); Mean Corpuscular Volume 86.7 fL (81-99); Mean Platelet Vol. 10.6 fl (6.2-12.0); Monocyte# 0.88 X10^3/uL; Monocyte% 12.6 % (0-10); NRBC Flagged by Analyzer 0 % (0-5); Neutrophil # 5.19 X10^3/uL (2.7-7.7); Neutrophil % 74.2 % (47-70); Platelet Count 141 K/mm3 (150-450); RBC Distribution Width CV 14.8 % (11.6-14.6); RBC Distribution Width SD 47.1 fl (35.1-43.9); Red Blood Count 3.53 M/mm3 (4.2-5.4)
[2024-11-26 06:14] LABS: Bedside Glucose 140 mg/dL (74-106)
[2024-11-26 06:19] VITALS: O2SAT 98
[2024-11-26 06:43] LABS: Anion Gap 6 (5-15); BUN 18 mg/dL (7-18); Calcium,Total 8.2 mg/dL (8.5-10.1); Chloride 106 mmol/L (98-107); Creatinine, Serum 1.06 mg/dL (0.55-1.02); EST Glomerular Filtration Rate 53 mL/min (>60); Est Glom Filt Rate - Afr Amer 64 mL/min (>60); Estimated Creatinine Clearance 40.27 ml/min; Glucose 144 mg/dL (74-106); Potassium 3.9 mmol/L (3.5-5.1); Sodium Level 137 mmol/L (136-145)
[2024-11-26 08:44] VITALS: BP 112/62; PULSE 82; RESP 16; TEMP 37.1; O2SAT 97
[2024-11-26] MEDS: Aspirin 81 MG TAB.CHEW PO ×2 (08:48→21:21)
[2024-11-26] MEDS: Pantoprazole Sodium 40 MG Tablet PO (08:48)
[2024-11-26] MEDS: Losartan Potassium 25 MG Tablet PO (08:48)
[2024-11-26] MEDS: FLUoxetine 20 MG Capsule 60 MG PO (08:48)
[2024-11-26] MEDS: Insulin Glargine-YFGN 100 UNIT/ML Pen 46 UNIT SC (08:48)
[2024-11-26] MEDS: Senna/Docusate Sodium 1 Tablet PO ×2 (08:51→21:21)
[2024-11-26] MEDS: 0.9% Saline Lock 10 ML Syringe IV (10:01)
[2024-11-26] MEDS: Tuberculin,Purif.prot.deriv. 50 TU/ML Vial 0.1 ML ID (10:01)
[2024-11-26 11:32] LABS: Bedside Glucose 163 mg/dL (74-106)
[2024-11-26] MEDS: Magnesium Citrate 300 ML PO (14:07)
--- NOTE | 2024-11-26 14:10 | NURSING ---
Addendum entered by Wilma Baker 11/26/24 18:00: Dr. Sandoval entered new orders for soap suds enema this evening. Pt had bowel movement (med, formed) shortly after order entered, enema not given. Original Note: Pt's last BM on 11/22. Abdomen non-distended, non tender. Bowel sounds normoactive x4. Administered PRN magnesium citrate, pt refused full dose, only took half (150mL).
--- NOTE | 2024-11-26 15:16 | EKG12_ITS ---
Test Reason : CHEST PAIN Blood Pressure : */* mmHG Vent. Rate : 86 BPM Atrial Rate : 86 BPM P-R Int : 196 ms QRS Dur : 84 ms QT Int : 364 ms P-R-T Axes : 90 3 54 degrees QTcB Int : 435 ms Sinus rhythm with Premature supraventricular complexes Otherwise normal ECG No previous ECGs available Confirmed by YANNA PEÑALOZA, YOGESH ([id number]), supervising editor trailer SARAH SWENOSN ([id number]) on 11/28/2024 7:12:03 AM Referred By: Krunal Sandoval Confirmed By: YOGESH RAINES MD
[2024-11-26 15:17] VITALS: BP 126/63; PULSE 83; RESP 15; TEMP 36.8
--- NOTE | 2024-11-26 16:00 | NURSING ---
Addendum entered by Wilma Baker 11/26/24 16:12: Pt up, ambulating with therapy. Denies further chest pain, states I think it was indigestion. Family at bedside. Original Note: Staff notifies that pt is complaining of chest pain ~1515. Vitals: 126/63, p-83, t-98.3, r-15, sp02-98%. Denies nausea, other pain. EKG shows NSR with premature supraventricular complexes. Dr. Sandoval updated, received instructions to monitor and notify of any new changes.
--- NOTE | 2024-11-26 16:14 | PCM.PN.DRR ---
Documented by User: Tamara Grimm 11/26/24 16:25 TCU RX Drug Regimen Review Subjective/Objective Subjective/Objective Subjective: TCU Admission. 84 YOF presented to the ER with a fall. Hospitalized for left patella fracture, underwent ORIF left patella fracture 11/24/[address] Oleary. Admitted to TCU with debility for strengthening and rehabilitation. Objective: Allergies morphine Allergy (Verified 11/23/24 14:24) Rash Penicillins Allergy (Verified 11/23/24 14:24) Rash propoxyphene Allergy (Verified 11/23/24 14:24) Nausea codeine Adverse Reaction (Verified 11/23/24 14:24) Nausea lisinopril Adverse Reaction (Verified 11/23/24 14:24) Vomiting quinine Adverse Reaction (Verified 11/23/24 14:24) Vomiting Current Medications Generic Name Dose Route Start Last Admin Trade Name Freq PRN Reason Stop Dose Admin Acetaminophen 1,000 mg 11/25/24 19:44 Acetaminophen 500 Mg Tablet PO Q6H PRN PRN Pain Score 1-5 Aspirin 81 mg 11/25/24 22:00 11/26/24 08:48 Aspirin 81 Mg Tab.Chew PO 12/21/24 23:59 81 mg BID OJ Administration Fluoxetine HCl 60 mg 11/26/24 10:00 11/26/24 08:48 Fluoxetine 20 Mg Capsule PO 60 mg DAILY OJ Administration Insulin Glargine 46 unit 11/26/24 10:00 11/26/24 08:48 Insulin Glargine-Yfgn 100 Unit/Ml Pen SC 46 unit DAILY OJ Administration Losartan Potassium 25 mg 11/26/24 10:00 11/26/24 08:48 Losartan Potassium 25 Mg Tablet PO 25 mg DAILY OJ Administration Protocol Magnesium Citrate 300 ml 11/25/24 19:45 11/26/24 14:07 Magnesium Citrate 300 Ml PO 150 ml DAILY PRN Administration Constipation Melatonin 3 mg 11/26/24 22:00 Melatonin 3 Mg Tablet PO QHS OJ Oxycodone HCl 5 mg 11/25/24 19:16 Oxycodone 5 Mg Tablet PO Q4H PRN PRN Pain Score 6-10 Pantoprazole Sodium 40 mg 11/26/24 10:00 11/26/24 08:48 Pantoprazole Sodium 40 Mg Tablet PO 40 mg DAILY OJ Administration Pravastatin Sodium 80 mg 11/25/24 22:00 11/25/24 20:57 Pravastatin 80 Mg Tablet PO 80 mg QHS OJ Administration Senna/Docusate Sodium 1 tablet 11/25/24 22:00 11/26/24 08:51 Senna/Docusate Sodium 1 Tablet PO 1 tablet BID OJ Administration Sodium Chloride 10 - 40 ml 11/25/24 19:18 11/26/24 10:01 0.9% Saline Lock 10 Ml Syringe IV 10 ml UD PRN Administration SALINE FLUSH Tuberculin PPD 0.1 ml 12/03/24 10:00 Tuberculin,Purif.Prot.Deriv. 50 Tu/Ml Vial ID 12/03/24 10:01 X1 ONE Problem List Chronic kidney disease, stage 3a (Chronic) GERD (gastroesophageal reflux disease) (Acute) Depression (Acute) Hyperlipidemia, unspecified (Acute) Essential (primary) hypertension (Acute) Type 2 diabetes mellitus with hyperglycemia (Acute) Debility (Acute) Closed transverse fracture of left patella (Acute) Fall (Acute) Osteoporosis (Chronic) Vital Signs Temp Pulse Resp BP Pulse Ox O2 Del Method 98.3 F 83 15 126/63 H 97 Room Air 11/26/24 15:17 11/26/24 15:17 11/26/24 15:17 11/26/24 15:17 11/26/24 08:44 11/26/24 15:17 Oxygen Delivery Method Room Air Weight: 73.8 kg Body Mass Index (BMI) 27.9 Sodium 137 mmol/L (136-145) 11/26/24 05:21 Potassium 3.9 mmol/L (3.5-5.1) 11/26/24 05:21 Chloride 106 mmol/L (98-107) 11/26/24 05:21 Carbon Dioxide 25.0 mmol/L (21.0-32.0) 11/26/24 05:21 Anion Gap 6 (5-15) 11/26/24 05:21 BUN 18 mg/dL (7-18) 11/26/24 05:21 Creatinine 1.06 mg/dL (0.55-1.02) H 11/26/24 05:21 Est GFR (MDRD) Af Amer 64 mL/min (>60) 11/26/24 05:21 Est GFR (MDRD) Non-Af 53 mL/min (>60) L 11/26/24 05:21 BUN/Creatinine Ratio 17.0 RATIO (10-20) 11/26/24 05:21 Glucose 144 mg/dL (74-106) H 11/26/24 05:21 Assessment/Plan: 1. Pain: acetaminophen 1000mg PO Q6H PRN pain 1-5 and oxycodone 5mg PO Q4H PRN pain 6-10. Resident has not had any PRN doses. Please continue to monitor for increased pain and PRN usage. 2. Bowel: senna/docusate 1T PO BID and magnesium citrate 300mL PO daily PRN constipation. Resident has had 1 dose of magnesium citrate today (150mL). Last documented bowel movement 11/22/24. Please continue to monitor for constipation and PRN usage. 3. DVT prophylaxis: aspirin 81mg PO BIDCM thru 12/21/24. Please continue to monitor for S/S of bleeding/bruising/DVT and hemoglobin (last 9.9g/dL). 4. Diabetes Mellitus II: insulin glargine 46units SC daily. Please continue to monitor for S/S of hypoglycemia, glucose (last 163mg/dL) and hemoglobin A1c (last 5.4% 11/24/24). 5. Hypertension: losartan 25mg PO daily. Please continue to monitor BP (last 126/63), renal function and potassium (last 3.9mmol/L). 6. Hyperlipidemia: pravastatin 80mg PO QHS. Please consider ordering a lipid panel as the last was from 2018. Thanks. Please continue to monitor LFTs (last 09/05/24) and muscle pain. 7. GERD: pantoprazole 40mg PO daily. Please continue to monitor for S/S of GERD and diarrhea (BEERs). 8. Insomnia: melatonin 3mg PO QHS. Please continue to monitor for insomnia and excessive daytime drowsiness. Assessment/Plan for indications treated with psychotropic medications: 1. Depression: fluoxetine 60mg PO daily. Please see physician note regarding GDR. Please continue to monitor for suicidal ideation (black box warning), sodium (last 137mmol/L) and falls/fractures (BEERs). Medical chart and medication regimen reviewed. The following medication irregularities or issues were identified: 1. Pravastatin 80mg PO QHS. Please consider ordering a lipid panel as the last was from 2018. Thanks. Date Date of Note: 11/26/24 Documented by User: Dr. Krunal Sandoval MD 11/26/24 17:15 TCU RX Drug Regimen Review Provider Comments Provider responsibility Provider Comments to Recommendations by Pharmacy Agree
[2024-11-26 17:03] LABS: Bedside Glucose 154 mg/dL (74-106)
[2024-11-26] MEDS: MELATONIN 3 MG TABLET PO (21:21)
[2024-11-26] MEDS: Pravastatin 80 MG Tablet PO (21:21)
[2024-11-26 21:25] LABS: Bedside Glucose 107 mg/dL (74-106)
[2024-11-26] MEDS: oxyCODONE 5 MG Tablet PO (22:40)
[2024-11-27 06:20] LABS: Bedside Glucose 73 mg/dL (74-106)
[2024-11-27 06:24] LABS: Hematocrit 30.5 % (37-47); Hemoglobin 9.4 g/dL (12.0-15.0)
[2024-11-27 06:42] LABS: Cholesterol 119 mg/dL (200); High Density Lipoprotein 47 mg/dL; Triglycerides 85 mg/dL; Very Low Density Lipoprotein 17 mg/dL (5-40)
--- NOTE | 2024-11-27 07:45 | NURSING ---
Pt's Blood Sugar this AM was 73 Dr. Sandoval updated N.O. received to change Glargine to 16units BID and check BS AM and PM. Orders Read back.
[2024-11-27] MEDS: Aspirin 81 MG TAB.CHEW PO ×2 (08:51→21:33)
[2024-11-27] MEDS: Insulin Glargine-YFGN 100 UNIT/ML Pen 16 UNIT SC ×2 (08:51→21:34)
[2024-11-27] MEDS: Pantoprazole Sodium 40 MG Tablet PO (08:52)
[2024-11-27] MEDS: FLUoxetine 20 MG Capsule 60 MG PO (08:52)
[2024-11-27] MEDS: Senna/Docusate Sodium 1 Tablet PO (08:52)
--- NOTE | 2024-11-27 11:21 | NURSING ---
Engineering Operator Note; Activity Asset: Christina Holder is independent in her choice of daily activities. Family will bring in her smartphone so she can play her games and was given a deck of cards. She will watch tv, read, work on word puzzles and welcomes visits from the chemical strength tester and therapy dog when available. Staff will encourage social activities, remind her of group activities and respect her right to say no.
[2024-11-27] MEDS: 0.9% Saline Lock 10 ML Syringe IV (13:31)
[2024-11-27] MEDS: Baclofen 10 MG Tablet PO ×2 (13:31→21:33)
--- NOTE | 2024-11-27 14:54 | NURSING ---
Pt C/O of burining with urination pt noted to have Hematuria. Dr. Sandoval updated N.O. received for urinalysis with culture. Order read back.
[2024-11-27 15:54] VITALS: BP 102/50; PULSE 79; RESP 16; TEMP 37.1; O2SAT 94
--- NOTE | 2024-11-27 16:10 | CASEMGMT ---
Social Work SW met with patient to complete initial assessment. Introduced self and role. Son, John, was present. Pt permitted SW to complete assessment with son present. Verified contacts. patient confirmed DNR-CCA, no intubation as her code status. Requested son provide copies of pt's advanced directives. Educated to [facility] insurance with NRD 12/02, with anticipated short LOS; continued stay is not guaranteed with each review. Pt's goal is to return home alone. SW will continue to follow for DC planning. Luarita Chávez GENERAL FARMER HSE COORDINATOR
[2024-11-27 17:01] LABS: Mucous, Urine 0 SEEN /hpf (<or=2+)
[2024-11-27 17:06] LABS: Color, Urine Yellow (Yellow); Glucose, Dipstick Normal (Normal); Ketone-Dipstick Negative (Negative); Leukocyte Esterase-Dipstick 500 /ul (Negative); Nitrite-Dipstick Negative (Negative); Occult Blood-Urine 250 /ul (Negative); Protein-Dipstick 100 mg/dl (Negative); Specific Gravity, Urine 1.005 (1.002-1.030); Urine Bilirubin Dipstick Negative (Negative); Urine Clarity Sl. Cloudy (Clear); Urine Urobilinogen Normal (Normal)
[2024-11-27 17:44] LABS: Red Blood Cells-Urine > 100 SEEN /hpf (0-5); White Blood Cells >100 SEEN /hpf (0-5)
[2024-11-27 17:47] LABS: Bacteria 1+ /hpf (None Seen); Squamous Epithelial Cells - UA 0-5 SEEN /hpf (5-10)
[2024-11-27 21:24] LABS: Bedside Glucose 139 mg/dL (74-106)
[2024-11-27] MEDS: Pravastatin 80 MG Tablet PO (21:33)
[2024-11-27] MEDS: MELATONIN 3 MG TABLET PO (21:33)
[2024-11-27] MEDS: Ciprofloxacin 250 MG Tablet PO (21:33)
[2024-11-28 06:24] LABS: Hemoglobin 9.9 g/dL (12.0-15.0)
[2024-11-28 06:43] LABS: Bedside Glucose 96 mg/dL (74-106)
[2024-11-28 06:54] LABS: Iron 24 ug/dL (50-170); Iron Binding Capacity,Total 257 ug/dL (250-450); PERCENT IRON SATURATION 9.3 % (15.0-55.0)
[2024-11-28 10:14] VITALS: BP 117/62; PULSE 84; RESP 16; TEMP 37.1; O2SAT 95
[2024-11-28] MEDS: Losartan Potassium 25 MG Tablet PO (10:21)
[2024-11-28] MEDS: Ciprofloxacin 250 MG Tablet PO ×2 (10:21→21:08)
[2024-11-28] MEDS: Aspirin 81 MG TAB.CHEW PO ×2 (10:21→21:08)
[2024-11-28] MEDS: Ascorbic Acid 500 MG Tablet PO (10:21)
[2024-11-28] MEDS: Insulin Glargine-YFGN 100 UNIT/ML Pen 16 UNIT SC ×2 (10:22→21:08)
[2024-11-28] MEDS: Iron Polysaccharide Complex 150 MG CAPSULE PO (10:22)
[2024-11-28] MEDS: Senna/Docusate Sodium 1 Tablet PO ×2 (10:23→21:08)
[2024-11-28] MEDS: FLUoxetine 20 MG Capsule 60 MG PO (10:23)
[2024-11-28] MEDS: Pantoprazole Sodium 40 MG Tablet PO (10:23)
[2024-11-28] MEDS: oxyCODONE 5 MG Tablet PO (18:55)
[2024-11-28] MEDS: MELATONIN 3 MG TABLET PO (21:08)
[2024-11-28] MEDS: Pravastatin 80 MG Tablet PO (21:08)
[2024-11-28 21:17] LABS: Bedside Glucose 194 mg/dL (74-106)
--- NOTE | 2024-11-29 00:01 | NURSING ---
NPO per order
[2024-11-29 05:57] LABS: Bedside Glucose 140 mg/dL (74-106)
--- NOTE | 2024-11-29 11:37 | CASEMGMT ---
Social Work SW completed BIMS () and PHQ-2 () for MDS assessment. Laurita Chávez MAGNESIUM MILL OPERATOR BUSINESS INTELLIGENCE CONSULTANT
[2024-11-29 12:48] VITALS: BP 111/50; PULSE 79; RESP 16; TEMP 37.2; O2SAT 98
--- NOTE | 2024-11-29 13:22 | NURSING ---
Addendum entered by Mavis Garvey 11/29/24 15:04: Per Christina at Dr. Oleary's office, ok to remove surgical dressing POD#5. Original Note: Left VM with Dr. Oleary's office this morning about dressing orders. Await return call.
--- NOTE | 2024-11-29 14:21 | CHAPLAIN ---
Type of Pastoral Visit _x__ Initial Visit ___ Follow-up Visit ___ On-call Visit ___ General Patient Visit ___ Spiritual Assessment ___ Family Conference ___ Bereavement ___ Rapid Response ___ Code Blue ___ Other (describe below) Pastoral Care Referral From _x__ Patient ___ Family ___ Nurse ___ Physician ___ Mediation Commissioner ___ Professor Of German ___ Other (describe below) Sacrament/Intervention _x__ Active listening ___ Anointing ___ Restorationist ___ Bereavement ___ Communion ___ Xochilt exploration ___ ___ Life review ___ Prayer ___ Reconciliation ___ Sacrament of Sick _x__ Supportive presence ___ Wedding ___ Other (describe below) Pastoral Comments patient was seen previously in [facility] and was welcoming; pt is in the bed and waiting on the next activity for her recovery; pt speaks of desiring to be home but recognizes need for this process; pt states that she is adjusting; phone call came to patient that she wanted and then the visit ended
--- NOTE | 2024-11-29 14:45 | NURSING ---
Addendum entered by Danae Sim 11/29/24 17:30: Patient returned to unit at this time. Original Note: Patient exited the unit at this time for EGD.
[2024-11-29 15:36] LABS: Bedside Glucose 116 mg/dL (74-106)
--- NOTE | 2024-11-29 16:43 | HP.PCM_ITS ---
HPI - General General Date of Admission: 11/25/24 Date of Service: 11/29/24 Chief Complaint: Anemia HPI Narrative JUVENAL RAVI, is a 84-year-old female who was admitted through the ED on 11/23/2024 with a complaint of mechanical fall with resultant left knee pain. She lived at home alone and says she had had good functional status but had had a few falls over the last few months prior to admission. She also had osteoarthritis of her right knee which she remained more difficult to ambulate. On admission in the ED left knee x-ray showed a minimally displaced patella fracture with regional soft tissue swelling. She was admitted to be managed for left knee fracture due to mechanical fall. Orthopedic surgery was consulted. She had open reduction and internal fixation of the left patella on 11/24/2024. She had an uneventful postop course. She was skilled as needing snf services. She was therefore discharged to transitional care unit on 11/25/2024. She was discharged on p.o. aspirin 81 mg twice daily for 4 weeks for DVT prophylaxis. I was asked to see her because of a decrease in hemoglobin and Hemoccult positive stools. [facility] Medical History Current use of insulin Post-menopausal Ulcer Injury of head and neck Wears hearing aid in both ears Diabetes Chronic pain Kidney disease Hypertension Osteoarthritis of right knee Right knee pain CKD (chronic kidney disease) stage 3, GFR 30-59 ml/min MVP (mitral valve prolapse) PSVT (paroxysmal supraventricular tachycardia) Pure hypercholesterolemia Nonrheumatic mitral (valve) prolapse Essential hypertension Palpitations Diastolic dysfunction Premature atrial contractions Premature ventricular contractions Mitral valve prolapse Hyperparathyroidism Osteoporosis Hyperthyroidism HTN (hypertension) DM type 2 (diabetes mellitus, type 2) Home Medications ?Medication ?Instructions ?Recorded ?Last Taken ?Type fluoxetine 20 mg tablet 60 mg PO DAILY depression 11/28/24 History insulin degludec 100 unit/mL (3 46 unit subcut DAILY i nsulin 05/02/22 Unknown History mL) subcutaneous pen (Tresiba FlexTouch U-100 insulin) pantoprazole 40 mg tablet,delayed 40 mg PO DAILY acid reflux 05/02/22 11/28/24 History release pravastatin 80 mg tablet 80 mg PO QHS cholesterol #90 tabs 06/27/23 Unknown Rx losartan 25 mg tablet 25 mg PO QDAY BP 02/14/24 History aspirin 81 mg chewable tablet 81 mg PO BID heart healt h #56 tabs 11/25/24 11/28/24 Rx oxycodone 5 mg tablet 5 mg PO Q4H PRN PRN Pain Sco re 11/25/24 11/28/24 Rx 6-10 3 days #18 tabs insulin glargine 100 unit/mL (3 16 unit subcut DAILY 0 11/29/24 11/28/24 History mL) subcutaneous pen Allergy/AdvReac Type Severity Reaction Status Date / Time morphine Allergy Rash Verified 11/29/24 14:55 Penicillins Allergy Rash Verified 11/29/24 14:55 propoxyphene Allergy Nausea Verified 11/29/24 14:55 codeine AdvReac Nausea Verified 11/29/24 14:55 lisinopril AdvReac Vomiting Verified 11/29/24 14:55 quinine AdvReac Vomiting Verified 11/29/24 14:55 Family History Brother Heart disease Myocardial infarction Diabetes Father No problems noted. Mother CVA (cerebral vascular accident) Brother Myocardial infarction Diabetes Surgical History History of open reduction and internal fixation (ORIF) procedure S/P hysterectomy History of parathyroidectomy History of subtotal thyroidectomy History of carpal tunnel surgery History of total hysterectomy History of appendectomy History of cholecystectomy Social History household members: none housing: house Smoking Status: Never smoker alcohol intake: never substance use type: does not use caffeine: No what type of physical activity do you participate in: none ROS Constitutional Constitutional: Reports weakness; Denies chills, fever(s) or weight gain ENT HEENT: Denies headache(s), nasal congestion or nasal discharge Cardiovascular Cardiovascular: Denies chest pain or palpitations Respiratory/Chest Respiratory/Chest: Denies cough, excessive phlegm production or shortness of breath with exertion Gastrointestinal Gastrointestinal: Denies abdominal pain, nausea or vomiting Genitourinary Genitourinary: Denies dysuria Musculoskeletal Musculoskeletal: Denies joint pain or joint swelling Integumentary Integumentary: Denies rash or wounds Neurologic Neurologic: Denies focal weakness, numbness or tingling Psychiatric Psychiatric: Denies anxiety, auditory hallucinations, depression, homicidal ideation or suicidal ideation Vital Signs Vital Signs Vital Signs: 11/28/24 22:00 11/29/24 09:32 11/29/24 12:48 Temperature 99.0 F Temperature Source Temporal Pulse Rate 79 Pulse Strength Normal (2+) Normal (2+) Respiratory Rate 16 Blood Pressure 111/50 L Blood Pressure Mean 70 Blood Pressure Source Monitor Blood Pressure Position Semi-Fowlers Blood Pressure Location Right Arm Pulse Ox 98 Oxygen Delivery Method Room Air Weight Weight: 162 lb 11.218 oz Body Mass Index (BMI) 27.9 Physical Exam Const alert General Appearance: cooperative HEENT normocephalic Eyes PERRL and EOMs intact bilaterally Neck supple, no JVD and no carotid bruits Resp normal respiratory effort, normal air movement and clear to auscultation bilaterally Cardio regular rate and regular rhythm GI normal to inspection, nondistended, normoactive bowel sounds, non-tender and non-distended Extremity normal capillary refill Extremity Narrative: PAUL wrap LLE, brace locked in extension. General Extremity: Negative for edema Skin no rashes or lesions noted General Skin Exam: no breakdown Psych affect normal Appearance: appropriate Results Lab / Micro Data 11/28/24 05:40 11/26/24 05:21 Labs: Laboratory Results - last 24 hr 11/28/24 20:57: POC Glucose 194 H 11/29/24 05:40: POC Glucose 140 H 11/29/24 15:00: POC Glucose 116 H Assessment & Plan Assessment/Plan (1) Anemia: PLAN: We will evaluate upper GI tract for any causes of acute or chronic GI blood loss. She was explained alternatives, risk, benefits include not withstanding bleeding, infection, sepsis, perforation, need for emergent surgery . She will have an ASA of 3.
[2024-11-29 17:31] VITALS: BP 117/58; PULSE 82
[2024-11-29] MEDS: Losartan Potassium 25 MG Tablet PO (17:38)
[2024-11-29] MEDS: Pantoprazole Sodium 40 MG Tablet PO (17:38)
[2024-11-29] MEDS: FLUoxetine 20 MG Capsule 60 MG PO (17:38)
[2024-11-29] MEDS: Iron Polysaccharide Complex 150 MG CAPSULE PO (17:38)
[2024-11-29] MEDS: Ascorbic Acid 500 MG Tablet PO (17:38)
[2024-11-29 20:00] VITALS: PULSE 87; RESP 16; O2SAT 97
[2024-11-29] MEDS: Acetaminophen 500 MG Tablet 1000 MG PO (21:23)
[2024-11-29] MEDS: Baclofen 10 MG Tablet PO (21:23)
[2024-11-29] MEDS: Aspirin 81 MG TAB.CHEW PO (21:24)
[2024-11-29] MEDS: Ciprofloxacin 250 MG Tablet PO (21:24)
[2024-11-29] MEDS: MELATONIN 3 MG TABLET PO (21:25)
[2024-11-29] MEDS: Insulin Glargine-YFGN 100 UNIT/ML Pen 16 UNIT SC (21:25)
[2024-11-29] MEDS: Senna/Docusate Sodium 1 Tablet PO (21:25)
[2024-11-29] MEDS: Pravastatin 80 MG Tablet PO (21:25)
[2024-11-29 21:47] LABS: Bedside Glucose 189 mg/dL (74-106)
[2024-11-29] MEDS: oxyCODONE 5 MG Tablet PO (22:55)
--- NOTE | 2024-11-30 00:15 | NURSING ---
Patient moaning/grimacing. A&Ox3. C/o 07/02 pain to Left knee/LLE. Dx: left patellar fx with sx repair on 11/24/24. Sx dressing observed intact with no redness/heat/drainage observed to site or surrounding area. Immobilizer in place. PRN Oxy/baclofen/Tylenol/repositioning/ambulating/ice/distraction/fluids/food/toileting ineffective. Dr. Sandoval contacted via telephone, notified of patient complaint of pain despite pharmacologic and non-pharmacologic interventions. New order received for Oxycodone 10mg PO x1. Order repeated back to Dr. Sandoval.
[2024-11-30] MEDS: oxyCODONE 5 MG Tablet 10 MG PO (00:53)
[2024-11-30] MEDS: oxyCODONE 5 MG Tablet PO ×2 (05:50→23:57)
[2024-11-30 06:11] VITALS: PULSE 60; RESP 18; O2SAT 96
[2024-11-30 06:19] LABS: Bedside Glucose 159 mg/dL (74-106)
[2024-11-30 06:44] LABS: Hematocrit 33.1 % (37-47); Hemoglobin 10.3 g/dL (12.0-15.0)
[2024-11-30] MEDS: Insulin Glargine-YFGN 100 UNIT/ML Pen 16 UNIT SC ×2 (08:54→20:31)
[2024-11-30] MEDS: Ascorbic Acid 500 MG Tablet PO (08:55)
[2024-11-30] MEDS: Ciprofloxacin 250 MG Tablet PO (08:55)
[2024-11-30] MEDS: Senna/Docusate Sodium 1 Tablet PO ×2 (08:55→20:32)
[2024-11-30] MEDS: Iron Polysaccharide Complex 150 MG CAPSULE PO (08:55)
[2024-11-30] MEDS: Pantoprazole Sodium 40 MG Tablet PO (08:55)
[2024-11-30] MEDS: Aspirin 81 MG TAB.CHEW PO ×2 (08:55→20:31)
[2024-11-30] MEDS: FLUoxetine 20 MG Capsule 60 MG PO (08:55)
[2024-11-30] MEDS: Sucralfate 1 GM Tablet PO ×2 (11:03→16:49)
[2024-11-30 11:04] VITALS: BP 96/62; PULSE 79
--- NOTE | 2024-11-30 11:21 | NURSING ---
Pt BP 96/[address] Sandoval updated N.O. to hold and Discontinue Losartan Order read back.
[2024-11-30 14:28] VITALS: BP 90/47; PULSE 70; RESP 14; TEMP 36.6; O2SAT 93
[2024-11-30] MEDS: Acetaminophen 500 MG Tablet 1000 MG PO ×2 (17:00→23:00)
[2024-11-30] MEDS: 0.9% Saline Lock 10 ML Syringe IV (17:01)
[2024-11-30 17:14] VITALS: BP 106/51; PULSE 79
[2024-11-30] MEDS: MELATONIN 3 MG TABLET PO (20:33)
[2024-11-30] MEDS: Pravastatin 80 MG Tablet PO (20:33)
[2024-11-30 20:54] LABS: Bedside Glucose 176 mg/dL (74-106)
[2024-11-30] MEDS: Baclofen 10 MG Tablet PO (21:55)
[2024-12-01] MEDS: oxyCODONE 5 MG Tablet PO ×3 (04:06→21:40)
--- NOTE | 2024-12-01 04:36 | NURSING ---
Patient was awake most of the shift, very restless, moaning, and grimacing. Complaining of pain in left knee ranging from 6/10 to 10/10 on numeric pain scale. PRN medications given as ordered. Patient initially resistant to taking anything stronger than Tylenol but after education on keeping pain at a tolerable level to promote more movement and rest, she agreed to take PRN baclofen and oxycodone. Repositioned multiple times and polar care provided to help with swelling. Patient asked for polar care to be removed as she felt it was making the pain worse. This nurse encouraged increase in fluid intake and movement to help manage the constipating effects of pain medications; patient acknowledged all education provided on this shift. After PRN dose of oxycodone around 0400, patient is resting without signs of distress.
[2024-12-01] MEDS: Sucralfate 1 GM Tablet PO ×2 (06:36→17:17)
[2024-12-01 08:42] LABS: Bedside Glucose 201 mg/dL (74-106)
[2024-12-01 09:03] VITALS: BP 110/61; PULSE 79; RESP 18; TEMP 36.3; O2SAT 95
[2024-12-01] MEDS: Insulin Glargine-YFGN 100 UNIT/ML Pen 16 UNIT SC ×2 (09:05→21:36)
[2024-12-01] MEDS: Iron Polysaccharide Complex 150 MG CAPSULE PO (09:05)
[2024-12-01] MEDS: Aspirin 81 MG TAB.CHEW PO ×2 (09:05→21:36)
[2024-12-01] MEDS: Pantoprazole Sodium 40 MG Tablet PO (09:06)
[2024-12-01] MEDS: FLUoxetine 20 MG Capsule 60 MG PO (09:06)
[2024-12-01] MEDS: Ascorbic Acid 500 MG Tablet PO (09:06)
[2024-12-01] MEDS: Senna/Docusate Sodium 1 Tablet PO (09:06)
[2024-12-01] MEDS: Acetaminophen 500 MG Tablet 1000 MG PO ×2 (09:08→21:39)
--- NOTE | 2024-12-01 16:54 | NURSING ---
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
[2024-12-01 20:00] VITALS: PULSE 72; O2SAT 97
[2024-12-01 21:19] LABS: Bedside Glucose 163 mg/dL (74-106)
[2024-12-01] MEDS: Pravastatin 80 MG Tablet PO (21:38)
[2024-12-01] MEDS: MELATONIN 3 MG TABLET PO (21:38)
[2024-12-01] MEDS: Senna/Docusate Sodium 1 Tablet 2 TABLET PO (21:39)
[2024-12-02] MEDS: oxyCODONE 5 MG Tablet PO ×3 (02:06→23:55)
[2024-12-02] MEDS: Acetaminophen 500 MG Tablet 1000 MG PO ×3 (05:59→21:48)
[2024-12-02] MEDS: Sucralfate 1 GM Tablet PO ×2 (06:00→15:08)
[2024-12-02 06:14] LABS: Bedside Glucose 116 mg/dL (74-106)
[2024-12-02 06:54] VITALS: PULSE 76; O2SAT 96
--- NOTE | 2024-12-02 08:51 | NURSING ---
Human Resources Coordinator Note; MDS for 12/02/2024 Complete
[2024-12-02] MEDS: FLUoxetine 20 MG Capsule 60 MG PO (08:58)
[2024-12-02] MEDS: Senna/Docusate Sodium 1 Tablet 2 TABLET PO ×2 (08:58→21:48)
[2024-12-02] MEDS: Aspirin 81 MG TAB.CHEW PO ×2 (08:58→21:48)
[2024-12-02] MEDS: Pantoprazole Sodium 40 MG Tablet PO (08:58)
[2024-12-02] MEDS: Insulin Glargine-YFGN 100 UNIT/ML Pen 16 UNIT SC ×2 (08:59→21:45)
--- NOTE | 2024-12-02 11:40 | NURSING ---
Pt returned form appt with [facility]. Written order to continue Tylenol 500mg 2 Tablets TID for primary pain, Oxycodone 5-10 mg for break through pain, WBAT no ROM L Knee okay for ankle pumps, Continue Aspirin 81mg twice daily for DVT prophylaxis F/U 1 week with X-rays.
[2024-12-02] MEDS: Iron Polysaccharide Complex 150 MG CAPSULE PO (11:46)
[2024-12-02] MEDS: Ascorbic Acid 500 MG Tablet PO (11:46)
[2024-12-02 15:31] VITALS: BP 93/50; PULSE 76; RESP 14; TEMP 36.3; O2SAT 94
[2024-12-02] MEDS: Pravastatin 80 MG Tablet PO (21:48)
[2024-12-02] MEDS: MELATONIN 3 MG TABLET PO (21:48)
[2024-12-02 21:50] LABS: Bedside Glucose 109 mg/dL (74-106)
[2024-12-02] MEDS: Baclofen 10 MG Tablet PO (22:20)
--- NOTE | 2024-12-03 01:53 | NURSING ---
Patient called out for this RN due to 8/10 pain to her left knee. The patient previously received PRN baclofen 10mg, PRN oxy 10mg, and OJ tylenol to help with reported pain. Patient reports these medications did not give her any relief. The patient reports the pain in her left knee as a sharp pain that shoots down the leg. The patient admits to having neuropathy in her BLE and is not currently receiving Gabapentin but has had it in the past for neuropathy pain. Patient routinely complains of this pain at night and reports it being the worst in bed. This nurse offered nonpharmacologic interventions such as ice, elevating the extremity, or sitting up to the chair. Patient declined interventions. Patient moaning in pain and calling out several times for pain relief. This nurse consulted Dr. Sandoval and notified him of these behaviors as this happens routinely at night. New orders for x1 dose of 10mg oxycodone and OJ 100mg Gabapentin TID. These orders were read back and verified by Dr. Sandoval.
[2024-12-03] MEDS: oxyCODONE 5 MG Tablet 10 MG PO (02:18)
[2024-12-03 05:58] LABS: Bedside Glucose 62 mg/dL (74-106)
[2024-12-03 06:25] LABS: Absolute Lymphocyte Count 1.19 X10^3/uL (0.83-4.51); Absolute Neutrophil Count 4.1 X10^3/uL (2.0-7.7); Basophil# 0.02 X10^3/uL; Basophil% 0.3 % (0-1); Eosinophils% 1.6 % (0-5); Hematocrit 32.3 % (37-47); Hemoglobin 10.3 g/dL (12.0-15.0); Lymphocyte # 1.19 X10^3/ul (0.83-4.51); Lymphocyte % 19.3 % (19-41); Mean Corp Hgb Conc 31.9 g/dL (32-36); Mean Corpuscular Hgb 27.8 pg (27.0-32.0); Mean Corpuscular Volume 87.1 fL (81-99); Mean Platelet Vol. 9.2 fl (6.2-12.0); Monocyte# 0.77 X10^3/uL; Monocyte% 12.5 % (0-10); NRBC Flagged by Analyzer 0 % (0-5); Neutrophil # 4.05 X10^3/uL (2.7-7.7); Neutrophil % 65.5 % (47-70); Platelet Count 327 K/mm3 (150-450); RBC Distribution Width CV 15.3 % (11.6-14.6); RBC Distribution Width SD 48.3 fl (35.1-43.9); Red Blood Count 3.71 M/mm3 (4.2-5.4); White Blood Count 6.2 K/mm3 (4.4-11.0)
[2024-12-03 06:28] LABS: Anion Gap 5 (5-15); BUN 17 mg/dL (7-18); BUN/Creat Ratio 17.2 RATIO (10-20); Calcium,Total 9.1 mg/dL (8.5-10.1); Chloride 102 mmol/L (98-107); Creatinine, Serum 0.99 mg/dL (0.55-1.02); EST Glomerular Filtration Rate 57 mL/min (>60); Est Glom Filt Rate - Afr Amer 69 mL/min (>60); Estimated Creatinine Clearance 43.12 ml/min; Glucose 69 mg/dL (74-106); Potassium 4.3 mmol/L (3.5-5.1); Sodium Level 137 mmol/L (136-145)
[2024-12-03] MEDS: Acetaminophen 500 MG Tablet 1000 MG PO ×2 (06:34→20:57)
[2024-12-03] MEDS: Gabapentin 100 MG Capsule PO (06:34)
[2024-12-03] MEDS: Sucralfate 1 GM Tablet PO ×2 (06:35→16:14)
--- NOTE | 2024-12-03 06:42 | NURSING ---
Patient's blood sugar 62 this AM. Offered patient orange juice, recheck in 15 minutes. Rechecked blood sugar, elevated to 99.
[2024-12-03 06:53] LABS: Bedside Glucose 99 mg/dL (74-106)
[2024-12-03] MEDS: Aspirin 81 MG TAB.CHEW PO ×2 (08:15→20:52)
[2024-12-03] MEDS: Iron Polysaccharide Complex 150 MG CAPSULE PO (08:15)
[2024-12-03] MEDS: FLUoxetine 20 MG Capsule 60 MG PO (08:15)
[2024-12-03] MEDS: Pantoprazole Sodium 40 MG Tablet PO (08:15)
[2024-12-03] MEDS: Senna/Docusate Sodium 1 Tablet 2 TABLET PO ×2 (08:16→20:51)
[2024-12-03] MEDS: Ascorbic Acid 500 MG Tablet PO (08:16)
[2024-12-03] MEDS: Insulin Glargine-YFGN 100 UNIT/ML Pen 16 UNIT SC ×2 (08:18→20:53)
[2024-12-03] MEDS: Naproxen 250 MG Tablet PO ×2 (08:22→17:20)
[2024-12-03] MEDS: MethylPREDNISolone DosePak 4 MG BOX PO ×4 (08:22→20:58)
[2024-12-03 10:00] VITALS: PULSE 83; RESP 16; O2SAT 93
--- NOTE | 2024-12-03 12:02 | NURSING ---
Addendum entered by Mavis Garvey 12/04/24 09:05: New auth received for MRI without contrast, #[id number]. Addendum entered by Mavis Garvey 12/03/24 16:21: Per MRI not appropriate to do this scan with contrast. Updated Dr. Sandoval, order to change to MRI without contrast. Will need new auth number. Addendum entered by Mavis Garvey 12/03/24 13:31: Updated resident and family. Order and questions faxed to MRI. Original Note: Order for MRI lumbar spine with contrast. Auth #[id number].
[2024-12-03] MEDS: Tuberculin,Purif.prot.deriv. 50 TU/ML Vial 0.1 ML ID (12:12)
[2024-12-03 15:34] VITALS: BMI 27.6
[2024-12-03 16:00] VITALS: BP 135/68; PULSE 74; RESP 16; TEMP 36.6; O2SAT 95
[2024-12-03] MEDS: COVID VAC 24-25 (12UP)(MODERNA)/PF 50 MCG/0.5 ML SYRINGE IM (16:14)
[2024-12-03] MEDS: oxyCODONE 5 MG Tablet PO (19:21)
[2024-12-03] MEDS: Pravastatin 80 MG Tablet PO (20:52)
[2024-12-03] MEDS: MELATONIN 3 MG TABLET PO (20:52)
[2024-12-03] MEDS: Baclofen 10 MG Tablet PO (20:53)
[2024-12-03] MEDS: Gabapentin 300 MG Capsule PO (20:58)
[2024-12-03 21:16] LABS: Bedside Glucose 220 mg/dL (74-106)
[2024-12-04] MEDS: Sucralfate 1 GM Tablet PO ×2 (06:18→15:57)
[2024-12-04 07:01] LABS: Bedside Glucose 183 mg/dL (74-106)
[2024-12-04] MEDS: FLUoxetine 20 MG Capsule 60 MG PO (08:13)
[2024-12-04] MEDS: MethylPREDNISolone DosePak 4 MG BOX PO ×4 (08:14→21:53)
[2024-12-04] MEDS: Iron Polysaccharide Complex 150 MG CAPSULE PO (08:14)
[2024-12-04] MEDS: Insulin Glargine-YFGN 100 UNIT/ML Pen 16 UNIT SC ×2 (08:14→21:48)
[2024-12-04] MEDS: Pantoprazole Sodium 40 MG Tablet PO (08:14)
[2024-12-04] MEDS: Ascorbic Acid 500 MG Tablet PO (08:14)
[2024-12-04] MEDS: Aspirin 81 MG TAB.CHEW PO ×2 (08:14→21:47)
[2024-12-04] MEDS: Senna/Docusate Sodium 1 Tablet 2 TABLET PO ×2 (08:14→21:52)
[2024-12-04] MEDS: Naproxen 250 MG Tablet PO ×2 (08:15→15:57)
[2024-12-04] MEDS: FLUCONAZOLE 150 MG TABLET PO (09:12)
[2024-12-04 11:53] LABS: Mucous, Urine 0 SEEN /hpf (<or=2+)
[2024-12-04 12:04] LABS: Color, Urine Yellow (Yellow); Glucose, Dipstick Normal (Normal); Ketone-Dipstick Negative (Negative); Leukocyte Esterase-Dipstick 500 /ul (Negative); Nitrite-Dipstick Negative (Negative); Occult Blood-Urine 250 /ul (Negative); Protein-Dipstick 15 mg/dl (Negative); Specific Gravity, Urine 1.005 (1.002-1.030); Urine Bilirubin Dipstick Negative (Negative); Urine Clarity Sl. Cloudy (Clear); Urine Urobilinogen Normal (Normal)
[2024-12-04 12:17] LABS: Bacteria 2+ /hpf (None Seen); Red Blood Cells-Urine 10-25 SEEN /hpf (0-5); Renal Epithelial Cells 0-5 SEEN /hpf (0-5); Squamous Epithelial Cells - UA 0-5 SEEN /hpf (5-10); Transitional Epithelial - Ur 0-5 SEEN /hpf (0-5); White Blood Cells 25-50 SEEN /hpf (0-5)
--- NOTE | 2024-12-04 13:07 | CASEMGMT ---
Social Work IDT met with patient, two sons and DIL for care plan meeting. Discussed patient's progress in PT/OT/SN. Educated to [facility] insurance with [employer] 12/05 and continued stay is not guaranteed with each review. Provided written communication on insurance process and copay coverage during stay. SW provided pt with medical alert resources for home. Family has no concerns with DC home. Pt agreeable to HHC at DC and denied any DME needs. SW will follow for DC planning. Laurita Chávez ROLLER SKATE REPAIRER SATELLITE SPECIALIST
[2024-12-04 16:00] VITALS: BP 104/55; PULSE 83; RESP 16; TEMP 36.7; O2SAT 93
[2024-12-04] MEDS: Acetaminophen 500 MG Tablet 1000 MG PO ×2 (17:57→21:52)
[2024-12-04 21:20] LABS: Bedside Glucose 310 mg/dL (74-106)
[2024-12-04 21:37] VITALS: BP 138/74; PULSE 81
[2024-12-04] MEDS: oxyCODONE 5 MG Tablet PO (21:45)
[2024-12-04] MEDS: Gabapentin 300 MG Capsule PO (21:46)
[2024-12-04] MEDS: Baclofen 10 MG Tablet PO (21:51)
[2024-12-04] MEDS: MELATONIN 3 MG TABLET PO (21:51)
[2024-12-04] MEDS: Pravastatin 80 MG Tablet PO (21:52)
--- NOTE | 2024-12-04 23:10 | NURSING ---
Patient voiced discomfort to mid sternum, pointing at chest, patient states I think it might be indigestion, scarlett delphine given, denies SOB, respiratory contacted for a 12 lead EKG.
--- NOTE | 2024-12-04 23:26 | NURSING ---
Patient states scarlett delphine is effective, states mid sternum discomfort is better, EKG not done due to improvement, will continue to monitor,
--- NOTE | 2024-12-05 02:20 | NURSING ---
Patient resting with eyes closed, no signs of distress noted,
--- NOTE | 2024-12-05 03:19 | NURSING ---
Patient denies any mid sternum pain, states It is all better, the scarlett akers did the trick.
[2024-12-05] MEDS: Sucralfate 1 GM Tablet PO ×2 (06:01→16:32)
[2024-12-05 06:17] LABS: Bedside Glucose 217 mg/dL (74-106)
[2024-12-05] MEDS: Senna/Docusate Sodium 1 Tablet 2 TABLET PO ×2 (08:21→19:34)
[2024-12-05] MEDS: Pantoprazole Sodium 40 MG Tablet PO (08:21)
[2024-12-05] MEDS: Aspirin 81 MG TAB.CHEW PO ×2 (08:21→19:33)
[2024-12-05] MEDS: Insulin Glargine-YFGN 100 UNIT/ML Pen 16 UNIT SC ×2 (08:21→21:11)
[2024-12-05] MEDS: MethylPREDNISolone DosePak 4 MG BOX PO ×4 (08:21→19:32)
[2024-12-05] MEDS: Iron Polysaccharide Complex 150 MG CAPSULE PO (08:21)
[2024-12-05] MEDS: FLUoxetine 20 MG Capsule 60 MG PO (08:21)
[2024-12-05] MEDS: Ascorbic Acid 500 MG Tablet PO (08:21)
[2024-12-05] MEDS: Naproxen 250 MG Tablet PO ×2 (08:21→16:32)
--- NOTE | 2024-12-05 08:43 | MDS.RN ---
Information for the MDS was obtained from review of the clinical record, interview of resident, staff, and direct observation of resident?s care.
[2024-12-05 14:38] VITALS: BP 125/64; PULSE 80; RESP 16; TEMP 36.7; O2SAT 96
--- NOTE | 2024-12-05 14:40 | CASEMGMT ---
Social Work SW attempted to speak with pt about DC, but pt on the phone and deferred son, Darin. SW phoned son to discuss DC plans. Explained insurance approved with [employer] 12/09 and pt was anxious to DC home at the POC meeting. Son deliberated and concluded that pt will DC home 12/09 prior to f/u appt scheduled that day. SW accepted and offered HHC vs OP therapy. Son elected HHC. Pt used [facility] and agreeable to use again. No DME needs. Son to transport. Plan: DC home 12/09, [facility] PT/OT Laurita Chávez NIGHT MANAGER SHREDDER PICKER
--- NOTE | 2024-12-05 15:41 | CASEMGMT ---
Social Work Referral made to Rain at [facility] for PT/OT. Rain to review case and call back tomorrow with determination of acceptance. MENG Ramirez
[2024-12-05] MEDS: Gabapentin 300 MG Capsule PO (19:30)
[2024-12-05] MEDS: oxyCODONE 5 MG Tablet PO (19:30)
[2024-12-05] MEDS: Baclofen 10 MG Tablet PO (19:31)
[2024-12-05] MEDS: MELATONIN 3 MG TABLET PO (19:32)
[2024-12-05] MEDS: Acetaminophen 500 MG Tablet 1000 MG PO (19:33)
[2024-12-05] MEDS: Pravastatin 80 MG Tablet PO (19:34)
--- NOTE | 2024-12-05 19:52 | PCM.DC.SUM ---
Providers Date of Admission: 11/25/24 Primary Care Physician: Dr. Krunal Sandoval MD Consultations 11/27/24 14:57 Consult: Gastroenterology Routine Consulting Provider: [facility] Reason for Consult: Positive Occult Stool EMERGENT Consult: No MD Notified: Yes Date Notified: 11/27/24 Time Notified: 14:57 Method of Notification: Text Reason For Visit: LT PATELLAR FX Diagnosis Discharge Diagnosis (1) Anemia: Status: Acute Code(s): D64.9 - Anemia, unspecified Plan 84 year old female with below past medical history hospitalized for left patella fracture, underwent ORIF left patella fracture 11/24/[address] Oleary, admitted to TCU with debility, here for rehabilitation, strengthening, prior to discharge home alone Debility - PT/OT. Pain - Tylenol 1000mg q6 prn pain (1-5), Oxycodone 5mg q4 prn pain (6-10). Bowel - senna/colace 1 tablet bid, Magnesium citrate 300mL daily prn. Adult immunization - Administer pneumonia vaccine, covid vaccine, flu vaccine as appropriate. DVT prophylaxis - Aspirin 81mg po bid thru 12/21/2024. Depression - Fluoxetine 60mg daily, stable chronic [facility] use, GDR not recommended. Diabetes Mellitus II - Glargine 46 units daily. Hypertension - Losartan 25mg daily. GERD - Pantoprazole 40mg daily. Hyperlipidemia - Pravastatin 80mg qhs. Insomnia - Melatonin 3mg qhs. Medications at Discharge Home Medications fluoxetine 20 mg tablet 60 mg PO DAILY depression 05/02/22 pantoprazole 40 mg tablet,delayed release 40 mg PO DAILY acid reflux 05/02/22 pravastatin 80 mg tablet 80 mg PO QHS cholesterol #90 tabs 06/27/23 acetaminophen 500 mg tablet 1,000 mg (2 x 500 mg) PO Q6H PRN PRN Pain Score 1-3 #0 tabs 12/05/24 acetaminophen 500 mg tablet 1,000 mg (2 x 500 mg) PO QHS #0 tabs 12/05/24 aspirin 81 mg chewable tablet 81 mg PO BID 12 days #0 tabs 12/05/24 insulin glargine-yfgn 100 unit/mL (3 mL) subcutaneous pen 16 unit (0.16 mL) subcut BID #0 mL 12/05/24 sucralfate 1 gram tablet 1 g PO BIDAC 18 days #36 tabs 12/05/24 Hospital Course Operations None Procedures EGD Summary of Care Provided Minutes Spent on Discharge: 35 Hospital Course: 84 year old female with below past medical history hospitalized for left patella fracture, underwent ORIF left patella fracture 11/24/[address] Oleary, admitted to TCU with debility, here for rehabilitation, strengthening, prior to discharge home alone 11/29/2024 Dr. Jenkins EGD: Impressions : - Normal esophagus. - Non-obstructing Schatzki ring. - Medium-sized hiatal hernia. - Non-bleeding gastric ulcers with no stigmata of bleeding. Biopsied. - Non-bleeding duodenal ulcers with no stigmata of bleeding. Biopsied. Recommendations : - Discharge patient to a custodial. - Resume previous diet. - Use sucralfate tablets 1 gram PO BID for 4 weeks. - Post-Procedure Resumption of Antiplatelet Medications: Restart tomorrow 81 mg PO BID. 12/04/2024 MRI LS spine. IMPRESSION: 1. Acquired multilevel spinal stenosis, greatest at L4-L5 categorized as severe. 2. Acquired iuqa-vm-dzneafwa multilevel foraminal narrowing. See level by level comments above. 3. Degenerative grade 1 anterolisthesis of L4-L5. 4. Presumed bilateral renal cysts. Recommend confirmation with ultrasound. Discharge home 12/09/2024, [facility] PT/OT. Physical Exam Const alert General Appearance: cooperative HEENT normocephalic Eyes PERRL and EOMs intact bilaterally Neck supple, no JVD and no carotid bruits Resp normal respiratory effort, normal air movement and clear to auscultation bilaterally Cardio regular rate and regular rhythm GI normal to inspection, nondistended, normoactive bowel sounds, non-tender and non-distended Extremity normal capillary refill General Extremity: Negative for edema Skin no rashes or lesions noted General Skin Exam: no breakdown Psych affect normal Appearance: appropriate Weight / BMI Weight Weight: 72.903 kg Body Mass Index (BMI) 27.6 ABG / Lab / Microbiology Data 12/03/24 05:23 12/03/24 05:23 Laboratory: Laboratory Results - last 24 hr 12/04/24 21:01: POC Glucose 310 H 12/05/24 06:00: POC Glucose 217 H Microbiology: Microbiology 12/04/24 11:40 Urine, Clean Catch Urine Culture - Preliminary Mixed Gram Pos & Gram Neg Org 12/04/24 06:17 Nasal Secretion SARS-CoV-2 Antigen (Rapid) - Final 11/27/24 16:30 Urine, Catheterized Urine Culture - Final Culture exhibits no growth. 11/27/24 13:20 Stool Stool Occult Blood (HARSH) - Final Occult Blood Positive D/C Instructions Discharge Diet: No restrictions Discharge Activity: Return to Normal Activity, May Shower and Use Walker Weight Bearing Status: Weight bearing as tolerated Call your doctor if you observe: Fever of 101 or Higher, Inability to urinate, Inability to have a bowel movement, Shortness of breath, Dizziness, Fainting spells, Swelling in the ankles, Chest pain and Uncontrolled pain DC O2, CPAP, BIPAP Needs Home O2 Discharge instructions: No Additional Instructions: Discharge home 12/09/2024, [facility] PT/OT. Please Follow Up With: federica Oleary When: As scheduled. Meaningful Use Info Meaningful Use Meaningful Use Diagnoses (Choose all that apply): None applicable Ischemic Stroke Statin Dosing Therapy Reference: STATIN DOSE THERAPY REFERENCE: * Patients > 75 years receive moderate or high dose statin therapy. * Patients 75 years or YOUNGER should receive HIGH intensity statin dose unless contraindicated. You will be required to document reason for non-treatment if statin daily dose does not meet guidelines. HIGH DOSE STATIN THERAPY DAILY Atorvastatin > than or = to 40 mg Rosuvastatin > than or = to 20 mg Amlodipine + Atorvastatin > than or = to 2.5/40 mg Ezetimibe + Simvastatin 10/80 mg Simvastatin 80mg Discharge Plan Admission Admit Date/Time: 11/25/24 19:17 Primary Reason for Your Visit: Debility. Attending Provider: Krunal Sandoval Chi Primary Care Provider: Krunal Sandoval Chi Instructions Additional Instructions / Restrictions: Discharge home 12/09/2024, [facility] PT/OT. Discharge Orders/Prescriptions Prescriptions: New acetaminophen 500 mg Tablet 1,000 mg PO Q6H PRN PRN (Reason: Pain Score 1-3) Qty: 0 0RF acetaminophen 500 mg Tablet 1,000 mg PO QHS Qty: 0 0RF aspirin 81 mg Tablet,Chewable 81 mg PO BID 12 Days Qty: 0 0RF insulin glargine-yfgn 100 unit/mL (3 mL) Insulin Pen 16 unit subcut BID Qty: 0 0RF sucralfate 1 gram Tablet 1 g PO BIDAC 18 Days Qty: 36 0RF Continued fluoxetine 20 mg tablet 60 mg PO DAILY pantoprazole 40 mg tablet,delayed release (DR/EC) 40 mg PO DAILY pravastatin 80 mg tablet 80 mg PO QHS Qty: 90 3RF Discontinued insulin degludec [Tresiba FlexTouch U-100] 100 unit/mL (3 mL) insulin pen 46 unit subcut DAILY losartan 25 mg tablet 25 mg PO QDAY oxycodone 5 mg Tablet 5 mg PO Q4H PRN PRN (Reason: Pain Score 6-10) 3 Days Qty: 18 0RF aspirin 81 mg Tablet,Chewable 81 mg PO BID Qty: 56 0RF insulin glargine 100 unit/mL (3 mL) insulin pen 16 unit subcut DAILY Referrals / Follow Up: Krunal Sandoval Chi, MD [Primary Care Provider] - Disposition Disposition (needs filled in before D/C Order can be placed): Home Health Service
[2024-12-05 21:30] LABS: Bedside Glucose 292 mg/dL (74-106)
[2024-12-06] MEDS: Sucralfate 1 GM Tablet PO ×2 (05:56→16:56)
[2024-12-06 06:14] LABS: Bedside Glucose 190 mg/dL (74-106)
[2024-12-06 08:13] VITALS: BP 130/70; PULSE 76; RESP 17; TEMP 36.9; O2SAT 95
[2024-12-06] MEDS: Iron Polysaccharide Complex 150 MG CAPSULE PO (08:18)
[2024-12-06] MEDS: Aspirin 81 MG TAB.CHEW PO ×2 (08:18→22:15)
[2024-12-06] MEDS: Naproxen 250 MG Tablet PO ×2 (08:18→16:56)
[2024-12-06] MEDS: MethylPREDNISolone DosePak 4 MG BOX PO ×3 (08:18→22:13)
[2024-12-06] MEDS: Insulin Glargine-YFGN 100 UNIT/ML Pen 16 UNIT SC (08:19)
[2024-12-06] MEDS: Senna/Docusate Sodium 1 Tablet 2 TABLET PO ×2 (08:20→22:14)
[2024-12-06] MEDS: Ascorbic Acid 500 MG Tablet PO (08:20)
[2024-12-06] MEDS: Pantoprazole Sodium 40 MG Tablet PO (08:20)
[2024-12-06] MEDS: FLUoxetine 20 MG Capsule 60 MG PO (08:20)
--- NOTE | 2024-12-06 14:18 | CASEMGMT ---
BIMS () and PHQ2 () interview completed on this date for MDS assessment. MENG Ramirez
[2024-12-06] MEDS: oxyCODONE 5 MG Tablet PO (18:13)
[2024-12-06 21:38] LABS: Bedside Glucose 347 mg/dL (74-106)
--- NOTE | 2024-12-06 21:50 | NURSING ---
notified of blood glucose level 347, on medrol dosepak and rtn insuln glargine. Secure text sent to Dr. Sandoval via backline regarding above information. New order received Insulin glargine 30unit total now x1.
[2024-12-06] MEDS: Gabapentin 300 MG Capsule PO (22:13)
[2024-12-06] MEDS: Acetaminophen 500 MG Tablet 1000 MG PO (22:14)
[2024-12-06] MEDS: MELATONIN 3 MG TABLET PO (22:15)
[2024-12-06] MEDS: Pravastatin 80 MG Tablet PO (22:15)
[2024-12-06] MEDS: Baclofen 10 MG Tablet PO (22:15)
[2024-12-06] MEDS: Insulin Glargine-YFGN 100 UNIT/ML Pen 30 UNIT SC (22:16)
[2024-12-07] MEDS: oxyCODONE 5 MG Tablet PO ×3 (00:02→20:55)
[2024-12-07 00:30] VITALS: PULSE 77; RESP 16
--- NOTE | 2024-12-07 02:13 | NURSING ---
Pt. reports frequently feeling restless at night, pt. unable to identify cause of restlessness, Anxiety at times. Call light and personal items within reach. Written communication left for Dr. Sandoval
[2024-12-07] MEDS: Sucralfate 1 GM Tablet PO ×2 (05:56→16:26)
[2024-12-07 06:14] LABS: Bedside Glucose 230 mg/dL (74-106)
[2024-12-07 08:05] VITALS: BP 124/69; PULSE 68; RESP 17; TEMP 36.5; O2SAT 97
[2024-12-07] MEDS: Naproxen 250 MG Tablet PO ×2 (08:14→16:26)
[2024-12-07] MEDS: Aspirin 81 MG TAB.CHEW PO ×2 (08:14→20:49)
[2024-12-07] MEDS: MethylPREDNISolone DosePak 4 MG BOX PO ×2 (08:14→20:48)
[2024-12-07] MEDS: Insulin Glargine-YFGN 100 UNIT/ML Pen 16 UNIT SC ×2 (08:15→20:51)
[2024-12-07] MEDS: Iron Polysaccharide Complex 150 MG CAPSULE PO (08:15)
[2024-12-07] MEDS: FLUCONAZOLE 150 MG TABLET PO (08:15)
[2024-12-07] MEDS: Pantoprazole Sodium 40 MG Tablet PO (08:15)
[2024-12-07] MEDS: FLUoxetine 20 MG Capsule 60 MG PO (08:15)
[2024-12-07] MEDS: Senna/Docusate Sodium 1 Tablet 2 TABLET PO ×2 (08:16→20:49)
[2024-12-07] MEDS: Ascorbic Acid 500 MG Tablet PO (08:16)
[2024-12-07] MEDS: Insulin Lispro 100 UNIT/ML INSULN.PEN SC ×2 (12:48→16:27)
[2024-12-07 16:33] LABS: Bedside Glucose 313 mg/dL (74-106)
[2024-12-07] MEDS: Acetaminophen 500 MG Tablet 1000 MG PO (20:49)
[2024-12-07] MEDS: Baclofen 10 MG Tablet PO (20:50)
[2024-12-07] MEDS: Pravastatin 80 MG Tablet PO (20:50)
[2024-12-07] MEDS: MELATONIN 3 MG TABLET PO (20:51)
[2024-12-07] MEDS: Gabapentin 300 MG Capsule PO (20:55)
[2024-12-07 21:22] LABS: Bedside Glucose 172 mg/dL (74-106)
[2024-12-08] MEDS: Sucralfate 1 GM Tablet PO ×2 (05:58→16:23)
[2024-12-08 06:21] LABS: Bedside Glucose 230 mg/dL (74-106)
[2024-12-08 08:41] VITALS: BP 111/54; PULSE 70; RESP 17; TEMP 37; O2SAT 97
[2024-12-08] MEDS: Insulin Lispro 100 UNIT/ML INSULN.PEN SC ×3 (08:44→16:23)
[2024-12-08] MEDS: MethylPREDNISolone DosePak 4 MG BOX PO (08:45)
[2024-12-08] MEDS: Naproxen 250 MG Tablet PO ×2 (08:46→16:23)
[2024-12-08] MEDS: Insulin Glargine-YFGN 100 UNIT/ML Pen 16 UNIT SC ×2 (08:46→22:10)
[2024-12-08] MEDS: Iron Polysaccharide Complex 150 MG CAPSULE PO (08:46)
[2024-12-08] MEDS: Aspirin 81 MG TAB.CHEW PO ×2 (08:46→22:10)
[2024-12-08] MEDS: Ascorbic Acid 500 MG Tablet PO (08:47)
[2024-12-08] MEDS: Pantoprazole Sodium 40 MG Tablet PO (08:47)
[2024-12-08] MEDS: FLUoxetine 20 MG Capsule 60 MG PO (08:47)
[2024-12-08] MEDS: Senna/Docusate Sodium 1 Tablet 2 TABLET PO (08:47)
[2024-12-08 11:56] LABS: Bedside Glucose 207 mg/dL (74-106)
[2024-12-08] MEDS: oxyCODONE 5 MG Tablet PO (12:02)
[2024-12-08 16:29] LABS: Bedside Glucose 232 mg/dL (74-106)
[2024-12-08] MEDS: MELATONIN 3 MG TABLET PO (22:10)
[2024-12-08] MEDS: Acetaminophen 500 MG Tablet 1000 MG PO (22:10)
[2024-12-08] MEDS: Pravastatin 80 MG Tablet PO (22:10)
[2024-12-08] MEDS: Baclofen 10 MG Tablet PO (22:10)
[2024-12-08] MEDS: Gabapentin 300 MG Capsule PO (22:10)
[2024-12-08 22:20] LABS: Bedside Glucose 212 mg/dL (74-106)
[2024-12-09 06:32] LABS: Bedside Glucose 163 mg/dL (74-106)
[2024-12-09 08:28] VITALS: BP 109/58; PULSE 69; RESP 16; TEMP 36.8; O2SAT 96
[2024-12-09] MEDS: Iron Polysaccharide Complex 150 MG CAPSULE PO (08:35)
[2024-12-09] MEDS: Aspirin 81 MG TAB.CHEW PO (08:35)
[2024-12-09] MEDS: Insulin Glargine-YFGN 100 UNIT/ML Pen 16 UNIT SC (08:35)
[2024-12-09] MEDS: Sucralfate 1 GM Tablet PO (08:35)
[2024-12-09] MEDS: Naproxen 250 MG Tablet PO (08:35)
[2024-12-09] MEDS: Ascorbic Acid 500 MG Tablet PO (08:36)
[2024-12-09] MEDS: Pantoprazole Sodium 40 MG Tablet PO (08:36)
[2024-12-09] MEDS: FLUoxetine 20 MG Capsule 60 MG PO (08:36)
[2024-12-09] MEDS: Senna/Docusate Sodium 1 Tablet 2 TABLET PO (08:36)
[2024-12-09 11:47] LABS: Bedside Glucose 263 mg/dL (74-106)
[2024-12-09 14:32] LABS: Mucous, Urine 0 SEEN /hpf (<or=2+); Squamous Epithelial Cells - UA 0 SEEN /hpf (5-10)
[2024-12-09 14:35] VITALS: BP 125/63; PULSE 78; RESP 18; TEMP 36.9; O2SAT 94
[2024-12-09 14:35] LABS: Color, Urine Yellow (Yellow); Glucose, Dipstick 100 mg/dl (Normal); Ketone-Dipstick Negative (Negative); Leukocyte Esterase-Dipstick 500 /ul (Negative); Nitrite-Dipstick Negative (Negative); Occult Blood-Urine 250 /ul (Negative); Protein-Dipstick 100 mg/dl (Negative); Urine Bilirubin Dipstick Negative (Negative); Urine Clarity Cloudy (Clear); Urine Urobilinogen Normal (Normal)
[2024-12-09 14:45] LABS: Red Blood Cells-Urine 50-100 SEEN /hpf (0-5); White Blood Cells >100 SEEN /hpf (0-5)
[2024-12-09 14:46] LABS: Bacteria 3+ /hpf (None Seen)
== END 2024-12-09 15:20 | disposition home health service (06) | DRG 561 ==
PROVIDERS: Admitting Provider Family Medicine Geriatric Medicine; PCP Family Medicine Geriatric Medicine; Referring Provider Family Medicine Geriatric Medicine; Visit Provider Family Medicine Geriatric Medicine
DX: S82.032D Displaced transverse fracture of left patella, subsequent encounter for closed fracture with routine healing (principal); K22.2 Esophageal obstruction; K26.9 Duodenal ulcer, unspecified as acute or chronic, without hemorrhage or perforation; E11.22 Type 2 diabetes mellitus with diabetic chronic kidney disease; D64.9 Anemia, unspecified; B37.31 Acute candidiasis of vulva and vagina; N18.31 Chronic kidney disease, stage 3a; F32.A Depression, unspecified; I12.9 Hypertensive chronic kidney disease with stage 1 through stage 4 chronic kidney disease, or unspecified chronic kidney disease; K25.9 Gastric ulcer, unspecified as acute or chronic, without hemorrhage or perforation; E11.65 Type 2 diabetes mellitus with hyperglycemia; E78.00 Pure hypercholesterolemia, unspecified; K21.9 Gastro-esophageal reflux disease without esophagitis; Z79.4 Long term (current) use of insulin; W19.XXXD Unspecified fall, subsequent encounter; K44.9 Diaphragmatic hernia without obstruction or gangrene; G47.00 Insomnia, unspecified; Z79.899 Other long term (current) drug therapy; Z79.82 Long term (current) use of aspirin; Z23 Encounter for immunization
CPT/HCPCS: 36415; 80048; 80061; 81001; 82274; 82962; 83540; 83550; 85014; 85018; 85025; 87077; 87086; 87088; 87811; 90480; 91322; 92610; 93005; 97110; 97162; 97166; 97530; 97535; 97802; A4216

== ENCOUNTER 2024-11-29 15:55 | Day surgery (SDC) | payer MEDICARE, SELFPAY ==
--- NOTE | 2024-11-29 14:30 | PCM.PRE.AN2 ---
ASA Classification* ASA Classification ASA Classification: 3 Assessment & Plan Anesthesia* Anesthesia Assessment Anesthesia Assessment: Discussed sedation and/or anesthesia options, risks, benefits, and alternatives with patient/parents/legal guardian/POA. Questions invited. The patient/parents/legal guardian/POA seems to understand and agrees to proceed with anesthesia plan. Reviewed the physical assessment, medical history, allergy history and patient home medications list prior to surgery/procedure/anesthetic and documented any changes. Performed airway and anesthesia risk assessments. Anesthesia Type Anesthesia Type: MAC Anesthesia Focused Assessment* Airway Assessment Mouth opens: >3 cm Mallampati Score: II Focused Labs Anesthesia Preop lab: CBC WBC 7.0 K/mm3 (4.4-11.0) 11/26/24 05:21 11/26/24 RBC 3.53 M/mm3 (4.2-5.4) L 11/26/24 05:21 11/26/24 Hgb 9.9 g/dL (12.0-15.0) L 11/28/24 05:40 11/28/24 Hct 31.0 % (37-47) L 11/28/24 05:40 11/28/24 Plt Count 141 K/mm3 (150-450) L 11/26/24 05:21 11/26/24 CHEMISTRY Potassium 3.9 mmol/L (3.5-5.1) 11/26/24 05:21 11/26/24 Sodium 137 mmol/L (136-145) 11/26/24 05:21 11/26/24 Magnesium 1.9 mg/dL (1.6-2.6) 11/25/24 05:22 11/25/24 Phosphorus 2.7 mg/dL (2.5-4.9) 11/25/24 05:22 11/25/24 BUN 18 mg/dL (7-18) 11/26/24 05:21 11/26/24 Creatinine 1.06 mg/dL (0.55-1.02) H 11/26/24 05:21 11/26/24 Glucose 144 mg/dL (74-106) H 11/26/24 05:21 11/26/24 POC Glucose 140 mg/dL (74-106) H 11/29/24 05:40 11/29/24 TSH 0.389 uIU/mL (0.358-3.740) 09/05/24 10:19 09/05/24 COAG PT 17.4 SECONDS (11.7-14.9) H 09/20/17 17:38 09/20/17 Pre-Assessment Diagnosis/Proposed Procedure Planned Operative Procedure(s): EGD Anesthesia History Anesthesia History - cardiopulmonary supervisor: Anesthesia History - cardiopulmonary supervisor Hx Hospitalization Yes 09/20/17 11:35 Any Problems With Anesthesia Yes: nausea 11/23/24 21:14 Cholinesterase deficiency No 11/23/24 21:14 You/Your Family Experience No 11/23/24 21:14 fever (hyperthermia) with Relationship Recent Exposure to Contagious No 11/23/24 21:14 Disease Does patient have nerve No 11/23/24 21:14 stimulator Patient instructed to have device shut off --Does patient have Pacemaker or ICD? When Was Last Pacemaker Check QUESTION #4 FULL TEXT: You/Your Family Experience fever (hyperthermia) with Anesthesia Last Oral Intake Last Oral intake: Last Oral Intake NPO since Meds taken in AM with sips of water? Meds patient instructed to take am of surgery PONV PONV - cardiopulmonary supervisor: PONV - cardiopulmonary supervisor Female HX of Motion Sickness HX of N/V After Surgery Non-Smoker Duration of Surgery greater than 60 minutes Number of Risk Factors PONV Score Height & Weight Height & Weight: Anesthesia: Height & Weight Height 5 ft 4 in 11/27/24 14:16 Respiratory Assessment Respiratory Assessment - cardiopulmonary supervisor: Respiratory Tract Infection Hx - cardiopulmonary supervisor Hx Respiratory Tract Infection No 11/23/24 21:14 STOP Sleep Apnea STOP Sleep Apnea - cardiopulmonary supervisor: STOP Sleep Apnea - cardiopulmonary supervisor Hx Hypertension Yes 11/26/24 10:54 Hx Sleep Apnea No 11/25/24 19:14 CPAP No 09/20/17 14:46 BIPAP No 09/20/17 14:46 Do you snore loudly (louder than talking or can be heard Do you often feel tired/ fatigued/ sleepy during daytime? Has anyone observed you stop breathing during sleep? STOP Results QUESTION #5 FULL TEXT : Do you snore loudly (louder than talking or can be heard through closed doors)? 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 Specify any problems Hx of Preganancy in last 3 Months Nurse Filling Out Transfusion & Questions: Date: Time: Patient unable to answer at this time (ie. confused, unrespo /Reproduction History /Reproductive History - cardiopulmonary supervisor: /Reproductive Hx- cardiopulmonary supervisor Hx Now Gestational Age (in weeks): EDC: Hx Hx Para Hx Section SAB No 11/23/24 21:14 [facility] Medical History (Updated 11/25/24 @ 19:[address] Krunal Sandoval MD) Current use of insulin Post-menopausal Ulcer Injury of head and neck Wears hearing aid in both ears Diabetes Chronic pain Kidney disease Hypertension Osteoarthritis of right knee Right knee pain CKD (chronic kidney disease) stage 3, GFR 30-59 ml/min MVP (mitral valve prolapse) PSVT (paroxysmal supraventricular tachycardia) Pure hypercholesterolemia Nonrheumatic mitral (valve) prolapse Essential hypertension Palpitations Diastolic dysfunction Premature atrial contractions Premature ventricular contractions Mitral valve prolapse Hyperparathyroidism Osteoporosis Hyperthyroidism HTN (hypertension) DM type 2 (diabetes mellitus, type 2) Home Medications ?Medication ?Instructions ?Recorded ?Last Taken ?Type fluoxetine 20 mg tablet 60 mg PO DAILY depression 05/02/22 Unknown History insulin degludec 100 unit/mL (3 46 unit subcut DAILY insulin 05/02/22 Unknown History mL) subcutaneous pen (Tresiba FlexTouch U-100 insulin) pantoprazole 40 mg tablet,delayed 40 mg PO DAILY acid reflux 05/02/22 Unknown History release pravastatin 80 mg tablet 80 mg PO QHS cholesterol #90 tabs 06/27/23 Unknown Rx losartan 25 mg tablet 25 mg PO QDAY BP 02/14/24 Unknown History aspirin 81 mg chewable tablet 81 mg PO BID heart health #56 tabs 11/25/24 Unknown Rx oxycodone 5 mg tablet 5 mg PO Q4H PRN PRN Pain Score 11/25/24 Unknown Rx 6-10 3 days #18 tabs Allergy/AdvReac Type Severity Reaction Status Date / Time morphine Allergy Rash Verified 11/23/24 14:24 Penicillins Allergy Rash Verified 11/23/24 14:24 propoxyphene Allergy Nausea Verified 11/23/24 14:24 codeine AdvReac Nausea Verified 11/23/24 14:24 lisinopril AdvReac Vomiting Verified 11/23/24 14:24 quinine AdvReac Vomiting Verified 11/23/24 14:24 Family History Brother Heart disease Myocardial infarction Diabetes Father No problems noted. Mother CVA (cerebral vascular accident) Brother Myocardial infarction Diabetes Surgical History (Updated 11/25/24 @ 19:[address] Krunal Sandoval MD) History of open reduction and internal fixation (ORIF) procedure S/P hysterectomy History of parathyroidectomy History of subtotal thyroidectomy History of carpal tunnel surgery History of total hysterectomy History of appendectomy History of cholecystectomy Social History household members: none housing: house Smoking Status: Never smoker alcohol intake: never substance use type: does not use caffeine: No what type of physical activity do you participate in: none Review of Systems (Anesthesia) ROS Narrative System reviewed and no additional complaints, except as documented.
[2024-11-29 14:55] VITALS: BMI 56.7
--- NOTE | 2024-11-29 16:00 | IMM_PTH ---
PATIENT: JUVENAL RAVI LOC: EN U#:[id number] AGE/SX: 84/F ROOM: RE11/29/[address]: Dr. Armando Jenkins DO : 1940 BED: DIS: 11/29/2024 SPEC #: [id number] RECD: 12/02/24 10:12 STATUS: VICKEY RELinette #: [id number] KYREE: 11/29/24 16:[address]: Armando Jenkins DEPT: IMMUNOHISTOCHEMISTRY RECD BY: Benito Simons ENTERED: 12/02/24 10:12 SP TYPE: IMMUNO OTHR DR: Dr. Krunal Sandoval MD Tissues: B - Gastric mucous membrane Procedures: H Pylori (initial) PHYSICIAN & INSTITUTION [place] [id number] SPECIMEN INFORMATION: Tissue Source: B- Gastric ulcer biopsy Clinical Info: Anemia Specimen Number: [id number] CPT code: 97353 METHODOLOGY: Deparaffinized sections of prefer/formalin-fixed tissue or PAP/DQ stained slides are incubated with monoclonal/polyclonal antibodies/oligonucleotide probes. Localization is made via biotin free immunoperoxidase method. Appropriate controls are performed and reacted as expected. Results on target cell population are indicated in the following table: RESULTS: ANTIBODY / CLONE RESULT Block B H Pylori (polyclonal) negative These tests were developed and their performance characteristics determined by [facility]. They may not have been cleared or approved by the U.S. Food and Drug Administration. The FDA has determined that such clearance or approval is not necessary. The above immunohistochemical/dualISH markers are ordered and reviewed by the Pathologist. INTERPRETATION: B. Gastric ulcer, biopsy: Negative for Helicobacter pylori organisms. 12/03/2024
[2024-11-29 17:02] VITALS: BP 111/50; BP 88/41; PULSE 79; PULSE 86; RESP 18; TEMP 36.6; O2SAT 95; O2SAT 96
--- NOTE | 2024-11-29 17:02 | PCM.POST.ANE ---
Anesthesia: Postop Eval I Current Vital Signs Temperature: 97.9 F Pulse Rate: 79 Blood Pressure: 88/41 Respiratory Rate: 18 Pulse Ox: 95 Assessment Airway patent: Yes Spontaneous unlabored respirations: Yes nausea: No Vomiting: No Anesthesia Complication: No Fluid Hydration Crystalloid volume administer (ml): 10 Total IV fluid infused: 10 Progress Note Anesthesia document: Postop Eval 1 completed: Yes
[2024-11-29 17:05] VITALS: BP 111/50; BP 92/48; PULSE 80; RESP 18; O2SAT 95
--- NOTE | 2024-11-29 17:06 | POSTOPAN2_ITS ---
Anesthesia Postop Eval I Sum Postop Eval Completion status Anesthesia document: Postop Eval 1 completed: Yes Anesthesia Postop Eval I Summary Anesthesia Postop Eval I Summary: Anesthesia Postop Eval I: Assessment Summary Airway patent Yes 11/29/24 17:02 CRIMINAL RESEARCH SPECIALIST.CSIR Spontaneous unlabored Yes 11/29/24 17:02 CRIMINAL RESEARCH SPECIALIST.CSIR respirations Mental status nausea No 11/29/24 17:02 CRIMINAL RESEARCH SPECIALIST.CSIR Vomiting No 11/29/24 17:02 CRIMINAL RESEARCH SPECIALIST.CSIR Anesthesia Postop Eval I: Fluid Summary Crystalloid volume administer 10 11/29/24 17:02 CRIMINAL RESEARCH SPECIALIST.CSIR (ml) Colloids volume administered ( ml) Blood Product volume administered (ml) Total IV fluid infused 10 11/29/24 17:02 CRIMINAL RESEARCH SPECIALIST.CSIR Anesthesia Postop Eval I: Summary Notes Anesthesia Complication No 11/29/24 17:02 CRIMINAL RESEARCH SPECIALIST.CSIR Anesthesia Complication Comment: Post-operative progress note Anesthesia: Postop Eval II Evaluation Mental status: Awake and Calm Pain Level: 0 nausea: No Vomiting: No
--- NOTE | 2024-11-29 17:06 | PCM.POSTANE2 ---
Anesthesia Postop Eval I Sum Postop Eval Completion status Anesthesia document: Postop Eval 1 completed: Yes Anesthesia Postop Eval I Summary Anesthesia Postop Eval I Summary: Anesthesia Postop Eval I: Assessment Summary Airway patent Yes 11/29/24 17:02 THEATRICAL PERFORMER.CSIR Spontaneous unlabored Yes 11/29/24 17:02 THEATRICAL PERFORMER.CSIR respirations Mental status nausea No 11/29/24 17:02 THEATRICAL PERFORMER.CSIR Vomiting No 11/29/24 17:02 THEATRICAL PERFORMER.CSIR Anesthesia Postop Eval I: Fluid Summary Crystalloid volume administer 10 11/29/24 17:02 THEATRICAL PERFORMER.CSIR (ml) Colloids volume administered ( ml) Blood Product volume administered (ml) Total IV fluid infused 10 11/29/24 17:02 THEATRICAL PERFORMER.CSIR Anesthesia Postop Eval I: Summary Notes Anesthesia Complication No 11/29/24 17:02 THEATRICAL PERFORMER.CSIR Anesthesia Complication Comment: Post-operative progress note Anesthesia: Postop Eval II Evaluation Mental status: Awake and Calm Pain Level: 0 nausea: No Vomiting: No
--- NOTE | 2024-11-29 17:07 | OP.EGD_ITS ---
Patient Name: Glory Alva Procedure Date: 11/29/2024 4:40 PM Date of : 1940 Age: 84 Procedure: Upper GI endoscopy Indications: Iron deficiency anemia, Unexplained iron deficiency anemia, Heme positive stool Providers: Armando Jenkins DO Medicines: Monitored Anesthesia Care Patient Profile: This is an 84 year old female. Refer to note in patient chart for documentation of history and physical. Patient has symptoms. Complications: No immediate complications. Procedure: Pre-Anesthesia Assessment: - Prior to the procedure, a History and Physical was performed, and patient medications and allergies were reviewed. The patient is competent. The risks and benefits of the procedure and the sedation options and risks were discussed with the patient. All questions were answered and informed consent was obtained. Patient identification and proposed procedure were verified by the physician in the pre-procedure area. Mental Status Examination: alert and oriented. Airway Examination: normal oropharyngeal airway and neck mobility. Respiratory Examination: clear to auscultation. CV Examination: normal. Prophylactic Antibiotics: The patient does not require prophylactic antibiotics. Prior Anticoagulants: The patient has taken no anticoagulant or antiplatelet agents except for NSAID medication. ASA Grade Assessment: II - A patient with mild systemic disease. After reviewing the risks and benefits, the patient was deemed in satisfactory condition to undergo the procedure. The anesthesia plan was to use monitored anesthesia care (MAC). Immediately prior to administration of medications, the patient was re-assessed for adequacy to receive sedatives. The heart rate, respiratory rate, oxygen saturations, blood pressure, adequacy of pulmonary ventilation, and response to care were monitored throughout the procedure. The physical status of the patient was re-assessed after the procedure. After obtaining informed consent, the endoscope was passed under direct vision. Throughout the procedure, the patient's blood pressure, pulse, and oxygen saturations were monitored continuously. The Endoscope was introduced through the mouth, and advanced to the second part of duodenum. The upper GI endoscopy was accomplished without difficulty. The patient tolerated the procedure well. Scope In: 4:51:51 PM Scope Withdrawal Time 0 hours 0 minutes 10 seconds Scope Out: 4:56:51 PM Total Procedure Duration Time 0 hours 5 minutes 0 seconds Findings: The examined esophagus was normal. A non-obstructing Schatzki ring was found at the gastroesophageal junction. A medium-sized hiatal hernia was present. Few non-bleeding linear gastric ulcers with no stigmata of bleeding were found in the gastric body. The largest lesion was 5 mm in largest dimension. Biopsies were taken with a cold forceps for histology. Verification of patient identification for the specimen was done. Estimated blood loss was minimal. Biopsies were taken with a cold forceps for Helicobacter pylori testing. Verification of patient identification for the specimen was done. Estimated blood loss was minimal. Three non-bleeding linear duodenal ulcers with no stigmata of bleeding were found in the duodenal bulb. The largest lesion was 5 mm in largest dimension. Biopsies were taken with a cold forceps for histology. Verification of patient identification for the specimen was done. Estimated blood loss was minimal. Impression: - Normal esophagus. - Non-obstructing Schatzki ring. - Medium-sized hiatal hernia. - Non-bleeding gastric ulcers with no stigmata of bleeding. Biopsied. - Non-bleeding duodenal ulcers with no stigmata of bleeding. Biopsied. Recommendation: - Discharge patient to a longterm. - Resume previous diet. - Use sucralfate tablets 1 gram PO BID for 4 weeks. - Post-Procedure Resumption of Antiplatelet Medications: Restart tomorrow 81 mg PO BID. Procedure Code(s): --- Professional --- 70299, Esophagogastroduodenoscopy, flexible, transoral; with biopsy, single or multiple CPT copyright 2021 [employer]. All rights reserved. The codes documented in this report are preliminary and upon circuit board assembler review may be revised to meet current compliance requirements. Armando Jenkins DO 11/29/2024 5:07:13 PM This report has been signed electronically. Number of Addenda: 0 Note Initiated On: 11/29/2024 4:40 PM
--- NOTE | 2024-11-29 17:07 | OP.CCLET_ITS ---
11/29/2024 Krunal Sandoval MD [address] [place] [address] Re : Upper GI endoscopy procedure for Glroy Alva Dear Dr. Sandoval This procedure was performed on Friday, November 29, 2024. My impressions and recommendations are as follows: Impressions : - Normal esophagus. - Non-obstructing Schatzki ring. - Medium-sized hiatal hernia. - Non-bleeding gastric ulcers with no stigmata of bleeding. Biopsied. - Non-bleeding duodenal ulcers with no stigmata of bleeding. Biopsied. Recommendations : - Discharge patient to a [facility]p. - Resume previous diet. - Use sucralfate tablets 1 gram PO BID for 4 weeks. - Post-Procedure Resumption of Antiplatelet Medications: Restart tomorrow 81 mg PO BID. My findings are described in the full procedure note, which is enclosed. If I can be of further assistance, please feel free to contact me at . Sincerely, Armando Jenkins, 11/29/2024 5:07:13 PM This report has been signed electronically.
[2024-11-29 17:10] VITALS: BP 111/50; BP 99/47; PULSE 81; RESP 14; O2SAT 95
[2024-11-29 17:13] VITALS: BP 100/54; BP 111/50; PULSE 81; RESP 18; TEMP 37.3; O2SAT 95
[2024-11-29 17:25] VITALS: BP 111/50
--- NOTE | 2024-12-02 | GASB_PTH ---
PATIENT: JUVENAL RAVI LOC: EN U#:[id number] AGE/SX: 84/F ROOM: RE11/29/[address]: Dr. Armando Jenkins DO : 1940 BED: DIS: 11/29/2024 SPEC #: [id number] RECD: 12/02/24 09:43 STATUS: VICKEY DAVIAN #: [id number] KYREE: 12/02/24 00:[address]: Armando Jenkins DEPT: SURGICAL PATHOLOGY RECD BY: Junito Rodriguez ENTERED: 12/02/24 09:43 SP TYPE: Gastric Bx JOSE CRUZ DR: Dr. Krunal Sandoval MD Tissues: A - Duodenum, NOS B - Gastric mucous membrane Procedures: Surgery Specimen Level IV HEADER OPERATION: EGD with biopsy PRE-OP DIAGNOSIS: Anemia TISSUE SUBMITTED: A- Duodenal ulcer biopsy, B- Gastric ulcer biopsy MICROSCOPIC DIAGNOSIS A. Duodenal ulcer, biopsy: A fragment of duodenal mucosa with focal denudation of epithelium. B. Gastric ulcer, biopsy: Mild gastritis. See microscopic description and comment. 12/03/2024 COMMENT B. The results of immunohistochemistry for Helicobacter pylori will be reported separately ([id number]). MICROSCOPIC DESCRIPTION Slides are reviewed. B. The specimen shows fragments of gastric mucosa with chronic inflammatory cell infiltrates in the lamina propria consisting of lymphocytes and plasma cells, consistent with mild chronic gastritis. Focal superficial erosion is also noted. GROSS DESCRIPTION A. Received in fixative is one container labeled with the patient's name and designated Duodenal ulcer biopsy. The specimen consists of one irregular fragment of light jones soft tissue that measures 0.5 x 0.4 x 0.1 cm. The specimen is totally submitted in one cassette. B. Received in fixative is one container labeled with the patient's name and designated Gastric ulcer biopsy. The specimen consists of one irregular fragment of light jones soft tissue that measures 0.5 x 0.4 x 0.1 cm. The specimen is totally submitted in one cassette. 12/02/2024 TC:3 CPT:93131h0
== END 2024-11-29 20:00 | disposition skilled nursing facility (03) ==
LOC: EN 02-14 14:40
PROVIDERS: PCP Family Medicine Geriatric Medicine; Referring Provider Family Medicine Geriatric Medicine; Visit Provider Internal Medicine Gastroenterology
PROC: 0DJ08ZZ Inspection of Upper Intestinal Tract, Via Natural or Artificial Opening Endoscopic (ICD-10-PCS; CPT 43235; principal; 2024-11-29 15:55)
DX: K29.70 Gastritis, unspecified, without bleeding (principal); E11.22 Type 2 diabetes mellitus with diabetic chronic kidney disease; Z79.4 Long term (current) use of insulin; N18.30 Chronic kidney disease, stage 3 unspecified; K22.2 Esophageal obstruction; K26.9 Duodenal ulcer, unspecified as acute or chronic, without hemorrhage or perforation; K25.9 Gastric ulcer, unspecified as acute or chronic, without hemorrhage or perforation; K44.9 Diaphragmatic hernia without obstruction or gangrene; D64.9 Anemia, unspecified; I12.9 Hypertensive chronic kidney disease with stage 1 through stage 4 chronic kidney disease, or unspecified chronic kidney disease; I34.1 Nonrheumatic mitral (valve) prolapse; M81.0 Age-related osteoporosis without current pathological fracture; E78.00 Pure hypercholesterolemia, unspecified; M17.11 Unilateral primary osteoarthritis, right knee; Z90.49 Acquired absence of other specified parts of digestive tract; Z79.82 Long term (current) use of aspirin; Z79.899 Other long term (current) drug therapy
CPT/HCPCS: 43239; 88305; 88342; A4216; J2405

== ENCOUNTER → 2024-12-04 | Outpatient (CLI) | payer MEDICARE, SELFPAY ==
--- NOTE | 2024-12-04 14:54 | MRI_ITS ---
PROCEDURE: MRI lumbar spine without IV contrast REASON FOR EXAM: Pain TECHNIQUE: Multisequence multiplanar MR images of the lumbar spine were obtained without the administration of intravenous contrast. COMPARISON: None. FINDINGS: Vertebral body heights are within normal limits. Negative for fracture or marrow replacement. Advanced degenerative disc disease of the lower lumbar spine with degenerative endplate changes. Grade 1 anterolisthesis of L4-L5. Conus medullaris is within normal limits and terminates at L2. Multilevel Baastrup's disease. Moderate paraspinal muscle atrophy. Multiple bilateral presumed renal cysts. L1-2: Mild posterior disc bulge. Mild bilateral facet arthrosis. No significant spinal stenosis. Mild right foraminal narrowing. L2-3: Posterior disc bulge eccentric to the right. Mild bilateral facet arthrosis and ligamentum flavum hypertrophy. No significant spinal stenosis. Mild bilateral foraminal narrowing, greater on the left. L3-4: Posterior disc osteophyte complex. Moderate bilateral facet arthrosis and ligamentum flavum hypertrophy. Mild/moderate spinal stenosis. Moderate bilateral foraminal narrowing. L4-5: Grade 1 anterolisthesis with uncovering of the posterior disc. Superimposed posterior disc bulge and small left central protrusion. Severe bilateral facet arthrosis. Severe spinal stenosis with narrowing of the thecal sac in the AP dimension measuring 5 mm. Mild/moderate bilateral foraminal narrowing. L5-S1: Posterior disc osteophyte complex. Moderate bilateral facet arthrosis and ligamentum flavum hypertrophy. Mild spinal stenosis. Moderate right and mild left foraminal narrowing. MRI/Spine Lumbar (Routine) IMPRESSION: 1. Acquired multilevel spinal stenosis, greatest at L4-L5 categorized as severe . 2. Acquired [id number] multilevel foraminal narrowing. See level by rubio salcido comments above. 3. Degenerative grade 1 anterolisthesis of L4-L5. 4. Presumed bilateral renal cysts. Recommend confirmation with ultrasound. Reading Location: [facility]
== END | disposition home or self-care (01) ==
LOC: MRI 14:52
PROVIDERS: PCP Family Medicine Geriatric Medicine; Referring Provider Family Medicine Geriatric Medicine; Visit Provider Family Medicine Geriatric Medicine
DX: M51.16 Intervertebral disc disorders with radiculopathy, lumbar region (principal)
CPT/HCPCS: 72148

== ENCOUNTER 2024-12-13 10:26 | Inpatient (IN) | payer MEDICARE, SELFPAY ==
[2024-12-13] VITALS (17 sets, daily range): BP systolic 83–152; BP diastolic 42–98; PULSE 77–104; RESP 14–22; TEMP 36.3–39.7; O2SAT 94–100; BMI 26.6
--- NOTE | 2024-12-13 11:04 | CT_ITS ---
PROCEDURE: ABDOMEN/PELVIS WITHOUT CONT REASON FOR EXAM: Left flank pain. Recent surgery. TECHNIQUE: Abdomen and pelvis CT without intravenous contrast. COMPARISON: Comparison is made with prior study dated November 01, 2024. FINDINGS: Lung bases: Minimal degree of linear bibasilar atelectasis. Coronary artery calcification. Liver: Unremarkable. Gallbladder: Surgically absent. Spleen: Unremarkable. Pancreas: Unremarkable. Adrenals: Unremarkable. Kidneys: Moderate degree of left hydronephrosis due to a 7.5 mm calculus in the proximal portion of the left ureter. Moderate degree of right hydronephrosis and right hydroureter down to the right ureterovesical junction. No obstructive calculus is seen. There is evidence of phleboliths. Stable bilateral renal cysts. Bladder: Bladder wall thickening with increased markings in the surrounding peritoneal fat. This may represent cystitis. Small amount of air is seen along the anterior aspect of the urinary bladder most likely secondary to prior Cardozo catheter manipulation. Reproductive Organs: Prior hysterectomy. Adnexal regions are unremarkable. Bowel: Colonic diverticulosis without diverticulitis. Small hiatal hernia. Appendix: Prior appendectomy. Lymph nodes: No suspicious lymph node enlargement. Vasculature: Mild diffuse atherosclerotic calcifications are noted. Peritoneum / Retroperitoneum: No ascites. No free air. Bones: Degenerative changes of the spine. CT/Abdomen/Pelvis without Cont IMPRESSION: Left hydronephrosis due to a 7.5 mm calculus in the proximal portion left urete r. Moderate degree of right hydronephrosis and right hydroureter down to the right ureterovesical junction without evidence of calculus. Stable bilateral renal cysts. Diffuse bladder wall thickening with increased markings in the surrounding fat suggestive of possible cystitis. Sigmoid diverticulosis. One or more dose reduction techniques were used (e.g., Automated exposure contr ol, adjustment of the mA and/or kV according to patient size, use of iterative reconstruction technique). Reading Location: [place] [id number]
--- NOTE | 2024-12-13 11:05 | EX.ED.DYSGE1 ---
HPI History of Present Illness Chief Complaint: Abd Pain Informant: patient and EMS Narrative Narrative: 84-year-old female presenting to the emergency room with abdominal pain and nausea. Patient called EMS when she developed pain and nausea this morning. She had already been up for couple hours when it started. No bowel movement this morning. She notes chronic urinary incontinence but no dysuria. She denies fever. She notes a history of kidney stones. She denies history diverticulitis. She notes chronic kidney disease and does not wish dialysis. The patient was recently admitted to the hospital due to a right knee fracture. She states she has home health care coming to see her but she otherwise lives alone. [facility] Medical History Infection due to ESBL-producing Escherichia coli Closed transverse fracture of left patella Inability to ambulate due to knee Patellar fracture Current use of insulin Post-menopausal Ulcer Injury of head and neck Wears hearing aid in both ears Diabetes Chronic pain Kidney disease Hypertension Osteoarthritis of right knee Right knee pain CKD (chronic kidney disease) stage 3, GFR 30-59 ml/min MVP (mitral valve prolapse) PSVT (paroxysmal supraventricular tachycardia) Pure hypercholesterolemia Nonrheumatic mitral (valve) prolapse Essential hypertension Palpitations Diastolic dysfunction Premature atrial contractions Premature ventricular contractions Mitral valve prolapse Hyperparathyroidism Osteoporosis Hyperthyroidism HTN (hypertension) DM type 2 (diabetes mellitus, type 2) Home Medications ?Medication ?Instructions ?Recorded ?Last Taken ?Type fluoxetine 20 mg tablet 60 mg PO DAILY depression 05/02/22 11/28/24 History pantoprazole 40 mg tablet,delayed 40 mg PO DAILY acid reflux 05/02/22 11/28/24 History release pravastatin 80 mg tablet 80 mg PO QHS cholesterol #90 tabs 06/27/23 Unknown Rx acetaminophen 500 mg tablet 1,000 mg (2 x 500 mg) PO Q6H PRN 12/05/24 Unknown Rx PRN Pain Score 1-3 #0 tabs acetaminophen 500 mg tablet 1,000 mg (2 x 500 mg) PO QHS #0 12/05/24 Unknown Rx tabs aspirin 81 mg chewable tablet 81 mg PO BID 12 days #0 tabs 12/05/24 Unknown Rx insulin glargine-yfgn 100 unit/mL 16 unit (0.16 mL) subcut BID #0 mL 12/05/24 Unknown Rx (3 mL) subcutaneous pen sucralfate 1 gram tablet 1 g PO BIDAC 18 days #36 tabs 12/05/24 Unknown Rx famotidine 40 mg tablet 40 mg PO DAILY 12/13/24 Unknown History insulin degludec 200 unit/mL (3 16 unit subcut BID 12/13/24 Unknown History mL) subcutaneous pen (Tresiba FlexTouch U-200 insulin) nitrofurantoin macrocrystal 100 mg 100 mg PO Q12H 12/13/24 Unknown History capsule oxybutynin chloride 10 mg 10 mg PO DAILY 12/13/24 Unknown History tablet,extended release 24 hr valsartan 320 1 tab PO QHS 12/13/24 Unknown History mg-hydrochlorothiazide 12.5 mg tablet Allergy/AdvReac Type Severity Reaction Status Date / Time morphine Allergy Rash Verified 12/13/24 10:27 Penicillins Allergy Rash Verified 12/13/24 10:27 propoxyphene Allergy Nausea Verified 12/13/24 10:27 codeine AdvReac Nausea Verified 12/13/24 10:27 lisinopril AdvReac Vomiting Verified 12/13/24 10:27 quinine AdvReac Vomiting Verified 12/13/24 10:27 Family History Brother Heart disease Myocardial infarction Diabetes Father No problems noted. Mother CVA (cerebral vascular accident) Brother Myocardial infarction Diabetes Surgical History History of open reduction and internal fixation (ORIF) procedure S/P hysterectomy History of parathyroidectomy History of subtotal thyroidectomy History of carpal tunnel surgery History of total hysterectomy History of appendectomy History of cholecystectomy Social History household members: none housing: house Smoking Status: Never smoker alcohol intake: never substance use type: does not use caffeine: No what type of physical activity do you participate in: none ROS ROS ED Constitutional Constitutional ED: Denies chills, fever(s) or weight loss Eyes Eyes: Denies change in vision or diplopia ENT ENT ED: Denies ear pain, rhinorrhea or sore throat Cardiovascular Cardiovascular: Denies chest pain, orthopnea, palpitations or racing heartbeat Respiratory/Chest Respiratory/Chest: Denies cough, dyspnea or orthopnea Gastrointestinal Gastrointestinal: Reports abdominal pain and nausea; Denies diarrhea or vomiting Genitourinary Genitourinary ED: Denies dysuria, hematuria or urinary frequency Musculoskeletal Musculoskeletal: Denies arthralgias or myalgias Integumentary Denies abscess or rash Neurologic Neurologic: Denies headache(s) or weakness Psychiatric Psychiatric: Denies anxiety, depression, suicidal ideation or suicidal thoughts Endocrine Endocrinology: Denies polydipsia, polyphagia or polyuria Allergic/Immunologic Allergic/Immunologic ED: Denies mouth swelling, tongue swelling or urticaria EXAM Physical Exam Const Vital Signs: 12/13/24 10:27 12/13/24 10:33 12/13/24 11:33 Temperature 98.7 F 98.7 F 98 F Temperature Source Oral Oral Oral Pulse Rate 88 90 87 Respiratory Rate 18 14 15 Blood Pressure 152/80 H 152/80 H 150/98 H Blood Pressure Mean 104 104 115 Pulse Ox 97 97 97 Oxygen Delivery Method Room Air Room Air Room Air 12/13/24 12:26 12/13/24 14:00 Temperature 98.8 F Temperature Source Pulse Rate 87 90 Respiratory Rate 15 16 Blood Pressure 133/66 H 130/62 H Blood Pressure Mean 88 84 Pulse Ox 97 97 Oxygen Delivery Method Room Air Positive well nourished and well developed General Appearance ED: well developed HEENT Reports normocephalic, head/scalp atraumatic and moist mucous membranes Eyes PERRL and EOMs intact bilaterally Neck no lymphadenopathy, supple and no JVD Resp normal respiratory effort and clear to auscultation bilaterally Cardio regular rate, regular rhythm and no murmurs GI GI Narrative: Mild tenderness to palpation in the left lower quadrant without involuntary guarding or rebound. Palpation: soft Back/Spine no CVA tenderness and normal ROM Extremity normal to inspection General Extremety ED: Negative for edema General Extremity: Negative for edema Neuro oriented x3 and CN's II-XII intact bilaterally Sensorium / Orientation: alert Motor Exam: strength 5/5 throughout Psych mental status grossly normal Mood & Affect: depressed and tearful Skin no rashes or lesions noted and no wounds MDM MDM MDM Narrative Medical decision making narrative: Differential diagnosis includes but not limited to kidney stone UTI/pyelonephritis diverticulitis colitis volvulus constipation White count is 9.6 hemoglobin 13.1 platelet count of 389. Creatinine today is 1.82. 10 days ago she was at 0.99. Urinalysis greater than 100 white cells greater than 100 red cells 4+ bacteria negative nitrates. CT abdomen pelvis was obtained. This was read by radiology reviewed by myself. Appears to be left greater than right bilateral hydronephroureter. The kidney stone the radiology is reading is possibly outside of the ureter. I reviewed the CT with on-call urology Dr. Dewitt. At this point we are planning on admitting her for the acute kidney injury. I will give meropenem based on allergies and the history most recently of an ESBL E. coli culture. Patient and family were updated. History & Record Review Discussion w/independent historian: EMS personnel and Patient Lab Data Attestation: I reviewed the patient's lab results. Labs: Laboratory Results - last 24 hr 12/13/24 12/13/24 12/13/24 10:50 12:40 13:51 WBC 9.6 RBC 4.69 Hgb 13.1 Hct 40.8 MCV 87.0 MCH 27.9 MCHC 32.1 RDW Std Deviation 47.4 H RDW Coeff of Jose Eduardo 14.8 H Plt Count 389 MPV 9.5 Immature Gran % (Auto) 0.600 Neut % (Auto) 77.9 H Lymph % (Auto) 9.9 L [place] % (Auto) 11.0 H Eos % (Auto) 0.3 Baso % (Auto) 0.3 Absolute Neuts (auto) 7.5 Absolute Lymphs (auto) 0.95 Nucleated RBC % 0 Sodium 135 L Potassium 3.3 L Chloride 100 Carbon Dioxide 25.0 Anion Gap 10 BUN 37 H Creatinine 1.82 H Estim Creat Clear Calc 22.94 Est GFR (MDRD) Af Amer 34 L Est GFR (MDRD) Non-Af 28 L BUN/Creatinine Ratio 20.3 H Glucose 301 H Calcium 9.9 Urine Color Gina Urine Clarity Turbid Urine pH 6.0 Ur Specific [place] 1.015 Urine Protein 500 H Urine Glucose (UA) 100 H Urine Ketones 5 H Urine Occult Blood 250 H Urine Nitrite Negative Urine Bilirubin Negative Urine Urobilinogen Normal Ur Leukocyte Esterase 500 H Urine RBC > 100 SEEN Urine WBC >100 SEEN Ur Squamous Epith Cells 0 SEEN Urine Bacteria 4+ Urine Mucus 0 SEEN POC Glucose 220 H Radiography Diagnostic Testing: Clinical Impression(s) from Imaging Studies Abdomen/Pelvis CT 12/13/24 11:04 IMPRESSION: Left hydronephrosis due to a 7.5 mm calculus in the proximal portion left ureter. Moderate degree of right hydronephrosis and right hydroureter down to the right ureterovesical junction without evidence of calculus. Stable bilateral renal cysts. Diffuse bladder wall thickening with increased markings in the surrounding fat suggestive of possible cystitis. Sigmoid diverticulosis. One or more dose reduction techniques were used (e.g., Automated exposure control, adjustment of the mA and/or kV according to patient size, use of iterative reconstruction technique). Reading Location: [facility] Management Discussion w/another healthcare provider: Hospitalist (Dr Fox) and Franchise Specialist (Dr Dewitt) Discharge Plan Dx/Rx/DC Orders Clinical Impression: Complicated urinary tract infection, Bilateral hydronephrosis, Abdominal pain, Nausea, ANSHUL (acute kidney injury) Disposition Disposition: Acute Care Hospital [facility]
[2024-12-13 11:12] LABS: Absolute Lymphocyte Count 0.95 X10^3/uL (0.83-4.51); Absolute Neutrophil Count 7.5 X10^3/uL (2.0-7.7); Basophil# 0.03 X10^3/uL; Basophil% 0.3 % (0-1); Eosinophil# 0.03 X10^3/uL; Eosinophils% 0.3 % (0-5); Hematocrit 40.8 % (37-47); Hemoglobin 13.1 g/dL (12.0-15.0); Lymphocyte # 0.95 X10^3/ul (0.83-4.51); Lymphocyte % 9.9 % (19-41); Mean Corp Hgb Conc 32.1 g/dL (32-36); Mean Corpuscular Hgb 27.9 pg (27.0-32.0); Mean Platelet Vol. 9.5 fl (6.2-12.0); Monocyte# 1.06 X10^3/uL; NRBC Flagged by Analyzer 0 % (0-5); Neutrophil # 7.51 X10^3/uL (2.7-7.7); Neutrophil % 77.9 % (47-70); Platelet Count 389 K/mm3 (150-450); RBC Distribution Width CV 14.8 % (11.6-14.6); RBC Distribution Width SD 47.4 fl (35.1-43.9); Red Blood Count 4.69 M/mm3 (4.2-5.4); White Blood Count 9.6 K/mm3 (4.4-11.0)
[2024-12-13 11:24] LABS: Anion Gap 10 (5-15); BUN 37 mg/dL (7-18); BUN/Creat Ratio 20.3 RATIO (10-20); Calcium,Total 9.9 mg/dL (8.5-10.1); Chloride 100 mmol/L (98-107); Creatinine, Serum 1.82 mg/dL (0.55-1.02); EST Glomerular Filtration Rate 28 mL/min (>60); Est Glom Filt Rate - Afr Amer 34 mL/min (>60); Estimated Creatinine Clearance 22.94 ml/min; Glucose 301 mg/dL (74-106); Potassium 3.3 mmol/L (3.5-5.1); Sodium Level 135 mmol/L (136-145)
[2024-12-13] MEDS: Ondansetron 4 MG/2 ML Vial IV ×2 (11:46→13:49)
[2024-12-13] MEDS: HYDROmorphone 0.5 MG/0.5 ML SYRINGE IV (11:48)
[2024-12-13 12:49] LABS: Mucous, Urine 0 SEEN /hpf (<or=2+); Squamous Epithelial Cells - UA 0 SEEN /hpf (5-10)
[2024-12-13 12:56] LABS: Color, Urine Amber (Yellow); Glucose, Dipstick 100 mg/dl (Normal); Ketone-Dipstick 5 mg/dl (Negative); Leukocyte Esterase-Dipstick 500 /ul (Negative); Nitrite-Dipstick Negative (Negative); Occult Blood-Urine 250 /ul (Negative); Protein-Dipstick 500 mg/dl (Negative); Specific Gravity, Urine 1.015 (1.002-1.030); Urine Bilirubin Dipstick Negative (Negative); Urine Clarity Turbid (Clear); Urine Urobilinogen Normal (Normal)
[2024-12-13 13:17] LABS: Bacteria 4+ /hpf (None Seen); Red Blood Cells-Urine > 100 SEEN /hpf (0-5); White Blood Cells >100 SEEN /hpf (0-5)
--- NOTE | 2024-12-13 14:10 | PCM.CONS.U ---
Assessment & Plan Assessment/Plan (1) Chronic kidney disease, stage 3a: (2) Hydronephrosis concurrent with and due to calculi of kidney and ureter: PLAN: vivianeke to [facility] today for bilateal stents in the or possible stone per ct scsn report HPI Consult Data Date of Consult: 12/13/24 HPI Narrative Reason for Consultation: left fkank pain HPI Narrative: JUVENAL RAVI, is a 84 F who presents w uti possible stone and bilateral hydronrphrisis, admit for uti plan to take yo surgery tiday for fir cysti bilateral stent placement today PFSH Medical History Infection due to ESBL-producing Escherichia coli Closed transverse fracture of left patella Inability to ambulate due to knee Patellar fracture Current use of insulin Post-menopausal Ulcer Injury of head and neck Wears hearing aid in both ears Diabetes Chronic pain Kidney disease Hypertension Osteoarthritis of right knee Right knee pain CKD (chronic kidney disease) stage 3, GFR 30-59 ml/min MVP (mitral valve prolapse) PSVT (paroxysmal supraventricular tachycardia) Pure hypercholesterolemia Nonrheumatic mitral (valve) prolapse Essential hypertension Palpitations Diastolic dysfunction Premature atrial contractions Premature ventricular contractions Mitral valve prolapse Hyperparathyroidism Osteoporosis Hyperthyroidism HTN (hypertension) DM type 2 (diabetes mellitus, type 2) Home Medications ?Medication ?Instructions ?Recorded ?Last Taken ?Type fluoxetine 20 mg tablet 60 mg PO DAILY depression 05/02/22 11/28/24 History pantoprazole 40 mg tablet,delayed 40 mg PO DAILY acid reflux 05/02/22 11/28/24 History release pravastatin 80 mg tablet 80 mg PO QHS cholesterol #90 tabs 06/27/23 Unknown Rx acetaminophen 500 mg tablet 1,000 mg (2 x 500 mg) PO Q6H PRN 12/05/24 Unknown Rx PRN Pain Score 1-3 #0 tabs acetaminophen 500 mg tablet 1,000 mg (2 x 500 mg) PO QHS #0 12/05/24 Unknown Rx tabs aspirin 81 mg chewable tablet 81 mg PO BID 12 days #0 tabs 12/05/24 Unknown Rx insulin glargine-yfgn 100 unit/mL 16 unit (0.16 mL) subcut BID #0 mL 12/05/24 Unknown Rx (3 mL) subcutaneous pen sucralfate 1 gram tablet 1 g PO BIDAC 18 days #36 tabs 12/05/24 Unknown Rx Allergy/AdvReac Type Severity Reaction Status Date / Time morphine Allergy Rash Verified 12/13/24 10:27 Penicillins Allergy Rash Verified 12/13/24 10:27 propoxyphene Allergy Nausea Verified 12/13/24 10:27 codeine AdvReac Nausea Verified 12/13/24 10:27 lisinopril AdvReac Vomiting Verified 12/13/24 10:27 quinine AdvReac Vomiting Verified 12/13/24 10:27 Family History Brother Heart disease Myocardial infarction Diabetes Father No problems noted. Mother CVA (cerebral vascular accident) Brother Myocardial infarction Diabetes Surgical History History of open reduction and internal fixation (ORIF) procedure S/P hysterectomy History of parathyroidectomy History of subtotal thyroidectomy History of carpal tunnel surgery History of total hysterectomy History of appendectomy History of cholecystectomy Social History household members: none housing: house Smoking Status: Never smoker alcohol intake: never substance use type: does not use caffeine: No what type of physical activity do you participate in: none Physical Exam Const alert and oriented x3 General Appearance: cooperative HEENT normocephalic, head/scalp atraumatic, EAC's normal and TM's normal bilaterally Eyes PERRL and EOMs intact bilaterally Pupil: sluggish Neck no lymphadenopathy, supple and no JVD General: trachea midline Lymph Lymphatic: no lymphadenopathy noted, lymphedema and lymphadenopathy Resp normal respiratory effort, normal air movement and clear to auscultation bilaterally Cardio regular rate, regular rhythm and peripheral pulses 2+ throughout GI soft to palpation, non-tender and non-distended Extremity normal capillary refill and no clubbing, cyanosis or edema General Extremity: no tenderness to palpation of joints or extremities Skin no rashes or lesions noted General Skin Exam: turgor normal Lesions: no lesions Rashes: no rashes Neuro CN's II-XII intact bilaterally Speech: speech normal Motor Exam: strength 5/5 throughout; Negative for general weakness Psych thought process normal, cooperative and affect normal Appearance: appropriate Lab / Micro Data 12/13/24 10:50 12/13/24 10:50 Labs: Laboratory Results - last 24 hr 12/13/24 10:50: WBC 9.6, RBC 4.69, Hgb 13.1, Hct 40.8, MCV 87.0, MCH 27.9, MCHC 32.1, RDW Std Deviation 47.4 H, RDW Coeff of Jose Eduardo 14.8 H, Plt Count 389, MPV 9.5, Immature Gran % (Auto) 0.600, Neut % (Auto) 77.9 H, Lymph % (Auto) 9.9 L, [place] % (Auto) 11.0 H, Eos % (Auto) 0.3, Baso % (Auto) 0.3, Absolute Neuts (auto) 7.5, Absolute Lymphs (auto) 0.95, Nucleated RBC % 0, Sodium 135 L, Potassium 3.3 L, Chloride 100, Carbon Dioxide 25.0, Anion Gap 10, BUN 37 H, Creatinine 1.82 H, Estim Creat Clear Calc 22.94, Est GFR (MDRD) Af Amer 34 L, Est GFR (MDRD) Non-Af 28 L, BUN/Creatinine Ratio 20.3 H, Glucose 301 H, Calcium 9.9 12/13/24 12:40: Urine Color Gina, Urine Clarity Turbid, Urine pH 6.0, Ur Specific [place] 1.015, Urine Protein 500 H, Urine Glucose (UA) 100 H, Urine Ketones 5 H, Urine Occult Blood 250 H, Urine Nitrite Negative, Urine Bilirubin Negative, Urine Urobilinogen Normal, Ur Leukocyte Esterase 500 H, Urine RBC > 100 SEEN, Urine WBC >100 SEEN, Ur Squamous Epith Cells 0 SEEN, Urine Bacteria 4+, Urine Mucus 0 SEEN Imaging Radiology Impression Abdomen/Pelvis CT 12/13/24 11:04 IMPRESSION: Left hydronephrosis due to a 7.5 mm calculus in the proximal portion left ureter. Moderate degree of right hydronephrosis and right hydroureter down to the right ureterovesical junction without evidence of calculus. Stable bilateral renal cysts. Diffuse bladder wall thickening with increased markings in the surrounding fat suggestive of possible cystitis. Sigmoid diverticulosis. One or more dose reduction techniques were used (e.g., Automated exposure control, adjustment of the mA and/or kV according to patient size, use of iterative reconstruction technique). Reading Location: [facility]
[2024-12-13 14:11] LABS: Bedside Glucose 220 mg/dL (74-106)
[2024-12-13] MEDS: Meropenem 1 GM in 0.9% Normal Saline (100mL MB+) 100 ML IV (14:13)
--- NOTE | 2024-12-13 14:34 | PCM.HP.STD ---
HPI - General General Date of Admission: 12/13/24 Date of Service: 12/13/24 Chief Complaint: Nausea and flank pain HPI Narrative JUVENAL RAVI, is a 84y/o F hx of GERD, depression, diabetes presented [facility] ED 12/13/2024 with abdominal pain and nausea. She called EMS but she developed pain and nausea this morning. Has some chronic urinary incontinence but no dysuria no fever. Does note history of kidney stones however. Of note pt was recently admitted to the hospital d/t right knee fracture. Pt does have HH but otherwise lives alone. In the ED pt vitally stable w/ slightly low K of 3.3, Na 135 and creatinine 1.82 up from baseline around 1.1, 10 days ago of note is at 0.99. Patient had UA suggestive of UTI and CT abdomen/pelvis demonstrated left hydronephrosis due to a 7.5 mm calculus in the proximal portion of left ureter with a moderate degree of right hydronephrosis and right hydroureter down to the right ureterovesicular junction without evidence of calculus. Additionally patient with diffuse bladder wall thickening suggesting cystitis. Urology contacted who plans to take patient for intervention however recommended hospitalist admission with urology consult. Hospitalist contacted for admission. Patient being about to be actively taken out of the room to go down for cystoscopy, surgical staff in the room, did confirm patient's history as above [facility] Medical History Infection due to ESBL-producing Escherichia coli Closed transverse fracture of left patella Inability to ambulate due to knee Patellar fracture Current use of insulin Post-menopausal Ulcer Injury of head and neck Wears hearing aid in both ears Diabetes Chronic pain Kidney disease Hypertension Osteoarthritis of right knee Right knee pain CKD (chronic kidney disease) stage 3, GFR 30-59 ml/min MVP (mitral valve prolapse) PSVT (paroxysmal supraventricular tachycardia) Pure hypercholesterolemia Nonrheumatic mitral (valve) prolapse Essential hypertension Palpitations Diastolic dysfunction Premature atrial contractions Premature ventricular contractions Mitral valve prolapse Hyperparathyroidism Osteoporosis Hyperthyroidism HTN (hypertension) DM type 2 (diabetes mellitus, type 2) Home Medications ?Medication ?Instructions ?Recorded ?Last Taken ?Type fluoxetine 20 mg tablet 60 mg PO DAILY depression 05/02/22 11/28/24 History pantoprazole 40 mg tablet,delayed 40 mg PO DAILY acid reflux 05/02/22 11/28/24 History release pravastatin 80 mg tablet 80 mg PO QHS cholesterol #90 tabs 06/27/23 Unknown Rx acetaminophen 500 mg tablet 1,000 mg (2 x 500 mg) PO Q6H PRN 12/05/24 Unknown Rx PRN Pain Score 1-3 #0 tabs acetaminophen 500 mg tablet 1,000 mg (2 x 500 mg) PO QHS #0 12/05/24 Unknown Rx tabs aspirin 81 mg chewable tablet 81 mg PO BID 12 days #0 tabs 12/05/24 Unknown Rx insulin glargine-yfgn 100 unit/mL 16 unit (0.16 mL) subcut BID #0 mL 12/05/24 Unknown Rx (3 mL) subcutaneous pen sucralfate 1 gram tablet 1 g PO BIDAC 18 days #36 tabs 12/05/24 Unknown Rx famotidine 40 mg tablet 40 mg PO DAILY 12/13/24 Unknown History insulin degludec 200 unit/mL (3 16 unit subcut BID 12/13/24 Unknown History mL) subcutaneous pen (Tresiba FlexTouch U-200 insulin) nitrofurantoin macrocrystal 100 mg 100 mg PO Q12H 12/13/24 Unknown History capsule oxybutynin chloride 10 mg 10 mg PO DAILY 12/13/24 Unknown History tablet,extended release 24 hr valsartan 320 1 tab PO QHS 12/13/24 Unknown History mg-hydrochlorothiazide 12.5 mg tablet Allergy/AdvReac Type Severity Reaction Status Date / Time morphine Allergy Rash Verified 12/13/24 10:27 Penicillins Allergy Rash Verified 12/13/24 10:27 propoxyphene Allergy Nausea Verified 12/13/24 10:27 codeine AdvReac Nausea Verified 12/13/24 10:27 lisinopril AdvReac Vomiting Verified 12/13/24 10:27 quinine AdvReac Vomiting Verified 12/13/24 10:27 Family History Brother Heart disease Myocardial infarction Diabetes Father No problems noted. Mother CVA (cerebral vascular accident) Brother Myocardial infarction Diabetes Surgical History History of open reduction and internal fixation (ORIF) procedure S/P hysterectomy History of parathyroidectomy History of subtotal thyroidectomy History of carpal tunnel surgery History of total hysterectomy History of appendectomy History of cholecystectomy Social History household members: none housing: house Smoking Status: Never smoker alcohol intake: never substance use type: does not use caffeine: No what type of physical activity do you participate in: none ROS ROS Narrative Unable to obtain full ROS as patient going presently for cystoscopy Vital Signs Vital Signs Vital Signs: 12/13/24 10:27 12/13/24 10:33 12/13/24 11:33 Temperature 98.7 F 98.7 F 98 F Temperature Source Oral Oral Oral Pulse Rate 88 90 87 Respiratory Rate 18 14 15 Blood Pressure 152/80 H 152/80 H 150/98 H Blood Pressure Mean 104 104 115 Pulse Ox 97 97 97 Oxygen Delivery Method Room Air Room Air Room Air 12/13/24 12:26 12/13/24 14:00 Temperature 98.8 F Temperature Source Pulse Rate 87 90 Respiratory Rate 15 16 Blood Pressure 133/66 H 130/62 H Blood Pressure Mean 88 84 Pulse Ox 97 97 Oxygen Delivery Method Room Air Weight Weight: 70.4 kg Body Mass Index (BMI) 26.6 Physical Exam Narrative 84y/o F hx of GERD, depression, diabetes presented [facility] ED 12/13/2024 with abdominal pain and nausea. She called EMS but she developed pain and nausea this morning. Has some chronic urinary incontinence but no dysuria no fever. Does note history of kidney stones however. Of note pt was recently admitted to the hospital d/t right knee fracture. Pt does have HH but otherwise lives alone. In the ED pt vitally stable w/ slightly low K of 3.3, Na 135 and creatinine 1.82 up from baseline around 1.1, 10 days ago of note is at 0.99. Patient had UA suggestive of UTI and CT abdomen/pelvis demonstrated left hydronephrosis due to a 7.5 mm calculus in the proximal portion of left ureter with a moderate degree of right hydronephrosis and right hydroureter down to the right ureterovesicular junction without evidence of calculus. Additionally patient with diffuse bladder wall thickening suggesting cystitis. Urology contacted who plans to take patient for intervention however recommended hospitalist admission with urology consult. Hospitalist contacted for admission. Results Lab / Micro Data 12/13/24 10:50 12/13/24 10:50 Labs: Laboratory Results - last 24 hr 12/13/24 10:50: WBC 9.6, RBC 4.69, Hgb 13.1, Hct 40.8, MCV 87.0, MCH 27.9, MCHC 32.1, RDW Std Deviation 47.4 H, RDW Coeff of Jose Eduardo 14.8 H, Plt Count 389, MPV 9.5, Immature Gran % (Auto) 0.600, Neut % (Auto) 77.9 H, Lymph % (Auto) 9.9 L, [place] % (Auto) 11.0 H, Eos % (Auto) 0.3, Baso % (Auto) 0.3, Absolute Neuts (auto) 7.5, Absolute Lymphs (auto) 0.95, Nucleated RBC % 0, Sodium 135 L, Potassium 3.3 L, Chloride 100, Carbon Dioxide 25.0, Anion Gap 10, BUN 37 H, Creatinine 1.82 H, Estim Creat Clear Calc 22.94, Est GFR (MDRD) Af Amer 34 L, Est GFR (MDRD) Non-Af 28 L, BUN/Creatinine Ratio 20.3 H, Glucose 301 H, Calcium 9.9 12/13/24 12:40: Urine Color Gina, Urine Clarity Turbid, Urine pH 6.0, Ur Specific [place] 1.015, Urine Protein 500 H, Urine Glucose (UA) 100 H, Urine Ketones 5 H, Urine Occult Blood 250 H, Urine Nitrite Negative, Urine Bilirubin Negative, Urine Urobilinogen Normal, Ur Leukocyte Esterase 500 H, Urine RBC > 100 SEEN, Urine WBC >100 SEEN, Ur Squamous Epith Cells 0 SEEN, Urine Bacteria 4+, Urine Mucus 0 SEEN 12/13/24 13:51: POC Glucose 220 H Imaging Radiology Impression Abdomen/Pelvis CT 12/13/24 11:04 IMPRESSION: Left hydronephrosis due to a 7.5 mm calculus in the proximal portion left ureter. Moderate degree of right hydronephrosis and right hydroureter down to the right ureterovesical junction without evidence of calculus. Stable bilateral renal cysts. Diffuse bladder wall thickening with increased markings in the surrounding fat suggestive of possible cystitis. Sigmoid diverticulosis. One or more dose reduction techniques were used (e.g., Automated exposure control, adjustment of the mA and/or kV according to patient size, use of iterative reconstruction technique). Reading Location: [facility] Assessment & Plan Assessment/Plan (1) Complicated urinary tract infection: (2) ANSHUL (acute kidney injury): (3) Bilateral hydronephrosis: PLAN: Plan # ANSHUL suspected secondary to left-sided hydronephrosis secondary to calculus -CT abdomen/pelvis demonstrated left hydronephrosis due to a 7.5 mm calculus in the proximal portion of left ureter with a moderate degree of right hydronephrosis and right hydroureter down to the right ureterovesicular junction without evidence of calculus -Urology c/s-patient presently going to cystoscopy -IVF -Pain control -Supportive care -Suspect kindey fxn will improve w/ intervention, if not may need nephrology consult or further workup -Monitor intake and output -Also hold valsartan/hydrochlorothiazide #Suspected UTI -Pt w/ UA suggestive of UTI and CT changes concerning for cystitis -Empiric abx -Patient has history of ESBL E. coli so placed on Merrem and consult ID given her history of ESBL E. coli UTIs -Will await urine culture #Hypokalemia -Replace -Repeat in the AM #Type 2 diabetes mellitus -Glucose checks and sliding scale insulin -Will somewhat decrease patient's home insulin given nausea and poor p.o. intake, can uptitrate as tolerated hold entirely if patient unable to tolerate diet after intervention #GERD -Continue famotidine and PPI #Depression/anxiety -Continue home medications # Recent right knee fracture -PT/OT -Case management consult #DVT ppx: SCDs Sakshi Fox MD Time spent in the patient's overall evaluation, decision-making process, review of diagnostic data, adjustment of management, discussion with other providers, nursing and ancillary staff involved in patient's care documentation, 56 Minutes Charges/Coding Visit Charges Inpatient E&M: 21611 Init Hosp L2
--- NOTE | 2024-12-13 14:47 | PRE.ANES_ITS ---
ASA Classification* ASA Classification ASA Classification: 3 Assessment & Plan Anesthesia* Anesthesia Assessment Anesthesia Assessment: Discussed sedation and/or anesthesia options, risks, benefits, and alternatives with patient/parents/legal guardian/POA. Questions invited. The patient/parents/legal guardian/POA seems to understand and agrees to proceed with anesthesia plan. Reviewed the physical assessment, medical history, allergy history and patient home medications list prior to surgery/procedure/anesthetic and documented any changes. Performed airway and anesthesia risk assessments. Anesthesia Type Anesthesia Type: General (RSI with cricoid pressure; pt ate solid food at 9am today) History Source History Obtained from:: Patient and Chart Anesthesia Focused Assessment* Temperature: 98.8 F Pulse Rate: 90 Blood Pressure: 130/62 Respiratory Rate: 16 Pulse Ox: 97 Oxygen Delivery Method: Room Air Airway Assessment Mouth opens: >3 cm Mallampati Score: II Teeth Condition: Dentures Neck Range of motion (ROM): Limited ROM Focused Labs Anesthesia Preop lab: CBC WBC 9.6 K/mm3 (4.4-11.0) 12/13/24 10:50 12/13/24 RBC 4.69 M/mm3 (4.2-5.4) 12/13/24 10:50 12/13/24 Hgb 13.1 g/dL (12.0-15.0) 12/13/24 10:50 12/13/24 Hct 40.8 % (37-47) 12/13/24 10:50 12/13/24 Plt Count 389 K/mm3 (150-450) 12/13/24 10:50 12/13/24 CHEMISTRY Potassium 3.3 mmol/L (3.5-5.1) L 12/13/24 10:50 12/13/24 Sodium 135 mmol/L (136-145) L 12/13/24 10:50 12/13/24 Magnesium 1.9 mg/dL (1.6-2.6) 11/25/24 05:22 11/25/24 Phosphorus 2.7 mg/dL (2.5-4.9) 11/25/24 05:22 11/25/24 BUN 37 mg/dL (7-18) H 12/13/24 10:50 12/13/24 Creatinine 1.82 mg/dL (0.55-1.02) H 12/13/24 10:50 Glucose 301 mg/dL (74-106) H 12/13/24 10:50 12/13/24 POC Glucose 220 mg/dL (74-106) H 12/13/24 13:51 12/13/24 TSH 0.389 uIU/mL (0.358-3.740) 09/05/24 10:19 08/23 02/13 COAG PT 17.4 SECONDS (11.7-14.9) H 09/20/17 17:38 08/24 07/09 Pre-Assessment Diagnosis/Proposed Procedure Planned Operative Procedure(s): cysto/stent Anesthesia History Anesthesia History - volunteer services supervisor: Anesthesia History - volunteer services supervisor Hx Hospitalization Yes 09/20/17 11:35 Any Problems With Anesthesia Yes: nausea 11/23/24 21:14 Cholinesterase deficiency No 11/23/24 21:14 You/Your Family Experience No 11/23/24 21:14 fever (hyperthermia) with Relationship Recent Exposure to Contagious No 11/29/24 15:02 Disease Does patient have nerve No 11/23/24 21:14 stimulator Patient instructed to have device shut off --Does patient have Pacemaker or ICD? When Was Last Pacemaker Check QUESTION #4 FULL TEXT: You/Your Family Experience fever (hyperthermia) with Anesthesia Last Oral Intake Last Oral intake: Last Oral Intake NPO since Meds taken in AM with sips of water? Meds patient instructed to take am of surgery PONV PONV - volunteer services supervisor: PONV - volunteer services supervisor Female HX of Motion Sickness HX of N/V After Surgery Non-Smoker Duration of Surgery greater than 60 minutes Number of Risk Factors PONV Score Height & Weight Height & Weight: Anesthesia: Height & Weight Height 5 ft 4 in 12/13/24 10:27 Weight: 70.4 kg 12/13/24 10:27 Body Mass Index (BMI) 26.6 12/13/24 10:27 Respiratory Assessment Respiratory Assessment - volunteer services supervisor: Respiratory Tract Infection Hx - volunteer services supervisor Hx Respiratory Tract Infection No 11/23/24 21:14 STOP Sleep Apnea STOP Sleep Apnea - volunteer services supervisor: STOP Sleep Apnea - volunteer services supervisor Hx Hypertension Yes 11/26/24 10:54 Hx Sleep Apnea No 11/29/24 17:13 CPAP No 11/29/24 17:02 BIPAP No 09/20/17 14:46 Do you snore loudly (louder than talking or can be heard Do you often feel tired/ fatigued/ sleepy during daytime? Has anyone observed you stop breathing during sleep? STOP Results QUESTION #5 FULL TEXT : Do you snore loudly (louder than talking or can be heard through closed doors)? Tobacco Use History Tobacco Use History - volunteer services supervisor: Tobacco Use History - volunteer services supervisor Tobacco Use Smoking Status Never smoker 12/13/24 10:33 Hx Tobacco Use No 11/25/24 19:14 Years Smoking Packs Smoked per Day Smoking Cessation Date was within the last 15 years Hx Smoking Cessation Date Hx Smoking Cessation Counseling Hematologic Medial History Hematologic Hx - volunteer services supervisor: Hematologic Medical Hx - tube puller Hx of Blood Transfusion Hx of Transfusion in last 3 Months Date of Last Transfusion (if within last 3 months) Ever experience any problems with transfusion(s)? Specify any problems Hx of Preganancy in last 3 Months Nurse Filling Out Transfusion & Questions: Date: Time: Patient unable to answer at this time (ie. confused, unrespo /Reproduction History /Reproductive History - volunteer services supervisor: /Reproductive Hx- volunteer services supervisor Hx Now Gestational Age (in weeks): EDC: Hx Hx Para Hx Section SAB No 11/23/24 21:14 PFSH Medical History Infection due to ESBL-producing Escherichia coli Closed transverse fracture of left patella Inability to ambulate due to knee Patellar fracture Current use of insulin Post-menopausal Ulcer Injury of head and neck Wears hearing aid in both ears Diabetes Chronic pain Kidney disease Hypertension Osteoarthritis of right knee Right knee pain CKD (chronic kidney disease) stage 3, GFR 30-59 ml/min MVP (mitral valve prolapse) PSVT (paroxysmal supraventricular tachycardia) Pure hypercholesterolemia Nonrheumatic mitral (valve) prolapse Essential hypertension Palpitations Diastolic dysfunction Premature atrial contractions Premature ventricular contractions Mitral valve prolapse Hyperparathyroidism Osteoporosis Hyperthyroidism HTN (hypertension) DM type 2 (diabetes mellitus, type 2) Home Medications ?Medication ?Instructions ?Recorded ?Last Taken ?Type fluoxetine 20 mg tablet 60 mg PO DAILY depression 11/28/24 History pantoprazole 40 mg tablet,delayed 40 mg PO DAILY acid reflux 05/02/22 11/28/24 History release pravastatin 80 mg tablet 80 mg PO QHS cholesterol #90 tabs 06/27/23 Unknown Rx acetaminophen 500 mg tablet 1,000 mg (2 x 500 mg) PO Q 6H PRN 12/05/24 Unknown Rx PRN Pain Score 1-3 #0 tabs acetaminophen 500 mg tablet 1,000 mg (2 x 500 mg) PO Q HS #0 12/05/24 Unknown Rx tabs aspirin 81 mg chewable tablet 81 mg PO BID 12 days #0 tabs 12/05/24 Unknown Rx insulin glargine-yfgn 100 unit/mL 16 unit (0.16 mL) vera bcut BID #0 mL 12/05/24 Unknown Rx (3 mL) subcutaneous pen sucralfate 1 gram tablet 1 g PO BIDAC 18 days #36 tab s 12/05/24 Unknown Rx famotidine 40 mg tablet 40 mg PO DAILY 12/13/24 Unkn own History insulin degludec 200 unit/mL (3 16 unit subcut BID Unknown History mL) subcutaneous pen (Tresiba FlexTouch U-200 insulin) nitrofurantoin macrocrystal 100 mg 100 mg PO Q12H 11/24 11/16 Unknown History capsule oxybutynin chloride 10 mg 10 mg PO DAILY 12/13/24 Unkn own History tablet,extended release 24 hr valsartan 320 1 tab PO QHS 12/13/24 Unknow n History mg-hydrochlorothiazide 12.5 mg tablet Allergy/AdvReac Type Severity Reaction Status Date / Time morphine Allergy Rash Verified 12/13/24 10:27 Penicillins Allergy Rash Verified 12/13/24 10:27 propoxyphene Allergy Nausea Verified 12/13/24 10:27 codeine AdvReac Nausea Verified 12/13/24 10:27 lisinopril AdvReac Vomiting Verified 12/13/24 10:27 quinine AdvReac Vomiting Verified 12/13/24 10:27 Family History Brother Heart disease Myocardial infarction Diabetes Father No problems noted. Mother CVA (cerebral vascular accident) Brother Myocardial infarction Diabetes Surgical History History of open reduction and internal fixation (ORIF) procedure S/P hysterectomy History of parathyroidectomy History of subtotal thyroidectomy History of carpal tunnel surgery History of total hysterectomy History of appendectomy History of cholecystectomy Social History household members: none housing: house Smoking Status: Never smoker alcohol intake: never substance use type: does not use caffeine: No what type of physical activity do you participate in: none Review of Systems (Anesthesia) ROS Narrative System reviewed and no additional complaints, except as documented.
--- NOTE | 2024-12-13 15:23 | OP.PCM_ITS ---
Operative Report (Standard) Operative Information Date of Procedure: 12/13/24 Pre-Operative Diagnosis: bilateral hydronephrosis and kidney stones Post-Operative Diagnosis: same Surgery/Procedure Performed: Cystoscopy, bilateral retrograde pyelograms and bilateral stent placement church musician: No Type of Anesthesia: General RN Documented Start/Stop Times: Operation Date: 12/13/24 14:45 Case Time Into Pre-Op 12/13/24 14:44 Out of Pre-Op 12/13/24 14:50 Procedure Start Time: 15:00 Procedure Stop Time: 15:25 Select all DRAINS/GRAFTS/IMPLANTS that apply: Drains Drain details: 6 Moroccan by 26 cm stent bilaterally Estimated Blood Loss: None Specimen collected: No Description of surgery: Indications an 84-year-old female she recently had knee surgery presented to the hospital with left flank pain CAT scan was done demonstrated left hydronephrosis possible stone along the course of the ureter per the CAT scan report I looked at the CAT scan myself not sure if she really has a stone but she does have significant hydronephrosis on the left side. She also has hydronephrosis in the right side the urine also was frankly infected so today organ to proceed with cystoscopy and bilateral stent placement to temporize the situation sure that this infection cleared and treated and then later on when she is stable we will set her up for laser lithotripsy, patient was taken back to the operating room After induction of anesthesia she was placed in dorsolithotomy position took extreme care and positioning her left leg in stirrups since she does had patellar repair and knee surgery done. After this the urethrovaginal area prepped and draped in usual sterile fashion went into the bladder with a 21 Moroccan rigid cystourethroscope upon entering the bladder she had a lot of derek purulent urine within the bladder and took quite some time to find the left ureter ureteral orifice I then put a wire up on the left side that a retrograde Polygram and then placed a stent on the left side, and then with all of purulent debris in bladder and also because of her leg it was quite difficult to find the right ureteral orifice but after some time we found the right ureteral orifice then cannulated the right ureter over the wire and placed a stent on the right side once the stent was replaced bilaterally patient's bladder was drained she is taken back to PACU in good condition should be admitted for antibiotics to treat his infection and should follow-up with urology as an outpatient thanks Surgical Findings: Purulent urine coming from both the left and right kidney purulent urine within the bladder itself Complications Complications: No Admit VTE Documentation VTE Present on Admission: No VTE Mechan Device Prophylaxis: SCD's VTE Pharm Prophylaxis ordered?: No
--- NOTE | 2024-12-13 15:43 | PCM.POST.ANE ---
Anesthesia: Postop Eval I Current Vital Signs Temperature: 100 F Pulse Rate: 86 Blood Pressure: 111/47 Respiratory Rate: 14 Pulse Ox: 99 Oxygen Delivery Method: Room Air Assessment Airway patent: Yes Spontaneous unlabored respirations: Yes Mental status: Awake and Calm nausea: No Vomiting: No Anesthesia Complication: No Fluid Hydration Crystalloid volume administer (ml): 100 Total IV fluid infused: 100 Progress Note Anesthesia document: Postop Eval 1 completed: Yes
--- NOTE | 2024-12-13 16:07 | PCM.POSTANE2 ---
Anesthesia Postop Eval I Sum Postop Eval Completion status Anesthesia document: Postop Eval 1 completed: Yes Anesthesia Postop Eval I Summary Anesthesia Postop Eval I Summary: Anesthesia Postop Eval I: Assessment Summary Airway patent Yes 12/13/24 15:45 Spontaneous unlabored Yes 12/13/24 15:45 respirations Mental status Awake,Calm 12/13/24 15:45 nausea No 12/13/24 15:45 Vomiting No 12/13/24 15:45 Anesthesia Postop Eval I: Fluid Summary Crystalloid volume administer 100 12/13/24 15:45 (ml) Colloids volume administered ( ml) Blood Product volume administered (ml) Total IV fluid infused 100 12/13/24 15:45 Anesthesia Postop Eval I: Summary Notes Anesthesia Complication No 12/13/24 15:45 Anesthesia Complication Comment: Post-operative progress note Anesthesia: Postop Eval II Evaluation Mental status: Awake Pain Level: 1 nausea: No Vomiting: No
[2024-12-13] MEDS: 0.9% Normal Saline (1000mL) 1,000 ML 75 ML IV (16:12)
[2024-12-13] MEDS: Acetaminophen 325 MG Tablet 650 MG PO (16:38)
[2024-12-13 16:43] LABS: Bedside Glucose 187 mg/dL (74-106)
--- NOTE | 2024-12-13 17:33 | CM.ED ---
Social Work SW received call from [facility] Luisana, who stated patient had been receiving services in the home and that patient had made suicidal comments. Luisana also stated that there some concern that patient was not able to care for herself at home and that over the last few days patient had not been eating well. SW met with patients sons who stated that their mother has made those types of comments frequently over the last couple years, and they feel that she says it to get one of them to come visit her. SW met with patient and completed a C-SSRS, patient denied suicidal ideations, plans or intent. Patient did state that she did not care if she but had no intention of hurting herself. SW also spoke with patient and sons about concerns over patients ability to be home alone, sons stated they were supporting any decision their mother made. Patient stated she had been thinking about SNF placement so she could get the extra assistance she needs at times and to help with loneliness. SW briefly discussed payment options for SNF including the ability to try for a precert to cover a short stay should it be necessary. SW explained to patient that she could discuss further options with acute floor SW. No further needs identified at this time. Brittany Juan, ORTHO/PROSTHETIC AIDE, DATA PROCESSING SYSTEMS CONSULTANT
[2024-12-13] MEDS: Potassium Chloride Oral Tablet 20 MEQ 40 MEQ PO (18:29)
[2024-12-13] MEDS: Sucralfate 1 GM Tablet PO (18:30)
[2024-12-13] MEDS: Insulin Lispro 100 UNIT/ML INSULN.PEN SC ×2 (18:36→20:53)
[2024-12-13 18:57] LABS: Bedside Glucose 184 mg/dL (74-106)
--- NOTE | 2024-12-13 20:00 | PCM.HOSP.N ---
Hospitalist Note BP with SBP 86, post-op, will given small 500 cc NS bolus x 1 now.
[2024-12-13] MEDS: Aspirin 81 MG TAB.CHEW PO (20:43)
[2024-12-13] MEDS: Senna/Docusate Sodium 1 Tablet 2 TABLET PO (20:43)
[2024-12-13] MEDS: Pravastatin 80 MG Tablet PO (20:43)
[2024-12-13] MEDS: 0.9% Normal Saline (250mL Bag) 250 ML 999 ML IV (20:46)
[2024-12-13] MEDS: Insulin Glargine-YFGN 100 UNIT/ML Pen 10 UNIT SC (20:51)
[2024-12-13 21:58] LABS: Bedside Glucose 209 mg/dL (74-106)
[2024-12-13] MEDS: Meropenem 500 MG in 0.9% Normal Saline (50mL MB+) 50 ML 100 MG IV (22:40)
[2024-12-14 01:06] VITALS: BP 98/51; PULSE 74; RESP 20; TEMP 36.7; O2SAT 97
[2024-12-14 01:08] VITALS: BMI 26.6
[2024-12-14 05:53] VITALS: BP 113/57; PULSE 84; RESP 18; TEMP 36.9; O2SAT 96
[2024-12-14 05:59] VITALS: BMI 26.6
[2024-12-14] MEDS: Sucralfate 1 GM Tablet PO ×2 (06:08→16:34)
[2024-12-14 07:20] LABS: Absolute Lymphocyte Count 1.23 X10^3/uL (0.83-4.51); Absolute Neutrophil Count 9.5 X10^3/uL (2.0-7.7); Basophil# 0.02 X10^3/uL; Basophil% 0.2 % (0-1); Eosinophil# 0.03 X10^3/uL; Eosinophils% 0.2 % (0-5); Hematocrit 32.3 % (37-47); Hemoglobin 10.1 g/dL (12.0-15.0); Lymphocyte # 1.23 X10^3/ul (0.83-4.51); Lymphocyte % 9.8 % (19-41); Mean Corp Hgb Conc 31.3 g/dL (32-36); Mean Corpuscular Hgb 27.4 pg (27.0-32.0); Mean Corpuscular Volume 87.8 fL (81-99); Mean Platelet Vol. 9.5 fl (6.2-12.0); Monocyte# 1.71 X10^3/uL; Monocyte% 13.6 % (0-10); NRBC Flagged by Analyzer 0 % (0-5); Neutrophil # 9.53 X10^3/uL (2.7-7.7); Neutrophil % 75.6 % (47-70); POSITIVE DIFFERENTIAL YES; Platelet Count 279 K/mm3 (150-450); RBC Distribution Width SD 48.6 fl (35.1-43.9); Red Blood Count 3.68 M/mm3 (4.2-5.4); White Blood Count 12.6 K/mm3 (4.4-11.0)
[2024-12-14 07:25] LABS: Bedside Glucose 80 mg/dL (74-106)
[2024-12-14 07:30] LABS: Differential Indicated SCAN CRITERIA MET
[2024-12-14] MEDS: Insulin Glargine-YFGN 100 UNIT/ML Pen 10 UNIT SC ×2 (07:55→22:58)
[2024-12-14] MEDS: Senna/Docusate Sodium 1 Tablet 2 TABLET PO ×2 (07:55→22:59)
[2024-12-14] MEDS: Famotidine 20 MG Tablet PO (07:56)
[2024-12-14] MEDS: Tolterodine Tartrate 2 MG CAP.SA PO (07:56)
[2024-12-14] MEDS: Aspirin 81 MG TAB.CHEW PO ×2 (07:56→22:58)
[2024-12-14] MEDS: FLUoxetine 20 MG Capsule 60 MG PO (07:56)
[2024-12-14] MEDS: Pantoprazole Sodium 40 MG Tablet PO (07:56)
[2024-12-14 08:20] LABS: ALB/GLOB Ratio 0.4 RATIO (0.9-2.4); AST(SGOT) 25 U/L (15-37); Alanine Aminotransfer ALT/SGPT 24 U/L (13-56); Albumin, Serum 1.7 g/dL (3.2-5.0); Alkaline Phosphatase 96 U/L (45-117); Anion Gap 6 (5-15); BUN 34 mg/dL (7-18); Calcium,Total 8.6 mg/dL (8.5-10.1); Chloride 109 mmol/L (98-107); EST Glomerular Filtration Rate 31 mL/min (>60); Est Glom Filt Rate - Afr Amer 37 mL/min (>60); Estimated Creatinine Clearance 24.56 ml/min; Globulin 4.4 g/dL (2.2-4.2); Glucose 133 mg/dL (74-106); Potassium 3.8 mmol/L (3.5-5.1); Protein, Total 6.1 g/dL (6.4-8.2); Sodium Level 137 mmol/L (136-145)
[2024-12-14 09:05] LABS: Platelet Estimate A (ADEQ)
[2024-12-14 09:46] VITALS: BMI 26.6
[2024-12-14] MEDS: Meropenem 500 MG in 0.9% Normal Saline (50mL MB+) 50 ML 100 MG IV ×2 (09:53→22:48)
[2024-12-14 11:04] LABS: Bedside Glucose 137 mg/dL (74-106)
[2024-12-14 13:46] VITALS: BMI 26.6
--- NOTE | 2024-12-14 14:10 | PCM.PROGNOTE ---
Subjective Subjective Patient seen and examined. She complaiend of diarrhea. She denied any fever, chills, dizziness, lightheadedness, palpitations, nausea or vomiting. Review of systems is otherwise negative. Objective Data Objective Data Vital Signs: Vital Signs Temp Pulse Resp BP Pulse Ox O2 Del Method 98.4 F 84 18 113/57 L 96 Room Air 12/14/24 05:53 12/14/24 05:53 12/14/24 05:53 12/14/24 05:53 12/14/24 05:53 12/14/24 05:53 Oxygen Delivery Method Room Air Weight: 155 lb 3.287 oz Body Mass Index (BMI) 26.6 Intake & Output: Intake and Output for Last 24 Hours 12/12/24 12/13/24 12/14/24 23:59 23:59 23:59 Intake Total 430 / 430 1060 / 1060 Output Total 150 / 150 Balance 430 / 430 910 / 910 Lab / Micro Data 12/14/24 06:55 12/14/24 06:55 Labs: Laboratory Results - last 24 hr 12/13/24 13:51: POC Glucose 220 H 12/13/24 16:24: POC Glucose 187 H 12/13/24 18:29: POC Glucose 184 H 12/13/24 20:50: POC Glucose 209 H 12/14/24 06:06: POC Glucose 80 12/14/24 06:55: WBC 12.6 H, RBC 3.68 L, Hgb 10.1 L, Hct 32.3 L, MCV 87.8, MCH 27.4, MCHC 31.3 L, RDW Std Deviation 48.6 H, RDW Coeff of Jose Eduardo 15.0 H, Plt Count 279, MPV 9.5, Immature Gran % (Auto) 0.600, Neut % (Auto) 75.6 H, Lymph % (Auto) 9.8 L, [place] % (Auto) 13.6 H, Eos % (Auto) 0.2, Baso % (Auto) 0.2, Absolute Neuts (auto) 9.5 H, Absolute Lymphs (auto) 1.23, Nucleated RBC % 0, Platelet Estimate A, Sodium 137, Potassium 3.8, Chloride 109 H, Carbon Dioxide 22.0, Anion Gap 6, BUN 34 H, Creatinine 1.70 H, Estim Creat Clear Calc 24.56, Est GFR (MDRD) Af Amer 37 L, Est GFR (MDRD) Non-Af 31 L, BUN/Creatinine Ratio 20.0, Glucose 133 H, Calcium 8.6, Total Bilirubin 0.90, AST 25, ALT 24, Alkaline Phosphatase 96, Total Protein 6.1 L, Albumin 1.7 L, Globulin 4.4 H, Albumin/Globulin Ratio 0.4 L 12/14/24 10:43: POC Glucose 137 H Micro: Microbiology 12/13/24 12:40 Urine Catheter - Catheter Urine Culture - Preliminary Gram negative daniel Physical Exam Const alert, oriented x3, no apparent distress and well nourished General Appearance: cooperative and well developed HEENT normocephalic, head/scalp atraumatic, moist oral mucous membranes and oropharynx normal Eyes PERRL and EOMs intact bilaterally Neck no lymphadenopathy and supple Lymph Lymphatic: no lymphadenopathy noted Resp normal respiratory effort, normal air movement and clear to auscultation bilaterally Cardio regular rate, regular rhythm, S1 normal heart sound, S2 normal heart sound and no murmurs GI normal to inspection, nondistended, normoactive bowel sounds, soft to palpation, non-tender and non-distended Extremity normal capillary refill, no clubbing, cyanosis or edema and no calf tenderness General Extremity: no tenderness to palpation of joints or extremities Neuro CN's II-XII intact bilaterally, no focal motor deficits and no sensory deficits noted Motor Exam: strength 5/5 throughout Psych thought process normal and cooperative Appearance: appropriate Assessment & Plan Assessment/Plan (1) ANSHUL (acute kidney injury): (2) Nausea: (3) Abdominal pain: PLAN: Plan #ANSHUL due to left sided hydronephrosis due to obstructive kidney stone she was admitted with a complaint of abdominal pain and nausea. as well as urinary incontinence There was no fever or dysuria. CT abdomen and pelvis showed left hydronephrosis due to 7.5mm calculus in the proximal portion of the left ureter with a moderate degree of right hydronephrosis and right hydroureter. urology consulted; patient s/p cystoscopy which showed bilateral hydronephrosis and kidney stones with stent placement. on PO tylenol, PO oxycodone and IV morphine prn for pain wbc today is 12.6 #Suspected UTI urinalysis showed evidence of UTI on IV meropenem. ID consulted due to history of ESBL E coli will await urine culture #ANSHUL: Cr is 1.7.; Baseline Cr is 0.99. WIll hydrate with IVF and trend. Cr. Likely post renal due to the hydronephrosis #HYpokalemia: will replace and trend #TYpe 2 diabetes mellitus on ISS. Lantus 10 units BID. Accuchecks ACHS #GERD: on famotidine and PPI #Depression and anxiety: on #Right knee fracture: PT/OT On board. fall precautions. DVT prophylaxis: SCD Charges/Coding Visit Charges Inpatient E&M: 36104 Subs Hosp L2
[2024-12-14 14:38] VITALS: BP 104/39; PULSE 84; RESP 16; TEMP 36.8; O2SAT 98
--- NOTE | 2024-12-14 15:38 | CASEMGMT ---
Social Work SW met with pt and introduced self and role of SW. SW spoke with pt regarding time at home since last admission and discharge plan moving forward. SW reviewed pt's therapy notes with pt and that she was only able to ambulate 20 ft and needed assist with ADLS. SW spoke with pt regarding going to a SNF short term for rehab prior to returning home. A list of SNF providers including quality and resource use data and consistent with the patient?s preferred geographic region, medical needs, and insurance network were provided from the [facility]. Pt states she will reveiw list, think about options and speak to her sons. SW to follow up on Monday with pt for decision on discharge plan. Pt is current with [facility] PT/OT/SN. Pt expressing that she does get lonely at home. SW spoke with pt regarding private duty aids at home or transitioning to assisted living. Pt states that she has resources on private duty aids and is not interested in assisted living at this time. SW to follow up for dc planning on Monday. MENG Ramirez
[2024-12-14 16:14] LABS: Bedside Glucose 178 mg/dL (74-106)
[2024-12-14] MEDS: Insulin Lispro 100 UNIT/ML INSULN.PEN SC ×2 (16:33→22:58)
[2024-12-14 17:46] VITALS: BMI 26.6
--- NOTE | 2024-12-14 18:03 | NURSING ---
Pt making statements regarding will to live. No suicidal ideation. CIRO Chaudhry spoke to pt. Pt assessed in ED 12/13 for similar statements and cleared by crisis.
[2024-12-14] MEDS: Acetaminophen 325 MG Tablet 650 MG PO (19:59)
[2024-12-14] MEDS: oxyCODONE 5 MG Tablet 2.5 MG PO (20:00)
[2024-12-14 22:55] VITALS: BP 107/71; PULSE 81; RESP 18; TEMP 36.6; O2SAT 95
[2024-12-14] MEDS: Pravastatin 80 MG Tablet PO (23:02)
[2024-12-14 23:31] LABS: Bedside Glucose 183 mg/dL (74-106)
[2024-12-15 03:40] VITALS: BP 114/53; PULSE 81; RESP 16; TEMP 36.7; O2SAT 98
[2024-12-15] MEDS: Sucralfate 1 GM Tablet PO ×2 (06:20→15:12)
[2024-12-15] MEDS: Acetaminophen 325 MG Tablet 650 MG PO ×2 (06:20→21:02)
[2024-12-15] MEDS: oxyCODONE 5 MG Tablet 2.5 MG PO (06:21)
[2024-12-15 06:49] LABS: Bedside Glucose 129 mg/dL (74-106)
[2024-12-15 07:18] LABS: Absolute Lymphocyte Count 1.33 X10^3/uL (0.83-4.51); Basophil# 0.03 X10^3/uL; Basophil% 0.3 % (0-1); Eosinophil# 0.05 X10^3/uL; Eosinophils% 0.4 % (0-5); Hematocrit 32.4 % (37-47); Hemoglobin 10.2 g/dL (12.0-15.0); Lymphocyte # 1.33 X10^3/ul (0.83-4.51); Lymphocyte % 11.4 % (19-41); Mean Corp Hgb Conc 31.5 g/dL (32-36); Mean Corpuscular Hgb 27.1 pg (27.0-32.0); Mean Corpuscular Volume 86.2 fL (81-99); Mean Platelet Vol. 9.3 fl (6.2-12.0); Monocyte# 1.18 X10^3/uL; Monocyte% 10.1 % (0-10); NRBC Flagged by Analyzer 0 % (0-5); Neutrophil # 8.97 X10^3/uL (2.7-7.7); Neutrophil % 76.9 % (47-70); Platelet Count 275 K/mm3 (150-450); RBC Distribution Width SD 47.5 fl (35.1-43.9); Red Blood Count 3.76 M/mm3 (4.2-5.4); White Blood Count 11.7 K/mm3 (4.4-11.0)
[2024-12-15 07:40] LABS: Anion Gap 8 (5-15); BUN 31 mg/dL (7-18); Chloride 108 mmol/L (98-107); Creatinine, Serum 1.24 mg/dL (0.55-1.02); EST Glomerular Filtration Rate 44 mL/min (>60); Est Glom Filt Rate - Afr Amer 53 mL/min (>60); Estimated Creatinine Clearance 33.67 ml/min; Glucose 129 mg/dL (74-106); Sodium Level 138 mmol/L (136-145)
[2024-12-15 09:27] VITALS: BP 97/60; PULSE 74; RESP 16; TEMP 36.7; O2SAT 97
[2024-12-15] MEDS: Insulin Glargine-YFGN 100 UNIT/ML Pen 10 UNIT SC ×2 (09:29→21:02)
[2024-12-15] MEDS: Tolterodine Tartrate 2 MG CAP.SA PO (09:30)
[2024-12-15] MEDS: Aspirin 81 MG TAB.CHEW PO ×2 (09:30→20:56)
[2024-12-15] MEDS: Pantoprazole Sodium 40 MG Tablet PO (09:31)
[2024-12-15] MEDS: Senna/Docusate Sodium 1 Tablet 2 TABLET PO (09:31)
[2024-12-15] MEDS: FLUoxetine 20 MG Capsule 60 MG PO (09:31)
[2024-12-15] MEDS: Famotidine 20 MG Tablet PO (09:31)
[2024-12-15] MEDS: 0.9% Saline Lock 10 ML Syringe IV (09:47)
[2024-12-15] MEDS: Meropenem 500 MG in 0.9% Normal Saline (50mL MB+) 50 ML 100 MG IV ×2 (09:47→21:02)
[2024-12-15 11:20] LABS: Bedside Glucose 193 mg/dL (74-106)
--- NOTE | 2024-12-15 12:03 | PN_ITS ---
Subjective Subjective Patient seen and examined. She felt better today and had no complaints. She had an uneventful night. Review of systems is otherwise negative. Urine cultures growing gram negative rods; speciation is pending. Objective Data Objective Data Vital Signs: Vital Signs Temp Pulse Resp BP Pulse Ox O2 Del Method 98.1 F 74 16 97/60 97 Room Air 12/15/24 09:27 12/15/24 09:27 12/15/24 09:27 12/15/24 09:27 12/15/24 09:27 12/15/24 09:27 Oxygen Delivery Method Room Air Weight: 155 lb 3.287 oz Body Mass Index (BMI) 26.6 Intake & Output: Intake and Output for Last 24 Hours 12/13/24 12/14/24 12/15/24 23:59 23:59 23:59 Intake Total 430 / 430 1560 / 1560 860 / 860 Output Total 150 / 550 400 / 400 Balance 430 / 430 1410 / 1010 460 / 460 Lab / Micro Data 12/15/24 07:05 12/15/24 07:05 Labs: Laboratory Results - last 24 hr 12/14/24 15:41: POC Glucose 178 H 12/14/24 22:57: POC Glucose 183 H 12/15/24 06:23: POC Glucose 129 H 12/15/24 07:05: WBC 11.7 H, RBC 3.76 L, Hgb 10.2 L, Hct 32.4 L, MCV 86.2, MCH 27.1, MCHC 31.5 L, RDW Std Deviation 47.5 H, RDW Coeff of Jose Eduardo 15.0 H, Plt Count 275, MPV 9.3, Immature Gran % (Auto) 0.900, Neut % (Auto) 76.9 H, Lymph % (Auto) 11.4 L, [place] % (Auto) 10.1 H, Eos % (Auto) 0.4, Baso % (Auto) 0.3, Absolute Neuts (auto) 9.0 H, Absolute Lymphs (auto) 1.33, Nucleated RBC % 0, Sodium 138, Potassium 4.0, Chloride 108 H, Carbon Dioxide 22.0, Anion Gap 8, BUN 31 H, C reatinine 1.24 H, Estim Creat Clear Calc 33.67, Est GFR (MDRD) Af Amer 53 L, Est GFR (MDRD) Non-Af 44 L, BUN/Creatinine Ratio 25.0 H, Glucose 129 H, Calcium 9.0 12/15/24 10:58: POC Glucose 193 H Micro: Microbiology 12/13/24 12:40 Urine Catheter - Catheter Urine Culture - Preliminary Gram negative daniel Physical Exam Const alert, oriented x3, no apparent distress and well nourished General Appearance: cooperative and well developed HEENT normocephalic, head/scalp atraumatic, moist oral mucous membranes and oropharynx normal Eyes PERRL and EOMs intact bilaterally Neck no lymphadenopathy and supple Lymph Lymphatic: no lymphadenopathy noted Resp normal respiratory effort, normal air movement and clear to auscultation bilaterally Cardio regular rate, regular rhythm, S1 normal heart sound, S2 normal heart sound and no murmurs GI normal to inspection, nondistended, normoactive bowel sounds, soft to palpation, non-tender and non-distended Extremity normal capillary refill, no clubbing, cyanosis or edema and no calf tenderness General Extremity: no tenderness to palpation of joints or extremities Neuro CN's II-XII intact bilaterally, no focal motor deficits and no sensory deficits noted Motor Exam: strength 5/5 throughout Psych thought process normal and cooperative Appearance: appropriate Assessment & Plan Assessment/Plan (1) ANSHUL (acute kidney injury): (2) Nausea: (3) Abdominal pain: PLAN: Plan #ANSHUL due to left sided hydronephrosis due to obstructive kidney stone * she was admitted with a complaint of abdominal pain and nausea. as well as urinary incontinence * There was no fever or dysuria. * CT abdomen and pelvis showed left hydronephrosis due to 7.5mm calculus in the proximal portion of the left ureter with a moderate degree of right hydronephrosis and right hydroureter. * urology consulted; patient s/p cystoscopy which showed bilateral hydronephrosis and kidney stones with bilateral stent placement. * on PO tylenol, PO oxycodone and IV morphine prn for pain * wbc today is down to 11.7. * on IV meropenem * #Suspected UTI * urinalysis showed evidence of UTI * on IV meropenem. ID consulted due to history of ESBL E coli * urine culture growing gram negative rods, speciation pending. URine culture from 12/09/2024 growing ESBL E coli. * #ANSHUL: * Creatinine is down to 1.24 from 1.7 yesterday. Should improve now that she has the bilateral stents in place. #HYpokalemia: will replace and trend #TYpe 2 diabetes mellitus * on ISS. Lantus 10 units BID. * Accuchecks ACHS * #GERD: on famotidine and PPI #Depression and anxiety: on #Right knee fracture: PT/OT On board. fall precautions. DVT prophylaxis: SCD Disposition: patient now interested in going to rehab. Case management on board to help facilitate placement. Charges/Coding Visit Charges Inpatient E&M: 63434 Subs Hosp L2
[2024-12-15] MEDS: Insulin Lispro 100 UNIT/ML INSULN.PEN SC ×3 (12:19→20:56)
[2024-12-15 14:00] VITALS: BP 107/56; PULSE 76; RESP 16; TEMP 36.7; O2SAT 99
--- NOTE | 2024-12-15 15:45 | PCA ---
family brought in patients Living Will and HCPOA papers, copies made and placed in pt chart
[2024-12-15 16:44] LABS: Bedside Glucose 215 mg/dL (74-106)
[2024-12-15 20:35] VITALS: BP 106/50; PULSE 88; RESP 16; TEMP 37.1; O2SAT 99
[2024-12-15] MEDS: Pravastatin 80 MG Tablet PO (20:56)
[2024-12-15 22:49] LABS: Bedside Glucose 207 mg/dL (74-106)
[2024-12-16 02:47] VITALS: BP 111/57; PULSE 72; RESP 14; TEMP 36.7; O2SAT 97
[2024-12-16] MEDS: Sucralfate 1 GM Tablet PO ×2 (06:28→16:37)
[2024-12-16 06:55] LABS: Bedside Glucose 136 mg/dL (74-106)
[2024-12-16 08:01] LABS: Absolute Lymphocyte Count 1.05 X10^3/uL (0.83-4.51); Basophil# 0.02 X10^3/uL; Basophil% 0.2 % (0-1); Eosinophil# 0.09 X10^3/uL; Hematocrit 33.5 % (37-47); Hemoglobin 10.6 g/dL (12.0-15.0); Lymphocyte # 1.05 X10^3/ul (0.83-4.51); Lymphocyte % 11.6 % (19-41); Mean Corp Hgb Conc 31.6 g/dL (32-36); Mean Corpuscular Hgb 27.9 pg (27.0-32.0); Mean Corpuscular Volume 88.2 fL (81-99); Monocyte# 0.78 X10^3/uL; Monocyte% 8.6 % (0-10); NRBC Flagged by Analyzer 0 % (0-5); Neutrophil # 7.03 X10^3/uL (2.7-7.7); Neutrophil % 77.7 % (47-70); Platelet Count 309 K/mm3 (150-450); RBC Distribution Width CV 14.9 % (11.6-14.6); White Blood Count 9.1 K/mm3 (4.4-11.0)
[2024-12-16 08:27] LABS: Anion Gap 9 (5-15); BUN 34 mg/dL (7-18); BUN/Creat Ratio 28.1 RATIO (10-20); Calcium,Total 9.2 mg/dL (8.5-10.1); Chloride 107 mmol/L (98-107); Creatinine, Serum 1.21 mg/dL (0.55-1.02); EST Glomerular Filtration Rate 45 mL/min (>60); Est Glom Filt Rate - Afr Amer 55 mL/min (>60); Estimated Creatinine Clearance 34.51 ml/min; Glucose 137 mg/dL (74-106); Potassium 4.2 mmol/L (3.5-5.1); Sodium Level 140 mmol/L (136-145)
[2024-12-16 08:45] VITALS: BP 107/53; PULSE 78; RESP 16; TEMP 36.7; O2SAT 98
[2024-12-16] MEDS: Meropenem 500 MG in 0.9% Normal Saline (50mL MB+) 50 ML 100 MG IV ×2 (10:11→21:48)
[2024-12-16] MEDS: Insulin Glargine-YFGN 100 UNIT/ML Pen 10 UNIT SC ×2 (10:16→21:55)
[2024-12-16] MEDS: Aspirin 81 MG TAB.CHEW PO ×2 (10:17→21:50)
[2024-12-16] MEDS: Pantoprazole Sodium 40 MG Tablet PO (10:17)
[2024-12-16] MEDS: FLUoxetine 20 MG Capsule 60 MG PO (10:17)
[2024-12-16] MEDS: Tolterodine Tartrate 2 MG CAP.SA PO (10:17)
[2024-12-16] MEDS: Famotidine 20 MG Tablet PO (10:17)
--- NOTE | 2024-12-16 10:56 | PCM.CONS.GEN ---
Assessment & Plan Assessment/Plan (1) ANSHUL (acute kidney injury): (2) Bilateral hydronephrosis: (3) Sepsis: PLAN: ESBL ecoli pyelo with bilat hydro and ANSHUL requiring bilat stent placement 12/13/[address] Dewitt. On meropenem, feeling better, fever resolved, ANSHUL improved. Will follow, thank you HPI Consult Data Date of Consult: 12/16/24 HPI Narrative Reason for Consultation: esbl infection HPI Narrative: JUVENAL RAVI, is a 84 F with recent L patellar fracture, presented 12/13 with acute onset abd pain, nausea. Denies dysuria. Had fever and chills. Came to ED, urology consulted, taken to OR 12/[address] Dewitt for cysto with bilat stent placement. Feeling better this AM. Full ROS performed and neg except as noted above. [facility] Medical History Infection due to ESBL-producing Escherichia coli Closed transverse fracture of left patella Inability to ambulate due to knee Patellar fracture Current use of insulin Post-menopausal Ulcer Injury of head and neck Wears hearing aid in both ears Diabetes Chronic pain Kidney disease Hypertension Osteoarthritis of right knee Right knee pain CKD (chronic kidney disease) stage 3, GFR 30-59 ml/min MVP (mitral valve prolapse) PSVT (paroxysmal supraventricular tachycardia) Pure hypercholesterolemia Nonrheumatic mitral (valve) prolapse Essential hypertension Palpitations Diastolic dysfunction Premature atrial contractions Premature ventricular contractions Mitral valve prolapse Hyperparathyroidism Osteoporosis Hyperthyroidism HTN (hypertension) DM type 2 (diabetes mellitus, type 2) Home Medications ?Medication ?Instructions ?Recorded ?Last Taken ?Type fluoxetine 20 mg tablet 60 mg PO DAILY depression 05/02/22 11/28/24 History pantoprazole 40 mg tablet,delayed 40 mg PO DAILY acid reflux 05/02/22 11/28/24 History release pravastatin 80 mg tablet 80 mg PO QHS cholesterol #90 tabs 06/27/23 Unknown Rx acetaminophen 500 mg tablet 1,000 mg (2 x 500 mg) PO Q6H PRN 12/05/24 Unknown Rx PRN Pain Score 1-3 #0 tabs acetaminophen 500 mg tablet 1,000 mg (2 x 500 mg) PO QHS #0 12/05/24 Unknown Rx tabs aspirin 81 mg chewable tablet 81 mg PO BID 12 days #0 tabs 12/05/24 Unknown Rx insulin glargine-yfgn 100 unit/mL 16 unit (0.16 mL) subcut BID #0 mL 12/05/24 Unknown Rx (3 mL) subcutaneous pen sucralfate 1 gram tablet 1 g PO BIDAC 18 days #36 tabs 12/05/24 Unknown Rx famotidine 40 mg tablet 40 mg PO DAILY 12/13/24 Unknown History insulin degludec 200 unit/mL (3 16 unit subcut BID 12/13/24 Unknown History mL) subcutaneous pen (Tresiba FlexTouch U-200 insulin) nitrofurantoin macrocrystal 100 mg 100 mg PO Q12H 12/13/24 Unknown History capsule oxybutynin chloride 10 mg 10 mg PO DAILY 12/13/24 Unknown History tablet,extended release 24 hr valsartan 320 1 tab PO QHS 12/13/24 Unknown History mg-hydrochlorothiazide 12.5 mg tablet Allergy/AdvReac Type Severity Reaction Status Date / Time morphine Allergy Rash Verified 12/13/24 10:27 Penicillins Allergy Rash Verified 12/13/24 10:27 propoxyphene Allergy Nausea Verified 12/13/24 10:27 codeine AdvReac Nausea Verified 12/13/24 10:27 lisinopril AdvReac Vomiting Verified 12/13/24 10:27 quinine AdvReac Vomiting Verified 12/13/24 10:27 Family History Brother Heart disease Myocardial infarction Diabetes Father No problems noted. Mother CVA (cerebral vascular accident) Brother Myocardial infarction Diabetes Surgical History History of open reduction and internal fixation (ORIF) procedure S/P hysterectomy History of parathyroidectomy History of subtotal thyroidectomy History of carpal tunnel surgery History of total hysterectomy History of appendectomy History of cholecystectomy Social History household members: none housing: house Smoking Status: Never smoker alcohol intake: never substance use type: does not use caffeine: No what type of physical activity do you participate in: none Physical Exam Const alert and no apparent distress General Appearance: cooperative HEENT normocephalic and head/scalp atraumatic Eyes PERRL and EOMs intact bilaterally Neck supple and No nodes Resp normal air movement and clear to auscultation bilaterally Cardio regular rate and regular rhythm GI soft to palpation, non-tender and non-distended Extremity General Extremity: Negative for edema Skin no rashes or lesions noted Neuro CN's II-XII intact bilaterally Lab / Micro Data Attestation: I reviewed the patient's lab results. 12/16/24 07:21 12/16/24 07:21 Labs: Laboratory Results - last 24 hr 12/15/24 10:58: POC Glucose 193 H 12/15/24 16:13: POC Glucose 215 H 12/15/24 20:54: POC Glucose 207 H 12/16/24 06:27: POC Glucose 136 H 12/16/24 07:21: WBC 9.1, RBC 3.80 L, Hgb 10.6 L, Hct 33.5 L, MCV 88.2, MCH 27.9, MCHC 31.6 L, RDW Std Deviation 48.0 H, RDW Coeff of Jose Eduardo 14.9 H, Plt Count 309, MPV 10.0, Immature Gran % (Auto) 0.900, Neut % (Auto) 77.7 H, Lymph % (Auto) 11.6 L, [place] % (Auto) 8.6, Eos % (Auto) 1.0, Baso % (Auto) 0.2, Absolute Neuts (auto) 7.0, Absolute Lymphs (auto) 1.05, Nucleated RBC % 0, Sodium 140, Potassium 4.2, Chloride 107, Carbon Dioxide 24.0, Anion Gap 9, BUN 34 H, Creatinine 1.21 H, Estim Creat Clear Calc 34.51, Est GFR (MDRD) Af Amer 55 L, Est GFR (MDRD) Non-Af 45 L, BUN/Creatinine Ratio 28.1 H, Glucose 137 H, Calcium 9.2 Micro: Microbiology 12/13/24 12:40 Urine Catheter - Catheter Urine Culture - Preliminary ESBL Escherichia coli
[2024-12-16] MEDS: Insulin Lispro 100 UNIT/ML INSULN.PEN SC ×3 (11:29→21:56)
[2024-12-16 11:54] LABS: Bedside Glucose 159 mg/dL (74-106)
--- NOTE | 2024-12-16 12:49 | CASEMGMT ---
Social Work- SW met with pt to discuss plans at discharge. Pt reports that she wants [facility]. SW provided education that [facility] is full and unable to accept referrals at this time. Pt does not have second choice. SW reviewed SNF list with pt; pt declines to make choice, reporting that she needs to discuss choices with her son who will visit this afternoon. SW will follow up at that time. MENG Anthony
[2024-12-16 13:49] VITALS: BP 114/49; PULSE 79; RESP 16; TEMP 36.6; O2SAT 97
[2024-12-16] MEDS: Menthol/Lanolin/Calamine/Znox 113 GM Tube 1 APPLIC TOPICAL ×2 (15:27→21:50)
[2024-12-16] MEDS: Nystatin Powder 15gm Bottle 1 APPLIC TOPICAL ×2 (15:28→21:51)
--- NOTE | 2024-12-16 15:50 | CASEMGMT ---
Addendum entered by Tammy Araiza 12/16/24 16:54: Social Work- SW met with pt son and pt to discuss SNF list. Pt son would like to discuss with brother and pt further and will have choices in the morning for SW. SW provided education on various levels of care and support in discussing challenging family dynamics, concerns regarding placement. SW remains available to follow. MENG Anthony Original Note: Social Work- SW followed up with pt regarding facilities of choice. Pt reports that son has not come in at this time and she would just go home. SW questioned pt the distance from door to chair; pt reports 50'. SW shared that pt was only ambulation 25' with therapy. Pt discussed that she does not feel HHC is challenging enough and is concerned about being at home and needing to do all the ADLs, as she does not feel that she can complete all the tasks needed in a day. Pt is uncertain about going to a facility and seeing debilitated people and the impact of that on her mental health. SW discussed [facility] as options. Pt reports that she will discuss with son and will have an answer for SW tomorrow morning. SW remains available to follow. MENG Anthony
[2024-12-16 17:03] LABS: Bedside Glucose 178 mg/dL (74-106)
--- NOTE | 2024-12-16 18:17 | PN.HOSP_ITS ---
Reason for Visit Reason for Visit: Diagnoses Sepsis, unspecified organism (12/13/24) Hydronephrosis with renal and ureteral calculous obstruction (12/13/24) Unspecified hydronephrosis (12/13/24) Acute kidney failure, unspecified (12/13/24) Chronic kidney disease, stage 3a (12/13/24) Urinary tract infection, site not specified (12/13/24) Unspecified abdominal pain (12/13/24) Nausea (12/13/24) Subjective Subjective Sitting up in chair, overall reports feeling well with no acute complaints Objective Data Objective Data Vital Signs: Vital Signs Temp Pulse Resp BP Pulse Ox O2 Del Method 97.8 F 79 16 114/49 L 97 Room Air 12/16/24 13:49 12/16/24 13:49 12/16/24 13:49 12/16/24 13:49 12/16/24 13:49 12/16/24 08:45 Oxygen Delivery Method Room Air Weight: 70.4 kg Body Mass Index (BMI) 26.6 Intake & Output: Intake and Output for Last 24 Hours 12/14/24 12/15/24 12/16/24 23:59 23:59 23:59 Intake Total 1560 / 1560 1200 / 1550 735 / 735 Output Total 150 / 550 400 / 400 Balance 1410 / 1010 800 / 1150 735 / 735 Lab / Micro Data 12/16/24 07:21 12/16/24 07:21 Labs: Laboratory Results - last 24 hr 12/15/24 20:54: POC Glucose 207 H 12/16/24 06:27: POC Glucose 136 H 12/16/24 07:21: WBC 9.1, RBC 3.80 L, Hgb 10.6 L, Hct 33.5 L, MCV 88.2, MCH 27.9, MCHC 31.6 L, RDW Std Deviation 48.0 H, RDW Coeff of Jose Eduardo 14.9 H, Plt Count 309, MPV 10.0, Immature Gran % (Auto) 0.900, Neut % (Auto) 77.7 H, Lymph % (Auto) 11.6 L, Schleicher % (Auto) 8.6, Eos % (Auto) 1.0, Baso % (Auto) 0.2, Absolute Neuts (auto) 7.0, Absolute Lymphs (auto) 1.05, Nucleated RBC % 0, Sodium 140, Potassium 4.2, Chloride 107, Carbon Dioxide 24.0, Anion Gap 9, BUN 34 H, C reatinine 1.21 H, Estim Creat Clear Calc 34.51, Est GFR (MDRD) Af Amer 55 L, Est GFR (MDRD) Non-Af 45 L, BUN/Creatinine Ratio 28.1 H, Glucose 137 H, Calcium 9.2 12/16/24 11:26: POC Glucose 159 H 12/16/24 16:39: POC Glucose 178 H Micro: Microbiology 12/13/24 12:40 Urine Catheter - Catheter Urine Culture - Preliminary ESBL Escherichia coli Physical Exam Narrative General: Alert, oriented, no apparent distress HEENT: Atraumatic, normocephalic Eyes: Anicteric, normal conjunctiva, extraocular movements grossly intact Neck: Supple Respiratory: Clear to auscultation bilaterally, normal respiratory effort Cardiovascular: Regular rate and rhythm GI: Soft, nontender, nondistended Extremities: No edema Musculoskeletal: Moving all extremities Neuro: No overt focal neurological deficits Skin: No rashes appreciated Psych: Cooperative Assessment & Plan Assessment/Plan (1) ANSHUL (acute kidney injury): (2) Nausea: (3) Abdominal pain: PLAN: Plan # ANSHUL due to bilateral hydronephrosis with left-sided obstructive kidney stone -CT abdomen and pelvis showed left hydronephrosis due to 7.5mm calculus in the proximal portion of the left ureter with a moderate degree of right hydronephrosis and right hydroureter. -urology consulted; patient s/p cystoscopy which showed bilateral hydronephrosis and kidney stones with bilateral stent placement. -Patient doing well, kidney function significantly improved from presentation # ESBL E. coli UTI -Patient on Merrem, ID following #Type 2 diabetes mellitus -Glucose checks and sliding scale insulin -Continue long-acting insulin, glucose this a.m. 170s #GERD -on famotidine and PPI #Depression/anxiety -Continue home medications #Right knee fracture -PT/OT On board. fall precautions. DVT prophylaxis: SCD Time spent in the patient's overall evaluation,decision-making process, review of diagnostic data, adjustment of management, discussion with other providers, nursing nursing and ancillary staff involved in patient's care documentation, 37 Minutes Charges/Coding Visit Charges Inpatient E&M: 10072 Subs Hosp L2
[2024-12-16 20:31] VITALS: BP 115/53; PULSE 72; RESP 18; TEMP 36.6; O2SAT 96
[2024-12-16] MEDS: Acetaminophen 325 MG Tablet 650 MG PO (21:47)
[2024-12-16] MEDS: 0.9% Saline Lock 10 ML Syringe IV (21:48)
[2024-12-16] MEDS: 0.9% Normal Saline (100mL Bag) 100 ML 15 ML IV (21:53)
[2024-12-16] MEDS: Pravastatin 80 MG Tablet PO (21:58)
[2024-12-16 23:10] LABS: Bedside Glucose 150 mg/dL (74-106)
[2024-12-17] MEDS: 0.9% Saline Lock 10 ML Syringe IV ×2 (00:49→21:43)
[2024-12-17] MEDS: Ondansetron 4 MG/2 ML Vial IV (00:49)
[2024-12-17 01:14] LABS: Bedside Glucose 96 mg/dL (74-106)
[2024-12-17 03:01] VITALS: BP 112/49; PULSE 74; RESP 18; TEMP 36.3; O2SAT 95
[2024-12-17 05:17] LABS: Absolute Lymphocyte Count 1.35 X10^3/uL (0.83-4.51); Absolute Neutrophil Count 6.5 X10^3/uL (2.0-7.7); Basophil# 0.02 X10^3/uL; Basophil% 0.2 % (0-1); Eosinophils% 1.1 % (0-5); Hematocrit 33.3 % (37-47); Hemoglobin 10.5 g/dL (12.0-15.0); Lymphocyte # 1.35 X10^3/ul (0.83-4.51); Lymphocyte % 15.2 % (19-41); Mean Corp Hgb Conc 31.5 g/dL (32-36); Mean Corpuscular Hgb 27.3 pg (27.0-32.0); Mean Corpuscular Volume 86.7 fL (81-99); Mean Platelet Vol. 9.2 fl (6.2-12.0); Monocyte# 0.85 X10^3/uL; Monocyte% 9.6 % (0-10); NRBC Flagged by Analyzer 0 % (0-5); Neutrophil # 6.52 X10^3/uL (2.7-7.7); Neutrophil % 73.3 % (47-70); Platelet Count 323 K/mm3 (150-450); RBC Distribution Width CV 14.7 % (11.6-14.6); RBC Distribution Width SD 46.5 fl (35.1-43.9); Red Blood Count 3.84 M/mm3 (4.2-5.4); White Blood Count 8.9 K/mm3 (4.4-11.0)
[2024-12-17 05:33] LABS: Anion Gap 7 (5-15); BUN 29 mg/dL (7-18); BUN/Creat Ratio 27.6 RATIO (10-20); Calcium,Total 9.4 mg/dL (8.5-10.1); Chloride 105 mmol/L (98-107); Creatinine, Serum 1.05 mg/dL (0.55-1.02); EST Glomerular Filtration Rate 53 mL/min (>60); Est Glom Filt Rate - Afr Amer 64 mL/min (>60); Estimated Creatinine Clearance 39.77 ml/min; Glucose 185 mg/dL (74-106); Potassium 4.2 mmol/L (3.5-5.1); Sodium Level 137 mmol/L (136-145)
[2024-12-17] MEDS: Insulin Lispro 100 UNIT/ML INSULN.PEN SC ×3 (06:18→21:50)
[2024-12-17] MEDS: Sucralfate 1 GM Tablet PO ×2 (06:19→16:51)
[2024-12-17 06:40] LABS: Bedside Glucose 183 mg/dL (74-106)
[2024-12-17 07:47] VITALS: BP 122/63; PULSE 75; RESP 16; TEMP 36.7; O2SAT 95
--- NOTE | 2024-12-17 09:13 | CASEMGMT ---
Addendum entered by Tammy Araiza 12/17/24 09:56: [facility]; pt updated. Plan: [facility]; pend MENG Alford Original Note: Social Work- SW met with pt to follow up on SNF preferences. Pt reports that she selceted [facility] as [facility]. [facility] notified of referral request. SW remains available to follow. Plan: [facility]; pend MENG Alford
--- NOTE | 2024-12-17 09:28 | CASEMGMT ---
Discharge Planning Referral sent to [facility]. Lia Quintana DC Planning Asst.
--- NOTE | 2024-12-17 09:59 | CASEMGMT ---
[facility] has accepted and will submit for precert. SW updated. Lia Quintana DC Planning Asst.
[2024-12-17] MEDS: Insulin Glargine-YFGN 100 UNIT/ML Pen 10 UNIT SC ×2 (10:04→21:49)
[2024-12-17] MEDS: Aspirin 81 MG TAB.CHEW PO ×2 (10:04→21:47)
[2024-12-17] MEDS: Tolterodine Tartrate 2 MG CAP.SA PO (10:04)
[2024-12-17] MEDS: Meropenem 500 MG in 0.9% Normal Saline (50mL MB+) 50 ML 100 MG IV ×2 (10:06→21:45)
[2024-12-17] MEDS: Nystatin Powder 15gm Bottle 1 APPLIC TOPICAL ×2 (10:07→21:48)
[2024-12-17] MEDS: Pantoprazole Sodium 40 MG Tablet PO (10:08)
[2024-12-17] MEDS: Famotidine 20 MG Tablet PO (10:08)
[2024-12-17] MEDS: FLUoxetine 20 MG Capsule 60 MG PO (10:09)
[2024-12-17] MEDS: Menthol/Lanolin/Calamine/Znox 113 GM Tube 1 APPLIC TOPICAL ×2 (10:10→21:48)
[2024-12-17] MEDS: Senna/Docusate Sodium 1 Tablet 2 TABLET PO (10:10)
--- NOTE | 2024-12-17 10:22 | PCM.PN.ID ---
Physical Exam Narrative Feeling better, minimal abd pain, no fever Const alert and no apparent distress General Appearance: cooperative Resp normal air movement and clear to auscultation bilaterally Cardio regular rate and regular rhythm GI soft to palpation, non-tender and non-distended Skin no rashes or lesions noted ID ID: Route of nutrition/ use of supplements: [] Nutritional Intake: [] IV Site: [] Cardozo Catheter: [] Assessment & Plan Assessment/Plan (1) ANSHUL (acute kidney injury): (2) Bilateral hydronephrosis: (3) Sepsis: PLAN: ESBL ecoli pyelo with bilat hydro and ANSHUL requiring bilat stent placement 12/13/[address] Dewitt. On meropenem, feeling better, fever resolved, ANSHUL improved. Ok for discharge with 5 days po bactrim DS bid. Would cont to hold ARB while on bactrim, if possible, otherwise recommend bmp in 2 days at [facility]CF. Will follow
[2024-12-17 12:13] LABS: Bedside Glucose 171 mg/dL (74-106)
[2024-12-17] MEDS: Acetaminophen 325 MG Tablet 650 MG PO ×2 (15:23→21:47)
[2024-12-17] MEDS: oxyCODONE 5 MG Tablet 2.5 MG PO (15:24)
--- NOTE | 2024-12-17 15:56 | PCM.PN.HOSP ---
Reason for Visit Reason for Visit: Diagnoses Sepsis, unspecified organism (12/13/24) Hydronephrosis with renal and ureteral calculous obstruction (12/13/24) Unspecified hydronephrosis (12/13/24) Acute kidney failure, unspecified (12/13/24) Chronic kidney disease, stage 3a (12/13/24) Urinary tract infection, site not specified (12/13/24) Unspecified abdominal pain (12/13/24) Nausea (12/13/24) Subjective Subjective Patient feeling well today, reports she has not had a bowel movement in a couple of days but denies any other complaints Objective Data Objective Data Vital Signs: Vital Signs Temp Pulse Resp BP Pulse Ox O2 Del Method 98.1 F 75 16 122/63 H 95 Room Air 12/17/24 07:47 12/17/24 07:47 12/17/24 07:47 12/17/24 07:47 12/17/24 07:47 12/17/24 07:47 Oxygen Delivery Method Room Air Weight: 70.4 kg Body Mass Index (BMI) 26.6 Intake & Output: Intake and Output for Last 24 Hours 12/15/24 12/16/24 12/17/24 23:59 23:59 23:59 Intake Total 1200 / 1550 1095 / 1126.75 231.75 / 231.75 Output Total 400 / 400 Balance 800 / 1150 1095 / 1126.75 231.75 / 231.75 Lab / Micro Data 12/17/24 04:58 12/17/24 04:58 Labs: Laboratory Results - last 24 hr 12/16/24 16:39: POC Glucose 178 H 12/16/24 21:55: POC Glucose 150 H 12/17/24 00:53: POC Glucose 96 12/17/24 04:58: WBC 8.9, RBC 3.84 L, Hgb 10.5 L, Hct 33.3 L, MCV 86.7, MCH 27.3, MCHC 31.5 L, RDW Std Deviation 46.5 H, RDW Coeff of Jose Eduardo 14.7 H, Plt Count 323, MPV 9.2, Immature Gran % (Auto) 0.600, Neut % (Auto) 73.3 H, Lymph % (Auto) 15.2 L, Hitchcock % (Auto) 9.6, Eos % (Auto) 1.1, Baso % (Auto) 0.2, Absolute Neuts (auto) 6.5, Absolute Lymphs (auto) 1.35, Nucleated RBC % 0, Sodium 137, Potassium 4.2, Chloride 105, Carbon Dioxide 25.0, Anion Gap 7, BUN 29 H, Creatinine 1.05 H, Estim Creat Clear Calc 39.77, Est GFR (MDRD) Af Amer 64, Est GFR (MDRD) Non-Af 53 L, BUN/Creatinine Ratio 27.6 H, Glucose 185 H, Calcium 9.4 12/17/24 06:17: POC Glucose 183 H 12/17/24 11:29: POC Glucose 171 H Micro: Microbiology 12/13/24 12:40 Urine Catheter - Catheter Urine Culture - Final ESBL Escherichia coli Physical Exam Narrative General: Alert, oriented, no apparent distress HEENT: Atraumatic, normocephalic Eyes: Anicteric, normal conjunctiva, extraocular movements grossly intact Neck: Supple Respiratory: Clear to auscultation bilaterally, normal respiratory effort Cardiovascular: Regular rate and rhythm GI: Soft, nontender, very slightly distended without rebound, guarding, rigidity Extremities: No edema Musculoskeletal: Moving all extremities Neuro: No overt focal neurological deficits Skin: No rashes appreciated Psych: Cooperative Assessment & Plan Assessment/Plan (1) ANSHUL (acute kidney injury): (2) Nausea: (3) Abdominal pain: PLAN: Plan # ANSHUL due to bilateral hydronephrosis with left-sided obstructive kidney stone -CT abdomen and pelvis showed left hydronephrosis due to 7.5mm calculus in the proximal portion of the left ureter with a moderate degree of right hydronephrosis and right hydroureter. -urology consulted; patient s/p cystoscopy which showed bilateral hydronephrosis and kidney stones with bilateral stent placement. -Patient doing well, kidney function significantly improved from presentation -12/17: Kidney function has continued to improve # ESBL E. coli UTI -Patient on Merrem, ID following -12/17: ID following, plan for patient will be discharge on 5 days of p.o. Bactrim DS twice daily with recommendations to continue to hold ARB while on Bactrim #Type 2 diabetes mellitus -Glucose checks and sliding scale insulin -Continue long-acting insulin, glucose this a.m. 170s -12/17: Last glucose 171, patient doing well Chronic medical problems: #GERD -on famotidine and PPI #Depression/anxiety -Continue home medications #Right knee fracture -PT/OT On board. fall precautions. DVT prophylaxis: SCD Charges/Coding Visit Charges Inpatient E&M: 73181 Subs Hosp L1
[2024-12-17] MEDS: Polyethylene Glycol 3350 17 GM PACKET 34 GM PO (16:53)
[2024-12-17 17:01] LABS: Bedside Glucose 174 mg/dL (74-106)
[2024-12-17 21:37] VITALS: BP 108/53; PULSE 75; RESP 16; TEMP 37.1; O2SAT 99
[2024-12-17] MEDS: Pravastatin 80 MG Tablet PO (21:48)
[2024-12-17 22:33] LABS: Bedside Glucose 204 mg/dL (74-106)
[2024-12-18 03:40] VITALS: BP 116/60; PULSE 74; RESP 18; TEMP 36.6; O2SAT 97
[2024-12-18] MEDS: Insulin Lispro 100 UNIT/ML INSULN.PEN SC ×2 (06:23→12:01)
[2024-12-18] MEDS: Sucralfate 1 GM Tablet PO (06:23)
[2024-12-18 06:49] LABS: Bedside Glucose 163 mg/dL (74-106)
[2024-12-18 07:44] LABS: Absolute Lymphocyte Count 1.37 X10^3/uL (0.83-4.51); Absolute Neutrophil Count 7.6 X10^3/uL (2.0-7.7); Basophil# 0.01 X10^3/uL; Basophil% 0.1 % (0-1); Eosinophil# 0.11 X10^3/uL; Eosinophils% 1.1 % (0-5); Hematocrit 35.8 % (37-47); Hemoglobin 11.4 g/dL (12.0-15.0); Lymphocyte # 1.37 X10^3/ul (0.83-4.51); Lymphocyte % 13.6 % (19-41); Mean Corp Hgb Conc 31.8 g/dL (32-36); Mean Corpuscular Hgb 27.7 pg (27.0-32.0); Mean Corpuscular Volume 86.9 fL (81-99); Mean Platelet Vol. 9.5 fl (6.2-12.0); Monocyte# 0.91 X10^3/uL; NRBC Flagged by Analyzer 0 % (0-5); Neutrophil # 7.59 X10^3/uL (2.7-7.7); Neutrophil % 75.4 % (47-70); Platelet Count 316 K/mm3 (150-450); RBC Distribution Width CV 14.4 % (11.6-14.6); RBC Distribution Width SD 45.6 fl (35.1-43.9); Red Blood Count 4.12 M/mm3 (4.2-5.4); White Blood Count 10.1 K/mm3 (4.4-11.0)
[2024-12-18 08:23] VITALS: BP 141/68; PULSE 73; RESP 14; TEMP 36.9; O2SAT 97
[2024-12-18] MEDS: Tolterodine Tartrate 2 MG CAP.SA PO (08:33)
[2024-12-18] MEDS: Aspirin 81 MG TAB.CHEW PO (08:33)
[2024-12-18] MEDS: Famotidine 20 MG Tablet PO (08:34)
[2024-12-18] MEDS: Pantoprazole Sodium 40 MG Tablet PO (08:34)
[2024-12-18] MEDS: FLUoxetine 20 MG Capsule 60 MG PO (08:34)
[2024-12-18] MEDS: Menthol/Lanolin/Calamine/Znox 113 GM Tube 1 APPLIC TOPICAL (08:35)
[2024-12-18] MEDS: Insulin Glargine-YFGN 100 UNIT/ML Pen 10 UNIT SC (08:42)
[2024-12-18] MEDS: Nystatin Powder 15gm Bottle 1 APPLIC TOPICAL (08:43)
[2024-12-18 08:55] LABS: BUN 25 mg/dL (4-19); Creatinine, Serum 0.9 mg/dL (0.6-1.0); EST Glomerular Filtration Rate 62 (>60); Estimated Creatinine Clearance 46.39 ml/min
[2024-12-18 09:01] LABS: Bedside Glucose 154 mg/dL (74-106)
--- NOTE | 2024-12-18 09:13 | CASEMGMT ---
[facility] obtained auth to admit. SW updated. Lia Quintana DC Planning Asst.
--- NOTE | 2024-12-18 10:11 | CASEMGMT ---
TC to [facility], left vm that pt is [facility].
--- NOTE | 2024-12-18 11:12 | PCM.TXEXTCAR ---
Diet Diet Order/Speech Therapy: 12/17/24 14:16 Diet: Consistent Carb - Calorie Controlled Food consistency:: Regular Liquid Consistency:: Regular/Thin Dietary Modifications:: Sodium Restricted How many daily calories?: 1800 calorie Routine Orders/Code Status Suppository Frequency: Daily PRN Routine Lab Work: CBC (1 week) and BMP (2 days and then it 5 days to assess kidney function while on Bactrim) Code Status: DNRCC-A (No intubation) DC O2, CPAP, BIPAP needs Home O2 Discharge instructions: No Wound(s) Lft Knee: Wound Type: Surgical Incision Suggestions for Active Care Change Position every (hours): 2 Hours to sit in a chair: 3 Times a day to sit in chair: 2 Therapies Weight Bearing: Weight bearing as tolerated Extremity Affected:: Left Lower Physical Therapy: Eval and Treat Occupational Therapy: Eval and Treat Problem/Diagnosis (1) ANSHUL (acute kidney injury): Status: Acute Code(s): N17.9 - Acute kidney failure, unspecified (2) Nausea: Status: Acute Code(s): R11.0 - Nausea (3) Abdominal pain: Status: Acute Code(s): R10.9 - Unspecified abdominal pain Allergies/Procedures Done in Hospital Allergies morphine Allergy (Verified 12/13/24 10:27) Rash Penicillins Allergy (Verified 12/13/24 10:27) Rash propoxyphene Allergy (Verified 12/13/24 10:27) Nausea codeine Adverse Reaction (Verified 12/13/24 10:27) Nausea lisinopril Adverse Reaction (Verified 12/13/24 10:27) Vomiting quinine Adverse Reaction (Verified 12/13/24 10:27) Vomiting Procedures: - (Cystoscopy, bilateral retrograde pyelograms and bilateral stent placement/CT abdomen pelvis) Type of Care/Length of Stay Estimated LOS: Convalescent Care Less Than 30 days Type of Care Needed: Skilled Rehab Potential: Good Prognosis: Good Additional Orders/Day of Discharge Day of Discharge: 12/18/24 Dietary and Speech Recommendations Dietitian Recommendations/Changes: Will adjust diet to 1800CCD/Sodium restricted diet to manage medical conditions. Follow Up Care Please follow up with your Primary Care Physician in: 1 week after discharge from TCU Please Follow Up With: Eber Dewitt MD When: 2 weeks Discharge Plan Admission Admit Date/Time: 12/13/24 14:34 Attending Provider: Jessica Gross Primary Care Provider: Krunal Sandoval Chi Consulting Providers: Sakshi Fox; Eber Dewitt; Mehreen Polanco; Jacob Luna Discharge Orders/Prescriptions Prescriptions: No Action fluoxetine 20 mg tablet 60 mg PO DAILY pantoprazole 40 mg tablet,delayed release (DR/EC) 40 mg PO DAILY pravastatin 80 mg tablet 80 mg PO QHS Qty: 90 3RF acetaminophen 500 mg Tablet 1,000 mg PO Q6H PRN PRN (Reason: Pain Score 1-3) Qty: 0 0RF acetaminophen 500 mg Tablet 1,000 mg PO QHS Qty: 0 0RF aspirin 81 mg Tablet,Chewable 81 mg PO BID 12 Days Qty: 0 0RF insulin glargine-yfgn 100 unit/mL (3 mL) Insulin Pen 16 unit subcut BID Qty: 0 0RF sucralfate 1 gram Tablet 1 g PO BIDAC 18 Days Qty: 36 0RF famotidine 40 mg tablet 40 mg PO DAILY nitrofurantoin macrocrystal 100 mg capsule 100 mg PO Q12H oxybutynin chloride 10 mg tablet extended release 24hr 10 mg PO DAILY insulin degludec [Tresiba FlexTouch U-200] 200 unit/mL (3 mL) insulin pen 16 unit SUBCUT BID Patient Comments: INJECT 16 UNITS IN MORNING AND 16 UNITS IN EVENING SUBCUTANEOUSLY DAILY valsartan-hydrochlorothiazide 320-12.5 mg tablet 1 tab PO QHS Referrals / Follow Up: Krunal Sandoval Chi, MD [Primary Care Provider] -
--- NOTE | 2024-12-18 11:17 | PCM.DC.SUM ---
Providers Date of Admission: 12/13/24 Date of Discharge: 12/18/24 Primary Care Physician: Dr. Krunal Sandoval MD Consultations 12/13/24 15:43 Consult: Infectious Disease Routine Consulting Provider: Jacob Luna Reason for Consult: hx esbl utis, here w/ uti EMERGENT Consult: No MD Notified: Yes Date Notified: 12/16/24 Time Notified: 07:39 Method of Notification: Text Reason For Visit: abd pain Diagnosis Discharge Diagnosis (1) ANSHUL (acute kidney injury): Status: Acute Code(s): N17.9 - Acute kidney failure, unspecified (2) Nausea: Status: Acute Code(s): R11.0 - Nausea (3) Abdominal pain: Status: Acute Code(s): R10.9 - Unspecified abdominal pain Medications at Discharge Home Medications fluoxetine 20 mg tablet 60 mg PO DAILY depression 05/02/22 pantoprazole 40 mg tablet,delayed release 40 mg PO DAILY acid reflux 05/02/22 pravastatin 80 mg tablet 80 mg PO QHS cholesterol #90 tabs 06/27/23 sucralfate 1 gram tablet 1 g PO BIDAC 18 days #36 tabs 12/05/24 famotidine 40 mg tablet 40 mg PO DAILY 12/13/24 insulin degludec 200 unit/mL (3 mL) subcutaneous pen (Tresiba FlexTouch U-200 insulin) 16 unit subcut BID 12/13/24 oxybutynin chloride 10 mg tablet,extended release 24 hr 10 mg PO DAILY 12/13/24 valsartan 320 mg-hydrochlorothiazide 12.5 mg tablet 1 tab PO QHS 12/13/24 Held on 12/18/24. Instructions: Resume on 12/24/24. If SBP consistently > 140 acetaminophen 500 mg tablet 1,000 mg (2 x 500 mg) PO .q 8 PRN Pain Score 1-3 #0 tabs 12/18/24 aspirin 81 mg chewable tablet 81 mg PO BID 12 days #0 tabs 12/18/24 insulin lispro 100 unit/mL subcutaneous pen (Humalog KwikPen (U-100) Insulin) See Protocol subcut ACHS #0 mL 12/18/24 sennosides 8.6 mg-docusate sodium 50 mg tablet (Stimulant Laxative Plus) 2 tab PO BID #0 tabs 12/18/24 sulfamethoxazole 800 mg-trimethoprim 160 mg tablet (Bactrim DS) 1 tab PO BID #10 tabs 12/18/24 Hospital Course Operations - (Cystoscopy, bilateral retrograde pyelograms and bilateral stent placement) Procedures - (CT abdomen and pelvis) Summary of Care Provided Minutes Spent on Discharge: 38 Hospital Course: Mrs. Alva is an 84-year-old white female who presented to the emergency department at [facility] on 12/13/2024 with nausea and flank pain. Symptoms developed on the morning of admission. She does have chronic urinary incontinence but denied any dysuria and did not report fever. She did note she has a history of nephrolithiasis. She had a recent admission here due to a right patellar knee fracture for which she had surgery with Dr. Oleary. She has been weightbearing as tolerated on that left lower extremity with straight leg brace in place locked at 0 degrees. Vital signs on presentation showed a temperature of 97.7, heart rate 88, respiratory 18, blood pressure 152/80 and pulse ox was 97% on room air. CBC showed a white count of 12.6 with a stable anemia having a hemoglobin of 11.1. There was a left shift with a 75.6% neutrophilia and a monocytosis which was present prior. Chemistry panel showed ANSHUL with a serum creatinine of 1.82 and a baseline between 1 and 1.2. She had mild hyponatremia the sodium 135 and hypokalemia potassium of 3.3. BUN was elevated at 37 and appeared to be consistent with volume depletion. Glucose was markedly elevated at 301. CT of the abdomen pelvis was done and showed left hydronephrosis with a 7.5 mm stone in the left proximal ureter with a moderate degree of hydronephrosis on the right and right hydroureter down to the right UVJ without calculus. She had stable bilateral renal cysts and diffuse bladder wall thickening suggestive of cystitis as well as sigmoid diverticulosis. Her urine was cultured and she was placed on broad-spectrum antibiotics. Urine culture did grow out ESBL E. coli and greater than 100,000 CFU's per mL. Urology and infectious disease were consulted after admission. She was taken to the OR on 12/13/[address] Dewitt at which time cystoscopy and bilateral retrograde pyelograms with bilateral stent placement was performed. It was recommended that we continue to treat her infection and he will follow-up with her in as an outpatient for stent removal in the future. Infectious disease evaluated the patient and while hospitalized she was on meropenem and clinically improving. Her ANSHUL have resolved, her fever had resolved and white count normalized. She was maintained on meropenem prior to discharge with the discharge plan being Bactrim DS for 5 days after discharge. While she is on Bactrim we will hold her valsartan/HCTZ and then restart after discontinuation of the Bactrim as long as systolic blood pressure is consistently greater than 140. I have also asked that we obtain a basic metabolic profile in 2 days and again at 5 days to assess her renal function while she is on Bactrim. She is to continue wearing her straight leg brace locked at 0 degrees until she follows up with Dr. Oleary and is weightbearing as tolerated. Given her illness on top of her previous fracture it was deemed that she would need some ongoing therapy at the time of discharge and was accepted the transitional care unit with insurance precertification available on 12/18/2024. The patient was discharged in stable condition at that time to the transitional care unit. She is to follow-up with her primary care physician within a week, Dr. Oleary as previously recommended and Dr. Dewitt in 2 weeks. She is to remain on aspirin 81 mg p.o. twice daily for total of 4 weeks after her surgery on her left lower extremity which was performed on 11/24/2024. Discharge diagnoses: ESBL E. coli urinary tract infection secondary to nephrolithiasis--> sepsis was ruled out Nephrolithiasis Bilateral hydronephrosis Right hydroureter ANSHUL-resolved Hypokalemia-resolved Hyponatremia-resolved Leukocytosis Anemia DM-2 GERD Essential hypertension Hyperlipidemia Left knee fracture-patella Urinary incontinence History of Schatzki's ring Medium size hiatal hernia History of peptic ulcer disease History of duodenal ulcers Depression/anxiety Physical Exam Narrative Patient states overall she is feeling well. She has had several loose stools that she take MiraLAX twice daily due to constipation. No other complaints at this time. Not requiring much pain medication for her knee. Flank pain is resolved. Const alert, oriented x3, no apparent distress and well nourished General Appearance: cooperative, comfortable, well kempt and well developed Orientation / Consciousness: awake, oriented to person, oriented to place and oriented to time Exam Limitations: no limitations Nutritional Appearance: overweight HEENT normocephalic, head/scalp atraumatic and moist oral mucous membranes HEENT Narrative: Mallampati 2, no thrush Eyes EOMs intact bilaterally and conjunctivae normal Eyes Narrative: No scleral icterus Neck no lymphadenopathy and supple Neck Narrative: Trachea midline, no thyroid enlargement Resp normal respiratory effort, no retractions, no use of accessory muscles and clear to auscultation bilaterally Auscultation: Negative for rales, rhonchi or wheezes Cardio regular rate, regular rhythm, S1 normal heart sound, S2 normal heart sound, no murmurs, no rub, no gallops and no clicks GI normal to inspection, nondistended, normoactive bowel sounds, soft to palpation and non-tender Extremity no clubbing, cyanosis or edema Extremity Narrative: Left lower extremity with long-leg brace in place locked at 0, postoperative incision is clean dry and intact and healing well with no signs of infection or drainage Skin no rashes or lesions noted, skin turgor normal and no jaundice Neuro oriented x3 and no focal motor deficits Neuro Narrative: Decreased movement at left knee due to recent surgery and need for immobilization per orthopedic surgery's recommendations but no focal deficits noted Speech: speech normal Psych affect normal Psych Narrative: Extremely pleasant, interacts appropriately Weight / BMI Weight Weight: 70.4 kg Body Mass Index (BMI) 26.6 ABG / Lab / Microbiology Data 12/18/24 07:06 12/18/24 07:06 Laboratory: Laboratory Results - last 24 hr 12/17/24 11:29: POC Glucose 171 H 12/17/24 16:44: POC Glucose 174 H 12/17/24 21:39: POC Glucose 204 H 12/18/24 06:22: POC Glucose 163 H 12/18/24 07:06: WBC 10.1, RBC 4.12 L, Hgb 11.4 L, Hct 35.8 L, MCV 86.9, MCH 27.7, MCHC 31.8 L, RDW Std Deviation 45.6 H, RDW Coeff of Jose Eduardo 14.4, Plt Count 316, MPV 9.5, Immature Gran % (Auto) 0.800, Neut % (Auto) 75.4 H, Lymph % (Auto) 13.6 L, Harlan % (Auto) 9.0, Eos % (Auto) 1.1, Baso % (Auto) 0.1, Absolute Neuts (auto) 7.6, Absolute Lymphs (auto) 1.37, Nucleated RBC % 0, BUN 25 H, Creatinine 0.9, Estim Creat Clear Calc 46.39, Est GFR (MDRD) Non-Af 62, BUN/Creatinine Ratio 26.9 H, Glucose 159 H 12/18/24 08:41: POC Glucose 154 H Microbiology: Microbiology 12/13/24 12:40 Urine Catheter - Catheter Urine Culture - Final ESBL Escherichia coli D/C Instructions DC O2, CPAP, BIPAP Needs Home O2 Discharge instructions: No Please Follow Up With: Eber Dewitt MD Meaningful Use Info Meaningful Use Meaningful Use Diagnoses (Choose all that apply): None applicable Ischemic Stroke Statin Dosing Therapy Reference: STATIN DOSE THERAPY REFERENCE: * Patients > 75 years receive moderate or high dose statin therapy. * Patients 75 years or YOUNGER should receive HIGH intensity statin dose unless contraindicated. You will be required to document reason for non-treatment if statin daily dose does not meet guidelines. HIGH DOSE STATIN THERAPY DAILY Atorvastatin > than or = to 40 mg Rosuvastatin > than or = to 20 mg Amlodipine + Atorvastatin > than or = to 2.5/40 mg Ezetimibe + Simvastatin 10/80 mg Simvastatin 80mg Discharge Plan Admission Admit Date/Time: 12/13/24 14:34 Primary Reason for Your Visit: Nausea/flank pain Attending Provider: Jessica Gross Primary Care Provider: Krunal Sandoval Chi Consulting Providers: Sakshi Fox; Eber Dewitt; Mehreen Polanco; Jacob Luna Discharge Orders/Prescriptions Prescriptions: New sennosides-docusate sodium [Stimulant Laxative Plus] 8.6-50 mg Tablet 2 tab PO BID Qty: 0 0RF insulin lispro [Humalog KwikPen Insulin] 100 unit/mL Insulin Pen See Protocol subcut ACHS Qty: 0 0RF Protocol: 3. Sliding Scale Insulin Med Dosing Condition: 150-189 mg/dl = 1 unit Condition: 190-229 mg/dl = 2 units Condition: 230-269 mg/dl = 3 units Condition: 270-309 mg/dl = 4 units Condition: 310-349 mg/dl = 5 units Condition: 350-399 mg/dl = 6 units Condition: 400-449 mg/dl = 7 units Condition: Greater than 449 call physician Protocol Text: Suggested for: - Patients on Total Daily Insulin Dose of 37-55 units - Obese, infected, or steroid patients MEDIUM DOSING ALGORITHIM sulfamethoxazole-trimethoprim [Bactrim DS] 800-160 mg tablet 1 tab PO BID Qty: 10 0RF Rx Instructions: Patient to take for total of 5 days Continued fluoxetine 20 mg tablet 60 mg PO DAILY pantoprazole 40 mg tablet,delayed release (DR/EC) 40 mg PO DAILY pravastatin 80 mg tablet 80 mg PO QHS Qty: 90 3RF sucralfate 1 gram Tablet 1 g PO BIDAC 18 Days Qty: 36 0RF famotidine 40 mg tablet 40 mg PO DAILY oxybutynin chloride 10 mg tablet extended release 24hr 10 mg PO DAILY insulin degludec [Tresiba FlexTouch U-200] 200 unit/mL (3 mL) insulin pen 16 unit SUBCUT BID Patient Comments: INJECT 16 UNITS IN MORNING AND 16 UNITS IN EVENING SUBCUTANEOUSLY DAILY aspirin 81 mg Tablet,Chewable 81 mg PO BID 12 Days Qty: 0 0RF Rx Instructions: To continue for 4 weeks from initial surgery Changed acetaminophen 500 mg Tablet 1,000 mg PO .q 8 PRN (Reason: Pain Score 1-3) Qty: 0 0RF Held valsartan-hydrochlorothiazide 320-12.5 mg tablet 1 tab PO QHS Hold Instructions: Resume on 12/24/24. If SBP consistently > 140 Discontinued acetaminophen 500 mg Tablet 1,000 mg PO QHS Qty: 0 0RF insulin glargine-yfgn 100 unit/mL (3 mL) Insulin Pen 16 unit subcut BID Qty: 0 0RF nitrofurantoin macrocrystal 100 mg capsule 100 mg PO Q12H Referrals / Follow Up: Eber Dewitt MD [Med Staff - Active Staff] - Within 2 Weeks Krunal Sandoval Chi, MD [Primary Care Provider] - Disposition Disposition (needs filled in before D/C Order can be placed): [facility] Facility Charges/Coding Visit Charges Inpatient E&M: 50585 SNF Disch >30 Min
--- NOTE | 2024-12-18 11:31 | PHA.DC.MR.R ---
Pharmacy [place] Med Reconciliation Pharmacy Service has performed discharge medication reconciliation for this patient. The patient's discharge medication list was reviewed for discrepancies and discrepancies were resolved. Medications at Discharge Home Medications fluoxetine 20 mg tablet 60 mg PO DAILY depression 05/02/22 pantoprazole 40 mg tablet,delayed release 40 mg PO DAILY acid reflux 05/02/22 pravastatin 80 mg tablet 80 mg PO QHS cholesterol #90 tabs 06/27/23 sucralfate 1 gram tablet 1 g PO BIDAC 18 days #36 tabs 12/05/24 famotidine 40 mg tablet 40 mg PO DAILY 12/13/24 insulin degludec 200 unit/mL (3 mL) subcutaneous pen (Tresiba FlexTouch U-200 insulin) 16 unit subcut BID 12/13/24 oxybutynin chloride 10 mg tablet,extended release 24 hr 10 mg PO DAILY 12/13/24 valsartan 320 mg-hydrochlorothiazide 12.5 mg tablet 1 tab PO QHS 12/13/24 Held on 12/18/24. Instructions: Resume on 12/24/24. If SBP consistently > 140 acetaminophen 500 mg tablet 1,000 mg (2 x 500 mg) PO .q 8 PRN Pain Score 1-3 #0 tabs 12/18/24 aspirin 81 mg chewable tablet 81 mg PO BID 12 days #0 tabs 12/18/24 insulin lispro 100 unit/mL subcutaneous pen (Humalog KwikPen (U-100) Insulin) See Protocol subcut ACHS #0 mL 12/18/24 sennosides 8.6 mg-docusate sodium 50 mg tablet (Stimulant Laxative Plus) 2 tab PO BID #0 tabs 12/18/24 sulfamethoxazole 800 mg-trimethoprim 160 mg tablet (Bactrim DS) 1 tab PO BID #10 tabs 12/18/24
[2024-12-18 11:36] LABS: BUN/Creat Ratio 26.7 RATIO (10-20); Glucose 158 mg/dL (70-99)
[2024-12-18 12:23] LABS: Bedside Glucose 212 mg/dL (74-106)
[2024-12-18] MEDS: Meropenem 1 GM in 0.9% Normal Saline (100mL MB+) 100 ML IV (13:04)
--- NOTE | 2024-12-18 13:53 | CASEMGMT ---
Social Work Precert obtained. Physician feels that pt is ready for discharge today.? 4949 form completed in [facility]. [facility] notified of discharge. Final discharge arrangements and notification to patient/family as per discharge planning manager.? Disposition:[facility], skilled level of care under convalescent stay. MENG Anthony
--- NOTE | 2024-12-18 14:01 | CASEMGMT ---
Discharge orders, signed med list, and transport time sent to [facility]. Physicians will transport pt by wheelchair at 2:30p. Nursing, SW, pt, and her son (Darin) updated. VM left for pts other son (Moncho). Lia Quintana DC Planning Asst.
[2024-12-18 14:26] VITALS: BP 130/70; PULSE 86; RESP 14; TEMP 36.8; O2SAT 98
== END 2024-12-18 14:46 | disposition skilled nursing facility (03) | DRG 660 ==
LOC: ED 14:28 → SDC 14:32 → MS3 18:38
PROVIDERS: Internal Medicine; Student in an Organized Health Care Education/Training Program; Admitting Provider Urology; Emergency Provider Emergency Medicine; PCP Family Medicine Geriatric Medicine; Referring Provider Emergency Medicine; Visit Provider Internal Medicine
PROC: 0T788DZ Dilation of Bilateral Ureters with Intraluminal Device, Via Natural or Artificial Opening Endoscopic (ICD-10-PCS; principal; 2024-12-13 14:35)
DX: N13.6 Pyonephrosis (principal); Z16.12 Extended spectrum beta lactamase (ESBL) resistance; N17.9 Acute kidney failure, unspecified; E11.22 Type 2 diabetes mellitus with diabetic chronic kidney disease; D64.9 Anemia, unspecified; B96.20 Unspecified Escherichia coli [E. coli] as the cause of diseases classified elsewhere; N18.31 Chronic kidney disease, stage 3a; I12.9 Hypertensive chronic kidney disease with stage 1 through stage 4 chronic kidney disease, or unspecified chronic kidney disease; F32.A Depression, unspecified; I34.1 Nonrheumatic mitral (valve) prolapse; M17.11 Unilateral primary osteoarthritis, right knee; E78.00 Pure hypercholesterolemia, unspecified; Z79.4 Long term (current) use of insulin; K21.9 Gastro-esophageal reflux disease without esophagitis; E87.6 Hypokalemia; F41.9 Anxiety disorder, unspecified; D72.829 Elevated white blood cell count, unspecified; K44.9 Diaphragmatic hernia without obstruction or gangrene; K59.00 Constipation, unspecified; S82.002D Unspecified fracture of left patella, subsequent encounter for closed fracture with routine healing; R32 Unspecified urinary incontinence; M81.0 Age-related osteoporosis without current pathological fracture; E66.3 Overweight; Z87.442 Personal history of urinary calculi; Z86.19 Personal history of other infectious and parasitic diseases; Z88.0 Allergy status to penicillin; X58.XXXD Exposure to other specified factors, subsequent encounter; Z79.899 Other long term (current) drug therapy; Z79.82 Long term (current) use of aspirin; Z90.49 Acquired absence of other specified parts of digestive tract; Z87.440 Personal history of urinary (tract) infections; Z87.11 Personal history of peptic ulcer disease; Z87.19 Personal history of other diseases of the digestive system; Z68.26 Body mass index [BMI] 26.0-26.9, adult; Z98.890 Other specified postprocedural states
CPT/HCPCS: 36415; 74176; 76000; 80048; 80053; 81001; 82962; 85025; 87077; 87086; 87088; 87186; 94668; 97162; 97165; 97530; 97535; 99285; J2185; A4216; C1769; C2617; J2405

== ENCOUNTER → 2025-01-24 | Outpatient (CLI) | payer MEDICARE, SELFPAY ==
--- NOTE | 2025-01-24 12:45 | RAD_ITS ---
PROCEDURE: ABD INC DECUB AND/OR ERECT 01/24/2025 REASON FOR EXAM: BILATERAL KIDNEY STONES TECHNIQUE: Single view abdomen. COMPARISON: CT abdomen pelvis of 12/13/2024 FINDINGS: Bowel gas: Unremarkable bowel gas pattern. No evidence of differential air- fluid levels on the upright view. Calcifications: Double pigtail stents are seen in both kidneys each 1 it is proximal portion centered over the middle pelvis and distal portion of the bladder base. Potential urolith adjacent to the distal left stent. Several phleboliths are appreciated Bones: Unremarkable. Other: RAD/Abd Inc Decub and/or Erect IMPRESSION: Right and left double pigtail stents appear appropriately positioned. Question of urolith in the distal 3rd of the left ureter. Reading Location: [facility]
[2025-01-24 13:47] LABS: Absolute Neutrophil Count 5.8 X10^3/uL (2.0-7.7); Basophil# 0.02 X10^3/uL; Basophil% 0.3 % (0-1); Eosinophil# 0.05 X10^3/uL; Eosinophils% 0.6 % (0-5); Hematocrit 35.4 % (37-47); Lymphocyte % 16.5 % (19-41); Mean Corp Hgb Conc 31.1 g/dL (32-36); Mean Corpuscular Hgb 26.6 pg (27.0-32.0); Mean Corpuscular Volume 85.7 fL (81-99); Monocyte# 0.68 X10^3/uL; Monocyte% 8.6 % (0-10); NRBC Flagged by Analyzer 0 % (0-5); Neutrophil # 5.82 X10^3/uL (2.7-7.7); Neutrophil % 73.6 % (47-70); Platelet Count 393 K/mm3 (150-450); RBC Distribution Width CV 13.9 % (11.6-14.6); RBC Distribution Width SD 43.8 fl (35.1-43.9); Red Blood Count 4.13 M/mm3 (4.2-5.4); White Blood Count 7.9 K/mm3 (4.4-11.0)
[2025-01-24 14:36] LABS: ALB/GLOB Ratio 0.9 RATIO (0.9-2.4); AST(SGOT) 29 U/L (<=31); Alanine Aminotransfer ALT/SGPT 13 U/L (<=34); Albumin, Serum 3.4 g/dL (3.4-4.8); Alkaline Phosphatase 100 U/L (35-104); Anion Gap 11 (5-15); BUN 19 mg/dL (4-19); BUN/Creat Ratio 15.3 RATIO (10-20); Calcium,Total 9.2 mg/dL (7.6-11.0); Carbon Dioxide 24.7 mmol/L (21.0-32.0); Chloride 104 mmol/L (98-108); Creatinine, Serum 1.25 mg/dL (0.70-1.20); EST Glomerular Filtration Rate 43 (>60); Globulin 3.8 g/dL (2.2-4.2); Glucose 123 mg/dL (70-99); Potassium 4.3 mmol/L (3.3-5.1); Protein, Total 7.2 g/dL (5.9-8.4); Sodium Level 140 mmol/L (133-145)
[2025-01-24 14:38] LABS: Thyroid Stim Hormone (TSH) 0.191 uIU/mL (0.300-4.200)
== END | disposition home or self-care (01) ==
LOC: LAB 12:27
PROVIDERS: PCP Family Medicine Geriatric Medicine; Referring Provider Family Medicine Geriatric Medicine; Visit Provider Family Medicine Geriatric Medicine
DX: N20.0 Calculus of kidney (principal); E11.65 Type 2 diabetes mellitus with hyperglycemia; E55.9 Vitamin D deficiency, unspecified; I10 Essential (primary) hypertension
CPT/HCPCS: 36415; 74019; 80053; 82306; 84443; 85025

== ENCOUNTER 2025-02-26 08:25 | Day surgery (SDC) | payer MEDICARE, SELFPAY ==
--- NOTE | 2025-02-18 16:08 | PAT.ANESEVAL ---
Pre-Assessment Diagnosis/Proposed Procedure Planned Operative Procedure(s): BILAT URETEROSCOPY LASER STONE STENT REMOVAL Anesthesia History Anesthesia History - press catcher: Anesthesia History - press catcher Hx Hospitalization No 02/18/25 14:12 Any Problems With Anesthesia Yes: SLOW TO AWAKEN 02/18/25 14:12 Cholinesterase deficiency No 02/18/25 14:12 You/Your Family Experience No 02/18/25 14:12 fever (hyperthermia) with Relationship Recent Exposure to Contagious No 11/29/24 15:02 Disease Does patient have nerve No 02/18/25 14:12 stimulator Patient instructed to have device shut off --Does patient have Pacemaker or ICD? When Was Last Pacemaker Check QUESTION #4 FULL TEXT: You/Your Family Experience fever (hyperthermia) with Anesthesia Last Oral Intake Last Oral intake: Last Oral Intake NPO since Meds taken in AM with sips of water? Meds patient instructed to take am of surgery PONV PONV - press catcher: PONV - press catcher Female Yes 02/18/25 14:12 HX of Motion Sickness No 02/18/25 14:12 HX of N/V After Surgery No 02/18/25 14:12 Non-Smoker Yes 02/18/25 14:12 Duration of Surgery greater Yes 02/18/25 14:12 than 60 minutes Number of Risk Factors 3 02/18/25 14:12 PONV Score Moderate Risk 02/18/25 14:12 Height & Weight Height & Weight: Anesthesia: Height & Weight Height 5 ft 4 in 12/17/24 14:07 Respiratory Assessment Respiratory Assessment - press catcher: Respiratory Tract Infection Hx - press catcher Hx Respiratory Tract Infection No 02/18/25 14:12 STOP Sleep Apnea STOP Sleep Apnea - press catcher: STOP Sleep Apnea - press catcher Hx Hypertension Yes: CONTROLLED WITH MED 02/18/25 14:12 Hx Sleep Apnea No 02/18/25 14:12 CPAP No 02/18/25 14:12 BIPAP No 02/18/25 14:12 Do you snore loudly (louder No 02/18/25 14:12 than talking or can be heard Do you often feel tired/ Yes 02/18/25 14:12 fatigued/ sleepy during daytime? Has anyone observed you stop No 02/18/25 14:12 breathing during sleep? STOP Results Positive 02/18/25 14:12 QUESTION #5 FULL TEXT : Do you snore loudly (louder than talking or can be heard through closed doors)? 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 Specify any problems Hx of Preganancy in last 3 No 02/18/25 14:12 Months Nurse Filling Out Transfusion DSCHRIBER 02/18/25 14:12 & Questions: Date: 02/18/25 02/18/25 14:12 Time: 14:14 02/18/25 14:12 Patient unable to answer at this time (ie. confused, unrespo /Reproduction History /Reproductive History - press catcher: /Reproductive Hx- press catcher Hx Now No 02/18/25 14:12 Gestational Age (in weeks): EDC: Hx Hx Para Hx Section SAB No 02/18/25 14:12 [facility] Medical History (Updated 02/18/25 @ 14:24 by Junie Arevalo) Lives in [facility] Wears hearing aid Wears glasses Wears dentures Depression Anxiety Insulin dependent diabetes mellitus Walker as ambulation aid Arthritis High cholesterol Injury of head and neck History of hiatal hernia History of ulceration Gastric reflux Non-smoker History of pain when walking History of stress test History of echocardiogram Cardiology follow-up encounter Infection due to ESBL-producing Escherichia coli Chronic kidney disease, stage 3a Post-menopausal Chronic pain Hypertension Osteoarthritis of right knee Right knee pain CKD (chronic kidney disease) stage 3, GFR 30-59 ml/min MVP (mitral valve prolapse) PSVT (paroxysmal supraventricular tachycardia) Pure hypercholesterolemia Nonrheumatic mitral (valve) prolapse Palpitations Premature atrial contractions Premature ventricular contractions Mitral valve prolapse Hyperparathyroidism Osteoporosis Hyperthyroidism HTN (hypertension) DM type 2 (diabetes mellitus, type 2) Home Medications ?Medication ?Instructions ?Recorded ?Last Taken ?Type fluoxetine 20 mg tablet 60 mg PO DAILY depression 05/02/22 11/28/24 History pantoprazole 40 mg tablet,delayed 40 mg PO DAILY acid reflux 05/02/22 11/28/24 History release pravastatin 80 mg tablet 80 mg PO QHS cholesterol #90 tabs 06/27/23 Unknown Rx insulin degludec 200 unit/mL (3 16 unit subcut BID 12/13/24 Unknown History mL) subcutaneous pen (Tresiba FlexTouch U-200 insulin) oxybutynin chloride 10 mg 10 mg PO QHS 12/13/24 Unknown History tablet,extended release 24 hr valsartan 320 1 tab PO QHS 12/13/24 Unknown History mg-hydrochlorothiazide 12.5 mg tablet acetaminophen 500 mg tablet 1,000 mg PO Q6H PRN Pain Score 1-3 02/18/25 Unknown History ascorbic acid (vitamin C) 500 mg 500 mg PO BID 02/18/25 Unknown History tablet (C-500) methenamine hippurate 1 gram tablet 1 g PO BID 02/18/25 Unknown History nystatin 100,000 unit/gram topical 1 applic topical BID 02/18/25 Unknown History powder (Klayesta) sennosides 8.6 mg-docusate sodium 1 tab-cap PO BID constipation 02/18/25 Unknown History 50 mg tablet (Stimulant Laxative Plus) Allergy/AdvReac Type Severity Reaction Status Date / Time morphine Allergy Rash Verified 02/18/25 14:09 Penicillins Allergy Rash Verified 02/18/25 14:09 propoxyphene Allergy Nausea Verified 02/18/25 14:09 codeine AdvReac Nausea Verified 02/18/25 14:09 lisinopril AdvReac Vomiting Verified 02/18/25 14:09 quinine AdvReac Vomiting Verified 02/18/25 14:09 Family History Brother Heart disease Myocardial infarction Diabetes Father No problems noted. Mother CVA (cerebral vascular accident) Brother Myocardial infarction Diabetes Surgical History (Updated 02/18/25 @ 14:24 by Junie Arevalo) History of cystoscopy History of open reduction and internal fixation (ORIF) procedure S/P hysterectomy History of parathyroidectomy History of subtotal thyroidectomy History of carpal tunnel surgery History of total hysterectomy History of appendectomy History of cholecystectomy Social History household members: none housing: house Smoking Status: Never smoker alcohol intake: never substance use type: does not use caffeine: No what type of physical activity do you participate in: none Audit: Pertinent Findings Pertinent Findings EKG Perinent findings: 11/26/2024. Sinus rhythm with PSVC's. Otherwise normal EKG. Echo (EF%) pertinent findings: July 13, 2023. Ejection fraction 60%. PA pressures probably normal. No aortic stenosis. Consult pertinent findings: 02/14/2024. Samir POSADA. 1. PDQK-vaary-syhfsnt denies any recent symptoms or events. Continue to monitor. 2. Mitral valve prolapse?acute-latest echo does not show any insufficiency. 3. Hypertension?controlled Recommendation Anesthesia Recommendation Anesthesia recommendation: OPTIMIZED for anesthesia
[2025-02-26] VITALS (9 sets, daily range): BP systolic 123–146; BP diastolic 58–84; PULSE 68–84; RESP 14–16; TEMP 36.1–36.9; O2SAT 95–98; BMI 25.7
[2025-02-26] MEDS: Lactated Ringers 1,000 ML 15 ML IV (09:33)
--- NOTE | 2025-02-26 09:51 | PCM.PRE.AN2 ---
ASA Classification* ASA Classification ASA Classification: 3 Assessment & Plan Anesthesia* Anesthesia Assessment Anesthesia Assessment: Discussed sedation and/or anesthesia options, risks, benefits, and alternatives with patient/parents/legal guardian/POA. Questions invited. The patient/parents/legal guardian/POA seems to understand and agrees to proceed with anesthesia plan. Reviewed the physical assessment, medical history, allergy history and patient home medications list prior to surgery/procedure/anesthetic and documented any changes. Performed airway and anesthesia risk assessments. Anesthesia Type Anesthesia Type: General History Source History Obtained from:: Patient and Chart Anesthesia Focused Assessment* Temperature: 98.4 F Pulse Rate: 74 Blood Pressure: 123/58 Respiratory Rate: 16 Pulse Ox: 97 Oxygen Delivery Method: Room Air Airway Assessment Mouth opens: >3 cm Mallampati Score: II Teeth Condition: Dentures (upper) and Lower (implants) Neck Range of motion (ROM): Limited ROM Focused Labs Anesthesia Preop lab: CBC WBC 7.9 K/mm3 (4.4-11.0) 01/24/25 12:01/24/25 RBC 4.13 M/mm3 (4.2-5.4) L 01/24/25 12:01/24/25 Hgb 11.0 g/dL (12.0-15.0) L 01/24/25 12:01/24/25 Hct 35.4 % (37-47) L 01/24/25 12:01/24/25 Plt Count 393 K/mm3 (150-450) 01/24/25 12:01/24/25 CHEMISTRY Potassium 4.3 mmol/L (3.3-5.1) 01/24/25:01/24/25 Sodium 140 mmol/L (133-145) 01/24/25 12:01/24/25 Magnesium 1.9 mg/dL (1.6-2.6) 11/25/24 05:11/25/24 Phosphorus 2.7 mg/dL (2.5-4.9) 11/25/24 05:11/25/24 BUN 19 mg/dL (4-19) 01/24/25:01/24/25 Creatinine 1.25 mg/dL (0.70-1.20) H 01/24/25 12:33 01/24/25 Glucose 123 mg/dL (70-99) H 01/24/25 12:33 01/24/25 POC Glucose 212 mg/dL (74-106) H 12/18/24 11:59 12/18/24 TSH 0.191 uIU/mL (0.300-4.200) L 01/24/25 12:33 01/24/25 COAG PT 17.4 SECONDS (11.7-14.9) H 09/20/17 17:38 09/20/17 Pre-Assessment Diagnosis/Proposed Procedure Planned Operative Procedure(s): BILAT URETEROSCOPY LASER STONE STENT REMOVAL Anesthesia History Anesthesia History - engineer internship: Anesthesia History - engineer internship Hx Hospitalization No 02/18/25 14:12 Any Problems With Anesthesia Yes: SLOW TO AWAKEN 02/18/25 14:12 Cholinesterase deficiency No 02/18/25 14:12 You/Your Family Experience No 02/18/25 14:12 fever (hyperthermia) with Relationship Recent Exposure to Contagious No 02/26/25 09:03 Disease Does patient have nerve No 02/18/25 14:12 stimulator Patient instructed to have device shut off --Does patient have Pacemaker No 02/26/25 09:03 or ICD? When Was Last Pacemaker Check QUESTION #4 FULL TEXT: You/Your Family Experience fever (hyperthermia) with Anesthesia Last Oral Intake Last Oral intake: Last Oral Intake NPO since 17:00 02/26/25 09:03 Meds taken in AM with sips of Yes 02/26/25 09:03 water? Meds patient instructed to take am of surgery PONV PONV - engineer internship: PONV - engineer internship Female Yes 02/18/25 14:12 HX of Motion Sickness No 02/18/25 14:12 HX of N/V After Surgery No 02/18/25 14:12 Non-Smoker Yes 02/18/25 14:12 Duration of Surgery greater Yes 02/18/25 14:12 than 60 minutes Number of Risk Factors 3 02/18/25 14:12 PONV Score Moderate Risk 02/18/25 14:12 Height & Weight Height & Weight: Anesthesia: Height & Weight Height 5 ft 4.17 in 02/26/25 09:03 Weight: 68.4 kg 02/26/25 09:03 Body Mass Index (BMI) 25.7 02/26/25 09:03 Respiratory Assessment Respiratory Assessment - engineer internship: Respiratory Tract Infection Hx - engineer internship Hx Respiratory Tract Infection No 02/18/25 14:12 STOP Sleep Apnea STOP Sleep Apnea - engineer internship: STOP Sleep Apnea - engineer internship Hx Hypertension Yes: CONTROLLED WITH MED 02/18/25 14:12 Hx Sleep Apnea No 02/18/25 14:12 CPAP No 02/18/25 14:12 BIPAP No 02/18/25 14:12 Do you snore loudly (louder No 02/18/25 14:12 than talking or can be heard Do you often feel tired/ Yes 02/18/25 14:12 fatigued/ sleepy during daytime? Has anyone observed you stop No 02/18/25 14:12 breathing during sleep? STOP Results Positive 02/18/25 14:12 QUESTION #5 FULL TEXT : Do you snore loudly (louder than talking or can be heard through closed doors)? 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 Specify any problems Hx of Preganancy in last 3 No 02/18/25 14:12 Months Nurse Filling Out Transfusion DSCHRIBER 02/18/25 14:12 & Questions: Date: 02/18/25 02/18/25 14:12 Time: 14:14 02/18/25 14:12 Patient unable to answer at this time (ie. confused, unrespo /Reproduction History /Reproductive History - engineer internship: /Reproductive Hx- engineer internship Hx Now No 02/18/25 14:12 Gestational Age (in weeks): EDC: Hx Hx Para Hx Section SAB No 02/18/25 14:12 Active Medications Active Medications: Current Medications Generic Name Dose Route Start Last Admin Trade Name Freq PRN Reason Stop Dose Admin Cefazolin Sodium 2 gm/ Sodium 110 mls @ 150 mls/hr 02/26/25 10:25 Chloride IV 02/26/25 11:08 INTRAOP ONE Lactated Ringer's 1,000 mls @ 15 mls/hr 02/26/25 09:45 02/26/25 09:33 IV 15 mls/hr .Q48H OJ Administration PFSH Medical History (Updated 02/18/25 @ 14:24 by Junie Arevalo) Lives in retirement Wears hearing aid Wears glasses Wears dentures Depression Anxiety Insulin dependent diabetes mellitus Walker as ambulation aid Arthritis High cholesterol Injury of head and neck History of hiatal hernia History of ulceration Gastric reflux Non-smoker History of pain when walking History of stress test History of echocardiogram Cardiology follow-up encounter Infection due to ESBL-producing Escherichia coli Chronic kidney disease, stage 3a Post-menopausal Chronic pain Hypertension Osteoarthritis of right knee Right knee pain CKD (chronic kidney disease) stage 3, GFR 30-59 ml/min MVP (mitral valve prolapse) PSVT (paroxysmal supraventricular tachycardia) Pure hypercholesterolemia Nonrheumatic mitral (valve) prolapse Palpitations Premature atrial contractions Premature ventricular contractions Mitral valve prolapse Hyperparathyroidism Osteoporosis Hyperthyroidism HTN (hypertension) DM type 2 (diabetes mellitus, type 2) Home Medications ?Medication ?Instructions ?Recorded ?Last Taken ?Type fluoxetine 20 mg tablet 60 mg PO DAILY depression 05/02/22 11/28/24 History pantoprazole 40 mg tablet,delayed 40 mg PO DAILY acid reflux 05/02/22 11/28/24 History release pravastatin 80 mg tablet 80 mg PO QHS cholesterol #90 tabs 06/27/23 Unknown Rx insulin degludec 200 unit/mL (3 16 unit subcut BID 12/13/24 Unknown History mL) subcutaneous pen (Tresiba FlexTouch U-200 insulin) oxybutynin chloride 10 mg 10 mg PO QHS 12/13/24 Unknown History tablet,extended release 24 hr valsartan 320 1 tab PO QHS 12/13/24 Unknown History mg-hydrochlorothiazide 12.5 mg tablet acetaminophen 500 mg tablet 1,000 mg PO Q6H PRN Pain Score 1-3 02/18/25 Unknown History ascorbic acid (vitamin C) 500 mg 500 mg PO BID 02/18/25 Unknown History tablet (C-500) methenamine hippurate 1 gram tablet 1 g PO BID 02/18/25 Unknown History nystatin 100,000 unit/gram topical 1 applic topical BID 02/18/25 Unknown History powder (Klayesta) sennosides 8.6 mg-docusate sodium 1 tab-cap PO BID constipation 02/18/25 Unknown History 50 mg tablet (Stimulant Laxative Plus) Allergy/AdvReac Type Severity Reaction Status Date / Time morphine Allergy Rash Verified 02/18/25 14:09 Penicillins Allergy Rash Verified 02/18/25 14:09 propoxyphene Allergy Nausea Verified 02/18/25 14:09 codeine AdvReac Nausea Verified 02/18/25 14:09 lisinopril AdvReac Vomiting Verified 02/18/25 14:09 quinine AdvReac Vomiting Verified 02/18/25 14:09 Family History Brother Heart disease Myocardial infarction Diabetes Father No problems noted. Mother CVA (cerebral vascular accident) Brother Myocardial infarction Diabetes Surgical History (Updated 02/18/25 @ 14:24 by Junie Arevalo) History of cystoscopy History of open reduction and internal fixation (ORIF) procedure S/P hysterectomy History of parathyroidectomy History of subtotal thyroidectomy History of carpal tunnel surgery History of total hysterectomy History of appendectomy History of cholecystectomy Social History household members: none housing: house Smoking Status: Never smoker alcohol intake: never substance use type: does not use caffeine: No what type of physical activity do you participate in: none Review of Systems (Anesthesia) ROS Narrative System reviewed and no additional complaints, except as documented.
[2025-02-26 09:58] LABS: Bedside Glucose 91 mg/dL (74-106)
--- NOTE | 2025-02-26 10:01 | PCM.HP.STD ---
HPI - General General Date of Service: 02/26/25 Chief Complaint: Kidney stones HPI Narrative JUVENAL RAVI, is a 84 F who presents with bilateral stents to just history of a kidney stone plan to do bilateral ureteroscopy laser of any stones and removal of stents will also get urine cultures. [facility] Medical History (Updated 02/18/25 @ 14:24 by Junie Arevalo) Lives in senior care Wears hearing aid Wears glasses Wears dentures Depression Anxiety Insulin dependent diabetes mellitus Walker as ambulation aid Arthritis High cholesterol Injury of head and neck History of hiatal hernia History of ulceration Gastric reflux Non-smoker History of pain when walking History of stress test History of echocardiogram Cardiology follow-up encounter Infection due to ESBL-producing Escherichia coli Chronic kidney disease, stage 3a Post-menopausal Chronic pain Hypertension Osteoarthritis of right knee Right knee pain CKD (chronic kidney disease) stage 3, GFR 30-59 ml/min MVP (mitral valve prolapse) PSVT (paroxysmal supraventricular tachycardia) Pure hypercholesterolemia Nonrheumatic mitral (valve) prolapse Palpitations Premature atrial contractions Premature ventricular contractions Mitral valve prolapse Hyperparathyroidism Osteoporosis Hyperthyroidism HTN (hypertension) DM type 2 (diabetes mellitus, type 2) Home Medications ?Medication ?Instructions ?Recorded ?Last Taken ?Type fluoxetine 20 mg tablet 60 mg PO DAILY depression 05/02/22 11/28/24 History pantoprazole 40 mg tablet,delayed 40 mg PO DAILY acid reflux 05/02/22 11/28/24 History release pravastatin 80 mg tablet 80 mg PO QHS cholesterol #90 tabs 06/27/23 Unknown Rx insulin degludec 200 unit/mL (3 16 unit subcut BID 12/13/24 Unknown History mL) subcutaneous pen (Tresiba FlexTouch U-200 insulin) oxybutynin chloride 10 mg 10 mg PO QHS 12/13/24 Unknown History tablet,extended release 24 hr valsartan 320 1 tab PO QHS 12/13/24 Unknown History mg-hydrochlorothiazide 12.5 mg tablet acetaminophen 500 mg tablet 1,000 mg PO Q6H PRN Pain Score 1-3 02/18/25 Unknown History ascorbic acid (vitamin C) 500 mg 500 mg PO BID 02/18/25 Unknown History tablet (C-500) methenamine hippurate 1 gram tablet 1 g PO BID 02/18/25 Unknown History nystatin 100,000 unit/gram topical 1 applic topical BID 02/18/25 Unknown History powder (Klayesta) sennosides 8.6 mg-docusate sodium 1 tab-cap PO BID constipation 02/18/25 Unknown History 50 mg tablet (Stimulant Laxative Plus) Allergy/AdvReac Type Severity Reaction Status Date / Time morphine Allergy Rash Verified 02/18/25 14:09 Penicillins Allergy Rash Verified 02/18/25 14:09 propoxyphene Allergy Nausea Verified 02/18/25 14:09 codeine AdvReac Nausea Verified 02/18/25 14:09 lisinopril AdvReac Vomiting Verified 02/18/25 14:09 quinine AdvReac Vomiting Verified 02/18/25 14:09 Family History Brother Heart disease Myocardial infarction Diabetes Father No problems noted. Mother CVA (cerebral vascular accident) Brother Myocardial infarction Diabetes Surgical History (Updated 02/18/25 @ 14:24 by Junie Arevalo) History of cystoscopy History of open reduction and internal fixation (ORIF) procedure S/P hysterectomy History of parathyroidectomy History of subtotal thyroidectomy History of carpal tunnel surgery History of total hysterectomy History of appendectomy History of cholecystectomy Social History household members: none housing: house Smoking Status: Never smoker alcohol intake: never substance use type: does not use caffeine: No what type of physical activity do you participate in: none Vital Signs Vital Signs Vital Signs: 02/26/25 09:03 02/26/25 09:03 02/26/25 09:56 Temperature 98.4 F 98.4 F Temperature Source Temporal Pulse Rate 74 74 Respiratory Rate 16 16 Respiratory Pattern Normal Blood Pressure 123/58 H 123/58 H Blood Pressure Mean 79 Blood Pressure Position Semi-Fowlers Blood Pressure Location Left Arm Pulse Ox 97 97 Oxygen Delivery Method Room Air Room Air Weight Weight: 68.4 kg Body Mass Index (BMI) 25.7 Results Lab / Micro Data Labs: Laboratory Results - last 24 hr 02/26/25 08:59: POC Glucose 91
--- NOTE | 2025-02-26 10:02 | DCINST_ITS ---
Discharge Instructions Diet Discharge Diet: No restrictions DC O2, CPAP, BIPAP needs Home O2 Discharge instructions: No Dressing / Incision Discharge Activity: Return to Normal Activity and May Not Drive (while taking narcotic pain medications.) Dressing / Incision Call your doctor if you observe: Fever of 101 or Higher Follow Up Care Please Follow Up With: Eber Dewitt MD When: Call [phone] for an appointment Test Results: Test results from this visit will be discussed in further detail at your follow- up appointment, if applicable. Discharge Plan Admission Primary Reason for Your Visit: remove stents Attending Provider: Eber Dewitt Primary Care Provider: Krunal Sandoval Chi Instructions Print Language: Egyptian Discharge Orders/Prescriptions Prescriptions: Continued fluoxetine 20 mg tablet 60 mg PO DAILY pantoprazole 40 mg tablet,delayed release (DR/EC) 40 mg PO DAILY pravastatin 80 mg tablet 80 mg PO QHS Qty: 90 3RF oxybutynin chloride 10 mg tablet extended release 24hr 10 mg PO QHS insulin degludec [Tresiba FlexTouch U-200] 200 unit/mL (3 mL) insulin pen 16 unit SUBCUT BID Patient Comments: INJECT 16 UNITS IN MORNING AND 16 UNITS IN EVENING SUBCUTANEOUSLY DAILY valsartan-hydrochlorothiazide 320-12.5 mg tablet 1 tab PO QHS sennosides-docusate sodium [Stimulant Laxative Plus] 8.6-50 mg Tablet 1 tab-cap PO BID methenamine hippurate 1 gram tablet 1 g PO BID nystatin [Klayesta] 100,000 unit/gram powder 1 applic topical BID ascorbic acid (vitamin C) [C-500] 500 mg tablet 500 mg PO BID acetaminophen 500 mg Tablet 1,000 mg PO Q6H PRN (Reason: Pain Score 1-3) Referrals / Follow Up: Krunal Sandoval Chi, MD [Primary Care Provider] - Disposition Disposition (needs filled in before D/C Order can be placed): Home, Self Care
[2025-02-26] MEDS: Cefazolin 2 GM in 0.9% Normal Saline (100mL Bag) 100 ML IV (10:20)
--- NOTE | 2025-02-26 10:41 | PCM.OPRPT ---
Operative Report (Standard) Operative Information Date of Procedure: 02/26/25 Pre-Operative Diagnosis: Bilateral stents history of urinary tract infections Post-Operative Diagnosis: Same Surgery/Procedure Performed: Cystoscopy, removal of left stent, unable to perform left ureteroscopy difficult angle, removal of right stent right ureteroscopy no stone seen. 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 Today organ to get her surgery remove both stents perform ureteroscopy. She was taken back to the operating room this with induction of anesthesia she placed in dorsolithotomy position went in the bladder with the cystoscope the bladder was very friable and immediately became bloody she started coughing and bucking with the anesthesia finally we got her settled down the anesthesia and could could see the bladder again and then grabbed the stent on the right side try to put a wire up to the stent but it would not go up try to get into the ureter but the angle was too difficult to could not go up the right ureter, and then I grabbed the left stent and then put a wire up the left stent and then over the wire went in with a flexible ureteroscope went all the way up to the kidney no stones along the course of the ureter no obstruction. So the ureteroscope was removed no stone seen on ureteroscopy bladder was drained anesthetic was reversed taken back to PACU in good condition see her back in a few months for checkup. Surgical Findings: No stone seen stents removed bilaterally Complications Complications: No Admit VTE Documentation VTE Present on Admission: No VTE Mechan Device Prophylaxis: SCD's VTE Pharm Prophylaxis ordered?: No
--- NOTE | 2025-02-26 10:53 | PCM.POST.ANE ---
Anesthesia: Postop Eval I Current Vital Signs Temperature: 97 F Pulse Rate: 68 Blood Pressure: 146/77 Respiratory Rate: 14 Pulse Ox: 98 Oxygen Delivery Method: Simple Mask Assessment Airway patent: Yes Spontaneous unlabored respirations: Yes Mental status: Awake nausea: No Vomiting: No Anesthesia Complication: No Fluid Hydration Crystalloid volume administer (ml): 650 Total IV fluid infused: 650 Progress Note Anesthesia document: Postop Eval 1 completed: Yes
--- NOTE | 2025-02-26 11:55 | POSTOPAN2_ITS ---
Anesthesia Postop Eval I Sum Postop Eval Completion status Anesthesia document: Postop Eval 1 completed: Yes Anesthesia Postop Eval I Summary Anesthesia Postop Eval I Summary: Anesthesia Postop Eval I: Assessment Summary Airway patent Yes 02/26/25 10:54 [email or web address] Spontaneous unlabored Yes 02/26/25 10:54 [email or web address] respirations Mental status Awake 02/26/25 10:54 [email or web address] nausea No 02/26/25 10:54 [email or web address] Vomiting No 02/26/25 10:54 [email or web address] Anesthesia Postop Eval I: Fluid Summary Crystalloid volume administer 650 02/26/25 10:54 [email or web address] (ml) Colloids volume administered ( ml) Blood Product volume administered (ml) Total IV fluid infused 650 02/26/25 10:54 [email or web address] Anesthesia Postop Eval I: Summary Notes Anesthesia Complication No 02/26/25 10:54 [email or web address] Anesthesia Complication Comment: Post-operative progress note Anesthesia: Postop Eval II Evaluation Mental status: Awake Pain Level: 0 nausea: No Vomiting: No Complications Anesthesia Complication: No
--- NOTE | 2025-02-26 11:55 | PCM.POSTANE2 ---
Anesthesia Postop Eval I Sum Postop Eval Completion status Anesthesia document: Postop Eval 1 completed: Yes Anesthesia Postop Eval I Summary Anesthesia Postop Eval I Summary: Anesthesia Postop Eval I: Assessment Summary Airway patent Yes 02/26/25 10:54 TOOL PLANER SET UP OPERATOR.HBARR Spontaneous unlabored Yes 02/26/25 10:54 TOOL PLANER SET UP OPERATOR.HBARR respirations Mental status Awake 02/26/25 10:54 TOOL PLANER SET UP OPERATOR.HBARR nausea No 02/26/25 10:54 TOOL PLANER SET UP OPERATOR.HBARR Vomiting No 02/26/25 10:54 TOOL PLANER SET UP OPERATOR.HBARR Anesthesia Postop Eval I: Fluid Summary Crystalloid volume administer 650 02/26/25 10:54 TOOL PLANER SET UP OPERATOR.HBARR (ml) Colloids volume administered ( ml) Blood Product volume administered (ml) Total IV fluid infused 650 02/26/25 10:54 TOOL PLANER SET UP OPERATOR.HBARR Anesthesia Postop Eval I: Summary Notes Anesthesia Complication No 02/26/25 10:54 TOOL PLANER SET UP OPERATOR.HBARR Anesthesia Complication Comment: Post-operative progress note Anesthesia: Postop Eval II Evaluation Mental status: Awake Pain Level: 0 nausea: No Vomiting: No Complications Anesthesia Complication: No
== END 2025-02-26 12:34 | disposition home or self-care (01) ==
LOC: SDC 08:26 → AC 08:26
PROVIDERS: PCP Family Medicine Geriatric Medicine; Referring Provider Urology; Visit Provider Urology
PROC: (CPT 52353; principal; 2025-02-26 10:15)
DX: Z87.440 Personal history of urinary (tract) infections (principal); E11.22 Type 2 diabetes mellitus with diabetic chronic kidney disease; N18.31 Chronic kidney disease, stage 3a; E78.00 Pure hypercholesterolemia, unspecified; I12.9 Hypertensive chronic kidney disease with stage 1 through stage 4 chronic kidney disease, or unspecified chronic kidney disease; K21.9 Gastro-esophageal reflux disease without esophagitis; Z79.899 Other long term (current) drug therapy; Z87.442 Personal history of urinary calculi
CPT/HCPCS: 52310; 00910; 82962; C1769; J2405

== ENCOUNTER → 2025-03-24 | Outpatient (CLI) | payer MEDICARE, SELFPAY ==
[2025-03-24 15:48] LABS: Absolute Lymphocyte Count 1.75 X10^3/uL (0.83-4.51); Absolute Neutrophil Count 5.1 X10^3/uL (2.0-7.7); Basophil# 0.02 X10^3/uL; Basophil% 0.3 % (0-1); Eosinophil# 0.08 X10^3/uL; Eosinophils% 1.1 % (0-5); Hematocrit 34.9 % (37-47); Lymphocyte # 1.75 X10^3/ul (0.83-4.51); Lymphocyte % 23.1 % (19-41); Mean Corp Hgb Conc 31.5 g/dL (32-36); Mean Corpuscular Hgb 26.5 pg (27.0-32.0); Mean Corpuscular Volume 84.1 fL (81-99); Mean Platelet Vol. 9.7 fl (6.2-12.0); Monocyte# 0.64 X10^3/uL; Monocyte% 8.4 % (0-10); NRBC Flagged by Analyzer 0 % (0-5); Neutrophil # 5.08 X10^3/uL (2.7-7.7); Neutrophil % 66.8 % (47-70); Platelet Count 243 K/mm3 (150-450); RBC Distribution Width CV 15.9 % (11.6-14.6); RBC Distribution Width SD 48.8 fl (35.1-43.9); Red Blood Count 4.15 M/mm3 (4.2-5.4); White Blood Count 7.6 K/mm3 (4.4-11.0)
[2025-03-24 16:05] LABS: Hemoglobin A1c 9.5 % (<=5.6)
[2025-03-24 16:26] LABS: ALB/GLOB Ratio 1.3 RATIO (0.9-2.4); AST(SGOT) 23 U/L (<=31); Alanine Aminotransfer ALT/SGPT 13 U/L (<=34); Albumin, Serum 3.8 g/dL (3.4-4.8); Alkaline Phosphatase 70 U/L (35-104); Anion Gap 10 (5-15); BUN 20 mg/dL (4-19); BUN/Creat Ratio 19.6 RATIO (10-20); Calcium,Total 9.1 mg/dL (7.6-11.0); Carbon Dioxide 24.9 mmol/L (21.0-32.0); Chloride 101 mmol/L (98-108); Cholesterol 183 mg/dL (<=200); Creatinine, Serum 1.01 mg/dL (0.70-1.20); EST Glomerular Filtration Rate 56 (>60); Glucose 245 mg/dL (70-99); High Density Lipoprotein 73 mg/dL; Low Density Lipoprotein Calc. 95 mg/dL; Potassium 3.8 mmol/L (3.3-5.1); Protein, Total 6.9 g/dL (5.9-8.4); Sodium Level 137 mmol/L (133-145); Thyroid Stim Hormone (TSH) 0.305 uIU/mL (0.300-4.200); Triglycerides 78 mg/dL; Very Low Density Lipoprotein 16 mg/dL (5-40); Vitamin D,25 Hydroxy 13.2 ng/mL (30-100); cholesterol:hdl ratio screen 2.52
== END | disposition home or self-care (01) ==
LOC: LAB 15:04
PROVIDERS: PCP Family Medicine Geriatric Medicine; Referring Provider Family Medicine Geriatric Medicine; Visit Provider Family Medicine Geriatric Medicine
DX: E78.5 Hyperlipidemia, unspecified (principal); E11.65 Type 2 diabetes mellitus with hyperglycemia; I10 Essential (primary) hypertension; E03.9 Hypothyroidism, unspecified; E55.9 Vitamin D deficiency, unspecified
CPT/HCPCS: 36415; 80053; 80061; 82306; 83036; 84443; 85025

== ENCOUNTER 2025-05-27 09:18 | Emergency (ER) | payer MEDICARE, SELFPAY ==
[2025-05-27] VITALS (7 sets, daily range): BP systolic 98–132; BP diastolic 47–76; PULSE 76–95; RESP 15–18; TEMP 37.1–38.1; O2SAT 94–99; BMI 24.7
--- NOTE | 2025-05-27 09:24 | EX.ED.DYSGE1 ---
HPI History of Present Illness Chief Complaint: General Illness Informant: patient and EMS Onset/Context/Timing Onset: Days (5) Context: Gradual Onset Timing: Intermittent Quality: Nauseated Location: Diffuse Worsened by: Nothing Relieved by: Nothing Narrative Narrative: Patient presents with nausea that has been intermittent over the last 5 days. Patient states that she gets waves of nausea that come and go. Patient denies any vomiting. Patient admits to some mild abdominal discomfort. Patient states nothing makes it worse and nothing makes it better. Patient denies any fevers, however, EMS noted that the patient did have a fever. Patient denies any diarrhea, melena, or hematochezia. Patient admits to some chronic urinary incontinence that she has had for years. Patient denies any dysuria, frequency, or hematuria. [facility] Medical History Lives in longterm Wears hearing aid Wears glasses Wears dentures Depression Anxiety Insulin dependent diabetes mellitus Walker as ambulation aid Arthritis High cholesterol Injury of head and neck History of hiatal hernia History of ulceration Gastric reflux Non-smoker History of pain when walking History of stress test History of echocardiogram Cardiology follow-up encounter Infection due to ESBL-producing Escherichia coli Chronic kidney disease, stage 3a Post-menopausal Chronic pain Hypertension Osteoarthritis of right knee Right knee pain CKD (chronic kidney disease) stage 3, GFR 30-59 ml/min MVP (mitral valve prolapse) PSVT (paroxysmal supraventricular tachycardia) Pure hypercholesterolemia Nonrheumatic mitral (valve) prolapse Palpitations Premature atrial contractions Premature ventricular contractions Mitral valve prolapse Hyperparathyroidism Osteoporosis Hyperthyroidism HTN (hypertension) DM type 2 (diabetes mellitus, type 2) Home Medications ?Medication ?Instructions ?Recorded ?Last Taken ?Type fluoxetine 20 mg tablet 60 mg PO DAILY depression 05/02/22 11/28/24 History pantoprazole 40 mg tablet,delayed 40 mg PO DAILY acid reflux 05/02/22 11/28/24 History release pravastatin 80 mg tablet 80 mg PO QHS cholesterol #90 tabs 06/27/23 Unknown Rx insulin degludec 200 unit/mL (3 16 unit subcut BID 12/13/24 Unknown History mL) subcutaneous pen (Tresiba FlexTouch U-200 insulin) oxybutynin chloride 10 mg 10 mg PO QHS 12/13/24 Unknown History tablet,extended release 24 hr valsartan 320 1 tab PO QHS 12/13/24 Unknown History mg-hydrochlorothiazide 12.5 mg tablet acetaminophen 500 mg tablet 1,000 mg PO Q6H PRN Pain Score 1-3 02/18/25 Unknown History ascorbic acid (vitamin C) 500 mg 500 mg PO BID 02/18/25 Unknown History tablet (C-500) methenamine hippurate 1 gram tablet 1 g PO BID 02/18/25 Unknown History nystatin 100,000 unit/gram topical 1 applic topical BID 02/18/25 Unknown History powder (Klayesta) sennosides 8.6 mg-docusate sodium 1 tab-cap PO BID constipation 02/18/25 Unknown History 50 mg tablet (Stimulant Laxative Plus) nitrofurantoin 100 mg PO BID #14 caps 05/27/25 Unknown Rx monohydrate/macrocrystals 100 mg capsule (Macrobid) Allergy/AdvReac Type Severity Reaction Status Date / Time morphine Allergy Rash Verified 05/27/25 09:19 Penicillins Allergy Rash Verified 05/27/25 09:19 propoxyphene Allergy Nausea Verified 05/27/25 09:19 codeine AdvReac Nausea Verified 05/27/25 09:19 lisinopril AdvReac Vomiting Verified 05/27/25 09:19 quinine AdvReac Vomiting Verified 05/27/25 09:19 Family History Brother Heart disease Myocardial infarction Diabetes Father No problems noted. Mother CVA (cerebral vascular accident) Brother Myocardial infarction Diabetes Surgical History History of cystoscopy History of open reduction and internal fixation (ORIF) procedure S/P hysterectomy History of parathyroidectomy History of subtotal thyroidectomy History of carpal tunnel surgery History of total hysterectomy History of appendectomy History of cholecystectomy Social History household members: none housing: house Smoking Status: Never smoker alcohol intake: never substance use type: does not use caffeine: No what type of physical activity do you participate in: none ROS ROS ED Constitutional Constitutional ED: Denies chills or fever(s) Eyes Eyes: Denies blurry vision or change in vision ENT ENT ED: Denies rhinorrhea or sore throat Cardiovascular Cardiovascular: Denies chest pain or palpitations Respiratory/Chest Respiratory/Chest: Denies cough or dyspnea Gastrointestinal Gastrointestinal: Reports nausea; Denies diarrhea or vomiting Genitourinary Genitourinary ED: Denies dysuria or hematuria Musculoskeletal Musculoskeletal: Denies back pain or neck pain Integumentary Denies abscess or rash Neurologic Neurologic: Denies headache(s) or weakness Allergic/Immunologic Allergic/Immunologic ED: Denies mouth swelling or urticaria EXAM Physical Exam Const Vital Signs: 05/27/25 09:20 05/27/25 09:22 05/27/25 09:22 Temperature 100.5 F H 100.5 F H Temperature Source Oral Oral Pulse Rate 92 95 Respiratory Rate 18 18 Respiratory Pattern Normal Blood Pressure 132/65 H 132/65 H Blood Pressure Mean 87 87 Pulse Ox 97 94 Oxygen Delivery Method Room Air Room Air 05/27/25 09:39 05/27/25 10:20 05/27/25 11:00 Temperature 100.4 F H 99.1 F Temperature Source Oral Oral Pulse Rate 81 79 Respiratory Rate 18 18 Respiratory Pattern Blood Pressure 113/53 L 101/76 Blood Pressure Mean 73 84 Pulse Ox 98 96 Oxygen Delivery Method Room Air Room Air Room Air Positive well nourished and well developed Constitutional Narrative: BMI is 24.7. General Appearance ED: well developed and NAD HEENT Reports moist mucous membranes Neck supple and no JVD Resp normal respiratory effort and clear to auscultation bilaterally Cardio regular rate and regular rhythm GI non-tender and non-distended Palpation: soft Extremity General Extremety ED: Negative for edema or tenderness General Extremity: Negative for edema Neuro oriented x3, CN's II-XII intact bilaterally and no sensory deficits noted Sensorium / Orientation: alert Motor Exam: strength 5/5 throughout Psych mental status grossly normal MDM MDM MDM Narrative Medical decision making narrative: Differential diagnosis includes urinary tract infection, sepsis, electrolyte abnormality, dehydration, pneumonia, bronchitis, gastroenteritis, and viral illness. CBC will be obtained to assess for leukocytosis and anemia. Comprehensive metabolic profile will be obtained to assess for electrolyte abnormality, hepatic function, and renal function. PT with INR and PTT will be obtained to assess for coagulopathy. Serum lactate will be obtained to assess for sepsis. Urine culture will be obtained to assess for urinary tract infection. Blood culture will be obtained to assess for sepsis. Urinalysis will be obtained to assess for urinary tract infection and hematuria. History & Record Review Additional record(s) reviewed:: Prior inpatient record, Prior outpatient record, Prior ED visit and Prior labs Lab Data Attestation: I reviewed the patient's lab results. Lab results narrative: CBC was reviewed. There was a mild anemia with a hemoglobin of 10.7 and hematocrit 33.7. These are consistent with previous results. Comprehensive metabolic profile was reviewed. BUN was slightly elevated at 28 and creatinine was 1.3. These are consistent with previous results. PT with INR and PTT were reviewed and were within normal limits. Serum lactate was reviewed and was less than 1.0. Urinalysis was reviewed. There are positive nitrates. Leukocyte esterase was 500. There are greater than 100 white blood cells. Labs: Laboratory Results - last 24 hr 05/27/25 05/27/25 05/27/25 09:22 09:25 09:59 WBC 7.0 RBC 4.04 L Hgb 10.7 L Hct 33.7 L MCV 83.4 MCH 26.5 L MCHC 31.8 L RDW Std Deviation 43.8 RDW Coeff of Jose Eduardo 14.3 Plt Count 273 MPV 9.6 Immature Gran % (Auto) 0.400 Neut % (Auto) 70.7 H Lymph % (Auto) 10.6 L [place] % (Auto) 18.0 H Eos % (Auto) 0.0 Baso % (Auto) 0.3 Absolute Neuts (auto) 4.9 Absolute Lymphs (auto) 0.74 L Nucleated RBC % 0 PT 14.6 INR 1.1 APTT 29.8 Sodium 135 Potassium 4.0 Chloride 101 Carbon Dioxide 23.6 Anion Gap 11 BUN 28 H Creatinine 1.30 H Estim Creat Clear Calc 30.59 L Est GFR (MDRD) Non-Af 41 L BUN/Creatinine Ratio 21.3 H Glucose 63 L Lactic Acid < 1.0 Calcium 8.8 Total Bilirubin 0.86 AST 34 H ALT 14 Alkaline Phosphatase 72 Total Protein 6.9 Albumin 3.7 Globulin 3.2 Albumin/Globulin Ratio 1.2 Urine Color Urine Clarity Urine pH Ur Specific [place] Urine Protein Urine Glucose (UA) Urine Ketones Urine Occult Blood Urine Nitrite Urine Bilirubin Urine Urobilinogen Ur Leukocyte Esterase Urine RBC Urine WBC Ur Squamous Epith Cells Urine Bacteria Urine Mucus POC Glucose 63 L 05/27/25 10:09 WBC RBC Hgb Hct MCV MCH MCHC RDW Std Deviation RDW Coeff of Jose Eduardo Plt Count MPV Immature Gran % (Auto) Neut % (Auto) Lymph % (Auto) [place] % (Auto) Eos % (Auto) Baso % (Auto) Absolute Neuts (auto) Absolute Lymphs (auto) Nucleated RBC % PT INR APTT Sodium Potassium Chloride Carbon Dioxide Anion Gap BUN Creatinine Estim Creat Clear Calc Est GFR (MDRD) Non-Af BUN/Creatinine Ratio Glucose Lactic Acid Calcium Total Bilirubin AST ALT Alkaline Phosphatase Total Protein Albumin Globulin Albumin/Globulin Ratio Urine Color Yellow Urine Clarity Turbid Urine pH 6.5 Ur Specific [place] 1.010 Urine Protein 100 H Urine Glucose (UA) Normal Urine Ketones Negative Urine Occult Blood 150 H Urine Nitrite Positive H Urine Bilirubin Negative Urine Urobilinogen Normal Ur Leukocyte Esterase 500 H Urine RBC 0 SEEN Urine WBC >100 SEEN Ur Squamous Epith Cells 0 SEEN Urine Bacteria 0 SEEN Urine Mucus 0 SEEN POC Glucose Radiography Chest X-Ray - ED: 1 View, Read by ED Physician, Read by Radiologist and - (Atelectasis versus infiltrates in the lower lobes bilaterally) Diagnostic Testing: Clinical Impression(s) from Imaging Studies Chest X-Ray 05/27/25 09:36 IMPRESSION: Lungs are hypoinflated, with asymmetric right mid to lower lung densities, concerning for the presence of pneumonitis or atelectasis. No pleural effusion or pneumothorax is seen. The cardiomediastinal silhouette is within the normal range for age and technique. No acute osseous change is noted Reading Location: [place] [id number] Portable 1 view chest x-ray was obtained. On my independent interpretation, lung sal. Atelectasis versus infiltrate in the lower lobes. There is normal cardiac silhouette. Bony thorax is normal. There is no acute process noted. Radiologist also interpreted the x-ray and agrees. EKG Initial EKG: Attestation: I personally reviewed and interpreted this EKG as follows: Interpretation: Sinus Rhythm (86) and No Acute Injury Pattern Comments: EKG was obtained. On my independent interpretation, it showed a normal sinus rhythm with a rate of 86. PA interval, QRS interval, and QTc intervals were all normal. There is borderline left axis deviation -15. There are no acute ST or T wave changes. Prior EKG tracings: available for review Prior: Unchanged (11/26/2024) Treatment and Re-Evaluation :: Patient was given IV fluids. Patient was given Tylenol. Patient was advised of her findings. Patient was given a dose of Rocephin here. Patient was given a prescription for Macrobid since her prior urine culture showed ESBL E. coli which was sensitive to Macrobid. Patient was instructed to drink plenty of fluids. Patient was instructed to follow-up with her primary care physician in 5 to 7 days. Patient understood and was agreeable with the plan. All questions were answered. Discharge Plan Triage Chief Complaint: General Illness ED Provider: Karsten Clifford Dx/Rx/DC Orders Clinical Impression: Urinary tract infection, DM type 2 (diabetes mellitus, type 2), Essential hypertension Instructions: ED Cystitis Female Adult Prescriptions: Continued nitrofurantoin monohyd/m-cryst [Macrobid] 100 mg capsule 100 mg PO BID Qty: 14 0RF Rx Instructions: must administer with a meal/food No Action fluoxetine 20 mg tablet 60 mg PO DAILY pantoprazole 40 mg tablet,delayed release (DR/EC) 40 mg PO DAILY pravastatin 80 mg tablet 80 mg PO QHS Qty: 90 3RF oxybutynin chloride 10 mg tablet extended release 24hr 10 mg PO QHS insulin degludec [Tresiba FlexTouch U-200] 200 unit/mL (3 mL) insulin pen 16 unit SUBCUT BID Patient Comments: INJECT 16 UNITS IN MORNING AND 16 UNITS IN EVENING SUBCUTANEOUSLY DAILY valsartan-hydrochlorothiazide 320-12.5 mg tablet 1 tab PO QHS sennosides-docusate sodium [Stimulant Laxative Plus] 8.6-50 mg Tablet 1 tab-cap PO BID methenamine hippurate 1 gram tablet 1 g PO BID nystatin [Klayesta] 100,000 unit/gram powder 1 applic topical BID ascorbic acid (vitamin C) [C-500] 500 mg tablet 500 mg PO BID acetaminophen 500 mg Tablet 1,000 mg PO Q6H PRN (Reason: Pain Score 1-3) Primary Care Provider: Krunal Sandoval Chi Referrals: Krunal Sandoval Chi, MD [Primary Care Provider] - 3-5 Days Print Language: [place] Disposition Disposition: Home, Self Care
--- NOTE | 2025-05-27 09:36 | EKG12_ITS ---
Test Reason : GENERAL Blood Pressure : */* mmHG Vent. Rate : 86 BPM Atrial Rate : 86 BPM P-R Int : 178 ms QRS Dur : 80 ms QT Int : 372 ms P-R-T Axes : 76 -15 46 degrees QTcB Int : 445 ms Normal sinus rhythm Normal ECG Confirmed by YANNA PEÑALOZA, YOGESH ([id number]), photo editor SARAH SWENSON ([id number]) on 05/28/2025 8:33:00 AM Referred By: Confirmed By: YOGESH RAINES MD
--- NOTE | 2025-05-27 09:36 | RAD_ITS ---
PROCEDURE: CHEST 1 VIEW (PORTABLE) 05/27/2025 REASON FOR EXAM: FEVER TECHNIQUE: Frontal view of the chest. COMPARISON: None. RAD/Chest 1 View (Portable) IMPRESSION: Lungs are hypoinflated, with asymmetric right mid to lower lung densities, conc erning for the presence of pneumonitis or atelectasis. No pleural effusion or pneumothorax is seen. The cardiomediastinal silhouette is within the normal range for age and techniq ue. No acute osseous change is noted Reading Location: [place] [id number]
[2025-05-27 09:56] LABS: Hematocrit 33.7 % (37-47); Hemoglobin 10.7 g/dL (12.0-15.0); Immature Granulocytes Count 0.030 X10^3/uL (0.0-0.0); Mean Corp Hgb Conc 31.8 g/dL (32-36); Mean Corpuscular Volume 83.4 fL (81-99); Mean Platelet Vol. 9.6 fl (6.2-12.0); NRBC Flagged by Analyzer 0 % (0-5); Platelet Count 273 K/mm3 (150-450); RBC Distribution Width CV 14.3 % (11.6-14.6); RBC Distribution Width SD 43.8 fl (35.1-43.9); Red Blood Count 4.04 M/mm3 (4.2-5.4); White Blood Count 7.0 K/mm3 (4.4-11.0)
[2025-05-27] MEDS: 0.9% Normal Saline (1000mL) 1,000 ML 999 ML IV (09:59)
[2025-05-27 10:14] LABS: Mucous, Urine 0 SEEN /hpf (<or=2+); Red Blood Cells-Urine 0 SEEN /hpf (0-5); Squamous Epithelial Cells - UA 0 SEEN /hpf (5-10)
[2025-05-27 10:14] LABS: AST(SGOT) 34 U/L (<=31); Alanine Aminotransfer ALT/SGPT 14 U/L (<=34); Albumin, Serum 3.7 g/dL (3.4-4.8); Alkaline Phosphatase 72 U/L (35-104); Anion Gap 11 (5-15); BUN 28 mg/dL (4-19); BUN/Creat Ratio 21.3 RATIO (10-20); Calcium,Total 8.8 mg/dL (7.6-11.0); Carbon Dioxide 23.6 mmol/L (21.0-32.0); Chloride 101 mmol/L (98-108); Estimated Creatinine Clearance 30.59 ml/min (50-250); Globulin 3.2 g/dL (2.2-4.2); Glucose 63 mg/dL (70-99); Potassium 4.0 mmol/L (3.3-5.1)
[2025-05-27 10:17] LABS: Prothrombin Time (Protime)PT. 14.6 SECONDS (11.7-14.9)
[2025-05-27 10:18] LABS: Partial Thromboplast Time 29.8 Seconds (24.1-36.2)
[2025-05-27 10:20] LABS: Color, Urine Yellow (Yellow); Glucose, Dipstick Normal (Normal); Ketone-Dipstick Negative (Negative); Leukocyte Esterase-Dipstick 500 /ul (Negative); Nitrite-Dipstick Positive (Negative); Occult Blood-Urine 150 /ul (Negative); Protein-Dipstick 100 mg/dl (Negative); Specific Gravity, Urine 1.010 (1.002-1.030); Urine Bilirubin Dipstick Negative (Negative)
== END 2025-05-27 12:38 | disposition home or self-care (01) ==
PROVIDERS: Emergency Provider Emergency Medicine; PCP Family Medicine Geriatric Medicine; Visit Provider Emergency Medicine
DX: N39.0 Urinary tract infection, site not specified (principal); E11.22 Type 2 diabetes mellitus with diabetic chronic kidney disease; N18.31 Chronic kidney disease, stage 3a; I12.9 Hypertensive chronic kidney disease with stage 1 through stage 4 chronic kidney disease, or unspecified chronic kidney disease; E78.00 Pure hypercholesterolemia, unspecified; D64.9 Anemia, unspecified; R32 Unspecified urinary incontinence; R50.9 Fever, unspecified
CPT/HCPCS: 71045; 80053; 81001; 82962; 83605; 85025; 85610; 85730; 87040; 87077; 87086; 87088; 87186; 87631; 93005; 96361; 96365; 99285; A4216

== ENCOUNTER → 2025-06-09 | Outpatient (CLI) | payer MEDICARE, SELFPAY | END | disposition home or self-care (01) | LOC: POLAB3 16:50 | PROVIDERS: PCP Family Medicine Geriatric Medicine; Visit Provider Family Medicine Geriatric Medicine | DX: E11.65 Type 2 diabetes mellitus with hyperglycemia (principal); I10 Essential (primary) hypertension | CPT/HCPCS: 36415; 83036 ==

== ENCOUNTER → 2025-07-30 | Outpatient (CLI) | payer MEDICARE, SELFPAY ==
[2025-07-30 16:17] LABS: Hematocrit 38.8 % (37-47); Hemoglobin 12.1 g/dL (12.0-15.0); Immature Granulocytes Count 0.020 X10^3/uL (0.0-0.0); Mean Corp Hgb Conc 31.2 g/dL (32-36); Mean Corpuscular Volume 86.4 fL (81-99); Mean Platelet Vol. 10.2 fl (6.2-12.0); NRBC Flagged by Analyzer 0 % (0-5); Platelet Count 243 K/mm3 (150-450); RBC Distribution Width CV 15.1 % (11.6-14.6); RBC Distribution Width SD 48.0 fl (35.1-43.9); Red Blood Count 4.49 M/mm3 (4.2-5.4); White Blood Count 7.3 K/mm3 (4.4-11.0)
[2025-07-30 16:57] LABS: AST(SGOT) 27 U/L (<=31); Alanine Aminotransfer ALT/SGPT 15 U/L (<=34); Albumin, Serum 4.1 g/dL (3.4-4.8); Alkaline Phosphatase 58 U/L (35-104); Anion Gap 10 (5-15); BUN 20 mg/dL (4-19); BUN/Creat Ratio 18.9 RATIO (10-20); Calcium,Total 9.3 mg/dL (7.6-11.0); Carbon Dioxide 27.3 mmol/L (21.0-32.0); Chloride 101 mmol/L (98-108); Globulin 3.2 g/dL (2.2-4.2); Glucose 243 mg/dL (70-99); Potassium 4.3 mmol/L (3.3-5.1); Vitamin D,25 Hydroxy 21.9 ng/mL (30-100)
[2025-07-30 23:34] LABS: Xtra Tube Kwok EXTRA TUBE
== END | disposition home or self-care (01) ==
LOC: POLAB3 15:33
PROVIDERS: PCP Family Medicine Geriatric Medicine; Visit Provider Family Medicine Geriatric Medicine
DX: E11.65 Type 2 diabetes mellitus with hyperglycemia (principal); I10 Essential (primary) hypertension; E55.9 Vitamin D deficiency, unspecified; N39.0 Urinary tract infection, site not specified
CPT/HCPCS: 36415; 80053; 82306; 84443; 85025; 87086; 87088